=== PATIENT | male | born 1980 | race American Indian/Alaskan Native ===

== ENCOUNTER 2018-02-10 09:44 | Inpatient (IN) | payer SELFPAY ==
[2018-02-10] MEDS ORDERED: NACL 0.9% 500 ML 500 ML IV ONE (09:53)
[2018-02-10] MEDS ORDERED: CLEOCIN 600 MG/50 mL 600 MG/50 ML BAG IV ONE (10:05)
[2018-02-10] MEDS ORDERED: NACL 0.9% 250ML 250 ML IV ONE (10:05)
[2018-02-10] MEDS ORDERED: SUBLIMAZE IV ONE (10:05)
[2018-02-10] MEDS ORDERED: TYLENOL PO ONE (10:05)
[2018-02-10] MEDS ORDERED: NACL 0.9% 1000 ML 2,000 ML IV ONE (10:05)
[2018-02-10] MEDS ORDERED: NACL 0.9% 1000 ML 1,000 ML IV ONE ×2 (10:05→12:53)
--- NOTE | 2018-02-10 10:07 | Emergency Department Report ---
ED General Adult HPI - General Chief complaint: Fever Stated complaint: BUTTOCK ABSCESS Time Seen by Provider: 02/10/18 09:59 Source: patient, RN notes reviewed Mode of arrival: Ambulatory Limitations: No Limitations - History of Present Illness Initial comments: This is a 37-year-old gentleman who is not known to this provider previously. Patient reports that he does not have a local primary care doctor or chronic medical conditions. He presents to the ER with complaint of right gluteal pain and swelling, which is not traumatic, which is present for the past 4-5 days. Symptoms constant, did not radiate anywhere, worse with palpation and decreased with rest. Positive subjective fevers and chills, positive shortness of breath, no chest pain, no abdominal pain, no testicular pain. He reports she's had similar presentations in the past, reports she had gluteal swelling last year, approximately 12 months ago, although not as severe, and rep orts successful treatment with incision and drainage. -: Gradual, days(s) Location: right, lower extremity (gluteal cheek) Radiation: non-radiation Consistency: other Improves with: other Worsens with: other Associated Symptoms: fever/chills, loss of appetite, malaise, shortness of breath, weakness. denies: confusion, chest pain, cough, diaphoresis, headaches, nausea/vomiting, rash, seizure, syncope - Related Data Allergies Allergy/AdvReac Type Severity Reaction Status Date / Time No Known Allergies Allergy Unverified 02/10/18 09:51 ED Review of Systems ROS: Stated complaint: BUTTOCK ABSCESS Other details as noted in HPI Constitutional: fever, malaise, weakness Eyes: denies: vision change ENT: denies: epistaxis Respiratory: shortness of breath Cardiovascular: denies: chest pain Gastrointestinal: denies: abdominal pain Musculoskeletal: arthralgia, myalgia Skin: denies: lesions Neurological: weakness ED Past Medical Hx - Past Medical History Previous Medical History?: No - Surgical History Past Surgical History?: No - Social History Smoking Status: Current Every Day Smoker Substance Use Type: None ED Physical Exam - General Limitations: No Limitations General appearance: alert, in distress - Head Head exam: Present: atraumatic, normocephalic - Eye Eye exam: Present: normal appearance, EOMI. Absent: nystagmus - ENT ENT exam: Present: normal exam, normal orophraynx, mucous membranes moist, normal external ear exam - Neck Neck exam: Present: normal inspection, full ROM. Absent: tenderness, meningismus - Respiratory Respiratory exam: Present: normal lung sounds bilaterally. Absent: respiratory distress, wheezes, rales, rhonchi, stridor, chest wall tenderness, accessory muscle use, decreased breath sounds - Cardiovascular Cardiovascular Exam: Present: normal rhythm, tachycardia, normal heart sounds. Absent: systolic murmur, diastolic murmur, rubs, gallop - GI/Abdominal GI/Abdominal exam: Present: soft. Absent: distended, tenderness, guarding, r ebound, rigid, pulsatile mass - Rectal Rectal exam: Present: other (the right gluteal cheek is diffusely tender inferiorly, and somewhat tense. There is diffuse redness, there is no crepitus, there is no streaking. Chaperoned by nurse Caridad Mac). Absent: normal inspection - Extremities Exam Extremities exam: Present: normal inspection, full ROM, other (2+ pulses noted in the bilateral upper, lower extremities. Compartments soft. No long bony tenderness. The pelvis is stable.). Absent: pedal edema, joint swelling, calf tenderness - Back Exam Back exam: Present: normal inspection, full ROM. Absent: tenderness, CVA tenderness (R), paraspinal tenderness, vertebral tenderness - Neurological Exam Neurological exam: Present: alert, oriented X3, CN II-XII intact, other (Extraocular movements intact. Tongue midline. No facial droop. Facial sensation intact to light touch in the V1, V2, V3 distribution bilaterally. 5 and 5 strength in 4 extremities.. Sensation is intact to light touch in 4 extremities.). Absent: motor sensory deficit - Psychiatric Psychiatric exam: Present: anxious - Skin Skin exam: Present: warm, dry, intact, normal color. Absent: rash ED Course Vital Signs 02/10/18 02/10/18 02/10/18 09:51 10:30 10:45 Temperature 100.2 F H Pulse Rate 140 H 110 H 119 H Respiratory 18 16 16 Rate Blood Pressure 141/90 143/83 O2 Sat by Pulse 98 98 Oximetry 02/10/18 02/10/18 02/10/18 11:00 11:15 11:30 Temperature Pulse Rate 115 H 112 H 110 H Respiratory 21 15 15 Rate Blood Pressure 141/77 125/62 161/94 O2 Sat by Pulse 97 96 98 Oximetry 02/10/18 02/10/18 02/10/18 11:45 12:00 12:15 Temperature Pulse Rate 109 H 106 H 103 H Respiratory 13 19 24 Rate Blood Pressure 157/94 148/90 138/98 O2 Sat by Pulse 97 97 95 Oximetry - Reevaluation(s) Reevaluation #1: 02/10/18 11:15 Insulin ordered for hyperglycemia. Dr. Soto accepts Reevaluation #2: 02/10/18 11:35 Posterior scrotal exam did not demonstrate any significant abnormality, customer account representative ed by nurse Caridad Mac. CT scan of the pelvis shows cellulitis, reactive disease, phlegmon, no discrete abscess. General surgery solution design engineer paged to follow in consultation. Reevaluation #3: 02/10/18 12:55 Tachycardia improved. Let gas improved. Patient resting comfortably. Reports she feels improved. Has no additional complaints at this time. - Consultations Consultation #1: 02/10/18 11:36 Case presented to general surgeon, Dr. Pittman, who will follow in consultation, recommends heating pad. ED Medical Decision Making - Lab Data Result diagrams: 02/10/18 09:56 02/10/18 09:56 Vital Signs 02/10/18 09:51 Temperature 100.2 F H Pulse Rate 140 H Respiratory 18 Rate Blood Pressure 141/90 O2 Sat by Pulse 98 Oximetry Lab Results 02/10/18 02/10/18 02/10/18 Range/Units 09:56 09:56 09:56 WBC 42.6 H* (4.5-11.0) K/mm3 RBC 5.42 H (3.65-5.03) M/mm3 Hgb 14.7 (11.8-15.2) gm/dl Hct 44.6 (35.5-45.6) % MCV 82 L (84-94) fl MCH 27 L (28-32) pg MCHC 33 (32-34) % RDW 13.2 (13.2-15.2) % Plt Count 321 (140-440) K/mm3 PT 14.8 (12.2-14.9) Sec. INR 1.12 (0.87-1.13) VBG pH (7.320-7.420) Sodium 131 L (137-145) mmol/L Potassium 4.0 (3.6-5.0) mmol/L Chloride 89.4 L (98-107) mmol/L Carbon Dioxide 21 L (22-30) mmol/L Anion Gap 25 mmol/L BUN 15 (9-20) mg/dL Creatinine 0.9 (0.8-1.5) mg/dL Estimated GFR > 60 ml/min BUN/Creatinine Ratio 17 % Glucose 315 H (75-100) mg/dL Lactic Acid (0.7-2.0) mmol/L Calcium 9.4 (8.4-10.2) mg/dL Total Bilirubin 0.90 (0.1-1.2) mg/dL AST 16 (5-40) units/L ALT 27 (7-56) units/L Alkaline Phosphatase 124 (35-129) units/L Total Protein 7.9 (6.3-8.2) g/dL Albumin 3.3 L (3.9-5) g/dL Albumin/Globulin Ratio 0.7 % 02/10/18 02/10/18 Range/Units 09:56 09:56 WBC (4.5-11.0) K/mm3 RBC (3.65-5.03) M/mm3 Hgb (11.8-15.2) gm/dl Hct (35.5-45.6) % MCV (84-94) fl MCH (28-32) pg MCHC (32-34) % RDW (13.2-15.2) % Plt Count (140-440) K/mm3 PT (12.2-14.9) Sec. INR (0.87-1.13) VBG pH 7.415 (7.320-7.420) Sodium (137-145) mmol/L Potassium (3.6-5.0) mmol/L Chloride (98-107) mmol/L Carbon Dioxide (22-30) mmol/L Anion Gap mmol/L BUN (9-20) mg/dL Creatinine (0.8-1.5) mg/dL Estimated GFR ml/min BUN/Creatinine Ratio % Glucose (75-100) mg/dL Lactic Acid 3.40 H* (0.7-2.0) mmol/L Calcium (8.4-10.2) mg/dL Total Bilirubin (0.1-1.2) mg/dL AST (5-40) units/L ALT (7-56) units/L Alkaline Phosphatase (35-129) units/L Total Protein (6.3-8.2) g/dL Albumin (3.9-5) g/dL Albumin/Globulin Ratio % - EKG Data -: EKG Interpreted by Me EKG shows normal: sinus rhythm Rate: tachycardia - EKG Data When compared to previous EKG there are: previous EKG unavailable 02/10/18 11:07 Sinus tachycardia, 118 bpm, normal axis, normal QTC, motion artifact, not consistent with ST elevation myocardial infarction. - Radiology Data Radiology results: report reviewed, image reviewed interpreted by me: X-ray of the chest is negative for acute disease CT scan of the pelvis: - Medical Decision Making Differential diagnosis, including without limited to: Sepsis, cellulitis, abscess Assessment and plan: 37-year-old gentleman with clinical gluteal cellulitis, possible abscess, with evidence of sepsis manifested by tachycardia, leukocytosis, lactic acidosis. He is hemodynamically stable, does not appear to be in significant distress, and protecting his airway at this time. No focal pulmonary findings noted on examination, x-ray of the chest to my interpretation is unremarkable. Pelvic CT interpretation is pending, if discrete abscess demonstrated, we will consult general surgery. Patient be resuscitated according to the sepsis pathway; I have discussed admission to the hospital with this patient, who is amenable to hospitalization for IV fluids, IV antibiotics and supportive care. Critical care attestation.: If time is entered above; I have spent that time in minutes in the direct care of this critically ill patient, excluding procedure time. ED Disposition Clinical Impression: Sepsis syndrome Disposition: OP ADMIT IP TO THIS HOSP Is pt being admited?: Yes Condition: Good
[2018-02-10 10:23] LABS: Hematocrit 44.6 % (35.5-45.6); Hemoglobin 14.7 gm/dl (11.8-15.2); Mean Corpuscular HGB Conc 33 % (32-34); Mean Corpuscular Volume 82 fl (84-94); Platelet Count 321 K/mm3 (140-440); Red Blood Count 5.42 M/mm3 (3.65-5.03); Red Cell Distribution Width 13.2 % (13.2-15.2)
[2018-02-10 10:36] LABS: Alanine Aminotransferase 27 units/L (7-56); Albumin 3.3 g/dL (3.9-5); BUN/Creatinine Ratio 17; Blood Urea Nitrogen 15 mg/dL (9-20); Calcium 9.4 mg/dL (8.4-10.2); Hemolysis Index 10
[2018-02-10 10:44] LABS: INR 1.12 (0.87-1.13)
[2018-02-10] MEDS ORDERED: HumuLIN R IV ONE (11:04)
--- NOTE | 2018-02-10 11:32 | Cat Scan Report ---
FINAL REPORT EXAM: CT PELVIS W CON HISTORY: gluteal abscess, pain TECHNIQUE: CT of the pelvis with IV contrast. Coronal and sagittal reconstructed imaging provided. PRIORS: None currently available. FINDINGS: PELVIS: Left gluteal subcutaneous fat demonstrates stranding which extends into the posterior medial upper th igh. Trace fluid noted. No distinct fluid collection with rim enhancement identified. Mild skin thick ening noted. Subcutaneous stranding extends anteriorly at the region of the pelvis on series 2:28. There is thicke maria del carmen and stranding of the right gracilis muscle and there is mild thickening and stranding of the med ial obturator and pectineus muscles near the pubic symphysis. There may be a small fluid collection i n the medial subcutaneous thigh on series 2:33 measuring 2.2 cm without distinct rim enhancement. Flu id in the subcutaneous fat identified. Enlarged reactive lymph nodes in the right and left inguinal region noted. Right is more prominent co mpared to the left. No fluid collection or stranding noted within the intrapelvic regions. There is some stranding and swelling extending into the right scrotal sac. Limited CT images of the prostate are unremarkable. Bladder is unremarkable. There is no pelvic mass or adenopathy. Inguinal regions are unremarkable. Bones: No suspicious osseous lesions on this limited examination of the skeleton. Metastatic disease better evaluated with bone scan. IMPRESSION: Stranding and swelling in the right gluteal soft tissues extends into the posterior medial thigh and into the subcutaneous fat at the pelvic floor. Small fluid collection at the medial upper thigh/infer ior pelvis within the soft tissues does not demonstrate a distinct rim enhancement and may represent a phlegmon. Involvement of the adjacent musculature is described above. No intrapelvic extension. Mil d extension into the right scrotal sac identified. Reactive adenopathy within both inguinal regions. February 10, 2018 at 0827 PST: I discussed the findings over phone with Dr. Moralez.
--- NOTE | 2018-02-10 11:36 | XRay Report ---
FINAL REPORT EXAM: XR CHEST 1V AP HISTORY: possible Sepsis TECHNIQUE: Frontal chest x-ray. PRIORS: None currently available. FINDINGS: Cardiac silhouette is within normal limits. There is no effusion. There is no pneumothorax. There is no consolidation. Elevated right hemidiaphra gm. There are no suspicious osseous lesions. IMPRESSION: No acute cardiopulmonary findings.
[2018-02-10 12:02] LABS: Band Neutrophils # (Manual) 2.8 K/mm3; Basophils % (Manual) 0 % (0.0-1.8); Eosinophils % (Manual) 0 % (0.0-4.3); Monocytes % (Manual) 11.5 % (0.0-7.3); Total Cells Counted 200
[2018-02-10 12:03] LABS: Platelet Estimate Consistent w Auto
[2018-02-10 12:04] LABS: Toxic Vacuolation Few
[2018-02-10] MEDS ORDERED: VANCOMYCIN 2,000 MG in NACL 0.9% 500 ML 500 ML IV ONE (14:00)
[2018-02-10] MEDS ORDERED: TYLENOL PO PRN (16:15)
[2018-02-10 18:45] LABS: Bilirubin,Urine NEG (Negative); Blood,Urine NEG (Negative); Color,Urine Yellow (Yellow); Mucus,Urine FEW /HPF
[2018-02-10] MEDS: PERCOCET 5/325 PO PRN (21:39)
[2018-02-10] MEDS ORDERED: SODIUM CHLORIDE FLUSH SYRINGE 10 ML IV PRN (21:45)
[2018-02-10] MEDS ORDERED: ZOFRAN IV PRN (21:45)
--- NOTE | 2018-02-10 21:45 | History and Physical Report ---
History of Present Illness Date of examination: 02/10/18 Date of admission: 02/10/18 12:19 Medications and Allergies Allergies Allergy/AdvReac Type Severity Reaction Status Date / Time No Known Allergies Allergy Unverified 02/10/18 09:51 Active Meds: Active Medications Acetaminophen (Tylenol) 650 mg PO Q6H PRN PRN Reason: Pain Last Admin: 02/10/18 16:40 Dose: 650 mg Documented by: Oxycodone/Acetaminophen (Percocet 5/325) 1 tab PO Q4H PRN PRN Reason: Pain, Moderate (4-6) Last Admin: 02/10/18 21:39 Dose: 1 tab Documented by: Exam - Constitutional Vitals: Temp Pulse Resp BP Pulse Ox 102.7 F H 106 H 18 139/84 97 02/10/18 18:26 02/10/18 18:26 02/10/18 18:26 02/10/18 18:26 02/10/18 18:26 Results - Labs CBC & Chem 7: 02/10/18 09:56 02/10/18 09:56 Labs: Laboratory Last Values WBC 42.6 K/mm3 (4.5-11.0) H* 02/10/18 09:56 RBC 5.42 M/mm3 (3.65-5.03) H 02/10/18 09:56 Hgb 14.7 gm/dl (11.8-15.2) 02/10/18 09:56 Hct 44.6 % (35.5-45.6) 02/10/18 09:56 MCV 82 fl (84-94) L 02/10/18 09:56 MCH 27 pg (28-32) L 02/10/18 09:56 MCHC 33 % (32-34) 02/10/18 09:56 RDW 13.2 % (13.2-15.2) 02/10/18 09:56 Plt Count 321 K/mm3 (140-440) 02/10/18 09:56 Add Manual Diff Complete 02/10/18 09:56 Total Counted 200 02/10/18 09:56 Seg Neuts % (Manual) 74.5 % (40.0-70.0) H 02/10/18 09:56 Band Neutrophils % 6.5 % 02/10/18 09:56 Lymphocytes % (Manual) 6.5 % (13.4-35.0) L 02/10/18 09:56 Reactive Lymphs % (Man) 0 % 02/10/18 09:56 Monocytes % (Manual) 11.5 % (0.0-7.3) H 02/10/18 09:56 Eosinophils % (Manual) 0 % (0.0-4.3) 02/10/18 09:56 Basophils % (Manual) 0 % (0.0-1.8) 02/10/18 09:56 Metamyelocytes % 1.0 % 02/10/18 09:56 Myelocytes % 0 % 02/10/18 09:56 Promyelocytes % 0 % 02/10/18 09:56 Blast Cells % 0 % 02/10/18 09:56 Nucleated RBC % Not Reportable 02/10/18 09:56 Seg Neutrophils # Man 31.7 K/mm3 (1.8-7.7) H 02/10/18 09:56 Band Neutrophils # 2.8 K/mm3 02/10/18 09:56 Lymphocytes # (Manual) 2.8 K/mm3 (1.2-5.4) 02/10/18 09:56 Abs React Lymphs (Man) 0.0 K/mm3 02/10/18 09:56 Monocytes # (Manual) 4.9 K/mm3 (0.0-0.8) H 02/10/18 09:56 Eosinophils # (Manual) 0.0 K/mm3 (0.0-0.4) 02/10/18 09:56 Basophils # (Manual) 0.0 K/mm3 (0.0-0.1) 02/10/18 09:56 Metamyelocytes # 0.4 K/mm3 02/10/18 09:56 Myelocytes # 0.0 K/mm3 02/10/18 09:56 Promyelocytes # 0.0 K/mm3 02/10/18 09:56 Blast Cells # 0.0 K/mm3 02/10/18 09:56 WBC Morphology Not Reportable 02/10/18 09:56 Hypersegmented Neuts Not Reportable 02/10/18 09:56 Hyposegmented Neuts Not Reportable 02/10/18 09:56 Hypogranular Neuts Not Reportable 02/10/18 09:56 Smudge Cells Not Reportable 02/10/18 09:56 Toxic Granulation Not Reportable 02/10/18 09:56 Toxic Vacuolation Few 02/10/18 09:56 Dohle Bodies Not Reportable 02/10/18 09:56 Pelger-Huet Anomaly Not Reportable 02/10/18 09:56 Nivia Rods Not Reportable 02/10/18 09:56 Platelet Estimate Consistent w auto 02/10/18 09:56 Clumped Platelets Not Reportable 02/10/18 09:56 Plt Clumps, EDTA Not Reportable 02/10/18 09:56 Large Platelets Not Reportable 02/10/18 09:56 Giant Platelets Not Reportable 02/10/18 09:56 Platelet Satelliting Not Reportable 02/10/18 09:56 Plt Morphology Comment Not Reportable 02/10/18 09:56 RBC Morphology Not Reportable 02/10/18 09:56 Dimorphic RBCs Not Reportable 02/10/18 09:56 Polychromasia Not Reportable 02/10/18 09:56 Hypochromasia Not Reportable 02/10/18 09:56 Poikilocytosis Not Reportable 02/10/18 09:56 Anisocytosis Not Reportable 02/10/18 09:56 Microcytosis Not Reportable 02/10/18 09:56 Macrocytosis Not Reportable 02/10/18 09:56 Spherocytes Not Reportable 02/10/18 09:56 Pappenheimer Bodies Not Reportable 02/10/18 09:56 Sickle Cells Not Reportable 02/10/18 09:56 Target Cells Not Reportable 02/10/18 09:56 Tear Drop Cells Not Reportable 02/10/18 09:56 Ovalocytes Not Reportable 02/10/18 09:56 Helmet Cells Not Reportable 02/10/18 09:56 Kessler-Ehrenfeld Bodies Not Reportable 02/10/18 09:56 [place] Rings Not Reportable 02/10/18 09:56 Dell Cells Not Reportable 02/10/18 09:56 Bite Cells Not Reportable 02/10/18 09:56 Crenated Cell Not Reportable 02/10/18 09:56 Elliptocytes Not Reportable 02/10/18 09:56 Acanthocytes (Spur) Not Reportable 02/10/18 09:56 Rouleaux Not Reportable 02/10/18 09:56 Hemoglobin C Crystals Not Reportable 02/10/18 09:56 Schistocytes Not Reportable 02/10/18 09:56 Malaria parasites Not Reportable 02/10/18 09:56 Jurgen Bodies Not Reportable 02/10/18 09:56 Hem Pathologist Commnt Sent 02/10/18 09:56 PT 14.8 Sec. (12.2-14.9) 02/10/18 09:56 INR 1.12 (0.87-1.13) 02/10/18 09:56 VBG pH 7.415 (7.320-7.420) 02/10/18 09:56 Sodium 131 mmol/L (137-145) L 02/10/18 09:56 Potassium 4.0 mmol/L (3.6-5.0) 02/10/18 09:56 Chloride 89.4 mmol/L (98-107) L 02/10/18 09:56 Carbon Dioxide 21 mmol/L (22-30) L 02/10/18 09:56 Anion Gap 25 mmol/L 02/10/18 09:56 BUN 15 mg/dL (9-20) 02/10/18 09:56 Creatinine 0.9 mg/dL (0.8-1.5) 02/10/18 09:56 Estimated GFR > 60 ml/min 02/10/18 09:56 BUN/Creatinine Ratio 17 % 02/10/18 09:56 Glucose 315 mg/dL (75-100) H 02/10/18 09:56 Lactic Acid 1.80 mmol/L (0.7-2.0) 02/10/18 17:14 Calcium 9.4 mg/dL (8.4-10.2) 02/10/18 09:56 Total Bilirubin 0.90 mg/dL (0.1-1.2) 02/10/18 09:56 AST 16 units/L (5-40) 02/10/18 09:56 ALT 27 units/L (7-56) 02/10/18 09:56 Alkaline Phosphatase 124 units/L (35-129) 02/10/18 09:56 Total Creatine Kinase 151 units/L (55-170) 02/10/18 09:56 Total Protein 7.9 g/dL (6.3-8.2) 02/10/18 09:56 Albumin 3.3 g/dL (3.9-5) L 02/10/18 09:56 Albumin/Globulin Ratio 0.7 % 02/10/18 09:56 Urine Color Yellow (Yellow) 02/10/18 Unknown Urine Turbidity Clear (Clear) 02/10/18 Unknown Urine pH 6.0 (5.0-7.0) 02/10/18 Unknown Ur Specific [place] 1.038 (1.003-1.030) H 02/10/18 Unknown Urine Protein 100 mg/dl mg/dL (Negative) 02/10/18 Unknown Urine Glucose (UA) >=500 mg/dL (Negative) 02/10/18 Unknown Urine Ketones 80 mg/dL (Negative) 02/10/18 Unknown Urine Blood Neg (Negative) 02/10/18 Unknown Urine Nitrite Neg (Negative) 02/10/18 Unknown Urine Bilirubin Neg (Negative) 02/10/18 Unknown Urine Urobilinogen 4.0 mg/dL (<2.0) 02/10/18 Unknown Ur Leukocyte Esterase Neg (Negative) 02/10/18 Unknown Urine WBC (Auto) 1.0 /HPF (0.0-6.0) 02/10/18 Unknown Urine RBC (Auto) 1.0 /HPF (0.0-6.0) 02/10/18 Unknown Urine Mucus Few /HPF 02/10/18 Unknown
[2018-02-10] MEDS ORDERED: VANCOMYCIN PHARMACY TO DOSE IV SCH ×2 (22:00)
[2018-02-10] MEDS: PEPCID IV SCH (22:42)
[2018-02-10] MEDS: SODIUM CHLORIDE FLUSH SYRINGE 10 ML IV SCH (22:42)
[2018-02-11] MEDS: UNASYN/NS 3 GM/100 ML 3 GM/100 ML BAG IV SCH ×3 (00:03→12:00)
[2018-02-11] MEDS: PERCOCET 5/325 PO PRN (05:18)
[2018-02-11] MEDS: VANCOMYCIN 1,500 MG in NACL 0.9% 500 ML 500 ML IV SCH ×2 (06:05→20:09)
--- NOTE | 2018-02-11 06:44 | Event Note ---
Date: 02/10/18 See dictated H/p in reports
[2018-02-11] MEDS: HumaLOG SUB-Q SCH ×4 (07:30→22:27)
--- NOTE | 2018-02-11 08:26 | History and Physical Report ---
CHIEF COMPLAINT: Right hip pain. HISTORY OF PRESENT ILLNESS: A 37-year-old with no significant past medical history, comes in for right gluteal pain and swelling for 5 days. The pain is about 8 on a scale of 1-10. Low-grade fever present. No trauma. The patient had no abscesses in the past. PAST MEDICAL HISTORY: None. PAST SURGICAL HISTORY: None. SOCIAL HISTORY: Smokes about a half a pack a day. FAMILY HISTORY: Hypertension. REVIEW OF SYSTEMS: Significant for right gluteal pain and tenderness. Pain is about 8 on a scale of 1-10. Otherwise, review of systems negative. PHYSICAL EXAMINATION: VITAL SIGNS: Blood pressure is 139/84, temperature is 102.7, pulse is 106, respirations are 18, sats are 97%. HEENT: Unremarkable. Pupils equal and reactive. NECK: Supple. No lymphadenopathy, no thyromegaly. LUNGS: Clear to auscultation and percussion. Good air entry. CARDIOVASCULAR: S1, S2 heard. No gallop, no murmur, no rub. Apical impulse in left fifth intercostal space and midclavicular line. ABDOMEN: Soft and benign. No hepatosplenomegaly. No guarding, no rigidity. Hernial orifices are normal. EXTREMITIES: Severe swelling of the right gluteal region. Induration present. SKIN: Warm to touch. DIAGNOSTIC DATA: Pelvic CT shows stranding and swelling in the right gluteal soft tissue, extends into the posterior medial thigh and into the subcutaneous fat at the pelvic floor. Small fluid collections at the medial upper thigh by inferior pelvis with soft tissues does not demonstrate a distinct rim enhancement and may represent a phlegmon. Involvement of the adjacent musculature as described. No intrapelvic extension. Mild extension into the right scrotal sac identified. Reactive adenopathy within both inguinal regions. LABORATORY DATA: White count is 42,000. H and H are 14.7 and 44.6. Lactic acid is 2.3 and 2.1. Hemoglobin A1c is 14, glucose is 315. Urine specific gravity is 1.038. ASSESSMENT AND PLAN: 1. Sepsis. The patient to be treated for sepsis. The patient initiated on Unasyn and vancomycin. 2. New-onset diabetes. The patient initiated on high-dose insulin sliding scale coverage. 3. Right pelvic abscess. Surgery consulted. The patient on IV Unasyn and IV vancomycin. 4. Pain management, pain control with Dilaudid. 5. Malnutrition, mild to moderate. Albumin level 3.3. Dietitian consult requested. 6. Deep venous thrombosis prophylaxis, Lovenox 40 mg subcutaneous daily. JOB# [id number]
--- NOTE | 2018-02-11 08:57 | Progress Note ---
Assessment and Plan Assessment and plan: Sepsis. Cont iv Abx Consult ID Right gluteal abscess iv Abx Surg consulted For I and D today Marked leukocytosis, WBC 42.6 Due to sepsis Diabetes mellitus type 2, now diagnosed A1C 14 Hyponatremia due to hyperglycemia Full code status History Interval history: Pain swelling right buttocks area Hospitalist Physical - Physical exam Narrative exam: GEN: Not in acute distress, Obese HEENT: Normocephalic, atraumatic, Neck: supple, No JVD Lungs: Clear, no rhonchi, no wheeze Heart:S1 and S2 regular, no murmurs, rubs or gallop, Abd:soft, non tender, non distended, normal bowel sounds Ext: Right posterior thigh tender,fluctuant area, no cyanosis Neuro: AAO x 3, moves all extremities, no focal neurological signs Psych:Normal mood - Constitutional Vitals: Temp Pulse Resp BP Pulse Ox 101.9 F H 104 H 18 150/92 98 02/11/18 04:57 02/11/18 04:57 02/11/18 04:57 02/11/18 04:57 02/11/18 04:57 Results - Labs CBC & Chem 7: 02/11/18 09:13 02/11/18 09:13 Labs: Laboratory Last Values WBC 42.6 K/mm3 (4.5-11.0) H* 02/10/18 09:56 RBC 5.42 M/mm3 (3.65-5.03) H 02/10/18 09:56 Hgb 14.7 gm/dl (11.8-15.2) 02/10/18 09:56 Hct 44.6 % (35.5-45.6) 02/10/18 09:56 MCV 82 fl (84-94) L 02/10/18 09:56 MCH 27 pg (28-32) L 02/10/18 09:56 MCHC 33 % (32-34) 02/10/18 09:56 RDW 13.2 % (13.2-15.2) 02/10/18 09:56 Plt Count 321 K/mm3 (140-440) 02/10/18 09:56 Add Manual Diff Complete 02/10/18 09:56 Total Counted 200 02/10/18 09:56 Seg Neuts % (Manual) 74.5 % (40.0-70.0) H 02/10/18 09:56 Band Neutrophils % 6.5 % 02/10/18 09:56 Lymphocytes % (Manual) 6.5 % (13.4-35.0) L 02/10/18 09:56 Reactive Lymphs % (Man) 0 % 02/10/18 09:56 Monocytes % (Manual) 11.5 % (0.0-7.3) H 02/10/18 09:56 Eosinophils % (Manual) 0 % (0.0-4.3) 02/10/18 09:56 Basophils % (Manual) 0 % (0.0-1.8) 02/10/18 09:56 Metamyelocytes % 1.0 % 02/10/18 09:56 Myelocytes % 0 % 02/10/18 09:56 Promyelocytes % 0 % 02/10/18 09:56 Blast Cells % 0 % 02/10/18 09:56 Nucleated RBC % Not Reportable 02/10/18 09:56 Seg Neutrophils # Man 31.7 K/mm3 (1.8-7.7) H 02/10/18 09:56 Band Neutrophils # 2.8 K/mm3 02/10/18 09:56 Lymphocytes # (Manual) 2.8 K/mm3 (1.2-5.4) 02/10/18 09:56 Abs React Lymphs (Man) 0.0 K/mm3 02/10/18 09:56 Monocytes # (Manual) 4.9 K/mm3 (0.0-0.8) H 02/10/18 09:56 Eosinophils # (Manual) 0.0 K/mm3 (0.0-0.4) 02/10/18 09:56 Basophils # (Manual) 0.0 K/mm3 (0.0-0.1) 02/10/18 09:56 Metamyelocytes # 0.4 K/mm3 02/10/18 09:56 Myelocytes # 0.0 K/mm3 02/10/18 09:56 Promyelocytes # 0.0 K/mm3 02/10/18 09:56 Blast Cells # 0.0 K/mm3 02/10/18 09:56 WBC Morphology Not Reportable 02/10/18 09:56 Hypersegmented Neuts Not Reportable 02/10/18 09:56 Hyposegmented Neuts Not Reportable 02/10/18 09:56 Hypogranular Neuts Not Reportable 02/10/18 09:56 Smudge Cells Not Reportable 02/10/18 09:56 Toxic Granulation Not Reportable 02/10/18 09:56 Toxic Vacuolation Few 02/10/18 09:56 Dohle Bodies Not Reportable 02/10/18 09:56 Pelger-Huet Anomaly Not Reportable 02/10/18 09:56 Nivia Rods Not Reportable 02/10/18 09:56 Platelet Estimate Consistent w auto 02/10/18 09:56 Clumped Platelets Not Reportable 02/10/18 09:56 Plt Clumps, EDTA Not Reportable 02/10/18 09:56 Large Platelets Not Reportable 02/10/18 09:56 Giant Platelets Not Reportable 02/10/18 09:56 Platelet Satelliting Not Reportable 02/10/18 09:56 Plt Morphology Comment Not Reportable 02/10/18 09:56 RBC Morphology Not Reportable 02/10/18 09:56 Dimorphic RBCs Not Reportable 02/10/18 09:56 Polychromasia Not Reportable 02/10/18 09:56 Hypochromasia Not Reportable 02/10/18 09:56 Poikilocytosis Not Reportable 02/10/18 09:56 Anisocytosis Not Reportable 02/10/18 09:56 Microcytosis Not Reportable 02/10/18 09:56 Macrocytosis Not Reportable 02/10/18 09:56 Spherocytes Not Reportable 02/10/18 09:56 Pappenheimer Bodies Not Reportable 02/10/18 09:56 Sickle Cells Not Reportable 02/10/18 09:56 Target Cells Not Reportable 02/10/18 09:56 Tear Drop Cells Not Reportable 02/10/18 09:56 Ovalocytes Not Reportable 02/10/18 09:56 Helmet Cells Not Reportable 02/10/18 09:56 [place] Bodies Not Reportable 02/10/18 09:56 [place] Rings Not Reportable 02/10/18 09:56 [place] Cells Not Reportable 02/10/18 09:56 Bite Cells Not Reportable 02/10/18 09:56 Crenated Cell Not Reportable 02/10/18 09:56 Elliptocytes Not Reportable 02/10/18 09:56 Acanthocytes (Spur) Not Reportable 02/10/18 09:56 Rouleaux Not Reportable 02/10/18 09:56 Hemoglobin C Crystals Not Reportable 02/10/18 09:56 Schistocytes Not Reportable 02/10/18 09:56 Malaria parasites Not Reportable 02/10/18 09:56 [place] Bodies Not Reportable 02/10/18 09:56 Hem Pathologist Commnt Sent 02/10/18 09:56 PT 14.8 Sec. (12.2-14.9) 02/10/18 09:56 INR 1.12 (0.87-1.13) 02/10/18 09:56 VBG pH 7.415 (7.320-7.420) 02/10/18 09:56 Sodium 131 mmol/L (137-145) L 02/10/18 09:56 Potassium 4.0 mmol/L (3.6-5.0) 02/10/18 09:56 Chloride 89.4 mmol/L (98-107) L 02/10/18 09:56 Carbon Dioxide 21 mmol/L (22-30) L 02/10/18 09:56 Anion Gap 25 mmol/L 02/10/18 09:56 BUN 15 mg/dL (9-20) 02/10/18 09:56 Creatinine 0.9 mg/dL (0.8-1.5) 02/10/18 09:56 Estimated GFR > 60 ml/min 02/10/18 09:56 BUN/Creatinine Ratio 17 % 02/10/18 09:56 Glucose 315 mg/dL (75-100) H 02/10/18 09:56 Hemoglobin A1c 14.0 % (4-6) H 02/10/18 23:33 Lactic Acid 1.70 mmol/L (0.7-2.0) 02/10/18 23:33 Calcium 9.4 mg/dL (8.4-10.2) 02/10/18 09:56 Total Bilirubin 0.90 mg/dL (0.1-1.2) 02/10/18 09:56 AST 16 units/L (5-40) 02/10/18 09:56 ALT 27 units/L (7-56) 02/10/18 09:56 Alkaline Phosphatase 124 units/L (35-129) 02/10/18 09:56 Total Creatine Kinase 151 units/L (55-170) 02/10/18 09:56 Total Protein 7.9 g/dL (6.3-8.2) 02/10/18 09:56 Albumin 3.3 g/dL (3.9-5) L 02/10/18 09:56 Albumin/Globulin Ratio 0.7 % 02/10/18 09:56 Urine Color Yellow (Yellow) 02/10/18 Unknown Urine Turbidity Clear (Clear) 02/10/18 Unknown Urine pH 6.0 (5.0-7.0) 02/10/18 Unknown Ur Specific [place] 1.038 (1.003-1.030) H 02/10/18 Unknown Urine Protein 100 mg/dl mg/dL (Negative) 02/10/18 Unknown Urine Glucose (UA) >=500 mg/dL (Negative) 02/10/18 Unknown Urine Ketones 80 mg/dL (Negative) 02/10/18 Unknown Urine Blood Neg (Negative) 02/10/18 Unknown Urine Nitrite Neg (Negative) 02/10/18 Unknown Urine Bilirubin Neg (Negative) 02/10/18 Unknown Urine Urobilinogen 4.0 mg/dL (<2.0) 02/10/18 Unknown Ur Leukocyte Esterase Neg (Negative) 02/10/18 Unknown Urine WBC (Auto) 1.0 /HPF (0.0-6.0) 02/10/18 Unknown Urine RBC (Auto) 1.0 /HPF (0.0-6.0) 02/10/18 Unknown Urine Mucus Few /HPF 02/10/18 Unknown
[2018-02-11] MEDS: PEPCID IV SCH ×2 (09:18→22:28)
[2018-02-11 10:29] LABS: Hematocrit 39.6 % (35.5-45.6); Mean Corpuscular HGB Conc 33 % (32-34); Mean Corpuscular Volume 83 fl (84-94); Platelet Count 265 K/mm3 (140-440); Red Cell Distribution Width 13.4 % (13.2-15.2)
[2018-02-11 10:54] LABS: Alanine Aminotransferase 23 units/L (7-56); Albumin 2.8 g/dL (3.9-5); BUN/Creatinine Ratio 16; Blood Urea Nitrogen 14 mg/dL (9-20); Calcium 8.2 mg/dL (8.4-10.2); Hemolysis Index 5
--- NOTE | 2018-02-11 12:48 | Consultation ---
History of Present Illness - Reason for Consult Consult date: 02/11/18 Gluteal abscess Requesting physician: DANCIA FORMAN - History of Present Illness The patient is a 37-year-old male with no significant past medical history presented to the emergency room with complaints of right buttock pain. He states he was at his baseline state of health until last Sunday when he noticed some pain on his right buttock. This gradually progressed to severe pain on Sunday and hence he presented to the emergency room. He also started having fevers. Here, he was noted to have significant leukocytosis, fevers and sepsis. Patient underwent a CT pelvis with IV contrast which revealed a right gluteal phlegmon versus possible early abscess. Was started empirically on levofloxacin and infectious diseases was consulted. General surgery was also consulted and plans to take him to the OR. Fevers here have been as high as 102.7F. The patient admits to smoking, hasn't been smoking for the last 1 week. Denies any alcohol or recreational drug use. He denies any known prior history of MRSA infection. Review of Systems: General: + fevers, chills no rigors HEENT: no new visual disturbance Respiratory: No cough, sputum, hemoptysis or shortness of breath Cardiovascular: No chest pain, syncope Gastrointestinal: No nausea, vomiting or diarrhea Genitourinary: No dysuria or hematuria Musculoskeletal: No new or worsening neck pain or back pain. Right buttock pain + Neurologic: No headaches, seizures Hematologic: No easy bruising or bleeding Endocrine: No night sweats or acute weight loss Skin: negative for rash, jaundice Psychiatric: No suicidal or homicidal ideation Medications and Allergies Allergies Allergy/AdvReac Type Severity Reaction Status Date / Time No Known Allergies Allergy Unverified 02/10/18 09:51 Active Meds: Active Medications Acetaminophen (Tylenol) 650 mg PO Q4H PRN PRN Reason: Pain MILD(1-3)/Fever >100.5/HERNANDEZ Enoxaparin Sodium (Lovenox) 40 mg SUB-Q QDAY@2200 ERIC Famotidine (Pepcid) 20 mg IV BID [facility] Last Admin: 02/11/18 09:18 Dose: 20 mg Documented by: Hydromorphone HCl (Dilaudid) 1 mg IV Q3H PRN PRN Reason: Pain , Severe (7-10) Ampicillin Sodium/Sulbactam Sodium (Unasyn/Ns 3 Gm/100 Ml) 3 gm in 100 mls @ 100 mls/hr IV Q6HR [facility]; Protocol Last Admin: 02/11/18 06:05 Dose: 100 mls/hr Documented by: Vancomycin HCl 1,500 mg/ (Sodium Chloride) 530 mls @ 333.333 mls/hr IV Q12H [facility] Last Admin: 02/11/18 06:05 Dose: 333.333 mls/hr Documented by: Sodium Chloride (Nacl 0.9% 1000 Ml) 1,000 mls @ 100 mls/hr IV DIRECT ERIC Insulin Glargine (Lantus) 25 units SUB-Q QHS ERIC Insulin Human Lispro (Humalog) 0 unit SUB-Q ACHS [facility]; Protocol Last Admin: 02/11/18 07:30 Dose: Not Given Documented by: Ondansetron HCl (Zofran) 4 mg IV Q8H PRN PRN Reason: Nausea And Vomiting Oxycodone/Acetaminophen (Percocet 5/325) 1 tab PO Q4H PRN PRN Reason: Pain, Moderate (4-6) Last Admin: 02/11/18 05:18 Dose: 1 tab Documented by: Sodium Chloride (Sodium Chloride Flush Syringe 10 Ml) 10 ml IV PRN PRN PRN Reason: LINE FLUSH Sodium Chloride (Sodium Chloride Flush Syringe 10 Ml) 10 ml IV BID [facility] Last Admin: 02/10/18 22:42 Dose: 10 ml Documented by: Physical Examination - Physical Exam Narrative exam: Physical Exam: Constitutional: Alert, cooperative. No acute distress. Obese Head, Ears, Nose: Normocephalic, atraumatic. External ears, nose normal Eyes: Conjunctivae/corneas clear. No icterus. No ptosis. Neck: Supple, no meningeal signs Oral: no ulcers, no thrush Cardiovascular: S1, S2 normal. Respiratory: Good air entry, clear to auscultation bilaterally GI: Soft, non-tender; bowel sounds normal. No peritoneal signs Musculoskeletal: No pedal edema, no cyanosis. Right gluteal region with some drainage, severe induration and tenderness Skin: No rash or abscess Hem/Lymphatic: No palpable cervical or supraclavicular nodes. No lymphangitis Psych: Mood ok. Affect normal Neurological: Awake, alert, oriented. No gross abnormality - Constitutional Vitals: Vital Signs Temp Pulse Resp BP Pulse Ox 101.9 F H 104 H 18 150/92 98 02/11/18 04:57 02/11/18 04:57 02/11/18 04:57 02/11/18 04:57 02/11/18 04:57 Temperature -Last 24 Hours Temperature 101.9 F Temperature 100.2 F Temperature 100.2 F Temperature 102.7 F Results - Labs CBC & Chem 7: 02/11/18 09:13 02/11/18 09:13 Labs: Abnormal lab results 02/10/18 02/10/18 02/10/18 Range/Units 13:52 23:33 Unknown WBC (4.5-11.0) K/mm3 MCV (84-94) fl MCH (28-32) pg Sodium (137-145) mmol/L Chloride (98-107) mmol/L Glucose (75-100) mg/dL POC Glucose (70-105) Hemoglobin A1c 14.0 H (4-6) % Lactic Acid 2.10 H* (0.7-2.0) mmol/L Calcium (8.4-10.2) mg/dL Albumin (3.9-5) g/dL Ur Specific [place] 1.038 H (1.003-1.030) 02/11/18 02/11/18 02/11/18 Range/Units 09:13 09:13 09:20 WBC 38.2 H (4.5-11.0) K/mm3 MCV 83 L (84-94) fl MCH 27 L (28-32) pg Sodium 131 L (137-145) mmol/L Chloride 91.5 L (98-107) mmol/L Glucose 292 H (75-100) mg/dL POC Glucose 258 H (70-105) Hemoglobin A1c (4-6) % Lactic Acid (0.7-2.0) mmol/L Calcium 8.2 L (8.4-10.2) mg/dL Albumin 2.8 L (3.9-5) g/dL Ur Specific [place] (1.003-1.030) - Imaging and Cardiology Chest x-ray: report reviewed, image reviewed (no pneumonia) CT scan - pelvis: report reviewed, image reviewed (Stranding and swelling in the right gluteal soft tissues extends into the posterior medial thigh ) Assessment and Plan Cultures: 02/10/2018 blood culture: No growth A/P: 37/M with previous history of jaw abscess, no known MRSA history admitted with: 1) Right gluteal abscess causing sepsis and leukemoid reaction 2) Morbid obesity 3) Diabetes mellitus type 2, uncontrolled, newly diagnosed: HbA1c 14 here. Recs: Discontinued levofloxacin Started IV cefepime, Flagyl and vancomycin Discussed with Dr. Pittman, planned for OR debridement and cultures Follow up blood and OR cultures to help guide antibiotic therapy Recommend tight glycemic control Will follow. Please call with questions. MD [facility] C: [phone] O: [phone] F: [phone]
--- NOTE | 2018-02-11 13:29 | Progress Note ---
Assessment and Plan Full consult dictated 37y/o male c/o of fever and perirectal pain since sun. elevated wbc and T noted. CT no signs of fluid collection or necrotizing fasciitis noted but slight amount of drainage noted on exam. This is a 37-year-old gentleman who is not known to this provider previously. Patient reports that he does not have a local primary care doctor or chronic medical conditions. He presents to the ER with complaint of right gluteal pain and swelling, which is not traumatic, which is present for the past 4-5 days. Symptoms constant, did not radiate anywhere, worse with palpation and decreased with rest. Positive subjective fevers and chills, positive shortness of breath, no chest pain, no abdominal pain, no testicular pain. He reports she's had similar presentations in the past, reports she had gluteal swelling last year, approximately 12 months ago, although not as severe, and reports successful treatment with incision and drainage. -: Gradual, days(s) Location: right, lower extremity (gluteal cheek) Radiation: non-radiation Consistency: other Improves with: other Worsens with: other Associated Symptoms: fever/chills, loss of appetite, malaise, shortness of breath, weakness. denies: confusion, chest pain, cough, diaphoresis, headaches, nausea/vomiting, rash, seizure, syncope r/o perirectal abscess r/o deep infection, necrosis? will schedule for I&D KYLEE risks, indications and compl reviewed with pt and family consent signed. Selected Entries 02/10/18 02/11/18 18:26 04:57 Temperature 102.7 F H Pulse Rate 104 H Respiratory 18 Rate Blood Pressure 150/92 Laboratory Tests 02/10/18 02/10/18 02/10/18 09:56 09:56 23:33 WBC 42.6 H* Hgb Hct Sodium Potassium Chloride Carbon Dioxide BUN Creatinine Glucose 315 H Hemoglobin A1c 14.0 H Total Bilirubin AST ALT Alkaline Phosphatase 02/11/18 02/11/18 09:13 09:13 WBC 38.2 H Hgb 13.0 Hct 39.6 Sodium 131 L Potassium 4.2 Chloride 91.5 L Carbon Dioxide 23 BUN 14 Creatinine 0.9 Glucose 292 H Hemoglobin A1c Total Bilirubin 0.60 AST 18 ALT 23 Alkaline Phosphatase 118 Objective Vital Signs - 12hr 02/11/18 04:57 Temperature 101.9 F H Pulse Rate 104 H Respiratory 18 Rate Blood Pressure 150/92 O2 Sat by Pulse 98 Oximetry - Labs 02/11/18 09:13 02/11/18 09:13 Diabetes panel 02/10/18 02/11/18 Range/Units 23:33 09:13 Sodium 131 L (137-145) mmol/L Potassium 4.2 (3.6-5.0) mmol/L Chloride 91.5 L (98-107) mmol/L Carbon Dioxide 23 (22-30) mmol/L BUN 14 (9-20) mg/dL Creatinine 0.9 (0.8-1.5) mg/dL Glucose 292 H (75-100) mg/dL Hemoglobin A1c 14.0 H (4-6) % Calcium 8.2 L (8.4-10.2) mg/dL AST 18 (5-40) units/L ALT 23 (7-56) units/L Alkaline Phosphatase 118 (35-129) units/L Total Protein 7.1 (6.3-8.2) g/dL Albumin 2.8 L (3.9-5) g/dL Calcium panel 02/11/18 Range/Units 09:13 Calcium 8.2 L (8.4-10.2) mg/dL Albumin 2.8 L (3.9-5) g/dL Pituitary panel 02/11/18 Range/Units 09:13 Sodium 131 L (137-145) mmol/L Potassium 4.2 (3.6-5.0) mmol/L Chloride 91.5 L (98-107) mmol/L Carbon Dioxide 23 (22-30) mmol/L BUN 14 (9-20) mg/dL Creatinine 0.9 (0.8-1.5) mg/dL Glucose 292 H (75-100) mg/dL Calcium 8.2 L (8.4-10.2) mg/dL Adrenal panel 02/11/18 Range/Units 09:13 Sodium 131 L (137-145) mmol/L Potassium 4.2 (3.6-5.0) mmol/L Chloride 91.5 L (98-107) mmol/L Carbon Dioxide 23 (22-30) mmol/L BUN 14 (9-20) mg/dL Creatinine 0.9 (0.8-1.5) mg/dL Glucose 292 H (75-100) mg/dL Calcium 8.2 L (8.4-10.2) mg/dL Total Bilirubin 0.60 (0.1-1.2) mg/dL AST 18 (5-40) units/L ALT 23 (7-56) units/L Alkaline Phosphatase 118 (35-129) units/L Total Protein 7.1 (6.3-8.2) g/dL Albumin 2.8 L (3.9-5) g/dL
[2018-02-11] MEDS: TYLENOL PO PRN (13:31)
[2018-02-11] MEDS: FLAGYL 500 MG/100 ML 500 MG/100 ML BAG IV SCH ×2 (13:32→22:26)
[2018-02-11] MEDS: SODIUM CHLORIDE FLUSH SYRINGE 10 ML IV SCH ×2 (13:42→22:29)
--- NOTE | 2018-02-11 13:52 | Consultation ---
REASON FOR CONSULTATION: Rule out perirectal abscess. HISTORY OF PRESENT ILLNESS: The patient is a 37-year-old gentleman, who states he has no medical problems. We began complaining of perirectal pain on Sunday as well as fever. Apparently arrived late last night to the ER and was subsequently admitted. PAST MEDICAL HISTORY: Negative. PAST SURGICAL HISTORY: Negative. ALLERGIES: No known allergies. MEDICATIONS: Takes no medications. FAMILY HISTORY: Diabetes. SOCIAL HISTORY: Smokes cigars. Denies any ethanol intake. REVIEW OF SYSTEMS: Noncontributory. PHYSICAL EXAMINATION: GENERAL: At this time reveals the patient to be awake, alert, cooperative, in no discomfort or acute distress. VITAL SIGNS: Shown to be running a high temperature of 102.7. Currently, it is 101.9, blood pressure 150/92, pulse 104, respirations of 18. ABDOMEN: Examination of the perirectal area reveals slight drainage on deep palpation of the area in question. The area itself is surprisingly nontender. No real fluctuance is noted. LABORATORY DATA: Lab work at present includes a CBC, which shows a white count of 42,000 on admission, currently it is 38.2. H and H is 13 and 39. Electrolytes are essentially within normal limits. High glucose is noted of 315 on admission, currently 292. A1c is also high at 14. LFTs are normal. A CT scan of the abdomen has been performed, which I have reviewed with Dr. Joy. There is no apparent evidence of fluid collection or abscess formation. Also, no evidence of any subcutaneous emphysema that would be consistent with any necrotizing fasciitis. IMPRESSION AND PLAN: Despite no evidence of abscess formation, clinical picture is quite concerning and I was able to express a little bit of drainage on deep palpation of the area. Thus, I would recommend to proceed with I and D of this area as soon as possible. 1. Rule out perirectal abscess. 2. Rule out deep tissue infection/phlegmon. 3. Rule out necrotizing fasciitis, so no real crepitance is noted on clinical exam or on CT findings. 4. Risks, indications, and complications have been reviewed with the patient and family. The patient understands and has signed his consent. JOB# [id number] GOVIND/NTS
[2018-02-11] MEDS ORDERED: XYLOCAINE MPF 2% ONE (14:14)
[2018-02-11] MEDS ORDERED: DIPRIVAN 10 MG/ML IV ONE (14:14)
[2018-02-11] MEDS ORDERED: SUBLIMAZE ONE ×2 (14:14→15:06)
[2018-02-11] MEDS ORDERED: TYLENOL PO PRN (14:16)
[2018-02-11] MEDS ORDERED: SUBLIMAZE IV PRN (14:16)
[2018-02-11] MEDS ORDERED: MARCAINE-EPI 0.5%-1:200,000 INFILTRATI ONE ×2 (14:18→15:45)
[2018-02-11] MEDS ORDERED: HYDROGEN PEROXIDE ONE (14:18)
[2018-02-11] MEDS ORDERED: MARCAINE 0.5% INFILTRATI ONE (14:19)
--- NOTE | 2018-02-11 14:24 | Anesthesia Consultation ---
Anesthesia Consult and Med Hx Date of service: 02/11/18 - Airway Anesthetic Teeth Evaluation: Good ROM Head & Neck: Adequate Mental/Hyoid Distance: Adequate Mallampati Class: Class III Intubation Access Assessment: Probably Good - Pulmonary Exam CTA: Yes - Cardiac Exam Cardiac Exam: RRR - Pre-Operative Health Status ASA Pre-Surgery Classification: ASA2 Proposed Anesthetic Plan: General - Pulmonary Hx Smoking: Yes Hx Asthma: No Hx Respiratory Symptoms: No SOB: No - Cardiovascular System Hx Hypertension: No Hx Coronary Artery Disease: No Hx Heart Attack/AMI: No - Central Nervous System Hx Seizures: No - Gastrointestinal Hx Ulcer: No Hx Gastroesophageal Reflux Disease: No - Endocrine Hx Renal Disease: No Hx End Stage Renal Disease: No - Hematic Hx Anemia: No - Other Systems Hx Alcohol Use: No Hx Substance Use: No Hx Cancer: No - Additional Comments Anesthesia Medical History Comments: RSI because of 'strawberry crumbs' at 1100 hours
--- NOTE | 2018-02-11 14:24 | Anesthesia Day of Surgery ---
Anesthesia Day of Surgery - Day of Surgery Patient Examined: Yes Patient H&P Reviewed: Yes Patient is NPO: No
[2018-02-11] MEDS ORDERED: HumuLIN R ONE (14:27)
[2018-02-11] MEDS ORDERED: DILAUDID ONE (14:56)
[2018-02-11] MEDS ORDERED: LEVAQUIN 500MG/100ML 500 MG/100 ML BAG IV ONE (15:00)
[2018-02-11] MEDS ORDERED: VERSED IV NR (15:00)
[2018-02-11] MEDS ORDERED: HumuLIN R SUB-Q ONE (15:00)
[2018-02-11] MEDS ORDERED: PEPCID PO NR (15:00)
[2018-02-11] MEDS ORDERED: TYLENOL PO NR (15:00)
[2018-02-11] MEDS ORDERED: ZOFRAN ONE (15:07)
[2018-02-11] MEDS ORDERED: ZOFRAN IV PRN (15:39)
[2018-02-11] MEDS ORDERED: NACL 0.45% 1000 ML 1,000 ML IV SCH (16:00)
--- NOTE | 2018-02-11 16:59 | Operative Report ---
PROCEDURE: 1. Emergency I and D of perineal abscess, also tissue and muscle dissection secondary to necrosis. 2. Extensive muscle and tissue debridement secondary to necrotizing fasciitis and necrotic tissue. 3. I and D of right scrotal abscess. SURGEON: Kishore Pittman MD ANESTHESIA: General. ESTIMATED BLOOD LOSS: Minimal. DRAINS: None. COMPLICATIONS: None. SPECIMENS: Aerobic and anaerobic cultures were taken. Also, necrotic tissue was sent fresh for cultures. DESCRIPTION OF PROCEDURE: The patient was taken to the operating room and placed in lithotomy position. He was prepped and draped in usual sterile fashion. The draining area in question was noted in the upper medial thigh perineal area. A #11 blade was used to incise the skin and subcutaneous tissue. Some purulence and bloody drainage was noted. Aerobic and anaerobic cultures were taken. Hemostats were used to dissect the area as well as digital dissection. Hemostasis was obtained with electrocautery. Inspection of the area revealed some necrotic muscle. Incision was extended. Extensive debridement was done of all the necrotic subcutaneous as well as muscular tissue extending down to the fascia. All necrotic area was dissected free and removed. This necrotic tissue was sent fresh to pathology for cultures also. The area was then packed and waited a few minutes and unpacked. The area was then checked for hemostasis and noted to be dry. The entire abscess cavity was irrigated copiously with a 50% Betadine peroxide solution. A 0.5% Marcaine was infiltrated over the edges for postop pain relief. The abscess cavity was then packed with 2-inch iodoform gauze. This area required two jars of a 2-inch iodoform for packing. He was then isolated and the glove change. The right scrotum was noted to be quite swollen. A fresh 11 blade was then used to incise this area. Dissection was carried out with a hemostat. The area was irrigated and dried. Checked for hemostasis and noted to be dry. This cavity was packed with quarter-inch iodoform gauze. A pressure dressing and scrotal support applied. The patient tolerated the procedure well, but is in guarded condition. JOB# [id number] /NTS
[2018-02-11] MEDS: MAXIPIME/NS 2 GM/100 ML 2 GM/100 ML BAG IV SCH ×2 (18:19→22:26)
[2018-02-11] MEDS ORDERED: LANTUS SUB-Q SCH (22:00)
[2018-02-11] MEDS: LOVENOX SUB-Q SCH (22:27)
[2018-02-12] MEDS: FLAGYL 500 MG/100 ML 500 MG/100 ML BAG IV SCH ×3 (05:21→21:23)
[2018-02-12] MEDS: MAXIPIME/NS 2 GM/100 ML 2 GM/100 ML BAG IV SCH ×3 (05:22→21:21)
[2018-02-12] MEDS: VANCOMYCIN 1,500 MG in NACL 0.9% 500 ML 500 ML IV SCH ×2 (05:22→17:15)
[2018-02-12 05:34] LABS: Hematocrit 37.4 % (35.5-45.6); Hemoglobin 12.4 gm/dl (11.8-15.2); Mean Corpuscular HGB Conc 33 % (32-34); Mean Corpuscular Volume 81 fl (84-94); Platelet Count 240 K/mm3 (140-440); Red Blood Count 4.64 M/mm3 (3.65-5.03); Red Cell Distribution Width 13.4 % (13.2-15.2)
[2018-02-12 06:09] LABS: Alanine Aminotransferase 23 units/L (7-56); Albumin 2.5 g/dL (3.9-5); BUN/Creatinine Ratio 15; Blood Urea Nitrogen 12 mg/dL (9-20); Calcium 7.7 mg/dL (8.4-10.2); Hemolysis Index 4
[2018-02-12 06:19] LABS: Band Neutrophils # (Manual) 2.2 K/mm3; Basophils % (Manual) 0 % (0.0-1.8); Eosinophils % (Manual) 0 % (0.0-4.3); Monocytes % (Manual) 5.5 % (0.0-7.3); Myelocytes # (Manual) 0.2 K/mm3; Total Cells Counted 200
[2018-02-12 06:20] LABS: Platelet Estimate Consistent w Auto; Target Cells 1+
[2018-02-12] MEDS: HumaLOG SUB-Q SCH ×3 (07:30→16:30)
[2018-02-12] MEDS: PEPCID IV SCH ×2 (09:23→21:22)
--- NOTE | 2018-02-12 10:14 | Progress Note ---
Assessment and Plan POD # 1 Pt feeling "better" no compl op site dressing in place lowering wbc & fever curve noted awaiting eval begin solid DM diet begin local wd care in am intra-op cults pending antibiotics as per ID Selected Entries 02/11/18 23:36 Temperature 101.2 F H Pulse Rate 114 H Blood Pressure 139/83 Laboratory Tests 02/10/18 02/10/18 02/11/18 09:56 09:56 09:13 WBC 42.6 H* Glucose 315 H 292 H 02/11/18 02/12/18 02/12/18 09:13 05:22 05:22 WBC 38.2 H 31.2 H Glucose 225 H Objective Vital Signs - 12hr 02/11/18 23:36 Temperature 101.2 F H Pulse Rate 114 H Respiratory 18 Rate Blood Pressure 139/83 O2 Sat by Pulse 95 Oximetry - Labs 02/12/18 05:22 02/12/18 05:22 Diabetes panel 02/11/18 02/12/18 Range/Units 09:13 05:22 Sodium 131 L 132 L (137-145) mmol/L Potassium 4.2 3.8 (3.6-5.0) mmol/L Chloride 91.5 L 95.7 L (98-107) mmol/L Carbon Dioxide 23 24 (22-30) mmol/L BUN 14 12 (9-20) mg/dL Creatinine 0.9 0.8 (0.8-1.5) mg/dL Glucose 292 H 225 H (75-100) mg/dL Calcium 8.2 L 7.7 L (8.4-10.2) mg/dL AST 18 23 (5-40) units/L ALT 23 23 (7-56) units/L Alkaline Phosphatase 118 110 (35-129) units/L Total Protein 7.1 5.7 L (6.3-8.2) g/dL Albumin 2.8 L 2.5 L (3.9-5) g/dL Calcium panel 02/11/18 02/12/18 Range/Units 09:13 05:22 Calcium 8.2 L 7.7 L (8.4-10.2) mg/dL Albumin 2.8 L 2.5 L (3.9-5) g/dL Pituitary panel 02/11/18 02/12/18 Range/Units 09:13 05:22 Sodium 131 L 132 L (137-145) mmol/L Potassium 4.2 3.8 (3.6-5.0) mmol/L Chloride 91.5 L 95.7 L (98-107) mmol/L Carbon Dioxide 23 24 (22-30) mmol/L BUN 14 12 (9-20) mg/dL Creatinine 0.9 0.8 (0.8-1.5) mg/dL Glucose 292 H 225 H (75-100) mg/dL Calcium 8.2 L 7.7 L (8.4-10.2) mg/dL Adrenal panel 02/11/18 02/12/18 Range/Units 09:13 05:22 Sodium 131 L 132 L (137-145) mmol/L Potassium 4.2 3.8 (3.6-5.0) mmol/L Chloride 91.5 L 95.7 L (98-107) mmol/L Carbon Dioxide 23 24 (22-30) mmol/L BUN 14 12 (9-20) mg/dL Creatinine 0.9 0.8 (0.8-1.5) mg/dL Glucose 292 H 225 H (75-100) mg/dL Calcium 8.2 L 7.7 L (8.4-10.2) mg/dL Total Bilirubin 0.60 0.50 (0.1-1.2) mg/dL AST 18 23 (5-40) units/L ALT 23 23 (7-56) units/L Alkaline Phosphatase 118 110 (35-129) units/L Total Protein 7.1 5.7 L (6.3-8.2) g/dL Albumin 2.8 L 2.5 L (3.9-5) g/dL
--- NOTE | 2018-02-12 11:03 | Progress Note ---
Assessment and Plan Assessment and plan: Sepsis. Cont iv Abx ID Physician following Continue Cefepime, flagyl, vancomycin perineal abscess iv Abx Surg consulted s/p I and D and debridement 02/11 Right scrotal abscess s/p I and D Necrotizing fascitis On multiple abx Deiscussed with Surgery, ID Physician Marked leukocytosis, WBC 42.6 Due to sepsis Diabetes mellitus type 2, now diagnosed A1C 14 i discussed new diagnosis with him started novolin 70/30 bid Hyponatremia due to hyperglycemia Full code status History Interval history: Pain swelling right buttocks area s/p I and D , debridement yesterday 02/11 Hospitalist Physical - Physical exam Narrative exam: GEN: Not in acute distress, Obese HEENT: Normocephalic, atraumatic, Neck: supple, No JVD Lungs: Clear, no rhonchi, no wheeze Heart:S1 and S2 regular, no murmurs, rubs or gallop, Abd:soft, non tender, non distended, normal bowel sounds Ext: Dressing over perineum, scrotum, no cyanosis Neuro: AAO x 3, moves all extremities, no focal neurological signs Psych:Normal mood - Constitutional Vitals: Temp Pulse Resp BP Pulse Ox 101.2 F H 114 H 18 139/83 95 02/11/18 23:36 02/11/18 23:36 02/11/18 23:36 02/11/18 23:36 02/11/18 23:36 Results - Labs CBC & Chem 7: 02/12/18 05:22 02/12/18 05:22 Labs: Laboratory Last Values WBC 31.2 K/mm3 (4.5-11.0) H 02/12/18 05:22 RBC 4.64 M/mm3 (3.65-5.03) 02/12/18 05:22 Hgb 12.4 gm/dl (11.8-15.2) 02/12/18 05:22 Hct 37.4 % (35.5-45.6) 02/12/18 05:22 MCV 81 fl (84-94) L 02/12/18 05:22 MCH 27 pg (28-32) L 02/12/18 05:22 MCHC 33 % (32-34) 02/12/18 05:22 RDW 13.4 % (13.2-15.2) 02/12/18 05:22 Plt Count 240 K/mm3 (140-440) 02/12/18 05:22 Add Manual Diff Complete 02/12/18 05:22 Total Counted 200 02/12/18 05:22 Seg Neuts % (Manual) 84.5 % (40.0-70.0) H 02/12/18 05:22 Band Neutrophils % 7.0 % 02/12/18 05:22 Lymphocytes % (Manual) 2.0 % (13.4-35.0) L 02/12/18 05:22 Reactive Lymphs % (Man) 0.5 % 02/12/18 05:22 Monocytes % (Manual) 5.5 % (0.0-7.3) 02/12/18 05:22 Eosinophils % (Manual) 0 % (0.0-4.3) 02/12/18 05:22 Basophils % (Manual) 0 % (0.0-1.8) 02/12/18 05:22 Metamyelocytes % 0 % 02/12/18 05:22 Myelocytes % 0.5 % 02/12/18 05:22 Promyelocytes % 0 % 02/12/18 05:22 Blast Cells % 0 % 02/12/18 05:22 Nucleated RBC % Not Reportable 02/12/18 05:22 Seg Neutrophils # Man 26.4 K/mm3 (1.8-7.7) H 02/12/18 05:22 Band Neutrophils # 2.2 K/mm3 02/12/18 05:22 Lymphocytes # (Manual) 0.6 K/mm3 (1.2-5.4) L 02/12/18 05:22 Abs React Lymphs (Man) 0.2 K/mm3 02/12/18 05:22 Monocytes # (Manual) 1.7 K/mm3 (0.0-0.8) H 02/12/18 05:22 Eosinophils # (Manual) 0.0 K/mm3 (0.0-0.4) 02/12/18 05:22 Basophils # (Manual) 0.0 K/mm3 (0.0-0.1) 02/12/18 05:22 Metamyelocytes # 0.0 K/mm3 02/12/18 05:22 Myelocytes # 0.2 K/mm3 02/12/18 05:22 Promyelocytes # 0.0 K/mm3 02/12/18 05:22 Blast Cells # 0.0 K/mm3 02/12/18 05:22 WBC Morphology Not Reportable 02/12/18 05:22 Hypersegmented Neuts Not Reportable 02/12/18 05:22 Hyposegmented Neuts Not Reportable 02/12/18 05:22 Hypogranular Neuts Not Reportable 02/12/18 05:22 Smudge Cells Not Reportable 02/12/18 05:22 Toxic Granulation Not Reportable 02/12/18 05:22 Toxic Vacuolation Not Reportable 02/12/18 05:22 Dohle Bodies Not Reportable 02/12/18 05:22 Pelger-Huet Anomaly Not Reportable 02/12/18 05:22 Nivia Rods Not Reportable 02/12/18 05:22 Platelet Estimate Consistent w auto 02/12/18 05:22 Clumped Platelets Not Reportable 02/12/18 05:22 Plt Clumps, EDTA Not Reportable 02/12/18 05:22 Large Platelets Not Reportable 02/12/18 05:22 Giant Platelets Not Reportable 02/12/18 05:22 Platelet Satelliting Not Reportable 02/12/18 05:22 Plt Morphology Comment Not Reportable 02/12/18 05:22 RBC Morphology Not Reportable 02/12/18 05:22 Dimorphic RBCs Not Reportable 02/12/18 05:22 Polychromasia Not Reportable 02/12/18 05:22 Hypochromasia Not Reportable 02/12/18 05:22 Poikilocytosis Not Reportable 02/12/18 05:22 Anisocytosis Not Reportable 02/12/18 05:22 Microcytosis Not Reportable 02/12/18 05:22 Macrocytosis Not Reportable 02/12/18 05:22 Spherocytes Not Reportable 02/12/18 05:22 Pappenheimer Bodies Not Reportable 02/12/18 05:22 Sickle Cells Not Reportable 02/12/18 05:22 Target Cells 1+ 02/12/18 05:22 Tear Drop Cells Not Reportable 02/12/18 05:22 Ovalocytes Not Reportable 02/12/18 05:22 Helmet Cells Not Reportable 02/12/18 05:22 [place] Bodies Not Reportable 02/12/18 05:22 [place] Rings Not Reportable 02/12/18 05:22 [place] Cells Not Reportable 02/12/18 05:22 Bite Cells Not Reportable 02/12/18 05:22 Crenated Cell Not Reportable 02/12/18 05:22 Elliptocytes Not Reportable 02/12/18 05:22 Acanthocytes (Spur) Not Reportable 02/12/18 05:22 Rouleaux Not Reportable 02/12/18 05:22 Hemoglobin C Crystals Not Reportable 02/12/18 05:22 Schistocytes Not Reportable 02/12/18 05:22 Malaria parasites Not Reportable 02/12/18 05:22 [place] Bodies Not Reportable 02/12/18 05:22 Hem Pathologist Commnt No 02/12/18 05:22 PT 14.8 Sec. (12.2-14.9) 02/10/18 09:56 INR 1.12 (0.87-1.13) 02/10/18 09:56 VBG pH 7.415 (7.320-7.420) 02/10/18 09:56 Sodium 132 mmol/L (137-145) L 02/12/18 05:22 Potassium 3.8 mmol/L (3.6-5.0) 02/12/18 05:22 Chloride 95.7 mmol/L (98-107) L 02/12/18 05:22 Carbon Dioxide 24 mmol/L (22-30) 02/12/18 05:22 Anion Gap 16 mmol/L 02/12/18 05:22 BUN 12 mg/dL (9-20) 02/12/18 05:22 Creatinine 0.8 mg/dL (0.8-1.5) 02/12/18 05:22 Estimated GFR > 60 ml/min 02/12/18 05:22 BUN/Creatinine Ratio 15 % 02/12/18 05:22 Glucose 225 mg/dL (75-100) H 02/12/18 05:22 POC Glucose 284 (70-105) H 02/11/18 22:13 Hemoglobin A1c 14.0 % (4-6) H 02/10/18 23:33 Lactic Acid 1.70 mmol/L (0.7-2.0) 02/10/18 23:33 Calcium 7.7 mg/dL (8.4-10.2) L 02/12/18 05:22 Total Bilirubin 0.50 mg/dL (0.1-1.2) 02/12/18 05:22 AST 23 units/L (5-40) 02/12/18 05:22 ALT 23 units/L (7-56) 02/12/18 05:22 Alkaline Phosphatase 110 units/L (35-129) 02/12/18 05:22 Total Creatine Kinase 151 units/L (55-170) 02/10/18 09:56 Total Protein 5.7 g/dL (6.3-8.2) L 02/12/18 05:22 Albumin 2.5 g/dL (3.9-5) L 02/12/18 05:22 Albumin/Globulin Ratio 0.8 % 02/12/18 05:22 Urine Color Yellow (Yellow) 02/10/18 Unknown Urine Turbidity Clear (Clear) 02/10/18 Unknown Urine pH 6.0 (5.0-7.0) 02/10/18 Unknown Ur Specific [place] 1.038 (1.003-1.030) H 02/10/18 Unknown Urine Protein 100 mg/dl mg/dL (Negative) 02/10/18 Unknown Urine Glucose (UA) >=500 mg/dL (Negative) 02/10/18 Unknown Urine Ketones 80 mg/dL (Negative) 02/10/18 Unknown Urine Blood Neg (Negative) 02/10/18 Unknown Urine Nitrite Neg (Negative) 02/10/18 Unknown Urine Bilirubin Neg (Negative) 02/10/18 Unknown Urine Urobilinogen 4.0 mg/dL (<2.0) 02/10/18 Unknown Ur Leukocyte Esterase Neg (Negative) 02/10/18 Unknown Urine WBC (Auto) 1.0 /HPF (0.0-6.0) 02/10/18 Unknown Urine RBC (Auto) 1.0 /HPF (0.0-6.0) 02/10/18 Unknown Urine Mucus Few /HPF 02/10/18 Unknown Nutrition/Malnutrition Assess - Dietary Evaluation Nutrition/Malnutrition Findings: Nutrition Notes Start: 02/11/18 12:04 Freq: Status: Active Protocol: Document 02/11/18 12:04 OH (Rec: 02/11/18 12:25 OH [id number]) Nutrition Notes Need for Assessment generated from: [facility] Initial or Follow up Assessment Current Diagnoses Diabetes Sepsis Other Pertinent Diagnosis newly diagnosed DM; smoker; abscess R gluteal (thigh) Current Diet Consistent CHO Labs/Tests hgba1c 14 GLU 315 ALB 3.3 Medications Insulin Lovenox Height 6 ft 2 in Weight 108.5 kg [place] Body Weight (lbs) 190.0 BMI 30.7 Intake Prior to Admission Excellent WEIGHT STATUS OBESE Subjective/Other Information Consulted for malnutrition screen. Pt. diagnosed recently with diabetes. hgba1c noted to be 14. Pt. reports RN came in and spoke w/pt regarding his hgba1c level. Family member in the room w/pt. Pt. states he doesn't have PCP. Percent of energy/protein needs met: >75/75% GI SYMPTOMS None CURRENT %PO GOOD (75-100%) #3 Nutrition Diagnoses Increased nutrient needs ( specify in comment below) Comments: protein Etiology RMR greater than po intake due to wound As Evidenced by Signs and Symptoms abscess/wound Diagnosis Progress(for reassessment Continues documentation) #2 Nutrition Diagnoses Altered nutrition-related laboratory values Etiology uncontrolled DM As Evidenced by Signs and Symptoms HGBA1C of 14 Diagnosis Progress(for reassessment Continues documentation) #1 Nutrition Diagnoses Food and nutrition-related knowledge deficit Etiology no prior diabetes related education As Evidenced by Signs and Symptoms Questions raised regarding CHO sources/sugar content/dietary recommendations Diagnosis Progress(for reassessment Continues documentation) Is patient on ventilator? No Is Patient Ambulatory and/or Out of Bed Yes REE-([facility]-ambulatory/OOB) [ 2710.175 [id number]] Calculation Used for Recommendations [facility] Additional Notes FLUID: 1 mL/kcal PROTEIN: 1-1.4 G/KG/ADJ BW ( 97-136 G/DAY) ADJ BW 97.43 KGS Malnutrition Assessment Clinical Findings Show: Moderate Malnutrition Nutrition Intervention Change Diet Order: Consistent CHO Add Supplement/Snack (indicate name/kcal WADE BID /protein ) Provides kCal: 190 Provides Protein (gm) 5 Teaching Recipient Patient Family Learning Readiness Fair Teaching Methods Discussion Demonstration Handout Response to Teaching Return demonstration Verbalize understanding Reinforcement needed Education Handouts Provided ADA CHO handout [facility] phone number for DM education class Food label handout Discussed with patient the need to follow through w/ diabetes education classes. Enc pt to limit fast food/ processed foods. Provided [facility] number. Barriers to Learning Motivation Age related Cultural [employer] phone number provided Yes Patient aware of follow up options Yes Goal #1 po intake to be maintained >75 % nutritional needs Anticipated Discharge Needs: dm education Follow-Up By: 02/14/18 Additional Comments f/u: po intake; tolerance to WADE
[2018-02-12] MEDS: SODIUM CHLORIDE FLUSH SYRINGE 10 ML IV SCH ×2 (12:14→21:22)
--- NOTE | 2018-02-12 12:22 | Progress Note ---
Assessment and Plan consult dictatesd testes seen normal perineal pain get scrotal US Subjective Date of service: 02/12/18 Principal diagnosis: abcess Objective - Constitutional General appearance: Present: no acute distress - Neck Neck: supple - Respiratory Respiratory effort: normal Extremities: no ischemia - Gastrointestinal General gastrointestinal: Present: soft, non-tender - Genitourinary Male genitourinary: tender, scrotal edema - Labs CBC & Chem 7: 02/12/18 05:22 02/12/18 05:22 Labs: Abnormal lab results 02/11/18 02/11/18 02/11/18 Range/Units 12:50 14:22 16:11 WBC (4.5-11.0) K/mm3 MCV (84-94) fl MCH (28-32) pg Seg Neuts % (Manual) (40.0-70.0) % Lymphocytes % (Manual) (13.4-35.0) % Seg Neutrophils # Man (1.8-7.7) K/mm3 Lymphocytes # (Manual) (1.2-5.4) K/mm3 Monocytes # (Manual) (0.0-0.8) K/mm3 Sodium (137-145) mmol/L Chloride (98-107) mmol/L Glucose (75-100) mg/dL POC Glucose 258 H 289 H 274 H (70-105) Calcium (8.4-10.2) mg/dL Total Protein (6.3-8.2) g/dL Albumin (3.9-5) g/dL 02/11/18 02/11/18 02/12/18 Range/Units 18:13 22:13 05:22 WBC 31.2 H (4.5-11.0) K/mm3 MCV 81 L (84-94) fl MCH 27 L (28-32) pg Seg Neuts % (Manual) 84.5 H (40.0-70.0) % Lymphocytes % (Manual) 2.0 L (13.4-35.0) % Seg Neutrophils # Man 26.4 H (1.8-7.7) K/mm3 Lymphocytes # (Manual) 0.6 L (1.2-5.4) K/mm3 Monocytes # (Manual) 1.7 H (0.0-0.8) K/mm3 Sodium (137-145) mmol/L Chloride (98-107) mmol/L Glucose (75-100) mg/dL POC Glucose 262 H 284 H (70-105) Calcium (8.4-10.2) mg/dL Total Protein (6.3-8.2) g/dL Albumin (3.9-5) g/dL 02/12/18 02/12/18 Range/Units 05:22 11:40 WBC (4.5-11.0) K/mm3 MCV (84-94) fl MCH (28-32) pg Seg Neuts % (Manual) (40.0-70.0) % Lymphocytes % (Manual) (13.4-35.0) % Seg Neutrophils # Man (1.8-7.7) K/mm3 Lymphocytes # (Manual) (1.2-5.4) K/mm3 Monocytes # (Manual) (0.0-0.8) K/mm3 Sodium 132 L (137-145) mmol/L Chloride 95.7 L (98-107) mmol/L Glucose 225 H (75-100) mg/dL POC Glucose 165 H (70-105) Calcium 7.7 L (8.4-10.2) mg/dL Total Protein 5.7 L (6.3-8.2) g/dL Albumin 2.5 L (3.9-5) g/dL Medications & Allergies - Medications Allergies/Adverse Reactions: Allergies No Known Allergies Allergy (Unverified 02/10/18 09:51) Active Medications: Generic Name Dose Route Start Last Admin Trade Name Freq PRN Reason Stop Dose Admin Acetaminophen 650 mg 02/10/18 21:45 02/11/18 13:31 Tylenol PO 650 mg Q4H PRN Administration Pain MILD(1-3)/Fever >100.5/HERNANDEZ Acetaminophen/Hydrocodone Bitart 1 each 02/11/18 15:39 Rogers 5/325 PO Q4H PRN Pain, Moderate (4-6) Enoxaparin Sodium 40 mg 02/11/18 22:00 02/11/18 22:27 Lovenox SUB-Q 40 mg QDAY@2200 ERIC Administration Famotidine 20 mg 02/10/18 22:00 02/12/18 09:23 Pepcid IV 20 mg BID ERIC Administration Hydromorphone HCl 1 mg 02/10/18 21:45 Dilaudid IV Q3H PRN Pain , Severe (7-10) Vancomycin HCl 1,500 mg/ 530 mls @ 333.333 mls/hr 02/11/18 06:00 02/12/18 05:22 Sodium Chloride IV 333.333 mls/hr Q12H ERIC Administration Sodium Chloride 1,000 mls @ 100 mls/hr 02/11/18 12:00 Nacl 0.9% 1000 Ml IV DIRECT ERIC Cefepime HCl 2 gm in 100 mls @ 200 mls/hr 02/11/18 14:00 02/12/18 05:22 Maxipime/Ns 2 Gm/100 Ml IV 200 mls/hr Q8HR ERIC Administration Protocol Metronidazole 500 mg in 100 mls @ 100 mls/hr 02/11/18 14:00 02/12/18 05:21 Flagyl 500 Mg/100 Ml IV 100 mls/hr Q8HR ERIC Administration Protocol Sodium Chloride 1,000 mls @ 125 mls/hr 02/11/18 16:00 Nacl 0.45% 1000 Ml IV DIRECT ERIC Insulin Human Isoph/Insulin Regular 16 unit 02/12/18 09:00 02/12/18 09:22 Humulin 70/30 SUB-Q 16 unit BIDDIAB ERIC Administration Insulin Human Lispro 0 unit 02/11/18 07:30 02/12/18 12:15 Humalog SUB-Q 3 unit ACHS ERIC Administration Protocol Morphine Sulfate 4 mg 02/11/18 15:39 Morphine IV Q3H PRN Pain , Severe (7-10) Ondansetron HCl 4 mg 02/10/18 21:45 Zofran IV Q8H PRN Nausea And Vomiting Ondansetron HCl 4 mg 02/11/18 15:39 Zofran IV Q4H PRN N/V unrelieved by Reglan Oxycodone/Acetaminophen 1 tab 02/10/18 21:20 02/11/18 05:18 Percocet 5/325 PO 1 tab Q4H PRN Administration Pain, Moderate (4-6) Sodium Chloride 10 ml 02/10/18 21:45 02/11/18 22:28 Sodium Chloride Flush Syringe 10 Ml IV 10 ml PRN PRN Administration LINE FLUSH Sodium Chloride 10 ml 02/10/18 22:00 02/12/18 12:14 Sodium Chloride Flush Syringe 10 Ml IV 10 ml BID ERIC Administration
--- NOTE | 2018-02-12 12:37 | Progress Note ---
Assessment and Plan Cultures: 02/10/2018 blood culture: No growth 02/11/2018 OR culture: Gram stain mixed with GPC, GNRs A/P: 37/M with previous history of jaw abscess, no known MRSA history admitted with: 1) Right gluteal abscess/necrotizing infection causing sepsis and leukemoid reaction: s/p extensive I&D by Dr. Pittman. Urology consulted to eval for possible Tash's gangrene. Continue broad spectrum abx, Gram stain appears mixed, ?synergistic gangrene. 2) Morbid obesity 3) Diabetes mellitus type 2, uncontrolled, newly diagnosed: HbA1c 14 here. Recs: Continue IV cefepime, Flagyl and vancomycin Follow up blood and OR cultures to help guide antibiotic therapy Recommend tight glycemic control Will follow. Please call with questions. D/W Dr. Ann Sr MD [facility] C: [phone] O: [phone] F: [phone] Subjective Date of service: 02/12/18 Interval history: Patient reports pain at surgical site. No nausea, vomiting. Tolerating abx. Got I&D done yesterday. No rash. Objective - Exam Narrative Exam: Physical Exam: Constitutional: Alert, cooperative. No acute distress. Obese Head, Ears, Nose: Normocephalic, atraumatic. External ears, nose normal Eyes: Conjunctivae/corneas clear. No icterus. No ptosis. Neck: Supple, no meningeal signs Oral: no ulcers, no thrush Cardiovascular: S1, S2 normal. Respiratory: Good air entry, clear to auscultation bilaterally GI: Soft, non-tender; bowel sounds normal. No peritoneal signs Musculoskeletal: No pedal edema, no cyanosis. Right gluteal and perineal region with dressing + Skin: no rash. Hem/Lymphatic: No palpable cervical or supraclavicular nodes. No lymphangitis Psych: Mood ok. Affect normal Neurological: Awake, alert, oriented. No gross abnormality - Constitutional Vitals: Vital Signs Temp Pulse Resp BP Pulse Ox 101.2 F H 114 H 18 139/83 95 02/11/18 23:36 02/11/18 23:36 02/11/18 23:36 02/11/18 23:36 02/11/18 23:36 Temperature -Last 24 Hours Temperature 101.2 F Temperature 97.9 F Temperature 98.2 F Temperature 102.6 F Temperature 102.6 F - Labs CBC & Chem 7: 02/12/18 05:22 02/12/18 05:22 Labs: Abnormal lab results 02/11/18 02/11/18 02/11/18 Range/Units 12:50 14:22 16:11 WBC (4.5-11.0) K/mm3 MCV (84-94) fl MCH (28-32) pg Seg Neuts % (Manual) (40.0-70.0) % Lymphocytes % (Manual) (13.4-35.0) % Seg Neutrophils # Man (1.8-7.7) K/mm3 Lymphocytes # (Manual) (1.2-5.4) K/mm3 Monocytes # (Manual) (0.0-0.8) K/mm3 Sodium (137-145) mmol/L Chloride (98-107) mmol/L Glucose (75-100) mg/dL POC Glucose 258 H 289 H 274 H (70-105) Calcium (8.4-10.2) mg/dL Total Protein (6.3-8.2) g/dL Albumin (3.9-5) g/dL 02/11/18 02/11/18 02/12/18 Range/Units 18:13 22:13 05:22 WBC 31.2 H (4.5-11.0) K/mm3 MCV 81 L (84-94) fl MCH 27 L (28-32) pg Seg Neuts % (Manual) 84.5 H (40.0-70.0) % Lymphocytes % (Manual) 2.0 L (13.4-35.0) % Seg Neutrophils # Man 26.4 H (1.8-7.7) K/mm3 Lymphocytes # (Manual) 0.6 L (1.2-5.4) K/mm3 Monocytes # (Manual) 1.7 H (0.0-0.8) K/mm3 Sodium (137-145) mmol/L Chloride (98-107) mmol/L Glucose (75-100) mg/dL POC Glucose 262 H 284 H (70-105) Calcium (8.4-10.2) mg/dL Total Protein (6.3-8.2) g/dL Albumin (3.9-5) g/dL 02/12/18 02/12/18 Range/Units 05:22 11:40 WBC (4.5-11.0) K/mm3 MCV (84-94) fl MCH (28-32) pg Seg Neuts % (Manual) (40.0-70.0) % Lymphocytes % (Manual) (13.4-35.0) % Seg Neutrophils # Man (1.8-7.7) K/mm3 Lymphocytes # (Manual) (1.2-5.4) K/mm3 Monocytes # (Manual) (0.0-0.8) K/mm3 Sodium 132 L (137-145) mmol/L Chloride 95.7 L (98-107) mmol/L Glucose 225 H (75-100) mg/dL POC Glucose 165 H (70-105) Calcium 7.7 L (8.4-10.2) mg/dL Total Protein 5.7 L (6.3-8.2) g/dL Albumin 2.5 L (3.9-5) g/dL
--- NOTE | 2018-02-12 13:12 | Consultation ---
HISTORY OF PRESENT ILLNESS: The patient is a 37-year-old gentleman, who was admitted with about a 5-day history of swelling in the right gluteal and thigh area. He had severe leukocytosis and underwent surgery yesterday, I and D of perineal abscess with a white count of almost 40,000. He has a newly diagnosed diabetes and hyponatremia. He denies any history or any manipulation. He denies any difficulty voiding or sexual dysfunction. PAST MEDICAL HISTORY: As mentioned above. PAST SURGICAL HISTORY: No history known. ALLERGIES: Negative. MEDICATIONS: He is on vancomycin. He is on insulin. REVIEW OF SYSTEMS: Weight gain and pain, right buttock. PHYSICAL EXAMINATION: GENERAL: He is awake. He is in no distress. He is more comfortable than he was. ABDOMEN: Soft with small umbilical hernia. GENITALIA: He still has significant superficial skin edema, right perineal and scrotal area. No significant drainage at this time. Circumcised testis was seen smooth and symmetrical with right being a little larger than the left. He has had some discomfort. RECTAL: We could not do a rectal exam, he has no voiding issues. IMPRESSION: Recent perineal abscess. I doubt it is related and involved the intrascrotal contents. We will get a scrotal ultrasound and follow as needed. His sugar is better controlled today as well. JOB# [id number] KODY/JERALD
[2018-02-12] MEDS: NACL 0.9% 1000 ML 1,000 ML IV SCH (14:34)
[2018-02-12] MEDS: NORCO 5/325 PO PRN (14:53)
[2018-02-12] MEDS: TYLENOL PO PRN (16:15)
[2018-02-12] MEDS: DILAUDID IV PRN (20:06)
[2018-02-12] MEDS: LOVENOX SUB-Q SCH (21:21)
--- NOTE | 2018-02-12 21:32 | Ultrasound Report ---
FINAL REPORT EXAM: US SCROTUM HISTORY: edema TECHNIQUE: Ultrasound soft tissue limits PRIORS: None. FINDINGS: Ultrasound performed in area of concern posterior aspect of the scrotum. There is marked soft tissue irregularity with in homogeneous masslike appearance is well as small hyp erechoic foci with some shadowing. This measures approximately 5.8 x 3.0 x 2.6 centimeters. IMPRESSION: Findings are concerning for abscess in area concern posterior aspect of the scrotum
[2018-02-13] MEDS: HumaLOG SUB-Q SCH ×5 (00:40→22:00)
[2018-02-13] MEDS: VANCOMYCIN 1,500 MG in NACL 0.9% 500 ML 500 ML IV SCH ×3 (01:31→18:48)
[2018-02-13] MEDS: NORCO 5/325 PO PRN (02:47)
[2018-02-13] MEDS: FLAGYL 500 MG/100 ML 500 MG/100 ML BAG IV SCH ×3 (05:05→22:00)
[2018-02-13] MEDS: MAXIPIME/NS 2 GM/100 ML 2 GM/100 ML BAG IV SCH ×3 (05:05→22:00)
[2018-02-13] MEDS: NACL 0.9% 1000 ML 1,000 ML IV SCH (05:05)
--- NOTE | 2018-02-13 08:42 | Progress Note ---
Assessment and Plan Cultures: 02/10/2018 blood culture: No growth 02/11/2018 OR culture: Gram stain mixed with GPC, GNRs A/P: 37/M with previous history of jaw abscess, no known MRSA history admitted with: 1) Right gluteal abscess/necrotizing infection causing sepsis and leukemoid reaction: s/p extensive I&D by Dr. Pittman. Urology consulted to eval for possible Tash's gangrene. Continue broad spectrum abx, Gram stain appears mixed, ?synergistic gangrene. U/S of Scrotum, findings are concerning for abscess in posterior aspect of the scrotum - Surgery following 2) Morbid obesity 3) Diabetes mellitus type 2, uncontrolled, newly diagnosed: HbA1c 14 here. Recs: Continue IV cefepime, Flagyl and vancomycin Follow up blood and OR cultures to help guide antibiotic therapy Recommend tight glycemic control f/u on Surgical assessment of ultrasound findings regarding abscess [facility] M: [phone] O:[phone] Subjective Date of service: 02/13/18 Principal diagnosis: abcess Objective - Constitutional Vitals: Vital Signs Temp Pulse Resp BP Pulse Ox 97.7 F 95 H 20 159/95 96 02/13/18 05:58 02/13/18 05:58 02/13/18 05:58 02/13/18 05:58 02/13/18 05:58 Temperature -Last 24 Hours Temperature 97.7 F Temperature 98.5 F Temperature 100.0 F Temperature 101.2 F Temperature 100.1 F - Labs CBC & Chem 7: 02/12/18 05:22 02/12/18 05:22 Labs: Abnormal lab results 02/12/18 02/12/18 Range/Units 11:40 16:50 POC Glucose 165 H 120 H (70-105)
[2018-02-13] MEDS: DILAUDID IV PRN ×4 (08:58→22:36)
--- NOTE | 2018-02-13 09:02 | Progress Note ---
Assessment and Plan Assessment and plan: Sepsis. Cont iv Abx ID Physician following Continue Cefepime, flagyl, vancomycin perineal abscess iv Abx Surg consulted s/p I and D and debridement 02/11 Right scrotal abscess s/p I and D Dr. Loya consulted and he evaluated patient Necrotizing fascitis On multiple abx Discussed with Surgery, ID Physician Marked leukocytosis, WBC 42.6 Due to sepsis Diabetes mellitus type 2, now diagnosed A1C 14 I discussed new diagnosis with him started novolin 70/30 bid Hyponatremia due to hyperglycemia Full code status History Interval history: Pain swelling right buttocks area s/p I and D , debridement 02/11 Hospitalist Physical - Physical exam Narrative exam: GEN: Not in acute distress, Obese HEENT: Normocephalic, atraumatic, Neck: supple, No JVD Lungs: Clear, no rhonchi, no wheeze Heart:S1 and S2 regular, no murmurs, rubs or gallop, Abd:soft, non tender, non distended, normal bowel sounds Ext: Dressing over perineum, scrotum, no cyanosis Neuro: AAO x 3, moves all extremities, no focal neurological signs Psych:Normal mood - Constitutional Vitals: Temp Pulse Resp BP Pulse Ox 97.7 F 95 H 20 159/95 96 02/13/18 05:58 02/13/18 05:58 02/13/18 08:58 02/13/18 05:58 02/13/18 05:58 General appearance: Present: no acute distress Results - Labs CBC & Chem 7: 02/12/18 05:22 02/12/18 05:22 Labs: Laboratory Last Values WBC 31.2 K/mm3 (4.5-11.0) H 02/12/18 05:22 RBC 4.64 M/mm3 (3.65-5.03) 02/12/18 05:22 Hgb 12.4 gm/dl (11.8-15.2) 02/12/18 05:22 Hct 37.4 % (35.5-45.6) 02/12/18 05:22 MCV 81 fl (84-94) L 02/12/18 05:22 MCH 27 pg (28-32) L 02/12/18 05:22 MCHC 33 % (32-34) 02/12/18 05:22 RDW 13.4 % (13.2-15.2) 02/12/18 05:22 Plt Count 240 K/mm3 (140-440) 02/12/18 05:22 Add Manual Diff Complete 02/12/18 05:22 Total Counted 200 02/12/18 05:22 Seg Neuts % (Manual) 84.5 % (40.0-70.0) H 02/12/18 05:22 Band Neutrophils % 7.0 % 02/12/18 05:22 Lymphocytes % (Manual) 2.0 % (13.4-35.0) L 02/12/18 05:22 Reactive Lymphs % (Man) 0.5 % 02/12/18 05:22 Monocytes % (Manual) 5.5 % (0.0-7.3) 02/12/18 05:22 Eosinophils % (Manual) 0 % (0.0-4.3) 02/12/18 05:22 Basophils % (Manual) 0 % (0.0-1.8) 02/12/18 05:22 Metamyelocytes % 0 % 02/12/18 05:22 Myelocytes % 0.5 % 02/12/18 05:22 Promyelocytes % 0 % 02/12/18 05:22 Blast Cells % 0 % 02/12/18 05:22 Nucleated RBC % Not Reportable 02/12/18 05:22 Seg Neutrophils # Man 26.4 K/mm3 (1.8-7.7) H 02/12/18 05:22 Band Neutrophils # 2.2 K/mm3 02/12/18 05:22 Lymphocytes # (Manual) 0.6 K/mm3 (1.2-5.4) L 02/12/18 05:22 Abs React Lymphs (Man) 0.2 K/mm3 02/12/18 05:22 Monocytes # (Manual) 1.7 K/mm3 (0.0-0.8) H 02/12/18 05:22 Eosinophils # (Manual) 0.0 K/mm3 (0.0-0.4) 02/12/18 05:22 Basophils # (Manual) 0.0 K/mm3 (0.0-0.1) 02/12/18 05:22 Metamyelocytes # 0.0 K/mm3 02/12/18 05:22 Myelocytes # 0.2 K/mm3 02/12/18 05:22 Promyelocytes # 0.0 K/mm3 02/12/18 05:22 Blast Cells # 0.0 K/mm3 02/12/18 05:22 WBC Morphology Not Reportable 02/12/18 05:22 Hypersegmented Neuts Not Reportable 02/12/18 05:22 Hyposegmented Neuts Not Reportable 02/12/18 05:22 Hypogranular Neuts Not Reportable 02/12/18 05:22 Smudge Cells Not Reportable 02/12/18 05:22 Toxic Granulation Not Reportable 02/12/18 05:22 Toxic Vacuolation Not Reportable 02/12/18 05:22 Dohle Bodies Not Reportable 02/12/18 05:22 Pelger-Huet Anomaly Not Reportable 02/12/18 05:22 Nivia Rods Not Reportable 02/12/18 05:22 Platelet Estimate Consistent w auto 02/12/18 05:22 Clumped Platelets Not Reportable 02/12/18 05:22 Plt Clumps, EDTA Not Reportable 02/12/18 05:22 Large Platelets Not Reportable 02/12/18 05:22 Giant Platelets Not Reportable 02/12/18 05:22 Platelet Satelliting Not Reportable 02/12/18 05:22 Plt Morphology Comment Not Reportable 02/12/18 05:22 RBC Morphology Not Reportable 02/12/18 05:22 Dimorphic RBCs Not Reportable 02/12/18 05:22 Polychromasia Not Reportable 02/12/18 05:22 Hypochromasia Not Reportable 02/12/18 05:22 Poikilocytosis Not Reportable 02/12/18 05:22 Anisocytosis Not Reportable 02/12/18 05:22 Microcytosis Not Reportable 02/12/18 05:22 Macrocytosis Not Reportable 02/12/18 05:22 Spherocytes Not Reportable 02/12/18 05:22 Pappenheimer Bodies Not Reportable 02/12/18 05:22 Sickle Cells Not Reportable 02/12/18 05:22 Target Cells 1+ 02/12/18 05:22 Tear Drop Cells Not Reportable 02/12/18 05:22 Ovalocytes Not Reportable 02/12/18 05:22 Helmet Cells Not Reportable 02/12/18 05:22 [place] Bodies Not Reportable 02/12/18 05:22 [place] Rings Not Reportable 02/12/18 05:22 [place] Cells Not Reportable 02/12/18 05:22 Bite Cells Not Reportable 02/12/18 05:22 Crenated Cell Not Reportable 02/12/18 05:22 Elliptocytes Not Reportable 02/12/18 05:22 Acanthocytes (Spur) Not Reportable 02/12/18 05:22 Rouleaux Not Reportable 02/12/18 05:22 Hemoglobin C Crystals Not Reportable 02/12/18 05:22 Schistocytes Not Reportable 02/12/18 05:22 Malaria parasites Not Reportable 02/12/18 05:22 [place] Bodies Not Reportable 02/12/18 05:22 Hem Pathologist Commnt No 02/12/18 05:22 PT 14.8 Sec. (12.2-14.9) 02/10/18 09:56 INR 1.12 (0.87-1.13) 02/10/18 09:56 VBG pH 7.415 (7.320-7.420) 02/10/18 09:56 Sodium 132 mmol/L (137-145) L 02/12/18 05:22 Potassium 3.8 mmol/L (3.6-5.0) 02/12/18 05:22 Chloride 95.7 mmol/L (98-107) L 02/12/18 05:22 Carbon Dioxide 24 mmol/L (22-30) 02/12/18 05:22 Anion Gap 16 mmol/L 02/12/18 05:22 BUN 12 mg/dL (9-20) 02/12/18 05:22 Creatinine 0.8 mg/dL (0.8-1.5) 02/12/18 05:22 Estimated GFR > 60 ml/min 02/12/18 05:22 BUN/Creatinine Ratio 15 % 02/12/18 05:22 Glucose 225 mg/dL (75-100) H 02/12/18 05:22 POC Glucose 94 (70-105) 02/13/18 08:07 Hemoglobin A1c 14.0 % (4-6) H 02/10/18 23:33 Lactic Acid 1.70 mmol/L (0.7-2.0) 02/10/18 23:33 Calcium 7.7 mg/dL (8.4-10.2) L 02/12/18 05:22 Total Bilirubin 0.50 mg/dL (0.1-1.2) 02/12/18 05:22 AST 23 units/L (5-40) 02/12/18 05:22 ALT 23 units/L (7-56) 02/12/18 05:22 Alkaline Phosphatase 110 units/L (35-129) 02/12/18 05:22 Total Creatine Kinase 151 units/L (55-170) 02/10/18 09:56 Total Protein 5.7 g/dL (6.3-8.2) L 02/12/18 05:22 Albumin 2.5 g/dL (3.9-5) L 02/12/18 05:22 Albumin/Globulin Ratio 0.8 % 02/12/18 05:22 Urine Color Yellow (Yellow) 02/10/18 Unknown Urine Turbidity Clear (Clear) 02/10/18 Unknown Urine pH 6.0 (5.0-7.0) 02/10/18 Unknown Ur Specific [place] 1.038 (1.003-1.030) H 02/10/18 Unknown Urine Protein 100 mg/dl mg/dL (Negative) 02/10/18 Unknown Urine Glucose (UA) >=500 mg/dL (Negative) 02/10/18 Unknown Urine Ketones 80 mg/dL (Negative) 02/10/18 Unknown Urine Blood Neg (Negative) 02/10/18 Unknown Urine Nitrite Neg (Negative) 02/10/18 Unknown Urine Bilirubin Neg (Negative) 02/10/18 Unknown Urine Urobilinogen 4.0 mg/dL (<2.0) 02/10/18 Unknown Ur Leukocyte Esterase Neg (Negative) 02/10/18 Unknown Urine WBC (Auto) 1.0 /HPF (0.0-6.0) 02/10/18 Unknown Urine RBC (Auto) 1.0 /HPF (0.0-6.0) 02/10/18 Unknown Urine Mucus Few /HPF 02/10/18 Unknown Vancomycin Trough 7.2 ug/mL (5.0-20.0) 02/12/18 16:54 Nutrition/Malnutrition Assess - Dietary Evaluation Nutrition/Malnutrition Findings: Nutrition Notes Start: 02/11/18 12:04 Freq: Status: Active Protocol: Document 12/24/18 12:04 OH (Rec: 02/11/18 12:25 OH [id number]) Nutrition Notes Need for Assessment generated from: [facility] Initial or Follow up Assessment Current Diagnoses Diabetes Sepsis Other Pertinent Diagnosis newly diagnosed DM; smoker; abscess R gluteal (thigh) Current Diet Consistent CHO Labs/Tests hgba1c 14 GLU 315 ALB 3.3 Medications Insulin Lovenox Height 6 ft 2 in Weight 108.5 kg [place] Body Weight (lbs) 190.0 BMI 30.7 Intake Prior to Admission Excellent Weight Status Obese Subjective/Other Information Consulted for malnutrition screen. Pt. diagnosed recently with diabetes. hgba1c noted to be 14. Pt. reports RN came in and spoke w/pt regarding his hgba1c level. Family member in the room w/pt. Pt. states he doesn't have PCP. Percent of energy/protein needs met: >75/75% GI Symptoms None Current % PO GOOD (75-100%) #3 Nutrition Diagnoses Increased nutrient needs ( specify in comment below) Comments: protein Etiology RMR greater than po intake due to wound As Evidenced by Signs and Symptoms abscess/wound Diagnosis Progress(for reassessment Continues documentation) #2 Nutrition Diagnoses Altered nutrition-related laboratory values Etiology uncontrolled DM As Evidenced by Signs and Symptoms HGBA1C of 14 Diagnosis Progress(for reassessment Continues documentation) #1 Nutrition Diagnoses Food and nutrition-related knowledge deficit Etiology no prior diabetes related education As Evidenced by Signs and Symptoms Questions raised regarding CHO sources/sugar content/dietary recommendations Diagnosis Progress(for reassessment Continues documentation) Is patient on ventilator? No Is Patient Ambulatory and/or Out of Bed Yes REE-([facility]-ambulatory/OOB) [ [id number] [id number]] Calculation Used for Recommendations [facility] Additional Notes FLUID: 1 mL/kcal PROTEIN: 1-1.4 G/KG/ADJ BW ( 97-136 G/DAY) ADJ BW 97.43 KGS Malnutrition Assessment Clinical Findings Show: Moderate Malnutrition Nutrition Intervention Change Diet Order: Consistent CHO Add Supplement/Snack (indicate name/kcal WADE BID /protein ) Provides kCal: 190 Provides Protein (gm) 5 Teaching Recipient Patient Family Learning Readiness Fair Teaching Methods Discussion Demonstration Handout Response to Teaching Return demonstration Verbalize understanding Reinforcement needed Education Handouts Provided ADA CHO handout [facility] phone number for DM education class Food label handout Discussed with patient the need to follow through w/ diabetes education classes. Enc pt to limit fast food/ processed foods. Provided [facility] number. Barriers to Learning Motivation Age related Cultural [employer] [address] phone number provided Yes Patient aware of follow up options Yes Goal #1 po intake to be maintained >75 % nutritional needs Anticipated Discharge Needs: dm education Follow-Up By: 02/14/18 Additional Comments f/u: po intake; tolerance to WADE
[2018-02-13] MEDS: SODIUM CHLORIDE FLUSH SYRINGE 10 ML IV SCH ×2 (09:07→22:00)
[2018-02-13] MEDS: PEPCID IV SCH ×2 (10:00→22:42)
[2018-02-13] MEDS: TYLENOL PO PRN (12:17)
--- NOTE | 2018-02-13 13:57 | Progress Note ---
Assessment and Plan POD # 2 Pt feeling well. no compl wd changed today as per ET nurse surgically stable continue present care will also need f/u in the outpt wd clinic Objective Vital Signs - 12hr 02/13/18 02/13/18 02/13/18 05:58 08:58 10:00 Temperature 97.7 F Pulse Rate 95 H Pulse Rate [ 95 H Right Radial] Respiratory 20 20 20 Rate Blood Pressure 159/95 O2 Sat by Pulse 96 Oximetry 02/13/18 02/13/18 11:22 12:16 Temperature 101.3 F H Pulse Rate 90 Pulse Rate [ Right Radial] Respiratory 24 20 Rate Blood Pressure 151/86 O2 Sat by Pulse 98 Oximetry - Labs 02/12/18 05:22 02/12/18 05:22
--- NOTE | 2018-02-13 14:49 | Progress Note ---
Assessment and Plan US noted less swelling min draining \ f/u as out pt Subjective Date of service: 02/13/18 Principal diagnosis: abcess Objective - Constitutional Vitals: Vital Signs - 12hr 02/13/18 02/13/18 02/13/18 05:58 08:58 10:00 Temperature 97.7 F Pulse Rate 95 H Pulse Rate [ 95 H Right Radial] Respiratory 20 20 20 Rate Blood Pressure 159/95 O2 Sat by Pulse 96 Oximetry 02/13/18 02/13/18 11:22 12:16 Temperature 101.3 F H Pulse Rate 90 Pulse Rate [ Right Radial] Respiratory 24 20 Rate Blood Pressure 151/86 O2 Sat by Pulse 98 Oximetry General appearance: Present: no acute distress - Genitourinary Male genitourinary: scrotal edema - Labs CBC & Chem 7: 02/12/18 05:22 02/12/18 05:22 Labs: Abnormal lab results 02/12/18 02/13/18 Range/Units 16:50 11:23 POC Glucose 120 H 158 H (70-105) Medications & Allergies - Medications Allergies/Adverse Reactions: Allergies No Known Allergies Allergy (Unverified 02/10/18 09:51) Active Medications: Generic Name Dose Route Start Last Admin Trade Name Freq PRN Reason Stop Dose Admin Acetaminophen 650 mg 02/10/18 21:45 02/13/18 12:17 Tylenol PO 650 mg Q4H PRN Administration Pain MILD(1-3)/Fever >100.5/HERNANDEZ Acetaminophen/Hydrocodone Bitart 1 each 02/11/18 15:39 02/13/18 02:47 [place] 5/325 PO 1 each Q4H PRN Administration Pain, Moderate (4-6) Enoxaparin Sodium 40 mg 02/11/18 22:00 02/12/18 21:21 Lovenox SUB-Q 40 mg QDAY@2200 ERIC Administration Famotidine 20 mg 02/10/18 22:00 02/12/18 21:22 Pepcid IV 20 mg BID ERIC Administration Hydromorphone HCl 1 mg 02/10/18 21:45 02/13/18 12:16 Dilaudid IV 1 mg Q3H PRN Administration Pain , Severe (7-10) Sodium Chloride 1,000 mls @ 100 mls/hr 02/11/18 12:00 02/13/18 05:05 Nacl 0.9% 1000 Ml IV 100 mls/hr DIRECT ERIC Administration Cefepime HCl 2 gm in 100 mls @ 200 mls/hr 02/11/18 14:00 02/13/18 05:05 Maxipime/Ns 2 Gm/100 Ml IV 200 mls/hr Q8HR ERIC Administration Protocol Metronidazole 500 mg in 100 mls @ 100 mls/hr 02/11/18 14:00 02/13/18 05:05 Flagyl 500 Mg/100 Ml IV 100 mls/hr Q8HR ERIC Administration Protocol Vancomycin HCl 1,500 mg/ 530 mls @ 333.333 mls/hr 02/13/18 01:30 02/13/18 08:59 Sodium Chloride IV 333.333 mls/hr Q8H ERIC Administration Insulin Human Isoph/Insulin Regular 16 unit 02/12/18 09:00 02/13/18 08:06 Humulin 70/30 SUB-Q Not Given BIDDIAB ERIC Insulin Human Lispro 0 unit 02/11/18 07:30 02/13/18 12:29 Humalog SUB-Q Not Given ACHS ERIC Protocol Morphine Sulfate 4 mg 02/11/18 15:39 Morphine IV Q3H PRN Pain , Severe (7-10) Ondansetron HCl 4 mg 02/11/18 15:39 Zofran IV Q4H PRN N/V unrelieved by [place] Oxycodone/Acetaminophen 1 tab 02/10/18 21:20 02/11/18 05:18 Percocet 5/325 PO 1 tab Q4H PRN Administration Pain, Moderate (4-6) Sodium Chloride 10 ml 02/10/18 21:45 02/11/18 22:28 Sodium Chloride Flush Syringe 10 Ml IV 10 ml PRN PRN Administration LINE FLUSH Sodium Chloride 10 ml 02/10/18 22:00 02/13/18 09:07 Sodium Chloride Flush Syringe 10 Ml IV 10 ml BID ERIC Administration
[2018-02-13] MEDS: LOVENOX SUB-Q SCH (22:41)
[2018-02-14] MEDS: VANCOMYCIN 1,500 MG in NACL 0.9% 500 ML 500 ML IV SCH ×3 (01:30→17:41)
[2018-02-14] MEDS: FLAGYL 500 MG/100 ML 500 MG/100 ML BAG IV SCH ×3 (06:00→22:42)
[2018-02-14] MEDS: MAXIPIME/NS 2 GM/100 ML 2 GM/100 ML BAG IV SCH ×3 (06:00→21:49)
[2018-02-14 06:16] LABS: Hematocrit 36.7 % (35.5-45.6); Mean Corpuscular HGB Conc 33 % (32-34); Mean Corpuscular Volume 81 fl (84-94); Platelet Count 283 K/mm3 (140-440); Red Blood Count 4.54 M/mm3 (3.65-5.03); Red Cell Distribution Width 13.5 % (13.2-15.2)
[2018-02-14 06:33] LABS: Alanine Aminotransferase 30 units/L (7-56); Albumin 2.1 g/dL (3.9-5); BUN/Creatinine Ratio 12; Blood Urea Nitrogen 7 mg/dL (9-20); Calcium 7.7 mg/dL (8.4-10.2); Hemolysis Index 8
[2018-02-14 07:11] LABS: Anisocytosis Few; Band Neutrophils # (Manual) 6.5 K/mm3; Basophils % (Manual) 0 % (0.0-1.8); Eosinophils % (Manual) 0 % (0.0-4.3); Myelocytes # (Manual) 0.7 K/mm3; Total Cells Counted 100
[2018-02-14 07:12] LABS: Large Platelets Few; Platelet Estimate Consistent w Auto; Smudge Cells Few; Target Cells 1+
[2018-02-14] MEDS: HumaLOG SUB-Q SCH ×4 (08:45→22:50)
--- NOTE | 2018-02-14 09:52 | Progress Note ---
Assessment and Plan Assessment and plan: Patient is 37 yo with no previous medical history presented with pain swelling of right gluteal region. He was diagnosed with gluteal abscess admitted started on iv Abx. Labs show WBC 42, hyperglycemia, he is diagnosed with Sepsis due to gluteal abscess, diabetes , new onset,new diagnosis. He was evaluated by Surgeon, ID Physician. He had I and D, debridement on 02/[address] Pittman, found to have abscess, extensive necrotizing fascitis, scrotal abscess. He was also seen by Dr. Romero. Now feels better, WBC 34. Still having fevers. Not ready for dc. Sepsis. Now on Cefepime, Flagyl, Vanco ID Physician following Perineal abscess iv Abx Surg following s/p I and D and debridement 02/11 Right scrotal abscess s/p I and D Dr. Loya consulted and he evaluated patient Necrotizing fascitis On multiple abx Discussed with Surgery, ID Physician Marked leukocytosis, WBC 42.6 on admssion Due to sepsis Diabetes mellitus type 2, now diagnosed A1C 14 I discussed new diagnosis with him started novolin 70/30 bid Hyponatremia due to hyperglycemia Full code status History Interval history: Less pain gluteal.scrotal area s/p I and D , debridement 02/11 Hospitalist Physical - Physical exam Narrative exam: GEN: Not in acute distress, Obese HEENT: Normocephalic, atraumatic, Neck: supple, No JVD Lungs: Clear, no rhonchi, no wheeze Heart:S1 and S2 regular, no murmurs, rubs or gallop, Abd:soft, non tender, non distended, normal bowel sounds Ext: Dressing over perineum, scrotum, no cyanosis Neuro: AAO x 3, moves all extremities, no focal neurological signs Psych:Normal mood - Constitutional Vitals: Temp Pulse Resp BP Pulse Ox 99.2 F 86 20 147/86 94 02/14/18 04:53 02/14/18 04:53 02/14/18 04:53 02/14/18 04:53 02/14/18 04:53 General appearance: Present: no acute distress Results - Labs CBC & Chem 7: 02/14/18 04:26 02/14/18 04:26 Labs: Laboratory Last Values WBC 34.3 K/mm3 (4.5-11.0) H 02/14/18 04:26 RBC 4.54 M/mm3 (3.65-5.03) 02/14/18 04:26 Hgb 12.0 gm/dl (11.8-15.2) 02/14/18 04:26 Hct 36.7 % (35.5-45.6) 02/14/18 04:26 MCV 81 fl (84-94) L 02/14/18 04:26 MCH 27 pg (28-32) L 02/14/18 04:26 MCHC 33 % (32-34) 02/14/18 04:26 RDW 13.5 % (13.2-15.2) 02/14/18 04:26 Plt Count 283 K/mm3 (140-440) 02/14/18 04:26 Add Manual Diff Complete 02/14/18 04:26 Total Counted 100 02/14/18 04:26 Seg Neuts % (Manual) 61.0 % (40.0-70.0) 02/14/18 04:26 Band Neutrophils % 19.0 % 02/14/18 04:26 Lymphocytes % (Manual) 7.0 % (13.4-35.0) L 02/14/18 04:26 Reactive Lymphs % (Man) 0 % 02/14/18 04:26 Monocytes % (Manual) 11.0 % (0.0-7.3) H 02/14/18 04:26 Eosinophils % (Manual) 0 % (0.0-4.3) 02/14/18 04:26 Basophils % (Manual) 0 % (0.0-1.8) 02/14/18 04:26 Metamyelocytes % 0 % 02/14/18 04:26 Myelocytes % 2.0 % 02/14/18 04:26 Promyelocytes % 0 % 02/14/18 04:26 Blast Cells % 0 % 02/14/18 04:26 Nucleated RBC % Not Reportable 02/14/18 04:26 Seg Neutrophils # Man 20.9 K/mm3 (1.8-7.7) H 02/14/18 04:26 Band Neutrophils # 6.5 K/mm3 02/14/18 04:26 Lymphocytes # (Manual) 2.4 K/mm3 (1.2-5.4) 02/14/18 04:26 Abs React Lymphs (Man) 0.0 K/mm3 02/14/18 04:26 Monocytes # (Manual) 3.8 K/mm3 (0.0-0.8) H 02/14/18 04:26 Eosinophils # (Manual) 0.0 K/mm3 (0.0-0.4) 02/14/18 04:26 Basophils # (Manual) 0.0 K/mm3 (0.0-0.1) 02/14/18 04:26 Metamyelocytes # 0.0 K/mm3 02/14/18 04:26 Myelocytes # 0.7 K/mm3 02/14/18 04:26 Promyelocytes # 0.0 K/mm3 02/14/18 04:26 Blast Cells # 0.0 K/mm3 02/14/18 04:26 Pathologist Review 02/10/18 09:56 WBC Morphology Not Reportable 02/14/18 04:26 Hypersegmented Neuts Not Reportable 02/14/18 04:26 Hyposegmented Neuts Not Reportable 02/14/18 04:26 Hypogranular Neuts Not Reportable 02/14/18 04:26 Smudge Cells Few 02/14/18 04:26 Toxic Granulation Not Reportable 02/14/18 04:26 Toxic Vacuolation Not Reportable 02/14/18 04:26 Dohle Bodies Not Reportable 02/14/18 04:26 Pelger-Huet Anomaly Not Reportable 02/14/18 04:26 Nivia Rods Not Reportable 02/14/18 04:26 Platelet Estimate Consistent w auto 02/14/18 04:26 Clumped Platelets Not Reportable 02/14/18 04:26 Plt Clumps, EDTA Not Reportable 02/14/18 04:26 Large Platelets Few 02/14/18 04:26 Giant Platelets Not Reportable 02/14/18 04:26 Platelet Satelliting Not Reportable 02/14/18 04:26 Plt Morphology Comment Not Reportable 02/14/18 04:26 RBC Morphology Not Reportable 02/14/18 04:26 Dimorphic RBCs Not Reportable 02/14/18 04:26 Polychromasia Not Reportable 02/14/18 04:26 Hypochromasia Not Reportable 02/14/18 04:26 Poikilocytosis Not Reportable 02/14/18 04:26 Anisocytosis Few 02/14/18 04:26 Microcytosis Not Reportable 02/14/18 04:26 Macrocytosis Not Reportable 02/14/18 04:26 Spherocytes Not Reportable 02/14/18 04:26 Pappenheimer Bodies Not Reportable 02/14/18 04:26 Sickle Cells Not Reportable 02/14/18 04:26 Target Cells 1+ 02/14/18 04:26 Tear Drop Cells Not Reportable 02/14/18 04:26 Ovalocytes Not Reportable 02/14/18 04:26 Helmet Cells Not Reportable 02/14/18 04:26 [place] Bodies Not Reportable 02/14/18 04:26 [place] Rings Not Reportable 02/14/18 04:26 [place] Cells Not Reportable 02/14/18 04:26 Bite Cells Not Reportable 02/14/18 04:26 Crenated Cell Not Reportable 02/14/18 04:26 Elliptocytes Not Reportable 02/14/18 04:26 Acanthocytes (Spur) Not Reportable 02/14/18 04:26 Rouleaux Not Reportable 02/14/18 04:26 Hemoglobin C Crystals Not Reportable 02/14/18 04:26 Schistocytes Not Reportable 02/14/18 04:26 Malaria parasites Not Reportable 02/14/18 04:26 [place] Bodies Not Reportable 02/14/18 04:26 Hem Pathologist Commnt No 02/14/18 04:26 PT 14.8 Sec. (12.2-14.9) 02/10/18 09:56 INR 1.12 (0.87-1.13) 02/10/18 09:56 VBG pH 7.415 (7.320-7.420) 02/10/18 09:56 Sodium 131 mmol/L (137-145) L 02/14/18 04:26 Potassium 3.1 mmol/L (3.6-5.0) L 02/14/18 04:26 Chloride 92.1 mmol/L (98-107) L 02/14/18 04:26 Carbon Dioxide 24 mmol/L (22-30) 02/14/18 04:26 Anion Gap 18 mmol/L 02/14/18 04:26 BUN 7 mg/dL (9-20) L 02/14/18 04:26 Creatinine 0.6 mg/dL (0.8-1.5) L 02/14/18 04:26 Estimated GFR > 60 ml/min 02/14/18 04:26 BUN/Creatinine Ratio 12 % 02/14/18 04:26 Glucose 179 mg/dL (75-100) H 02/14/18 04:26 POC Glucose 160 (70-105) H 02/14/18 07:52 Hemoglobin A1c 14.0 % (4-6) H 02/10/18 23:33 Lactic Acid 1.70 mmol/L (0.7-2.0) 02/10/18 23:33 Calcium 7.7 mg/dL (8.4-10.2) L 02/14/18 04:26 Total Bilirubin 0.70 mg/dL (0.1-1.2) 02/14/18 04:26 AST 31 units/L (5-40) 02/14/18 04:26 ALT 30 units/L (7-56) 02/14/18 04:26 Alkaline Phosphatase 130 units/L (35-129) H 02/14/18 04:26 Total Creatine Kinase 151 units/L (55-170) 02/10/18 09:56 Total Protein 5.7 g/dL (6.3-8.2) L 02/14/18 04:26 Albumin 2.1 g/dL (3.9-5) L 02/14/18 04:26 Albumin/Globulin Ratio 0.6 % 02/14/18 04:26 Urine Color Yellow (Yellow) 02/10/18 Unknown Urine Turbidity Clear (Clear) 02/10/18 Unknown Urine pH 6.0 (5.0-7.0) 02/10/18 Unknown Ur Specific [place] 1.038 (1.003-1.030) H 02/10/18 Unknown Urine Protein 100 mg/dl mg/dL (Negative) 02/10/18 Unknown Urine Glucose (UA) >=500 mg/dL (Negative) 02/10/18 Unknown Urine Ketones 80 mg/dL (Negative) 02/10/18 Unknown Urine Blood Neg (Negative) 02/10/18 Unknown Urine Nitrite Neg (Negative) 02/10/18 Unknown Urine Bilirubin Neg (Negative) 02/10/18 Unknown Urine Urobilinogen 4.0 mg/dL (<2.0) 02/10/18 Unknown Ur Leukocyte Esterase Neg (Negative) 02/10/18 Unknown Urine WBC (Auto) 1.0 /HPF (0.0-6.0) 02/10/18 Unknown Urine RBC (Auto) 1.0 /HPF (0.0-6.0) 02/10/18 Unknown Urine Mucus Few /HPF 02/10/18 Unknown Vancomycin Trough 7.2 ug/mL (5.0-20.0) 02/12/18 16:54 Nutrition/Malnutrition Assess - Dietary Evaluation Nutrition/Malnutrition Findings: Nutrition Notes Start: 02/11/18 12:04 Freq: Status: Active Protocol: Document 02/13/18 14:57 RM (Rec: 02/13/18 14:58 RM [id number]) Nutrition Notes Initial or Follow up Brief Note Subjective/Other Information Consulted for poor oral intake . Pt already being followed. Nutrition Intervention Follow-Up By: 02/14/18 Additional Comments f/u: po intake; tolerance to WADE
[2018-02-14] MEDS: K-DUR PO SCH ×2 (10:38→15:26)
[2018-02-14] MEDS: PEPCID IV SCH ×2 (10:41→21:52)
[2018-02-14] MEDS: SODIUM CHLORIDE FLUSH SYRINGE 10 ML IV SCH ×2 (10:41→21:57)
--- NOTE | 2018-02-14 11:24 | Progress Note ---
Assessment and Plan Cultures: 02/10/2018 blood culture: No growth 02/11/2018 OR culture: Gram stain mixed with GPC, GNRs A/P: 37/M with previous history of jaw abscess, no known MRSA history admitted with: 1) Right gluteal abscess/necrotizing infection causing sepsis and leukemoid reaction: s/p extensive I&D by Dr. Pittman. Urology consulted to eval for possible Tash's gangrene. Continue broad spectrum abx, Gram stain appears mixed, ?synergistic gangrene. U/S of Scrotum, findings are concerning for abscess in posterior aspect of the scrotum - Surgery following 2) Morbid obesity 3) Diabetes mellitus type 2, uncontrolled, newly diagnosed: HbA1c 14 here. Recs: Continue IV cefepime, Flagyl and vancomycin Recommend tight glycemic control f/u on Surgical assessment of ultrasound findings regarding abscess [facility] M: [id number] O:[phone] Subjective Date of service: 02/14/18 Principal diagnosis: abcess Interval history: Patient seen and examined. Denied SOB, Nausea or vomiting. Nurses notes, labs and reports reviewed, discussed with patient. Objective - Exam Narrative Exam: Physical Exam: Constitutional: Alert, cooperative. No acute distress. Obese Head, Ears, Nose: Normocephalic, atraumatic. External ears, nose normal Eyes: Conjunctivae/corneas clear. No icterus. No ptosis. Neck: Supple, no meningeal signs Oral: no ulcers, no thrush Cardiovascular: S1, S2 normal. Respiratory: Good air entry, clear to auscultation bilaterally GI: Soft, non-tender; bowel sounds normal. No peritoneal signs Musculoskeletal: No pedal edema, no cyanosis. Right gluteal and perineal region with dressing + Skin: no rash. Hem/Lymphatic: No palpable cervical or supraclavicular nodes. No lymphangitis Psych: Mood ok. Affect normal Neurological: Awake, alert, oriented. No gross abnormality - Constitutional Vitals: Vital Signs Temp Pulse Resp BP Pulse Ox 99.2 F 86 20 147/86 94 02/14/18 04:53 02/14/18 04:53 02/14/18 04:53 02/14/18 04:53 02/14/18 04:53 Temperature -Last 24 Hours Temperature 99.2 F Temperature 100.5 F Temperature 100.9 F - Labs CBC & Chem 7: 02/14/18 04:26 02/14/18 04:26 Labs: Abnormal lab results 02/13/18 02/13/18 02/13/18 Range/Units 11:23 16:36 20:41 WBC (4.5-11.0) K/mm3 MCV (84-94) fl MCH (28-32) pg Lymphocytes % (Manual) (13.4-35.0) % Monocytes % (Manual) (0.0-7.3) % Seg Neutrophils # Man (1.8-7.7) K/mm3 Monocytes # (Manual) (0.0-0.8) K/mm3 Sodium (137-145) mmol/L Potassium (3.6-5.0) mmol/L Chloride (98-107) mmol/L BUN (9-20) mg/dL Creatinine (0.8-1.5) mg/dL Glucose (75-100) mg/dL POC Glucose 158 H 173 H 146 H (70-105) Calcium (8.4-10.2) mg/dL Alkaline Phosphatase (35-129) units/L Total Protein (6.3-8.2) g/dL Albumin (3.9-5) g/dL 02/14/18 02/14/18 02/14/18 Range/Units 04:26 04:26 07:52 WBC 34.3 H (4.5-11.0) K/mm3 MCV 81 L (84-94) fl MCH 27 L (28-32) pg Lymphocytes % (Manual) 7.0 L (13.4-35.0) % Monocytes % (Manual) 11.0 H (0.0-7.3) % Seg Neutrophils # Man 20.9 H (1.8-7.7) K/mm3 Monocytes # (Manual) 3.8 H (0.0-0.8) K/mm3 Sodium 131 L (137-145) mmol/L Potassium 3.1 L (3.6-5.0) mmol/L Chloride 92.1 L (98-107) mmol/L BUN 7 L (9-20) mg/dL Creatinine 0.6 L (0.8-1.5) mg/dL Glucose 179 H (75-100) mg/dL POC Glucose 160 H (70-105) Calcium 7.7 L (8.4-10.2) mg/dL Alkaline Phosphatase 130 H (35-129) units/L Total Protein 5.7 L (6.3-8.2) g/dL Albumin 2.1 L (3.9-5) g/dL
[2018-02-14] MEDS: DILAUDID IV PRN ×2 (13:24→20:04)
[2018-02-14] MEDS: NACL 0.9% 1000 ML 1,000 ML IV SCH (17:41)
[2018-02-14] MEDS: LOVENOX SUB-Q SCH (21:55)
[2018-02-15] MEDS: DILAUDID IV PRN ×5 (01:21→23:17)
[2018-02-15] MEDS: VANCOMYCIN 1,500 MG in NACL 0.9% 500 ML 500 ML IV SCH ×3 (01:24→18:30)
[2018-02-15 05:14] LABS: Hematocrit 36.6 % (35.5-45.6); Hemoglobin 12.2 gm/dl (11.8-15.2); Mean Corpuscular HGB Conc 34 % (32-34); Mean Corpuscular Volume 81 fl (84-94); Platelet Count 318 K/mm3 (140-440); Red Blood Count 4.51 M/mm3 (3.65-5.03); Red Cell Distribution Width 13.4 % (13.2-15.2)
[2018-02-15 05:34] LABS: BUN/Creatinine Ratio 10; Blood Urea Nitrogen 7 mg/dL (9-20); Calcium 7.8 mg/dL (8.4-10.2); Hemolysis Index 4
[2018-02-15] MEDS: MAXIPIME/NS 2 GM/100 ML 2 GM/100 ML BAG IV SCH ×3 (06:37→22:04)
[2018-02-15] MEDS: FLAGYL 500 MG/100 ML 500 MG/100 ML BAG IV SCH ×3 (07:10→23:05)
--- NOTE | 2018-02-15 08:46 | Progress Note ---
Assessment and Plan Cultures: 02/10/2018 blood culture: No growth 02/11/2018 OR culture: Gram stain mixed with GPC, GNRs A/P: 37/M with previous history of jaw abscess, no known MRSA history admitted with: 1) Right gluteal abscess/necrotizing infection causing sepsis and leukemoid reaction: Leukocytosis continuing, slow response to antibiotic therapy. s/p extensive I&D by Dr. Pittman. Urology consulted to eval for possible Tash's gangrene. Continue broad spectrum abx, Gram stain appears mixed, ?synergistic gangrene. U/S of Scrotum, findings are concerning for abscess in posterior aspect of the scrotum. May need additional debridement. Surgery following 2) Morbid obesity 3) Diabetes mellitus type 2, uncontrolled, newly diagnosed: HbA1c 14 here. Recs: Continue IV cefepime, Flagyl and vancomycin Recommend tight glycemic control Slow response to antibiotic therapy, Leukocytosis continuing, may need additional debridement- Surgery following Dr. Sr will be taking calls from home on Sunday, and rounding in the hospital on Sunday. Kate Antoine NP [facility] M: [phone] O:[phone] Subjective Date of service: 02/15/18 Principal diagnosis: abcess Interval history: Patient seen and examined. Denied SOB, Nausea or vomiting. Nurses notes, labs and reports reviewed, discussed with patient. Objective - Exam Narrative Exam: Physical Exam: Constitutional: Alert, cooperative. No acute distress. Obese Head, Ears, Nose: Normocephalic, atraumatic. External ears, nose normal Eyes: Conjunctivae/corneas clear. No icterus. No ptosis. Neck: Supple, no meningeal signs Oral: no ulcers, no thrush Cardiovascular: S1, S2 normal. Respiratory: Good air entry, clear to auscultation bilaterally GI: Soft, non-tender; bowel sounds normal. No peritoneal signs Musculoskeletal: No pedal edema, no cyanosis. Right gluteal and perineal region with dressing + Skin: no rash. Hem/Lymphatic: No palpable cervical or supraclavicular nodes. No lymphangitis Psych: Mood ok. Affect normal Neurological: Awake, alert, oriented. No gross abnormality - Constitutional Vitals: Vital Signs Temp Pulse Resp BP Pulse Ox 99.9 F H 70 20 150/79 98 12/28/18 06:01 02/15/18 06:01 02/15/18 06:01 02/15/18 06:01 02/15/18 06:01 Temperature -Last 24 Hours Temperature 99.9 F Temperature 99.8 F Temperature 98.7 F Temperature 99.4 F - Labs CBC & Chem 7: 02/15/18 04:29 02/15/18 04:29 Labs: Abnormal lab results 02/14/18 02/14/18 02/14/18 Range/Units 11:42 16:55 21:25 WBC (4.5-11.0) K/mm3 MCV (84-94) fl MCH (28-32) pg Potassium (3.6-5.0) mmol/L BUN (9-20) mg/dL Creatinine (0.8-1.5) mg/dL Glucose (75-100) mg/dL POC Glucose 168 H 107 H 174 H (70-105) Calcium (8.4-10.2) mg/dL 02/15/18 02/15/18 Range/Units 04:29 04:29 WBC 35.2 H (4.5-11.0) K/mm3 MCV 81 L (84-94) fl MCH 27 L (28-32) pg Potassium 3.5 L (3.6-5.0) mmol/L BUN 7 L (9-20) mg/dL Creatinine 0.7 L (0.8-1.5) mg/dL Glucose 127 H (75-100) mg/dL POC Glucose (70-105) Calcium 7.8 L (8.4-10.2) mg/dL
[2018-02-15] MEDS: HumaLOG SUB-Q SCH ×4 (08:48→23:13)
[2018-02-15] MEDS: PEPCID IV SCH ×2 (09:09→22:09)
[2018-02-15] MEDS: SODIUM CHLORIDE FLUSH SYRINGE 10 ML IV SCH ×2 (09:10→23:12)
--- NOTE | 2018-02-15 11:51 | Progress Note ---
Assessment and Plan POD # 4 Pt feeling well without compl Temp and BS down wbc 35.2 surgically stable will review with ET nurse for wd status f/u wbc in am Selected Entries 02/13/18 02/15/18 11:22 06:01 Temperature 101.3 F H 99.9 F H Pulse Rate 90 70 Respiratory 24 20 Rate Blood Pressure 151/86 150/79 Laboratory Tests 02/15/18 02/15/18 04:29 04:29 WBC 35.2 H Glucose 127 H Objective Vital Signs - 12hr 02/15/18 02/15/18 00:03 06:01 Temperature 99.8 F H 99.9 F H Pulse Rate 83 70 Respiratory 18 20 Rate Blood Pressure 125/94 150/79 O2 Sat by Pulse 96 98 Oximetry - Labs 02/15/18 04:29 02/15/18 04:29 Diabetes panel 02/15/18 Range/Units 04:29 Sodium 137 (137-145) mmol/L Potassium 3.5 L (3.6-5.0) mmol/L Chloride 98.6 (98-107) mmol/L Carbon Dioxide 28 (22-30) mmol/L BUN 7 L (9-20) mg/dL Creatinine 0.7 L (0.8-1.5) mg/dL Glucose 127 H (75-100) mg/dL Calcium 7.8 L (8.4-10.2) mg/dL Calcium panel 02/15/18 Range/Units 04:29 Calcium 7.8 L (8.4-10.2) mg/dL Pituitary panel 02/15/18 Range/Units 04:29 Sodium 137 (137-145) mmol/L Potassium 3.5 L (3.6-5.0) mmol/L Chloride 98.6 (98-107) mmol/L Carbon Dioxide 28 (22-30) mmol/L BUN 7 L (9-20) mg/dL Creatinine 0.7 L (0.8-1.5) mg/dL Glucose 127 H (75-100) mg/dL Calcium 7.8 L (8.4-10.2) mg/dL Adrenal panel 02/15/18 Range/Units 04:29 Sodium 137 (137-145) mmol/L Potassium 3.5 L (3.6-5.0) mmol/L Chloride 98.6 (98-107) mmol/L Carbon Dioxide 28 (22-30) mmol/L BUN 7 L (9-20) mg/dL Creatinine 0.7 L (0.8-1.5) mg/dL Glucose 127 H (75-100) mg/dL Calcium 7.8 L (8.4-10.2) mg/dL
--- NOTE | 2018-02-15 12:26 | Progress Note ---
Assessment and Plan Assessment and plan: Sepsis. Now on Cefepime, Flagyl, Vanco ID Physician following Perineal abscess iv Abx Surg following s/p I and D and debridement 02/11 Right scrotal abscess s/p I and D Dr. Loya consulted and he evaluated patient Necrotizing fascitis On multiple abx Discussed with Surgery, ID Physician Marked leukocytosis, WBC 42.6 on admssion Due to sepsis Diabetes mellitus type 2, now diagnosed A1C 14 I discussed new diagnosis with him started novolin 70/30 bid Hyponatremia due to hyperglycemia Full code status History Interval history: No new issues overnight Hospitalist Physical - Constitutional Vitals: Temp Pulse Resp BP Pulse Ox 99.9 F H 70 20 150/79 98 02/15/18 06:01 02/15/18 06:01 02/15/18 06:01 02/15/18 06:01 02/15/18 06:01 General appearance: Present: no acute distress - EENT Eyes: Present: PERRL, EOM intact ENT: hearing intact, clear oral mucosa, dentition normal - Neck Neck: Present: supple, normal ROM - Respiratory Respiratory effort: normal Respiratory: bilateral: CTA - Cardiovascular Rhythm: regular Heart Sounds: Present: S1 & S2. Absent: gallop, rub - Extremities Extremities: no ischemia, No edema, Full ROM - Abdominal General gastrointestinal: soft, non-tender, non-distended, normal bowel sounds - Integumentary Integumentary: Present: clear, warm, dry - Neurologic Neurologic: CNII-XII intact, moves all extremities Results - Labs CBC & Chem 7: 02/15/18 04:29 02/15/18 04:29 Labs: Laboratory Last Values WBC 35.2 K/mm3 (4.5-11.0) H 02/15/18 04:29 RBC 4.51 M/mm3 (3.65-5.03) 02/15/18 04:29 Hgb 12.2 gm/dl (11.8-15.2) 02/15/18 04:29 Hct 36.6 % (35.5-45.6) 02/15/18 04:29 MCV 81 fl (84-94) L 02/15/18 04:29 MCH 27 pg (28-32) L 02/15/18 04:29 MCHC 34 % (32-34) 02/15/18 04:29 RDW 13.4 % (13.2-15.2) 02/15/18 04:29 Plt Count 318 K/mm3 (140-440) 02/15/18 04:29 Add Manual Diff Complete 02/14/18 04:26 Total Counted 100 02/14/18 04:26 Seg Neuts % (Manual) 61.0 % (40.0-70.0) 02/14/18 04:26 Band Neutrophils % 19.0 % 02/14/18 04:26 Lymphocytes % (Manual) 7.0 % (13.4-35.0) L 02/14/18 04:26 Reactive Lymphs % (Man) 0 % 02/14/18 04:26 Monocytes % (Manual) 11.0 % (0.0-7.3) H 02/14/18 04:26 Eosinophils % (Manual) 0 % (0.0-4.3) 02/14/18 04:26 Basophils % (Manual) 0 % (0.0-1.8) 02/14/18 04:26 Metamyelocytes % 0 % 02/14/18 04:26 Myelocytes % 2.0 % 02/14/18 04:26 Promyelocytes % 0 % 02/14/18 04:26 Blast Cells % 0 % 02/14/18 04:26 Nucleated RBC % Not Reportable 02/14/18 04:26 Seg Neutrophils # Man 20.9 K/mm3 (1.8-7.7) H 02/14/18 04:26 Band Neutrophils # 6.5 K/mm3 02/14/18 04:26 Lymphocytes # (Manual) 2.4 K/mm3 (1.2-5.4) 02/14/18 04:26 Abs React Lymphs (Man) 0.0 K/mm3 02/14/18 04:26 Monocytes # (Manual) 3.8 K/mm3 (0.0-0.8) H 02/14/18 04:26 Eosinophils # (Manual) 0.0 K/mm3 (0.0-0.4) 02/14/18 04:26 Basophils # (Manual) 0.0 K/mm3 (0.0-0.1) 02/14/18 04:26 Metamyelocytes # 0.0 K/mm3 02/14/18 04:26 Myelocytes # 0.7 K/mm3 02/14/18 04:26 Promyelocytes # 0.0 K/mm3 02/14/18 04:26 Blast Cells # 0.0 K/mm3 02/14/18 04:26 Pathologist Review 02/10/18 09:56 WBC Morphology Not Reportable 02/14/18 04:26 Hypersegmented Neuts Not Reportable 02/14/18 04:26 Hyposegmented Neuts Not Reportable 02/14/18 04:26 Hypogranular Neuts Not Reportable 02/14/18 04:26 Smudge Cells Few 02/14/18 04:26 Toxic Granulation Not Reportable 02/14/18 04:26 Toxic Vacuolation Not Reportable 02/14/18 04:26 Dohle Bodies Not Reportable 02/14/18 04:26 Pelger-Huet Anomaly Not Reportable 02/14/18 04:26 Nivia Rods Not Reportable 02/14/18 04:26 Platelet Estimate Consistent w auto 02/14/18 04:26 Clumped Platelets Not Reportable 02/14/18 04:26 Plt Clumps, EDTA Not Reportable 02/14/18 04:26 Large Platelets Few 02/14/18 04:26 Giant Platelets Not Reportable 02/14/18 04:26 Platelet Satelliting Not Reportable 02/14/18 04:26 Plt Morphology Comment Not Reportable 02/14/18 04:26 RBC Morphology Not Reportable 02/14/18 04:26 Dimorphic RBCs Not Reportable 02/14/18 04:26 Polychromasia Not Reportable 02/14/18 04:26 Hypochromasia Not Reportable 02/14/18 04:26 Poikilocytosis Not Reportable 02/14/18 04:26 Anisocytosis Few 02/14/18 04:26 Microcytosis Not Reportable 02/14/18 04:26 Macrocytosis Not Reportable 02/14/18 04:26 Spherocytes Not Reportable 02/14/18 04:26 Pappenheimer Bodies Not Reportable 02/14/18 04:26 Sickle Cells Not Reportable 02/14/18 04:26 Target Cells 1+ 02/14/18 04:26 Tear Drop Cells Not Reportable 02/14/18 04:26 Ovalocytes Not Reportable 02/14/18 04:26 Helmet Cells Not Reportable 02/14/18 04:26 [place] Bodies Not Reportable 02/14/18 04:26 [place] Rings Not Reportable 02/14/18 04:26 Dell Cells Not Reportable 02/14/18 04:26 Bite Cells Not Reportable 02/14/18 04:26 Crenated Cell Not Reportable 02/14/18 04:26 Elliptocytes Not Reportable 02/14/18 04:26 Acanthocytes (Spur) Not Reportable 02/14/18 04:26 Rouleaux Not Reportable 02/14/18 04:26 Hemoglobin C Crystals Not Reportable 02/14/18 04:26 Schistocytes Not Reportable 02/14/18 04:26 Malaria parasites Not Reportable 02/14/18 04:26 [place] Bodies Not Reportable 02/14/18 04:26 Hem Pathologist Commnt No 02/14/18 04:26 PT 14.8 Sec. (12.2-14.9) 02/10/18 09:56 INR 1.12 (0.87-1.13) 02/10/18 09:56 VBG pH 7.415 (7.320-7.420) 02/10/18 09:56 Sodium 137 mmol/L (137-145) 02/15/18 04:29 Potassium 3.5 mmol/L (3.6-5.0) L 02/15/18 04:29 Chloride 98.6 mmol/L (98-107) 02/15/18 04:29 Carbon Dioxide 28 mmol/L (22-30) 02/15/18 04:29 Anion Gap 14 mmol/L 02/15/18 04:29 BUN 7 mg/dL (9-20) L 02/15/18 04:29 Creatinine 0.7 mg/dL (0.8-1.5) L 02/15/18 04:29 Estimated GFR > 60 ml/min 02/15/18 04:29 BUN/Creatinine Ratio 10 % 02/15/18 04:29 Glucose 127 mg/dL (75-100) H 02/15/18 04:29 POC Glucose 204 (70-105) H 02/15/18 11:00 Hemoglobin A1c 14.0 % (4-6) H 02/10/18 23:33 Lactic Acid 1.70 mmol/L (0.7-2.0) 02/10/18 23:33 Calcium 7.8 mg/dL (8.4-10.2) L 02/15/18 04:29 Total Bilirubin 0.70 mg/dL (0.1-1.2) 02/14/18 04:26 AST 31 units/L (5-40) 02/14/18 04:26 ALT 30 units/L (7-56) 02/14/18 04:26 Alkaline Phosphatase 130 units/L (35-129) H 02/14/18 04:26 Total Creatine Kinase 151 units/L (55-170) 02/10/18 09:56 Total Protein 5.7 g/dL (6.3-8.2) L 02/14/18 04:26 Albumin 2.1 g/dL (3.9-5) L 02/14/18 04:26 Albumin/Globulin Ratio 0.6 % 02/14/18 04:26 Urine Color Yellow (Yellow) 02/10/18 Unknown Urine Turbidity Clear (Clear) 02/10/18 Unknown Urine pH 6.0 (5.0-7.0) 02/10/18 Unknown Ur Specific [place] 1.038 (1.003-1.030) H 02/10/18 Unknown Urine Protein 100 mg/dl mg/dL (Negative) 02/10/18 Unknown Urine Glucose (UA) >=500 mg/dL (Negative) 02/10/18 Unknown Urine Ketones 80 mg/dL (Negative) 02/10/18 Unknown Urine Blood Neg (Negative) 02/10/18 Unknown Urine Nitrite Neg (Negative) 02/10/18 Unknown Urine Bilirubin Neg (Negative) 02/10/18 Unknown Urine Urobilinogen 4.0 mg/dL (<2.0) 02/10/18 Unknown Ur Leukocyte Esterase Neg (Negative) 02/10/18 Unknown Urine WBC (Auto) 1.0 /HPF (0.0-6.0) 02/10/18 Unknown Urine RBC (Auto) 1.0 /HPF (0.0-6.0) 02/10/18 Unknown Urine Mucus Few /HPF 02/10/18 Unknown Vancomycin Trough 7.2 ug/mL (5.0-20.0) 02/12/18 16:54 Nutrition/Malnutrition Assess - Dietary Evaluation Nutrition/Malnutrition Findings: Nutrition Notes Start: 02/11/18 12:04 Freq: Status: Active Protocol: Document 02/14/18 12:57 BLANCA (Rec: 02/14/18 13:04 BLANCA [email or web address] [email or web address]) Nutrition Notes Initial or Follow up Reassessment Current Diagnoses Diabetes Sepsis Other Pertinent Diagnosis Perineal/Scrotal abscess s/p I &D, necrotizing fasciitis Current Diet Cardiac/Consistent CHO Labs/Tests K 3.1 POC Glu range since last assessment: 94-173 Medications 40mEq KCl x 2 doses Height 6 ft 2 in Weight 107.7 kg [place] Body Weight (lbs) 190.0 BMI 30.4 Subjective/Other Information Pt reports improving appetite; consumed 100% of breakfast this am (36% average of meals overall). Has not received Wade yet (no order placed). Placed Wade instructional card tent on bedside table and explained contribution of Wade in the wound healing process. Percent of energy/protein needs met: 33% energy 25% pro #3 Nutrition Diagnoses Increased nutrient needs ( specify in comment below) Diagnosis Progress(for reassessment Continues documentation) #2 Nutrition Diagnoses Altered nutrition-related laboratory values Diagnosis Progress(for reassessment Continues documentation) #1 Nutrition Diagnoses Food and nutrition-related knowledge deficit As Evidenced by Signs and Symptoms pt received DM diet education Diagnosis Progress(for reassessment Resolved documentation) Is patient on ventilator? No Is Patient Ambulatory and/or Out of Bed Yes REE-([facility]-ambulatory/OOB) [ 2699.775 [id number]] Kcal/Kg value to use for calculation 20 Approximate Energy Requirements Using 2154 kcal/Kg Calculation Used for Recommendations Kcal/kg Additional Notes Pro needs 1.25-1.5g/kg adjBW: 121-146g/day Fluid needs 1ml/kcal Nutrition Intervention Change Diet Order: Continue current diet order Add Supplement/Snack (indicate name/kcal WADE BID /protein ) Provides kCal: 190 Provides Protein (gm) 5 Goal #1 PO intake of meals to meet at least 75% energy and pro needs Goal #2 Wound healing Goal #3 Improved BG control Anticipated Discharge Needs: CHO-controlled diet Follow-Up By: 02/20/18 Additional Comments F/U: intakes (meals/ONS), wt
--- NOTE | 2018-02-15 18:00 | Progress Note ---
Subjective Date of service: 02/15/18 Principal diagnosis: abcess Interval history: This is a 37 yr old male Patient reports that he does not have a local primary care doctor or chronic medical conditions. He presents to the ER with complaint of right gluteal pain and swelling, which is not traumatic, which is present for the past 4-5 days. Symptoms constant, did not radiate anywhere, worse with palpation and decreased with rest. Diabetes mellitus type 2, uncontrolled, newly diagnosed: HbA1c 14 here. pt states scrotal swelling better would clean - packing intact A/P local care Objective - Constitutional Vitals: Vital Signs - 12hr 02/15/18 06:01 Temperature 99.9 F H Pulse Rate 70 Respiratory 20 Rate Blood Pressure 150/79 O2 Sat by Pulse 98 Oximetry - Labs CBC & Chem 7: 02/15/18 04:29 02/15/18 04:29 Labs: Abnormal lab results 02/14/18 02/15/18 02/15/18 Range/Units 21:25 04:29 04:29 WBC 35.2 H (4.5-11.0) K/mm3 MCV 81 L (84-94) fl MCH 27 L (28-32) pg Potassium 3.5 L (3.6-5.0) mmol/L BUN 7 L (9-20) mg/dL Creatinine 0.7 L (0.8-1.5) mg/dL Glucose 127 H (75-100) mg/dL POC Glucose 174 H (70-105) Calcium 7.8 L (8.4-10.2) mg/dL 02/15/18 02/15/18 02/15/18 Range/Units 07:29 11:00 16:31 WBC (4.5-11.0) K/mm3 MCV (84-94) fl MCH (28-32) pg Potassium (3.6-5.0) mmol/L BUN (9-20) mg/dL Creatinine (0.8-1.5) mg/dL Glucose (75-100) mg/dL POC Glucose 132 H 204 H 140 H (70-105) Calcium (8.4-10.2) mg/dL Medications & Allergies - Medications Allergies/Adverse Reactions: Allergies No Known Allergies Allergy (Unverified 02/10/18 09:51) Home Medications: Home Medications Medication Instructions Recorded Confirmed Last Taken Type No Known Home Medications [No 02/14/18 02/14/18 Unknown History Reported Home Medications] Active Medications: Generic Name Dose Route Start Last Admin Trade Name Freq PRN Reason Stop Dose Admin Acetaminophen 650 mg 02/10/18 21:45 02/13/18 12:17 Tylenol PO 650 mg Q4H PRN Administration Pain MILD(1-3)/Fever >100.5/HERNANDEZ Acetaminophen/Hydrocodone Bitart 1 each 02/11/18 15:39 02/13/18 02:47 [place] 5/325 PO 1 each Q4H PRN Administration Pain, Moderate (4-6) Enoxaparin Sodium 40 mg 02/11/18 22:00 02/14/18 21:55 Lovenox SUB-Q 40 mg QDAY@2200 ERIC Administration Famotidine 20 mg 02/10/18 22:00 02/15/18 09:09 Pepcid IV 20 mg BID ERIC Administration Hydromorphone HCl 1 mg 02/10/18 21:45 02/15/18 15:00 Dilaudid IV 1 mg Q3H PRN Administration Pain , Severe (7-10) Sodium Chloride 1,000 mls @ 100 mls/hr 02/11/18 12:00 02/14/18 17:41 Nacl 0.9% 1000 Ml IV 100 mls/hr DIRECT ERIC Administration Cefepime HCl 2 gm in 100 mls @ 200 mls/hr 02/11/18 14:00 02/15/18 17:21 Maxipime/Ns 2 Gm/100 Ml IV 200 mls/hr Q8HR ERIC Administration Protocol Metronidazole 500 mg in 100 mls @ 100 mls/hr 02/11/18 14:00 02/15/18 16:16 Flagyl 500 Mg/100 Ml IV 100 mls/hr Q8HR ERIC Administration Protocol Vancomycin HCl 1,500 mg/ 530 mls @ 333.333 mls/hr 02/13/18 01:30 02/15/18 12:53 Sodium Chloride IV 333.333 mls/hr Q8H ERIC Administration Insulin Human Isoph/Insulin Regular 16 unit 02/12/18 09:00 02/15/18 17:31 Humulin 70/30 SUB-Q 16 unit BIDDIAB ERIC Administration Insulin Human Lispro 0 unit 02/11/18 07:30 12/28/18 17:29 Humalog SUB-Q Not Given ACHS [facility] Protocol Morphine Sulfate 4 mg 02/11/18 15:39 Morphine IV Q3H PRN Pain , Severe (7-10) Ondansetron HCl 4 mg 02/11/18 15:39 Zofran IV Q4H PRN N/V unrelieved by Reglan Oxycodone/Acetaminophen 1 tab 02/10/18 21:20 02/11/18 05:18 Percocet 5/325 PO 1 tab Q4H PRN Administration Pain, Moderate (4-6) Sodium Chloride 10 ml 02/10/18 21:45 02/11/18 22:28 Sodium Chloride Flush Syringe 10 Ml IV 10 ml PRN PRN Administration LINE FLUSH Sodium Chloride 10 ml 02/10/18 22:00 02/15/18 09:10 Sodium Chloride Flush Syringe 10 Ml IV 10 ml BID ERIC Administration
[2018-02-15] MEDS: PERCOCET 5/325 PO PRN (18:32)
[2018-02-15] MEDS: LOVENOX SUB-Q SCH (22:07)
[2018-02-16] MEDS: VANCOMYCIN 1,500 MG in NACL 0.9% 500 ML 500 ML IV SCH ×2 (01:45→11:00)
[2018-02-16] MEDS: DILAUDID IV PRN ×2 (04:36→14:14)
[2018-02-16 05:25] LABS: Hematocrit 36.9 % (35.5-45.6); Hemoglobin 12.4 gm/dl (11.8-15.2); Mean Corpuscular HGB Conc 34 % (32-34); Mean Corpuscular Volume 80 fl (84-94); Platelet Count 388 K/mm3 (140-440); Red Blood Count 4.59 M/mm3 (3.65-5.03); Red Cell Distribution Width 13.5 % (13.2-15.2)
[2018-02-16 05:40] LABS: BUN/Creatinine Ratio 11; Blood Urea Nitrogen 8 mg/dL (9-20); Calcium 7.9 mg/dL (8.4-10.2); Hemolysis Index 14
[2018-02-16] MEDS: NACL 0.9% 1000 ML 1,000 ML IV SCH ×2 (05:46→20:54)
[2018-02-16] MEDS: MAXIPIME/NS 2 GM/100 ML 2 GM/100 ML BAG IV SCH ×3 (05:52→23:09)
[2018-02-16] MEDS: FLAGYL 500 MG/100 ML 500 MG/100 ML BAG IV SCH ×3 (06:47→23:43)
[2018-02-16] MEDS: HumaLOG SUB-Q SCH ×4 (07:30→22:03)
[2018-02-16 07:49] LABS: Total Cells Counted 100
[2018-02-16 07:50] LABS: Anisocytosis 1+; Band Neutrophils # (Manual) 2.5 K/mm3; Basophils % (Manual) 0 % (0.0-1.8); Eosinophils % (Manual) 0 % (0.0-4.3); Giant Platelets Few
[2018-02-16 07:52] LABS: Platelet Estimate Consistent w Auto
[2018-02-16] MEDS: PEPCID IV SCH ×2 (10:03→21:37)
[2018-02-16] MEDS: MORPHINE IV PRN ×2 (10:14→20:54)
[2018-02-16] MEDS: SODIUM CHLORIDE FLUSH SYRINGE 10 ML IV SCH ×2 (10:14→21:37)
--- NOTE | 2018-02-16 12:17 | Progress Note ---
Assessment and Plan Assessment and plan: Sepsis. Now on Cefepime, Flagyl, Vanco ID Physician following Perineal abscess iv Abx Surg following s/p I and D and debridement 02/11 Right scrotal abscess s/p I and D Dr. Loya consulted and he evaluated patient Necrotizing fascitis On multiple abx Discussed with Surgery, ID Physician Marked leukocytosis, WBC 42.6 on admssion Due to sepsis Diabetes mellitus type 2, now diagnosed A1C 14 I discussed new diagnosis with him started novolin 70/30 bid Hyponatremia due to hyperglycemia Full code status History Interval history: No new issues overnight Hospitalist Physical - Constitutional Vitals: Temp Pulse Resp BP Pulse Ox 99.6 F 83 20 145/80 97 02/16/18 05:44 02/16/18 05:44 02/16/18 05:44 02/16/18 05:44 02/16/18 05:44 General appearance: Present: no acute distress - EENT Eyes: Present: PERRL, EOM intact ENT: hearing intact, clear oral mucosa, dentition normal - Neck Neck: Present: supple, normal ROM - Respiratory Respiratory effort: normal Respiratory: bilateral: CTA - Cardiovascular Rhythm: regular Heart Sounds: Present: S1 & S2. Absent: gallop, rub - Extremities Extremities: no ischemia, No edema, Full ROM - Abdominal General gastrointestinal: soft, non-tender, non-distended, normal bowel sounds - Integumentary Integumentary: Present: clear, warm, dry - Neurologic Neurologic: CNII-XII intact, moves all extremities Results - Labs CBC & Chem 7: 02/16/18 04:44 02/16/18 04:44 Labs: Laboratory Last Values WBC 27.8 K/mm3 (4.5-11.0) H 02/16/18 04:44 RBC 4.59 M/mm3 (3.65-5.03) 02/16/18 04:44 Hgb 12.4 gm/dl (11.8-15.2) 02/16/18 04:44 Hct 36.9 % (35.5-45.6) 02/16/18 04:44 MCV 80 fl (84-94) L 02/16/18 04:44 MCH 27 pg (28-32) L 02/16/18 04:44 MCHC 34 % (32-34) 02/16/18 04:44 RDW 13.5 % (13.2-15.2) 02/16/18 04:44 Plt Count 388 K/mm3 (140-440) 02/16/18 04:44 Add Manual Diff Complete 02/16/18 04:44 Total Counted 100 02/16/18 04:44 Seg Neuts % (Manual) 61.0 % (40.0-70.0) 02/16/18 04:44 Band Neutrophils % 9.0 % 02/16/18 04:44 Lymphocytes % (Manual) 9.0 % (13.4-35.0) L 02/16/18 04:44 Reactive Lymphs % (Man) 0 % 02/16/18 04:44 Monocytes % (Manual) 18.0 % (0.0-7.3) H 02/16/18 04:44 Eosinophils % (Manual) 0 % (0.0-4.3) 02/16/18 04:44 Basophils % (Manual) 0 % (0.0-1.8) 02/16/18 04:44 Metamyelocytes % 3.0 % 02/16/18 04:44 Myelocytes % 0 % 02/16/18 04:44 Promyelocytes % 0 % 02/16/18 04:44 Blast Cells % 0 % 02/16/18 04:44 Nucleated RBC % Not Reportable 02/16/18 04:44 Seg Neutrophils # Man 17.0 K/mm3 (1.8-7.7) H 02/16/18 04:44 Band Neutrophils # 2.5 K/mm3 02/16/18 04:44 Lymphocytes # (Manual) 2.5 K/mm3 (1.2-5.4) 02/16/18 04:44 Abs React Lymphs (Man) 0.0 K/mm3 02/16/18 04:44 Monocytes # (Manual) 5.0 K/mm3 (0.0-0.8) H 02/16/18 04:44 Eosinophils # (Manual) 0.0 K/mm3 (0.0-0.4) 02/16/18 04:44 Basophils # (Manual) 0.0 K/mm3 (0.0-0.1) 02/16/18 04:44 Metamyelocytes # 0.8 K/mm3 02/16/18 04:44 Myelocytes # 0.0 K/mm3 02/16/18 04:44 Promyelocytes # 0.0 K/mm3 02/16/18 04:44 Blast Cells # 0.0 K/mm3 02/16/18 04:44 Pathologist Review 02/10/18 09:56 WBC Morphology Not Reportable 02/16/18 04:44 Hypersegmented Neuts Not Reportable 02/16/18 04:44 Hyposegmented Neuts Not Reportable 02/16/18 04:44 Hypogranular Neuts Not Reportable 02/16/18 04:44 Smudge Cells Not Reportable 02/16/18 04:44 Toxic Granulation Not Reportable 02/16/18 04:44 Toxic Vacuolation Not Reportable 02/16/18 04:44 Dohle Bodies Not Reportable 02/16/18 04:44 Pelger-Huet Anomaly Not Reportable 02/16/18 04:44 Nivia Rods Not Reportable 02/16/18 04:44 Platelet Estimate Consistent w auto 02/16/18 04:44 Clumped Platelets Not Reportable 02/16/18 04:44 Plt Clumps, EDTA Not Reportable 02/16/18 04:44 Large Platelets Not Reportable 02/16/18 04:44 Giant Platelets Few 02/16/18 04:44 Platelet Satelliting Not Reportable 02/16/18 04:44 Plt Morphology Comment Not Reportable 02/16/18 04:44 RBC Morphology Not Reportable 02/16/18 04:44 Dimorphic RBCs Not Reportable 02/16/18 04:44 Polychromasia 1+ 02/16/18 04:44 Hypochromasia Not Reportable 02/16/18 04:44 Poikilocytosis Not Reportable 02/16/18 04:44 Anisocytosis 1+ 02/16/18 04:44 Microcytosis Not Reportable 02/16/18 04:44 Macrocytosis Not Reportable 02/16/18 04:44 Spherocytes Not Reportable 02/16/18 04:44 Pappenheimer Bodies Not Reportable 02/16/18 04:44 Sickle Cells Not Reportable 02/16/18 04:44 Target Cells Not Reportable 02/16/18 04:44 Tear Drop Cells Not Reportable 02/16/18 04:44 Ovalocytes Not Reportable 02/16/18 04:44 Helmet Cells Not Reportable 02/16/18 04:44 Kessler-Lengby Bodies Not Reportable 02/16/18 04:44 [place] Rings Not Reportable 02/16/18 04:44 [place] Cells Not Reportable 02/16/18 04:44 Bite Cells Not Reportable 02/16/18 04:44 Crenated Cell Not Reportable 02/16/18 04:44 Elliptocytes Not Reportable 02/16/18 04:44 Acanthocytes (Spur) Not Reportable 02/16/18 04:44 Rouleaux Not Reportable 02/16/18 04:44 Hemoglobin C Crystals Not Reportable 02/16/18 04:44 Schistocytes Not Reportable 02/16/18 04:44 Malaria parasites Not Reportable 02/16/18 04:44 Jurgen Bodies Not Reportable 02/16/18 04:44 Hem Pathologist Commnt No 02/16/18 04:44 PT 14.8 Sec. (12.2-14.9) 02/10/18 09:56 INR 1.12 (0.87-1.13) 02/10/18 09:56 VBG pH 7.415 (7.320-7.420) 02/10/18 09:56 Sodium 137 mmol/L (137-145) 02/16/18 04:44 Potassium 3.5 mmol/L (3.6-5.0) L 02/16/18 04:44 Chloride 97.3 mmol/L (98-107) L 02/16/18 04:44 Carbon Dioxide 26 mmol/L (22-30) 02/16/18 04:44 Anion Gap 17 mmol/L 02/16/18 04:44 BUN 8 mg/dL (9-20) L 02/16/18 04:44 Creatinine 0.7 mg/dL (0.8-1.5) L 02/16/18 04:44 Estimated GFR > 60 ml/min 02/16/18 04:44 BUN/Creatinine Ratio 11 % 02/16/18 04:44 Glucose 130 mg/dL (75-100) H 02/16/18 04:44 POC Glucose 160 (70-105) H 02/16/18 11:42 Hemoglobin A1c 14.0 % (4-6) H 02/10/18 23:33 Lactic Acid 1.70 mmol/L (0.7-2.0) 02/10/18 23:33 Calcium 7.9 mg/dL (8.4-10.2) L 02/16/18 04:44 Total Bilirubin 0.70 mg/dL (0.1-1.2) 02/14/18 04:26 AST 31 units/L (5-40) 02/14/18 04:26 ALT 30 units/L (7-56) 02/14/18 04:26 Alkaline Phosphatase 130 units/L (35-129) H 02/14/18 04:26 Total Creatine Kinase 151 units/L (55-170) 02/10/18 09:56 Total Protein 5.7 g/dL (6.3-8.2) L 02/14/18 04:26 Albumin 2.1 g/dL (3.9-5) L 02/14/18 04:26 Albumin/Globulin Ratio 0.6 % 02/14/18 04:26 Urine Color Yellow (Yellow) 02/10/18 Unknown Urine Turbidity Clear (Clear) 02/10/18 Unknown Urine pH 6.0 (5.0-7.0) 02/10/18 Unknown Ur Specific [place] 1.038 (1.003-1.030) H 02/10/18 Unknown Urine Protein 100 mg/dl mg/dL (Negative) 02/10/18 Unknown Urine Glucose (UA) >=500 mg/dL (Negative) 02/10/18 Unknown Urine Ketones 80 mg/dL (Negative) 02/10/18 Unknown Urine Blood Neg (Negative) 02/10/18 Unknown Urine Nitrite Neg (Negative) 02/10/18 Unknown Urine Bilirubin Neg (Negative) 02/10/18 Unknown Urine Urobilinogen 4.0 mg/dL (<2.0) 02/10/18 Unknown Ur Leukocyte Esterase Neg (Negative) 02/10/18 Unknown Urine WBC (Auto) 1.0 /HPF (0.0-6.0) 02/10/18 Unknown Urine RBC (Auto) 1.0 /HPF (0.0-6.0) 02/10/18 Unknown Urine Mucus Few /HPF 02/10/18 Unknown Vancomycin Trough 7.3 ug/mL (5.0-20.0) 02/16/18 10:03 Nutrition/Malnutrition Assess - Dietary Evaluation Nutrition/Malnutrition Findings: Nutrition Notes Start: 02/11/18 12:04 Freq: Status: Active Protocol: Document 02/14/18 12:57 BLANCA (Rec: 02/14/18 13:04 MICHELLECINTHIA SRW- [email or web address]) Nutrition Notes Initial or Follow up Reassessment Current Diagnoses Diabetes Sepsis Other Pertinent Diagnosis Perineal/Scrotal abscess s/p I &D, necrotizing fasciitis Current Diet Cardiac/Consistent CHO Labs/Tests K 3.1 POC Glu range since last assessment: 94-173 Medications 40mEq KCl x 2 doses Height 6 ft 2 in Weight 107.7 kg [place] Body Weight (lbs) 190.0 BMI 30.4 Subjective/Other Information Pt reports improving appetite; consumed 100% of breakfast this am (36% average of meals overall). Has not received Wade yet (no order placed). Placed Wade instructional card tent on bedside table and explained contribution of Wade in the wound healing process. Percent of energy/protein needs met: 33% energy 25% pro #3 Nutrition Diagnoses Increased nutrient needs ( specify in comment below) Diagnosis Progress(for reassessment Continues documentation) #2 Nutrition Diagnoses Altered nutrition-related laboratory values Diagnosis Progress(for reassessment Continues documentation) #1 Nutrition Diagnoses Food and nutrition-related knowledge deficit As Evidenced by Signs and Symptoms pt received DM diet education Diagnosis Progress(for reassessment Resolved documentation) Is patient on ventilator? No Is Patient Ambulatory and/or Out of Bed Yes REE-([facility]-ambulatory/OOB) [ 2699.775 NUTR.MSJOOB] Kcal/Kg value to use for calculation 20 Approximate Energy Requirements Using 2154 kcal/Kg Calculation Used for Recommendations Kcal/kg Additional Notes Pro needs 1.25-1.5g/kg adjBW: 121-146g/day Fluid needs 1ml/kcal Nutrition Intervention Change Diet Order: Continue current diet order Add Supplement/Snack (indicate name/kcal WADE BID /protein ) Provides kCal: 190 Provides Protein (gm) 5 Goal #1 PO intake of meals to meet at least 75% energy and pro needs Goal #2 Wound healing Goal #3 Improved BG control Anticipated Discharge Needs: CHO-controlled diet Follow-Up By: 02/20/18 Additional Comments F/U: intakes (meals/ONS), wt
[2018-02-16] MEDS: VANCOMYCIN 2,000 MG in NACL 0.9% 500 ML 500 ML IV SCH (20:49)
[2018-02-16] MEDS: LOVENOX SUB-Q SCH (21:37)
[2018-02-17] MEDS: MORPHINE IV PRN (01:24)
[2018-02-17] MEDS: VANCOMYCIN 2,000 MG in NACL 0.9% 500 ML 500 ML IV SCH ×2 (03:52→11:00)
[2018-02-17] MEDS: MAXIPIME/NS 2 GM/100 ML 2 GM/100 ML BAG IV SCH ×3 (05:49→21:31)
[2018-02-17] MEDS: FLAGYL 500 MG/100 ML 500 MG/100 ML BAG IV SCH ×3 (06:22→22:58)
[2018-02-17 06:23] LABS: Hematocrit 34.9 % (35.5-45.6); Hemoglobin 11.5 gm/dl (11.8-15.2); Mean Corpuscular HGB Conc 33 % (32-34); Mean Corpuscular Volume 81 fl (84-94); Platelet Count 396 K/mm3 (140-440); Red Cell Distribution Width 13.6 % (13.2-15.2)
[2018-02-17] MEDS: HumaLOG SUB-Q SCH ×4 (07:30→21:37)
[2018-02-17 08:05] LABS: BUN/Creatinine Ratio 9; Blood Urea Nitrogen 6 mg/dL (9-20); Calcium 7.9 mg/dL (8.4-10.2); Hemolysis Index 2
[2018-02-17] MEDS: PEPCID IV SCH ×2 (09:08→21:32)
[2018-02-17] MEDS: SODIUM CHLORIDE FLUSH SYRINGE 10 ML IV SCH ×2 (09:10→21:32)
[2018-02-17] MEDS: PERCOCET 5/325 PO PRN ×2 (09:39→17:21)
--- NOTE | 2018-02-17 11:07 | Progress Note ---
Assessment and Plan Assessment and plan: Sepsis. Continue antibiotics per ID Perineal abscess iv Abx Surg following s/p I and D and debridement 02/11 Right scrotal abscess s/p I and D Urology following Necrotizing fascitis On multiple abx Discussed with Surgery, ID Physician Marked leukocytosis, WBC 42.6 on admssion Due to sepsis. Improving. Diabetes mellitus type 2, newly diagnosed Cont. novolin 70/30 bid Hyponatremia due to hyperglycemia Full code status History Interval history: No new issues overnight Hospitalist Physical - Constitutional Vitals: Temp Pulse Resp BP Pulse Ox 98.8 F 80 20 155/86 98 02/17/18 05:53 02/17/18 05:53 02/17/18 05:53 02/17/18 05:53 02/17/18 05:53 General appearance: Present: no acute distress - EENT Eyes: Present: PERRL, EOM intact ENT: hearing intact, clear oral mucosa, dentition normal - Neck Neck: Present: supple, normal ROM - Respiratory Respiratory effort: normal Respiratory: bilateral: CTA - Cardiovascular Rhythm: regular Heart Sounds: Present: S1 & S2. Absent: gallop, rub - Extremities Extremities: no ischemia, No edema, Full ROM - Abdominal General gastrointestinal: soft, non-tender, non-distended, normal bowel sounds - Integumentary Integumentary: Present: clear, warm, dry - Neurologic Neurologic: CNII-XII intact, moves all extremities Results - Labs CBC & Chem 7: 02/17/18 04:40 02/17/18 04:40 Labs: Laboratory Last Values WBC 22.0 K/mm3 (4.5-11.0) H 02/17/18 04:40 RBC 4.30 M/mm3 (3.65-5.03) 02/17/18 04:40 Hgb 11.5 gm/dl (11.8-15.2) L 02/17/18 04:40 Hct 34.9 % (35.5-45.6) L 02/17/18 04:40 MCV 81 fl (84-94) L 02/17/18 04:40 MCH 27 pg (28-32) L 02/17/18 04:40 MCHC 33 % (32-34) 02/17/18 04:40 RDW 13.6 % (13.2-15.2) 02/17/18 04:40 Plt Count 396 K/mm3 (140-440) 02/17/18 04:40 Add Manual Diff Complete 02/16/18 04:44 Total Counted 100 02/16/18 04:44 Seg Neuts % (Manual) 61.0 % (40.0-70.0) 02/16/18 04:44 Band Neutrophils % 9.0 % 02/16/18 04:44 Lymphocytes % (Manual) 9.0 % (13.4-35.0) L 02/16/18 04:44 Reactive Lymphs % (Man) 0 % 02/16/18 04:44 Monocytes % (Manual) 18.0 % (0.0-7.3) H 02/16/18 04:44 Eosinophils % (Manual) 0 % (0.0-4.3) 02/16/18 04:44 Basophils % (Manual) 0 % (0.0-1.8) 02/16/18 04:44 Metamyelocytes % 3.0 % 02/16/18 04:44 Myelocytes % 0 % 02/16/18 04:44 Promyelocytes % 0 % 02/16/18 04:44 Blast Cells % 0 % 02/16/18 04:44 Nucleated RBC % Not Reportable 02/16/18 04:44 Seg Neutrophils # Man 17.0 K/mm3 (1.8-7.7) H 02/16/18 04:44 Band Neutrophils # 2.5 K/mm3 02/16/18 04:44 Lymphocytes # (Manual) 2.5 K/mm3 (1.2-5.4) 02/16/18 04:44 Abs React Lymphs (Man) 0.0 K/mm3 02/16/18 04:44 Monocytes # (Manual) 5.0 K/mm3 (0.0-0.8) H 02/16/18 04:44 Eosinophils # (Manual) 0.0 K/mm3 (0.0-0.4) 02/16/18 04:44 Basophils # (Manual) 0.0 K/mm3 (0.0-0.1) 02/16/18 04:44 Metamyelocytes # 0.8 K/mm3 02/16/18 04:44 Myelocytes # 0.0 K/mm3 02/16/18 04:44 Promyelocytes # 0.0 K/mm3 02/16/18 04:44 Blast Cells # 0.0 K/mm3 02/16/18 04:44 Pathologist Review 02/10/18 09:56 WBC Morphology Not Reportable 02/16/18 04:44 Hypersegmented Neuts Not Reportable 02/16/18 04:44 Hyposegmented Neuts Not Reportable 02/16/18 04:44 Hypogranular Neuts Not Reportable 02/16/18 04:44 Smudge Cells Not Reportable 02/16/18 04:44 Toxic Granulation Not Reportable 02/16/18 04:44 Toxic Vacuolation Not Reportable 02/16/18 04:44 Dohle Bodies Not Reportable 02/16/18 04:44 Pelger-Huet Anomaly Not Reportable 02/16/18 04:44 Nivia Rods Not Reportable 02/16/18 04:44 Platelet Estimate Consistent w auto 02/16/18 04:44 Clumped Platelets Not Reportable 02/16/18 04:44 Plt Clumps, EDTA Not Reportable 02/16/18 04:44 Large Platelets Not Reportable 02/16/18 04:44 Giant Platelets Few 02/16/18 04:44 Platelet Satelliting Not Reportable 02/16/18 04:44 Plt Morphology Comment Not Reportable 02/16/18 04:44 RBC Morphology Not Reportable 02/16/18 04:44 Dimorphic RBCs Not Reportable 02/16/18 04:44 Polychromasia 1+ 02/16/18 04:44 Hypochromasia Not Reportable 02/16/18 04:44 Poikilocytosis Not Reportable 02/16/18 04:44 Anisocytosis 1+ 02/16/18 04:44 Microcytosis Not Reportable 02/16/18 04:44 Macrocytosis Not Reportable 02/16/18 04:44 Spherocytes Not Reportable 02/16/18 04:44 Pappenheimer Bodies Not Reportable 02/16/18 04:44 Sickle Cells Not Reportable 02/16/18 04:44 Target Cells Not Reportable 02/16/18 04:44 Tear Drop Cells Not Reportable 02/16/18 04:44 Ovalocytes Not Reportable 02/16/18 04:44 Helmet Cells Not Reportable 02/16/18 04:44 Kessler-Mims Bodies Not Reportable 02/16/18 04:44 [place] Rings Not Reportable 02/16/18 04:44 [place] Cells Not Reportable 02/16/18 04:44 Bite Cells Not Reportable 02/16/18 04:44 Crenated Cell Not Reportable 02/16/18 04:44 Elliptocytes Not Reportable 02/16/18 04:44 Acanthocytes (Spur) Not Reportable 02/16/18 04:44 Rouleaux Not Reportable 02/16/18 04:44 Hemoglobin C Crystals Not Reportable 02/16/18 04:44 Schistocytes Not Reportable 02/16/18 04:44 Malaria parasites Not Reportable 02/16/18 04:44 Jurgen Bodies Not Reportable 02/16/18 04:44 Hem Pathologist Commnt No 02/16/18 04:44 PT 14.8 Sec. (12.2-14.9) 02/10/18 09:56 INR 1.12 (0.87-1.13) 02/10/18 09:56 VBG pH 7.415 (7.320-7.420) 02/10/18 09:56 Sodium 137 mmol/L (137-145) 02/17/18 04:40 Potassium 3.4 mmol/L (3.6-5.0) L 02/17/18 04:40 Chloride 99.6 mmol/L (98-107) 02/17/18 04:40 Carbon Dioxide 25 mmol/L (22-30) 02/17/18 04:40 Anion Gap 16 mmol/L 02/17/18 04:40 BUN 6 mg/dL (9-20) L 02/17/18 04:40 Creatinine 0.7 mg/dL (0.8-1.5) L 02/17/18 04:40 Estimated GFR > 60 ml/min 02/17/18 04:40 BUN/Creatinine Ratio 9 % 02/17/18 04:40 Glucose 91 mg/dL (75-100) 02/17/18 04:40 POC Glucose 114 (70-105) H 02/17/18 07:42 Hemoglobin A1c 14.0 % (4-6) H 02/10/18 23:33 Lactic Acid 1.70 mmol/L (0.7-2.0) 02/10/18 23:33 Calcium 7.9 mg/dL (8.4-10.2) L 02/17/18 04:40 Total Bilirubin 0.70 mg/dL (0.1-1.2) 02/14/18 04:26 AST 31 units/L (5-40) 02/14/18 04:26 ALT 30 units/L (7-56) 02/14/18 04:26 Alkaline Phosphatase 130 units/L (35-129) H 02/14/18 04:26 Total Creatine Kinase 151 units/L (55-170) 02/10/18 09:56 Total Protein 5.7 g/dL (6.3-8.2) L 02/14/18 04:26 Albumin 2.1 g/dL (3.9-5) L 02/14/18 04:26 Albumin/Globulin Ratio 0.6 % 02/14/18 04:26 Urine Color Yellow (Yellow) 02/10/18 Unknown Urine Turbidity Clear (Clear) 02/10/18 Unknown Urine pH 6.0 (5.0-7.0) 02/10/18 Unknown Ur Specific [place] 1.038 (1.003-1.030) H 02/10/18 Unknown Urine Protein 100 mg/dl mg/dL (Negative) 02/10/18 Unknown Urine Glucose (UA) >=500 mg/dL (Negative) 02/10/18 Unknown Urine Ketones 80 mg/dL (Negative) 02/10/18 Unknown Urine Blood Neg (Negative) 02/10/18 Unknown Urine Nitrite Neg (Negative) 02/10/18 Unknown Urine Bilirubin Neg (Negative) 02/10/18 Unknown Urine Urobilinogen 4.0 mg/dL (<2.0) 02/10/18 Unknown Ur Leukocyte Esterase Neg (Negative) 02/10/18 Unknown Urine WBC (Auto) 1.0 /HPF (0.0-6.0) 02/10/18 Unknown Urine RBC (Auto) 1.0 /HPF (0.0-6.0) 02/10/18 Unknown Urine Mucus Few /HPF 02/10/18 Unknown Vancomycin Trough 7.3 ug/mL (5.0-20.0) 02/16/18 10:03 Nutrition/Malnutrition Assess - Dietary Evaluation Nutrition/Malnutrition Findings: Nutrition Notes Start: 02/11/18 12:04 Freq: Status: Active Protocol: Document 02/14/18 12:57 NHALL (Rec: 02/14/18 13:04 [facility] SRW- [email or web address]) Nutrition Notes Initial or Follow up Reassessment Current Diagnoses Diabetes Sepsis Other Pertinent Diagnosis Perineal/Scrotal abscess s/p I &D, necrotizing fasciitis Current Diet Cardiac/Consistent CHO Labs/Tests K 3.1 POC Glu range since last assessment: 94-173 Medications 40mEq KCl x 2 doses Height 6 ft 2 in Weight 107.7 kg [place] Body Weight (lbs) 190.0 BMI 30.4 Subjective/Other Information Pt reports improving appetite; consumed 100% of breakfast this am (36% average of meals overall). Has not received Raphael yet (no order placed). Placed Raphael instructional card tent on bedside table and explained contribution of Raphael in the wound healing process. Percent of energy/protein needs met: 33% energy 25% pro #3 Nutrition Diagnoses Increased nutrient needs ( specify in comment below) Diagnosis Progress(for reassessment Continues documentation) #2 Nutrition Diagnoses Altered nutrition-related laboratory values Diagnosis Progress(for reassessment Continues documentation) #1 Nutrition Diagnoses Food and nutrition-related knowledge deficit As Evidenced by Signs and Symptoms pt received DM diet education Diagnosis Progress(for reassessment Resolved documentation) Is patient on ventilator? No Is Patient Ambulatory and/or Out of Bed Yes REE-([facility]-ambulatory/OOB) [ 2699.775 NUTR.MSJOOB] Kcal/Kg value to use for calculation 20 Approximate Energy Requirements Using 2154 kcal/Kg Calculation Used for Recommendations Kcal/kg Additional Notes Pro needs 1.25-1.5g/kg adjBW: 121-146g/day Fluid needs 1ml/kcal Nutrition Intervention Change Diet Order: Continue current diet order Add Supplement/Snack (indicate name/kcal RAPHAEL BID /protein ) Provides kCal: 190 Provides Protein (gm) 5 Goal #1 PO intake of meals to meet at least 75% energy and pro needs Goal #2 Wound healing Goal #3 Improved BG control Anticipated Discharge Needs: CHO-controlled diet Follow-Up By: 02/20/18 Additional Comments F/U: intakes (meals/ONS), wt
[2018-02-17 11:33] LABS: Anisocytosis 1+; Basophils % (Manual) 0 % (0.0-1.8); Eosinophils % (Manual) 0 % (0.0-4.3); Total Cells Counted 100
[2018-02-17] MEDS: NACL 0.9% 1000 ML 1,000 ML IV SCH (13:25)
[2018-02-17] MEDS: LOVENOX SUB-Q SCH (21:31)
[2018-02-18] MEDS: PERCOCET 5/325 PO PRN ×2 (01:18→17:43)
[2018-02-18] MEDS: NACL 0.9% 1000 ML 1,000 ML IV SCH ×2 (03:20→17:38)
[2018-02-18 04:39] LABS: Hematocrit 34.5 % (35.5-45.6); Hemoglobin 11.3 gm/dl (11.8-15.2); Mean Corpuscular HGB Conc 33 % (32-34); Mean Corpuscular Volume 80 fl (84-94); Platelet Count 475 K/mm3 (140-440); Red Blood Count 4.31 M/mm3 (3.65-5.03); Red Cell Distribution Width 13.5 % (13.2-15.2)
[2018-02-18 04:50] LABS: BUN/Creatinine Ratio 7; Blood Urea Nitrogen 5 mg/dL (9-20); Calcium 7.8 mg/dL (8.4-10.2); Hemolysis Index 3
[2018-02-18] MEDS: MAXIPIME/NS 2 GM/100 ML 2 GM/100 ML BAG IV SCH ×2 (05:34→17:34)
[2018-02-18] MEDS: FLAGYL 500 MG/100 ML 500 MG/100 ML BAG IV SCH ×3 (06:11→22:39)
[2018-02-18 06:26] LABS: Band Neutrophils # (Manual) 1.5 K/mm3; Basophils % (Manual) 0 % (0.0-1.8); Total Cells Counted 100
[2018-02-18 06:27] LABS: Anisocytosis 1+
--- NOTE | 2018-02-18 08:44 | Progress Note ---
Assessment and Plan Cultures: 02/10/2018 blood culture: No growth 02/11/2018 OR culture: Gram stain mixed with Diptheroids and Staph [place]ensis A/P: 37/M with previous history of jaw abscess, no known MRSA history admitted with: 1) Right gluteal abscess/necrotizing infection causing sepsis and leukemoid reaction: Leukocytosis Improving, slow response to antibiotic therapy. s/p extensive I&D by Dr. Pittman. Urology consulted to eval for possible Tash's gangrene. Continue broad spectrum abx, Gram stain appears mixed, ?synergistic gangrene. U/S of Scrotum, findings are concerning for abscess in posterior aspect of the scrotum. May need additional debridement. Surgery following 2) Morbid obesity 3) Diabetes mellitus type 2, uncontrolled, newly diagnosed: HbA1c 14 here. Recs: Discontinue Cefepime Recommend tight glycemic control Start IV Ancef 2 gms q 6, continue flagyl upon discharge will switch to PO Dr. 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 Denied SOB, Nausea or vomiting. Nurses notes, labs and reports reviewed, discussed with patient. Objective - Exam Narrative Exam: Physical Exam: Constitutional: Alert, cooperative. No acute distress. Obese Head, Ears, Nose: Normocephalic, atraumatic. External ears, nose normal Eyes: Conjunctivae/corneas clear. No icterus. No ptosis. Neck: Supple, no meningeal signs Oral: no ulcers, no thrush Cardiovascular: S1, S2 normal. Respiratory: Good air entry, clear to auscultation bilaterally GI: Soft, non-tender; bowel sounds normal. No peritoneal signs Musculoskeletal: No pedal edema, no cyanosis. Right gluteal and perineal region with dressing + Skin: no rash. Hem/Lymphatic: No palpable cervical or supraclavicular nodes. No lymphangitis Psych: Mood ok. Affect normal Neurological: Awake, alert, oriented. No gross abnormality - Constitutional Vitals: Vital Signs Temp Pulse Resp BP Pulse Ox 98.0 F 64 18 145/83 99 02/18/18 05:36 02/18/18 05:36 02/18/18 05:36 02/18/18 05:36 02/18/18 05:36 Temperature -Last 24 Hours Temperature 98.0 F Temperature 99.6 F Temperature 98.4 F Temperature 99.6 F - Labs CBC & Chem 7: 02/18/18 03:52 02/18/18 03:52 Labs: Abnormal lab results 02/17/18 02/17/18 02/17/18 Range/Units 04:40 11:43 15:59 WBC (4.5-11.0) K/mm3 Hgb (11.8-15.2) gm/dl Hct (35.5-45.6) % MCV (84-94) fl MCH (28-32) pg Plt Count (140-440) K/mm3 Seg Neuts % (Manual) 79.0 H (40.0-70.0) % Lymphocytes % (Manual) 7.0 L (13.4-35.0) % Monocytes % (Manual) (0.0-7.3) % Eosinophils % (Manual) (0.0-4.3) % Seg Neutrophils # Man 17.4 H (1.8-7.7) K/mm3 Monocytes # (Manual) 1.1 H (0.0-0.8) K/mm3 Eosinophils # (Manual) (0.0-0.4) K/mm3 Sodium (137-145) mmol/L Potassium (3.6-5.0) mmol/L BUN (9-20) mg/dL Creatinine (0.8-1.5) mg/dL Glucose (75-100) mg/dL POC Glucose 121 H 151 H (70-105) Calcium (8.4-10.2) mg/dL 02/17/18 02/18/18 02/18/18 Range/Units 21:40 03:52 03:52 WBC 19.0 H (4.5-11.0) K/mm3 Hgb 11.3 L (11.8-15.2) gm/dl Hct 34.5 L (35.5-45.6) % MCV 80 L (84-94) fl MCH 26 L (28-32) pg Plt Count 475 H (140-440) K/mm3 Seg Neuts % (Manual) (40.0-70.0) % Lymphocytes % (Manual) (13.4-35.0) % Monocytes % (Manual) 18.0 H (0.0-7.3) % Eosinophils % (Manual) 6.0 H (0.0-4.3) % Seg Neutrophils # Man 10.3 H (1.8-7.7) K/mm3 Monocytes # (Manual) 3.4 H (0.0-0.8) K/mm3 Eosinophils # (Manual) 1.1 H (0.0-0.4) K/mm3 Sodium 134 L (137-145) mmol/L Potassium 3.5 L (3.6-5.0) mmol/L BUN 5 L (9-20) mg/dL Creatinine 0.7 L (0.8-1.5) mg/dL Glucose 109 H (75-100) mg/dL POC Glucose 123 H (70-105) Calcium 7.8 L (8.4-10.2) mg/dL
[2018-02-18] MEDS: VANCOMYCIN 2,000 MG in NACL 0.9% 500 ML 500 ML IV SCH (09:53)
[2018-02-18] MEDS: HumaLOG SUB-Q SCH ×3 (09:55→17:41)
[2018-02-18] MEDS: PEPCID IV SCH ×2 (09:55→22:44)
[2018-02-18] MEDS: SODIUM CHLORIDE FLUSH SYRINGE 10 ML IV SCH ×2 (09:55→22:45)
--- NOTE | 2018-02-18 10:56 | Progress Note ---
Assessment and Plan Assessment and plan: Sepsis. 02/10/2018 blood culture: No growth 02/11/2018 OR culture: Gram stain mixed with GPC, GNRs Continue antibiotics per ID. Perineal/Right gluteal abscess/necrotizing infection iv Abx s/p extensive I&D by Dr. Pittman. 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 Right scrotal abscess s/p I and D Urology following U/S of Scrotum, findings are concerning for abscess in posterior aspect of the scrotum. Marked leukocytosis, WBC 42.6 on admssion Due to sepsis. Improving. Diabetes mellitus type 2, newly diagnosed Cont. novolin 70/30 bid Hyponatremia due to hyperglycemia Full code status History Interval history: No new issues overnight Hospitalist Physical - Constitutional Vitals: Temp Pulse Resp BP Pulse Ox 98.0 F 64 18 145/83 99 02/18/18 05:36 02/18/18 05:36 02/18/18 05:36 02/18/18 05:36 02/18/18 05:36 General appearance: Present: no acute distress - EENT Eyes: Present: PERRL, EOM intact ENT: hearing intact, clear oral mucosa, dentition normal - Neck Neck: Present: supple, normal ROM - Respiratory Respiratory effort: normal Respiratory: bilateral: CTA - Cardiovascular Rhythm: regular Heart Sounds: Present: S1 & S2. Absent: gallop, rub - Extremities Extremities: no ischemia, No edema, Full ROM - Abdominal General gastrointestinal: soft, non-tender, non-distended, normal bowel sounds - Integumentary Integumentary: Present: clear, warm, dry - Neurologic Neurologic: CNII-XII intact, moves all extremities Results - Labs CBC & Chem 7: 02/18/18 03:52 02/18/18 03:52 Labs: Laboratory Last Values WBC 19.0 K/mm3 (4.5-11.0) H 02/18/18 03:52 RBC 4.31 M/mm3 (3.65-5.03) 02/18/18 03:52 Hgb 11.3 gm/dl (11.8-15.2) L 02/18/18 03:52 Hct 34.5 % (35.5-45.6) L 02/18/18 03:52 MCV 80 fl (84-94) L 02/18/18 03:52 MCH 26 pg (28-32) L 02/18/18 03:52 MCHC 33 % (32-34) 02/18/18 03:52 RDW 13.5 % (13.2-15.2) 02/18/18 03:52 Plt Count 475 K/mm3 (140-440) H 02/18/18 03:52 Add Manual Diff Complete 02/18/18 03:52 Total Counted 100 02/18/18 03:52 Seg Neuts % (Manual) 54.0 % (40.0-70.0) 02/18/18 03:52 Band Neutrophils % 8.0 % 02/18/18 03:52 Lymphocytes % (Manual) 14.0 % (13.4-35.0) 02/18/18 03:52 Reactive Lymphs % (Man) 0 % 02/18/18 03:52 Monocytes % (Manual) 18.0 % (0.0-7.3) H 02/18/18 03:52 Eosinophils % (Manual) 6.0 % (0.0-4.3) H 02/18/18 03:52 Basophils % (Manual) 0 % (0.0-1.8) 02/18/18 03:52 Metamyelocytes % 0 % 02/18/18 03:52 Myelocytes % 0 % 02/18/18 03:52 Promyelocytes % 0 % 02/18/18 03:52 Blast Cells % 0 % 02/18/18 03:52 Nucleated RBC % Not Reportable 02/18/18 03:52 Seg Neutrophils # Man 10.3 K/mm3 (1.8-7.7) H 02/18/18 03:52 Band Neutrophils # 1.5 K/mm3 02/18/18 03:52 Lymphocytes # (Manual) 2.7 K/mm3 (1.2-5.4) 02/18/18 03:52 Abs React Lymphs (Man) 0.0 K/mm3 02/18/18 03:52 Monocytes # (Manual) 3.4 K/mm3 (0.0-0.8) H 02/18/18 03:52 Eosinophils # (Manual) 1.1 K/mm3 (0.0-0.4) H 02/18/18 03:52 Basophils # (Manual) 0.0 K/mm3 (0.0-0.1) 02/18/18 03:52 Metamyelocytes # 0.0 K/mm3 02/18/18 03:52 Myelocytes # 0.0 K/mm3 02/18/18 03:52 Promyelocytes # 0.0 K/mm3 02/18/18 03:52 Blast Cells # 0.0 K/mm3 02/18/18 03:52 Pathologist Review 02/10/18 09:56 WBC Morphology Not Reportable 02/18/18 03:52 Hypersegmented Neuts Not Reportable 02/18/18 03:52 Hyposegmented Neuts Not Reportable 02/18/18 03:52 Hypogranular Neuts Not Reportable 02/18/18 03:52 Smudge Cells Not Reportable 02/18/18 03:52 Toxic Granulation Not Reportable 02/18/18 03:52 Toxic Vacuolation Not Reportable 02/18/18 03:52 Dohle Bodies Not Reportable 02/18/18 03:52 Pelger-Huet Anomaly Not Reportable 02/18/18 03:52 Nivia Rods Not Reportable 02/18/18 03:52 Platelet Estimate Appears normal 02/18/18 03:52 Clumped Platelets Not Reportable 02/18/18 03:52 Plt Clumps, EDTA Not Reportable 02/18/18 03:52 Large Platelets Not Reportable 02/18/18 03:52 Giant Platelets Not Reportable 02/18/18 03:52 Platelet Satelliting Not Reportable 02/18/18 03:52 Plt Morphology Comment Not Reportable 02/18/18 03:52 RBC Morphology Not Reportable 02/18/18 03:52 Dimorphic RBCs Not Reportable 02/18/18 03:52 Polychromasia Not Reportable 02/18/18 03:52 Hypochromasia Not Reportable 02/18/18 03:52 Poikilocytosis Not Reportable 02/18/18 03:52 Anisocytosis 1+ 02/18/18 03:52 Microcytosis Not Reportable 02/18/18 03:52 Macrocytosis Not Reportable 02/18/18 03:52 Spherocytes Not Reportable 02/18/18 03:52 Pappenheimer Bodies Not Reportable 02/18/18 03:52 Sickle Cells Not Reportable 02/18/18 03:52 Target Cells Not Reportable 02/18/18 03:52 Tear Drop Cells Not Reportable 02/18/18 03:52 Ovalocytes Not Reportable 02/18/18 03:52 Helmet Cells Not Reportable 02/18/18 03:52 [place] Bodies Not Reportable 02/18/18 03:52 [place] Rings Not Reportable 02/18/18 03:52 Dell Cells Not Reportable 02/18/18 03:52 Bite Cells Not Reportable 02/18/18 03:52 Crenated Cell Not Reportable 02/18/18 03:52 Elliptocytes Not Reportable 02/18/18 03:52 Acanthocytes (Spur) Not Reportable 02/18/18 03:52 Rouleaux Not Reportable 02/18/18 03:52 Hemoglobin C Crystals Not Reportable 02/18/18 03:52 Schistocytes Not Reportable 02/18/18 03:52 Malaria parasites Not Reportable 02/18/18 03:52 [place] Bodies Not Reportable 02/18/18 03:52 Hem Pathologist Commnt No 02/18/18 03:52 PT 14.8 Sec. (12.2-14.9) 02/10/18 09:56 INR 1.12 (0.87-1.13) 02/10/18 09:56 VBG pH 7.415 (7.320-7.420) 02/10/18 09:56 Sodium 134 mmol/L (137-145) L 02/18/18 03:52 Potassium 3.5 mmol/L (3.6-5.0) L 02/18/18 03:52 Chloride 99.0 mmol/L (98-107) 02/18/18 03:52 Carbon Dioxide 26 mmol/L (22-30) 02/18/18 03:52 Anion Gap 13 mmol/L 02/18/18 03:52 BUN 5 mg/dL (9-20) L 02/18/18 03:52 Creatinine 0.7 mg/dL (0.8-1.5) L 02/18/18 03:52 Estimated GFR > 60 ml/min 02/18/18 03:52 BUN/Creatinine Ratio 7 % 02/18/18 03:52 Glucose 109 mg/dL (75-100) H 02/18/18 03:52 POC Glucose 105 (70-105) 02/18/18 07:36 Hemoglobin A1c 14.0 % (4-6) H 02/10/18 23:33 Lactic Acid 1.70 mmol/L (0.7-2.0) 02/10/18 23:33 Calcium 7.8 mg/dL (8.4-10.2) L 02/18/18 03:52 Total Bilirubin 0.70 mg/dL (0.1-1.2) 02/14/18 04:26 AST 31 units/L (5-40) 02/14/18 04:26 ALT 30 units/L (7-56) 02/14/18 04:26 Alkaline Phosphatase 130 units/L (35-129) H 02/14/18 04:26 Total Creatine Kinase 151 units/L (55-170) 02/10/18 09:56 Total Protein 5.7 g/dL (6.3-8.2) L 02/14/18 04:26 Albumin 2.1 g/dL (3.9-5) L 02/14/18 04:26 Albumin/Globulin Ratio 0.6 % 02/14/18 04:26 Urine Color Yellow (Yellow) 02/10/18 Unknown Urine Turbidity Clear (Clear) 02/10/18 Unknown Urine pH 6.0 (5.0-7.0) 02/10/18 Unknown Ur Specific [place] 1.038 (1.003-1.030) H 02/10/18 Unknown Urine Protein 100 mg/dl mg/dL (Negative) 02/10/18 Unknown Urine Glucose (UA) >=500 mg/dL (Negative) 02/10/18 Unknown Urine Ketones 80 mg/dL (Negative) 02/10/18 Unknown Urine Blood Neg (Negative) 02/10/18 Unknown Urine Nitrite Neg (Negative) 02/10/18 Unknown Urine Bilirubin Neg (Negative) 02/10/18 Unknown Urine Urobilinogen 4.0 mg/dL (<2.0) 02/10/18 Unknown Ur Leukocyte Esterase Neg (Negative) 02/10/18 Unknown Urine WBC (Auto) 1.0 /HPF (0.0-6.0) 02/10/18 Unknown Urine RBC (Auto) 1.0 /HPF (0.0-6.0) 02/10/18 Unknown Urine Mucus Few /HPF 02/10/18 Unknown Vancomycin Trough 7.3 ug/mL (5.0-20.0) 02/16/18 10:03 Nutrition/Malnutrition Assess - Dietary Evaluation Nutrition/Malnutrition Findings: Nutrition Notes Start: 02/11/18 12:04 Freq: Status: Active Protocol: Document 02/14/18 12:57 BLANCA (Rec: 02/14/18 13:04 BLANCA [email or web address]) Nutrition Notes Initial or Follow up Reassessment Current Diagnoses Diabetes Sepsis Other Pertinent Diagnosis Perineal/Scrotal abscess s/p I &D, necrotizing fasciitis Current Diet Cardiac/Consistent CHO Labs/Tests K 3.1 POC Glu range since last assessment: 94-173 Medications 40mEq KCl x 2 doses Height 6 ft 2 in Weight 107.7 kg [place] Body Weight (lbs) 190.0 BMI 30.4 Subjective/Other Information Pt reports improving appetite; consumed 100% of breakfast this am (36% average of meals overall). Has not received Wade yet (no order placed). Placed Wade instructional card tent on bedside table and explained contribution of Wade in the wound healing process. Percent of energy/protein needs met: 33% energy 25% pro #3 Nutrition Diagnoses Increased nutrient needs ( specify in comment below) Diagnosis Progress(for reassessment Continues documentation) #2 Nutrition Diagnoses Altered nutrition-related laboratory values Diagnosis Progress(for reassessment Continues documentation) #1 Nutrition Diagnoses Food and nutrition-related knowledge deficit As Evidenced by Signs and Symptoms pt received DM diet education Diagnosis Progress(for reassessment Resolved documentation) Is patient on ventilator? No Is Patient Ambulatory and/or Out of Bed Yes REE-([facility]-ambulatory/OOB) [ 2699.775 NUTR.MSJOOB] Kcal/Kg value to use for calculation 20 Approximate Energy Requirements Using 2154 kcal/Kg Calculation Used for Recommendations Kcal/kg Additional Notes Pro needs 1.25-1.5g/kg adjBW: 121-146g/day Fluid needs 1ml/kcal Nutrition Intervention Change Diet Order: Continue current diet order Add Supplement/Snack (indicate name/kcal WADE BID /protein ) Provides kCal: 190 Provides Protein (gm) 5 Goal #1 PO intake of meals to meet at least 75% energy and pro needs Goal #2 Wound healing Goal #3 Improved BG control Anticipated Discharge Needs: CHO-controlled diet Follow-Up By: 02/20/18 Additional Comments F/U: intakes (meals/ONS), wt
[2018-02-18] MEDS: ceFAZolin 2 GM in NACL 0.9% 100 ML IV SCH (18:00)
[2018-02-18] MEDS: LOVENOX SUB-Q SCH (22:45)
[2018-02-19] MEDS: ceFAZolin 2 GM in NACL 0.9% 100 ML IV SCH ×4 (01:27→18:39)
[2018-02-19] MEDS: HumaLOG SUB-Q SCH ×4 (01:32→17:19)
[2018-02-19 05:36] LABS: Hematocrit 36.4 % (35.5-45.6); Hemoglobin 12.1 gm/dl (11.8-15.2); Mean Corpuscular HGB Conc 33 % (32-34); Mean Corpuscular Volume 81 fl (84-94); Platelet Count 526 K/mm3 (140-440); Red Blood Count 4.49 M/mm3 (3.65-5.03); Red Cell Distribution Width 13.5 % (13.2-15.2)
[2018-02-19 05:50] LABS: BUN/Creatinine Ratio 8; Blood Urea Nitrogen 5 mg/dL (9-20); Calcium 8.1 mg/dL (8.4-10.2); Hemolysis Index 5
[2018-02-19 06:34] LABS: Anisocytosis 1+; Band Neutrophils # (Manual) 0.4 K/mm3; Eosinophils % (Manual) 0 % (0.0-4.3); Poikilocytosis Few; Total Cells Counted 100
[2018-02-19 06:35] LABS: Platelet Estimate Cons; Target Cells Few
[2018-02-19] MEDS: FLAGYL 500 MG/100 ML 500 MG/100 ML BAG IV SCH ×3 (07:04→22:50)
[2018-02-19] MEDS: PERCOCET 5/325 PO PRN (08:30)
[2018-02-19] MEDS: PEPCID IV SCH ×2 (10:32→22:56)
[2018-02-19] MEDS: NACL 0.9% 1000 ML 1,000 ML IV SCH ×2 (10:32→22:59)
[2018-02-19] MEDS: SODIUM CHLORIDE FLUSH SYRINGE 10 ML IV SCH (10:33)
--- NOTE | 2018-02-19 11:03 | Progress Note ---
Assessment and Plan Pt continues to feel better. perineal wd clean. inspected with flashlight. no necrotic tissue seen. however purulent drainage noted from scrotum clinically continues improving. need to contact to inform them of scrotal purulent drainage continue local wd care to perineal wd Selected Entries 02/18/18 02/19/18 16:59 05:12 Temperature 100.0 F H Pulse Rate 86 Respiratory 20 Rate Blood Pressure 126/74 Laboratory Tests 02/18/18 02/19/18 02/19/18 03:52 04:53 04:53 WBC 19.0 H 14.0 H Glucose 96 Objective Vital Signs - 12hr 02/18/18 02/19/18 23:09 05:12 Temperature 98.3 F 99.8 F H Pulse Rate 74 86 Respiratory 20 20 Rate Blood Pressure 130/67 126/74 O2 Sat by Pulse 98 98 Oximetry - Labs 02/19/18 04:53 02/19/18 04:53 Diabetes panel 02/19/18 Range/Units 04:53 Sodium 136 L (137-145) mmol/L Potassium 4.0 (3.6-5.0) mmol/L Chloride 100.8 (98-107) mmol/L Carbon Dioxide 25 (22-30) mmol/L BUN 5 L (9-20) mg/dL Creatinine 0.6 L (0.8-1.5) mg/dL Glucose 96 (75-100) mg/dL Calcium 8.1 L (8.4-10.2) mg/dL Calcium panel 02/19/18 Range/Units 04:53 Calcium 8.1 L (8.4-10.2) mg/dL Pituitary panel 02/19/18 Range/Units 04:53 Sodium 136 L (137-145) mmol/L Potassium 4.0 (3.6-5.0) mmol/L Chloride 100.8 (98-107) mmol/L Carbon Dioxide 25 (22-30) mmol/L BUN 5 L (9-20) mg/dL Creatinine 0.6 L (0.8-1.5) mg/dL Glucose 96 (75-100) mg/dL Calcium 8.1 L (8.4-10.2) mg/dL Adrenal panel 02/19/18 Range/Units 04:53 Sodium 136 L (137-145) mmol/L Potassium 4.0 (3.6-5.0) mmol/L Chloride 100.8 (98-107) mmol/L Carbon Dioxide 25 (22-30) mmol/L BUN 5 L (9-20) mg/dL Creatinine 0.6 L (0.8-1.5) mg/dL Glucose 96 (75-100) mg/dL Calcium 8.1 L (8.4-10.2) mg/dL
--- NOTE | 2018-02-19 11:25 | Progress Note ---
Assessment and Plan Assessment and plan: Sepsis. 02/10/2018 blood culture: No growth 02/11/2018 OR culture: Gram stain mixed with GPC, GNRs Continue antibiotics per ID. Perineal/Right gluteal abscess/necrotizing infection iv Abx s/p extensive I&D by Dr. Pittman. 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 Right scrotal abscess s/p I and D U/S of Scrotum, findings are concerning for abscess in posterior aspect of the scrotum. Cont. to have scrotal purulent drainage. I have re-contacted Urology, pt last seen by them on 02/15 Marked leukocytosis, WBC 42.6 on admssion Due to sepsis. Improving. Diabetes mellitus type 2, newly diagnosed Cont. novolin 70/30 bid Hyponatremia due to hyperglycemia Full code status History Interval history: No new issues overnight Hospitalist Physical - Constitutional Vitals: Temp Pulse Resp BP Pulse Ox 99.8 F H 86 20 126/74 98 02/19/18 05:12 02/19/18 05:12 02/19/18 05:12 02/19/18 05:12 02/19/18 05:12 General appearance: Present: no acute distress - EENT Eyes: Present: PERRL, EOM intact ENT: hearing intact, clear oral mucosa, dentition normal - Neck Neck: Present: supple, normal ROM - Respiratory Respiratory effort: normal Respiratory: bilateral: CTA - Cardiovascular Rhythm: regular Heart Sounds: Present: S1 & S2. Absent: gallop, rub - Extremities Extremities: no ischemia, No edema, Full ROM - Abdominal General gastrointestinal: soft, non-tender, non-distended, normal bowel sounds - Integumentary Integumentary: Present: clear, warm, dry - Neurologic Neurologic: CNII-XII intact, moves all extremities Results - Labs CBC & Chem 7: 02/19/18 04:53 02/19/18 04:53 Labs: Laboratory Last Values WBC 14.0 K/mm3 (4.5-11.0) H 02/19/18 04:53 RBC 4.49 M/mm3 (3.65-5.03) 02/19/18 04:53 Hgb 12.1 gm/dl (11.8-15.2) 02/19/18 04:53 Hct 36.4 % (35.5-45.6) 02/19/18 04:53 MCV 81 fl (84-94) L 02/19/18 04:53 MCH 27 pg (28-32) L 02/19/18 04:53 MCHC 33 % (32-34) 02/19/18 04:53 RDW 13.5 % (13.2-15.2) 02/19/18 04:53 Plt Count 526 K/mm3 (140-440) H 02/19/18 04:53 Add Manual Diff Complete 02/19/18 04:53 Total Counted 100 02/19/18 04:53 Seg Neuts % (Manual) 80.0 % (40.0-70.0) H 02/19/18 04:53 Band Neutrophils % 3.0 % 02/19/18 04:53 Lymphocytes % (Manual) 9.0 % (13.4-35.0) L 02/19/18 04:53 Reactive Lymphs % (Man) 0 % 02/19/18 04:53 Monocytes % (Manual) 5.0 % (0.0-7.3) 02/19/18 04:53 Eosinophils % (Manual) 0 % (0.0-4.3) 02/19/18 04:53 Basophils % (Manual) 2.0 % (0.0-1.8) H 02/19/18 04:53 Metamyelocytes % 1.0 % 02/19/18 04:53 Myelocytes % 0 % 02/19/18 04:53 Promyelocytes % 0 % 02/19/18 04:53 Blast Cells % 0 % 02/19/18 04:53 Nucleated RBC % Not Reportable 02/19/18 04:53 Seg Neutrophils # Man 11.2 K/mm3 (1.8-7.7) H 02/19/18 04:53 Band Neutrophils # 0.4 K/mm3 02/19/18 04:53 Lymphocytes # (Manual) 1.3 K/mm3 (1.2-5.4) 02/19/18 04:53 Abs React Lymphs (Man) 0.0 K/mm3 02/19/18 04:53 Monocytes # (Manual) 0.7 K/mm3 (0.0-0.8) 02/19/18 04:53 Eosinophils # (Manual) 0.0 K/mm3 (0.0-0.4) 02/19/18 04:53 Basophils # (Manual) 0.3 K/mm3 (0.0-0.1) H 02/19/18 04:53 Metamyelocytes # 0.1 K/mm3 02/19/18 04:53 Myelocytes # 0.0 K/mm3 02/19/18 04:53 Promyelocytes # 0.0 K/mm3 02/19/18 04:53 Blast Cells # 0.0 K/mm3 02/19/18 04:53 Pathologist Review 02/10/18 09:56 WBC Morphology Not Reportable 02/19/18 04:53 Hypersegmented Neuts Not Reportable 02/19/18 04:53 Hyposegmented Neuts Not Reportable 02/19/18 04:53 Hypogranular Neuts Not Reportable 02/19/18 04:53 Smudge Cells Not Reportable 02/19/18 04:53 Toxic Granulation Not Reportable 02/19/18 04:53 Toxic Vacuolation Not Reportable 02/19/18 04:53 Dohle Bodies Not Reportable 02/19/18 04:53 Pelger-Huet Anomaly Not Reportable 02/19/18 04:53 Nivia Rods Not Reportable 02/19/18 04:53 Platelet Estimate Cons 02/19/18 04:53 Clumped Platelets Not Reportable 02/19/18 04:53 Plt Clumps, EDTA Not Reportable 02/19/18 04:53 Large Platelets Not Reportable 02/19/18 04:53 Giant Platelets Not Reportable 02/19/18 04:53 Platelet Satelliting Not Reportable 02/19/18 04:53 Plt Morphology Comment Not Reportable 02/19/18 04:53 RBC Morphology Not Reportable 02/19/18 04:53 Dimorphic RBCs Not Reportable 02/19/18 04:53 Polychromasia Not Reportable 02/19/18 04:53 Hypochromasia Not Reportable 02/19/18 04:53 Poikilocytosis Few 02/19/18 04:53 Anisocytosis 1+ 02/19/18 04:53 Microcytosis Not Reportable 02/19/18 04:53 Macrocytosis Not Reportable 02/19/18 04:53 Spherocytes Not Reportable 02/19/18 04:53 Pappenheimer Bodies Not Reportable 02/19/18 04:53 Sickle Cells Not Reportable 02/19/18 04:53 Target Cells Few 02/19/18 04:53 Tear Drop Cells Not Reportable 02/19/18 04:53 Ovalocytes Not Reportable 02/19/18 04:53 Helmet Cells Not Reportable 02/19/18 04:53 [place] Bodies Not Reportable 02/19/18 04:53 [place] Rings Not Reportable 02/19/18 04:53 Dell Cells Not Reportable 02/19/18 04:53 Bite Cells Not Reportable 02/19/18 04:53 Crenated Cell Not Reportable 02/19/18 04:53 Elliptocytes Not Reportable 02/19/18 04:53 Acanthocytes (Spur) Not Reportable 02/19/18 04:53 Rouleaux Not Reportable 02/19/18 04:53 Hemoglobin C Crystals Not Reportable 02/19/18 04:53 Schistocytes Not Reportable 02/19/18 04:53 Malaria parasites Not Reportable 02/19/18 04:53 [place] Bodies Not Reportable 02/19/18 04:53 Hem Pathologist Commnt No 02/19/18 04:53 PT 14.8 Sec. (12.2-14.9) 02/10/18 09:56 INR 1.12 (0.87-1.13) 02/10/18 09:56 VBG pH 7.415 (7.320-7.420) 02/10/18 09:56 Sodium 136 mmol/L (137-145) L 02/19/18 04:53 Potassium 4.0 mmol/L (3.6-5.0) 02/19/18 04:53 Chloride 100.8 mmol/L (98-107) 02/19/18 04:53 Carbon Dioxide 25 mmol/L (22-30) 02/19/18 04:53 Anion Gap 14 mmol/L 02/19/18 04:53 BUN 5 mg/dL (9-20) L 02/19/18 04:53 Creatinine 0.6 mg/dL (0.8-1.5) L 02/19/18 04:53 Estimated GFR > 60 ml/min 02/19/18 04:53 BUN/Creatinine Ratio 8 % 02/19/18 04:53 Glucose 96 mg/dL (75-100) 02/19/18 04:53 POC Glucose 87 (70-105) 02/19/18 07:38 Hemoglobin A1c 14.0 % (4-6) H 02/10/18 23:33 Lactic Acid 1.70 mmol/L (0.7-2.0) 02/10/18 23:33 Calcium 8.1 mg/dL (8.4-10.2) L 02/19/18 04:53 Total Bilirubin 0.70 mg/dL (0.1-1.2) 02/14/18 04:26 AST 31 units/L (5-40) 02/14/18 04:26 ALT 30 units/L (7-56) 02/14/18 04:26 Alkaline Phosphatase 130 units/L (35-129) H 02/14/18 04:26 Total Creatine Kinase 151 units/L (55-170) 02/10/18 09:56 Total Protein 5.7 g/dL (6.3-8.2) L 02/14/18 04:26 Albumin 2.1 g/dL (3.9-5) L 02/14/18 04:26 Albumin/Globulin Ratio 0.6 % 02/14/18 04:26 Urine Color Yellow (Yellow) 02/10/18 Unknown Urine Turbidity Clear (Clear) 02/10/18 Unknown Urine pH 6.0 (5.0-7.0) 02/10/18 Unknown Ur Specific [place] 1.038 (1.003-1.030) H 02/10/18 Unknown Urine Protein 100 mg/dl mg/dL (Negative) 02/10/18 Unknown Urine Glucose (UA) >=500 mg/dL (Negative) 02/10/18 Unknown Urine Ketones 80 mg/dL (Negative) 02/10/18 Unknown Urine Blood Neg (Negative) 02/10/18 Unknown Urine Nitrite Neg (Negative) 02/10/18 Unknown Urine Bilirubin Neg (Negative) 02/10/18 Unknown Urine Urobilinogen 4.0 mg/dL (<2.0) 02/10/18 Unknown Ur Leukocyte Esterase Neg (Negative) 02/10/18 Unknown Urine WBC (Auto) 1.0 /HPF (0.0-6.0) 02/10/18 Unknown Urine RBC (Auto) 1.0 /HPF (0.0-6.0) 02/10/18 Unknown Urine Mucus Few /HPF 02/10/18 Unknown Vancomycin Trough 7.3 ug/mL (5.0-20.0) 02/16/18 10:03 Nutrition/Malnutrition Assess - Dietary Evaluation Nutrition/Malnutrition Findings: Nutrition Notes Start: 02/11/18 12:04 Freq: Status: Active Protocol: Document 02/14/18 12:57 BLANCA (Rec: 02/14/18 13:04 BLANCA [email or web address] [email or web address]) Nutrition Notes Initial or Follow up Reassessment Current Diagnoses Diabetes Sepsis Other Pertinent Diagnosis Perineal/Scrotal abscess s/p I &D, necrotizing fasciitis Current Diet Cardiac/Consistent CHO Labs/Tests K 3.1 POC Glu range since last assessment: 94-173 Medications 40mEq KCl x 2 doses Height 6 ft 2 in Weight 107.7 kg [place] Body Weight (lbs) 190.0 BMI 30.4 Subjective/Other Information Pt reports improving appetite; consumed 100% of breakfast this am (36% average of meals overall). Has not received Wade yet (no order placed). Placed Wade instructional card tent on bedside table and explained contribution of Wade in the wound healing process. Percent of energy/protein needs met: 33% energy 25% pro #3 Nutrition Diagnoses Increased nutrient needs ( specify in comment below) Diagnosis Progress(for reassessment Continues documentation) #2 Nutrition Diagnoses Altered nutrition-related laboratory values Diagnosis Progress(for reassessment Continues documentation) #1 Nutrition Diagnoses Food and nutrition-related knowledge deficit As Evidenced by Signs and Symptoms pt received DM diet education Diagnosis Progress(for reassessment Resolved documentation) Is patient on ventilator? No Is Patient Ambulatory and/or Out of Bed Yes REE-([place]-ambulatory/OOB) [ 2699.775 NUTR.MSJOOB] Kcal/Kg value to use for calculation 20 Approximate Energy Requirements Using 2154 kcal/Kg Calculation Used for Recommendations Kcal/kg Additional Notes Pro needs 1.25-1.5g/kg adjBW: 121-146g/day Fluid needs 1ml/kcal Nutrition Intervention Change Diet Order: Continue current diet order Add Supplement/Snack (indicate name/kcal WADE BID /protein ) Provides kCal: 190 Provides Protein (gm) 5 Goal #1 PO intake of meals to meet at least 75% energy and pro needs Goal #2 Wound healing Goal #3 Improved BG control Anticipated Discharge Needs: CHO-controlled diet Follow-Up By: 02/20/18 Additional Comments F/U: intakes (meals/ONS), wt
[2018-02-19] MEDS: NORCO 5/325 PO PRN (21:09)
[2018-02-19] MEDS: LOVENOX SUB-Q SCH (22:56)
[2018-02-20] MEDS: HumaLOG SUB-Q SCH ×5 (00:14→22:31)
[2018-02-20] MEDS: ceFAZolin 2 GM in NACL 0.9% 100 ML IV SCH ×3 (00:14→12:31)
[2018-02-20] MEDS: SODIUM CHLORIDE FLUSH SYRINGE 10 ML IV SCH ×2 (00:15→22:29)
--- NOTE | 2018-02-20 00:16 | Ultrasound Report ---
FINAL REPORT EXAM: US SCROTUM HISTORY: Scrotal Abscess TECHNIQUE: Targeted imaging was obtained of the scrotum. Comparison is made to the study of 02/13/20. FINDINGS: There is a complex inflamed masslike structure with heterogeneous echotexture and increased vasculari ty along the inferior aspect of the scrotum right of midline. It measures 5.5 cm x 2.5 cm x 6 cm. It appears slightly larger than the previous study. The testicles and epididymi were not imaged. IMPRESSION: Complex scrotal abscess along the inferior aspect of the scrotum right of midline measuring 5.5 cm x 2.5 cm x 6 cm. This appears slightly larger than the previous study.
[2018-02-20 06:04] LABS: Hematocrit 34.4 % (35.5-45.6); Hemoglobin 11.4 gm/dl (11.8-15.2); Mean Corpuscular HGB Conc 33 % (32-34); Mean Corpuscular Volume 81 fl (84-94); Platelet Count 595 K/mm3 (140-440); Red Blood Count 4.25 M/mm3 (3.65-5.03); Red Cell Distribution Width 13.6 % (13.2-15.2)
[2018-02-20] MEDS: NORCO 5/325 PO PRN ×2 (06:17→10:31)
[2018-02-20 06:29] LABS: BUN/Creatinine Ratio 7; Blood Urea Nitrogen 5 mg/dL (9-20); Calcium 8.1 mg/dL (8.4-10.2); Hemolysis Index 12
[2018-02-20 06:53] LABS: Anisocytosis 1+; Band Neutrophils # (Manual) 0.3 K/mm3; Total Cells Counted 100
[2018-02-20] MEDS: FLAGYL 500 MG/100 ML 500 MG/100 ML BAG IV SCH ×3 (06:53→22:25)
[2018-02-20 06:54] LABS: Platelet Estimate Consistent w Auto; Target Cells Few
--- NOTE | 2018-02-20 07:31 | Progress Note ---
Assessment and Plan PRE - DRAFT NOTE ONLY RIGHT GLUTIAL/PERINEAL ABSCESS RIGHT SCROTAL ABSCESS - S/P 02/11 GS I&D - Tm 102 -> 99.9 - 01/16 WBC 35k -> 12k - 01/13 SCUS -> 01/20 SCUS ?abscess increased size - will review w/ pt may need I&D POSSIBLE ORCHIECTOMY - NPO Subjective Principal diagnosis: abcess Objective - Constitutional Vitals: Vital Signs - 12hr 02/20/18 05:20 Temperature 98.7 F Pulse Rate 88 Respiratory 16 Rate Blood Pressure 148/88 O2 Sat by Pulse 100 Oximetry - Labs CBC & Chem 7: 02/20/18 05:51 02/20/18 05:51 Labs: Abnormal lab results 02/19/18 02/19/18 02/20/18 Range/Units 11:29 21:26 05:51 WBC 12.6 H (4.5-11.0) K/mm3 Hgb 11.4 L (11.8-15.2) gm/dl Hct 34.4 L (35.5-45.6) % MCV 81 L (84-94) fl MCH 27 L (28-32) pg Plt Count 595 H (140-440) K/mm3 Seg Neutrophils # Man 7.8 H (1.8-7.7) K/mm3 Sodium (137-145) mmol/L BUN (9-20) mg/dL Creatinine (0.8-1.5) mg/dL Glucose (75-100) mg/dL POC Glucose 137 H 113 H (70-105) Calcium (8.4-10.2) mg/dL 02/20/18 Range/Units 05:51 WBC (4.5-11.0) K/mm3 Hgb (11.8-15.2) gm/dl Hct (35.5-45.6) % MCV (84-94) fl MCH (28-32) pg Plt Count (140-440) K/mm3 Seg Neutrophils # Man (1.8-7.7) K/mm3 Sodium 136 L (137-145) mmol/L BUN 5 L (9-20) mg/dL Creatinine 0.7 L (0.8-1.5) mg/dL Glucose 119 H (75-100) mg/dL POC Glucose (70-105) Calcium 8.1 L (8.4-10.2) mg/dL Medications & Allergies - Medications Allergies/Adverse Reactions: Allergies No Known Allergies Allergy (Unverified 02/10/18 09:51) Home Medications: Home Medications Medication Instructions Recorded Confirmed Last Taken Type No Known Home Medications [No 02/14/18 02/14/18 Unknown History Reported Home Medications] Active Medications: Generic Name Dose Route Start Last Admin Trade Name Freq PRN Reason Stop Dose Admin Acetaminophen 650 mg 02/10/18 21:45 02/13/18 12:17 Tylenol PO 650 mg Q4H PRN Administration Pain MILD(1-3)/Fever >100.5/HERNANDEZ Acetaminophen/Hydrocodone Bitart 1 each 02/11/18 15:39 02/20/18 06:17 [place] 5/325 PO 1 each Q4H PRN Administration Pain, Moderate (4-6) Enoxaparin Sodium 40 mg 02/11/18 22:00 02/19/18 22:56 Lovenox SUB-Q 40 mg QDAY@2200 ERIC Administration Famotidine 20 mg 02/10/18 22:00 02/19/18 22:56 Pepcid IV 20 mg BID ERIC Administration Sodium Chloride 1,000 mls @ 100 mls/hr 02/11/18 12:00 02/19/18 22:59 Nacl 0.9% 1000 Ml IV 100 mls/hr DIRECT ERIC Administration Metronidazole 500 mg in 100 mls @ 100 mls/hr 02/11/18 14:00 02/20/18 06:53 Flagyl 500 Mg/100 Ml IV 100 mls/hr Q8HR ERIC Administration Protocol Cefazolin Sodium 2 gm/ Sodium 100 mls @ 200 mls/hr 02/18/18 18:00 02/20/18 06:09 Chloride IV 200 mls/hr Q6HR ERIC Administration Insulin Human Isoph/Insulin Regular 16 unit 02/12/18 09:00 02/19/18 17:42 Humulin 70/30 SUB-Q 16 unit BIDDIAB ERIC Administration Insulin Human Lispro 0 unit 02/11/18 07:30 02/20/18 00:14 Humalog SUB-Q Not Given ACHS ERIC Protocol Morphine Sulfate 4 mg 02/11/18 15:39 02/17/18 01:24 Morphine IV 4 mg Q3H PRN Administration Pain , Severe (7-10) Ondansetron HCl 4 mg 02/11/18 15:39 Zofran IV Q4H PRN N/V unrelieved by Chata Sodium Chloride 10 ml 02/10/18 21:45 02/11/18 22:28 Sodium Chloride Flush Syringe 10 Ml IV 10 ml PRN PRN Administration LINE FLUSH Sodium Chloride 10 ml 02/10/18 22:00 02/20/18 00:15 Sodium Chloride Flush Syringe 10 Ml IV 10 ml BID ERIC Administration
[2018-02-20] MEDS: PEPCID IV SCH ×2 (10:32→22:25)
--- NOTE | 2018-02-20 12:24 | Progress Note ---
Assessment and Plan Pt feeling "welll" note noted for scrotal exploration today Selected Entries 02/20/18 11:24 Temperature 98.6 F Pulse Rate 87 Respiratory 20 Rate Blood Pressure 146/97 Laboratory Tests 02/19/18 02/20/18 04:53 05:51 WBC 14.0 H 12.6 H Objective Vital Signs - 12hr 02/20/18 02/20/18 02/20/18 05:20 10:00 10:31 Temperature 98.7 F Pulse Rate 88 Respiratory 16 20 20 Rate Blood Pressure 148/88 O2 Sat by Pulse 100 Oximetry 02/20/18 11:24 Temperature 98.6 F Pulse Rate 87 Respiratory 20 Rate Blood Pressure 146/97 O2 Sat by Pulse 100 Oximetry - Labs 02/20/18 05:51 02/20/18 05:51 Diabetes panel 02/20/18 Range/Units 05:51 Sodium 136 L (137-145) mmol/L Potassium 4.5 (3.6-5.0) mmol/L Chloride 101.6 (98-107) mmol/L Carbon Dioxide 23 (22-30) mmol/L BUN 5 L (9-20) mg/dL Creatinine 0.7 L (0.8-1.5) mg/dL Glucose 119 H (75-100) mg/dL Calcium 8.1 L (8.4-10.2) mg/dL Calcium panel 02/20/18 Range/Units 05:51 Calcium 8.1 L (8.4-10.2) mg/dL Pituitary panel 02/20/18 Range/Units 05:51 Sodium 136 L (137-145) mmol/L Potassium 4.5 (3.6-5.0) mmol/L Chloride 101.6 (98-107) mmol/L Carbon Dioxide 23 (22-30) mmol/L BUN 5 L (9-20) mg/dL Creatinine 0.7 L (0.8-1.5) mg/dL Glucose 119 H (75-100) mg/dL Calcium 8.1 L (8.4-10.2) mg/dL Adrenal panel 02/20/18 Range/Units 05:51 Sodium 136 L (137-145) mmol/L Potassium 4.5 (3.6-5.0) mmol/L Chloride 101.6 (98-107) mmol/L Carbon Dioxide 23 (22-30) mmol/L BUN 5 L (9-20) mg/dL Creatinine 0.7 L (0.8-1.5) mg/dL Glucose 119 H (75-100) mg/dL Calcium 8.1 L (8.4-10.2) mg/dL
[2018-02-20] MEDS: NACL 0.9% 1000 ML 1,000 ML IV SCH ×2 (12:42→14:15)
--- NOTE | 2018-02-20 14:05 | Progress Note ---
Assessment and Plan Cultures: 02/10/2018 blood culture: No growth 02/11/2018 OR culture: Gram stain mixed with Diptheroids and Staph Lugd[place]ensis A/P: 37/M with previous history of jaw abscess, no known MRSA history admitted with: 1) Right gluteal abscess/necrotizing infection causing sepsis and leukemoid reaction: Leukocytosis Improving, slow response to antibiotic therapy. s/p extensive I&D by Dr. Pittman. Urology consulted to eval for possible Tash's gangrene. Continue broad spectrum abx, Gram stain appears mixed, ?synergistic gangrene. U/S of Scrotum, findings are concerning for abscess in posterior aspect of the scrotum. Scrotal exploration today. 2) Morbid obesity 3) Diabetes mellitus type 2, uncontrolled, newly diagnosed: HbA1c 14 here. Recs: Recommend tight glycemic control Continue IV Ancef 2 gms q 6, continue flagyl upon discharge will switch to PO [facility] M: [phone] O:[phone] Subjective Date of service: 02/20/18 Principal diagnosis: abcess Interval history: Patient seen and examined. Denied SOB, Nausea or vomiting. Nurses notes, labs and reports reviewed, discussed with patient. Objective - Exam Narrative Exam: Physical Exam: Constitutional: Alert, cooperative. No acute distress. Obese Head, Ears, Nose: Normocephalic, atraumatic. External ears, nose normal Eyes: Conjunctivae/corneas clear. No icterus. No ptosis. Neck: Supple, no meningeal signs Oral: no ulcers, no thrush Cardiovascular: S1, S2 normal. Respiratory: Good air entry, clear to auscultation bilaterally GI: Soft, non-tender; bowel sounds normal. No peritoneal signs Musculoskeletal: No pedal edema, no cyanosis. Right gluteal and perineal region with dressing + Skin: no rash. Hem/Lymphatic: No palpable cervical or supraclavicular nodes. No lymphangitis Psych: Mood ok. Affect normal Neurological: Awake, alert, oriented. No gross abnormality - Constitutional Vitals: Vital Signs Temp Pulse Resp BP Pulse Ox 98.6 F 87 20 146/97 100 02/20/18 11:24 02/20/18 11:24 02/20/18 11:24 02/20/18 11:24 02/20/18 11:24 Temperature -Last 24 Hours Temperature 98.6 F Temperature 98.7 F Temperature 99.9 F - Labs CBC & Chem 7: 02/20/18 05:51 02/20/18 05:51 Labs: Abnormal lab results 02/19/18 02/20/18 02/20/18 Range/Units 21:26 05:51 05:51 WBC 12.6 H (4.5-11.0) K/mm3 Hgb 11.4 L (11.8-15.2) gm/dl Hct 34.4 L (35.5-45.6) % MCV 81 L (84-94) fl MCH 27 L (28-32) pg Plt Count 595 H (140-440) K/mm3 Seg Neutrophils # Man 7.8 H (1.8-7.7) K/mm3 Sodium 136 L (137-145) mmol/L BUN 5 L (9-20) mg/dL Creatinine 0.7 L (0.8-1.5) mg/dL Glucose 119 H (75-100) mg/dL POC Glucose 113 H (70-105) Calcium 8.1 L (8.4-10.2) mg/dL 02/20/18 Range/Units 11:28 WBC (4.5-11.0) K/mm3 Hgb (11.8-15.2) gm/dl Hct (35.5-45.6) % MCV (84-94) fl MCH (28-32) pg Plt Count (140-440) K/mm3 Seg Neutrophils # Man (1.8-7.7) K/mm3 Sodium (137-145) mmol/L BUN (9-20) mg/dL Creatinine (0.8-1.5) mg/dL Glucose (75-100) mg/dL POC Glucose 113 H (70-105) Calcium (8.4-10.2) mg/dL
[2018-02-20] MEDS ORDERED: VERSED ONE (14:13)
--- NOTE | 2018-02-20 14:18 | Anesthesia Day of Surgery ---
Anesthesia Day of Surgery - Day of Surgery Patient Examined: Yes Patient H&P Reviewed: Yes Patient is NPO: Yes
--- NOTE | 2018-02-20 14:18 | Anesthesia Consultation ---
Anesthesia Consult and Med Hx Date of service: 02/20/18 - Airway Anesthetic Teeth Evaluation: Good ROM Head & Neck: Adequate Mental/Hyoid Distance: Adequate Mallampati Class: Class II Intubation Access Assessment: Probably Good - Pulmonary Exam CTA: Yes - Cardiac Exam Cardiac Exam: RRR - Pre-Operative Health Status ASA Pre-Surgery Classification: ASA3 Proposed Anesthetic Plan: General - Pulmonary Hx Smoking: Yes Hx Asthma: No Hx Respiratory Symptoms: No - Cardiovascular System Hx Hypertension: No Hx Heart Attack/AMI: No - Central Nervous System Hx Seizures: No CVA: No - Gastrointestinal Hx Gastroesophageal Reflux Disease: No - Endocrine Hx Renal Disease: No Hx Liver Disease: No Hx Insulin Dependent Diabetes: Yes (new diagnosis this admission) Hx Thyroid Disease: No - Hematic Hx Anemia: Yes - Additional Comments Anesthesia Medical History Comments: No hx anesthetic complications.
--- NOTE | 2018-02-20 14:20 | Progress Note ---
Assessment and Plan Assessment and plan: Sepsis. 02/10/2018 blood culture: No growth 02/11/2018 OR culture: Gram stain mixed with GPC, GNRs Continue antibiotics per ID. Perineal/Right gluteal abscess/necrotizing infection iv Abx s/p extensive I&D by Dr. Pittman. 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 Right scrotal abscess s/p I and D U/S of Scrotum, findings are concerning for abscess in posterior aspect of the scrotum. Cont. to have scrotal purulent drainage. urology to do surgery today Marked leukocytosis, WBC 42.6 on admssion Due to sepsis. Improving. Diabetes mellitus type 2, newly diagnosed Cont. novolin 70/30 bid Hyponatremia due to hyperglycemia Full code status History Interval history: Feels better Drainage from scrotal area Hospitalist Physical - Physical exam Narrative exam: GEN: Not in acute distress, Obese HEENT: Normocephalic, atraumatic, Neck: supple, No JVD Lungs: Clear, no rhonchi, no wheeze Heart:S1 and S2 regular, no murmurs, rubs or gallop, Abd:soft, non tender, non distended, normal bowel sounds Ext: Dressing over perineum, scrotum, no cyanosis Neuro: AAO x 3, moves all extremities, no focal neurological signs Psych:Normal mood - Constitutional Vitals: Temp Pulse Resp BP Pulse Ox 98.6 F 87 20 146/97 100 02/20/18 11:24 02/20/18 11:24 02/20/18 11:24 02/20/18 11:24 02/20/18 11:24 General appearance: Present: no acute distress Results - Labs CBC & Chem 7: 02/20/18 05:51 02/20/18 05:51 Labs: Laboratory Last Values WBC 12.6 K/mm3 (4.5-11.0) H 02/20/18 05:51 RBC 4.25 M/mm3 (3.65-5.03) 02/20/18 05:51 Hgb 11.4 gm/dl (11.8-15.2) L 02/20/18 05:51 Hct 34.4 % (35.5-45.6) L 02/20/18 05:51 MCV 81 fl (84-94) L 02/20/18 05:51 MCH 27 pg (28-32) L 02/20/18 05:51 MCHC 33 % (32-34) 02/20/18 05:51 RDW 13.6 % (13.2-15.2) 02/20/18 05:51 Plt Count 595 K/mm3 (140-440) H 02/20/18 05:51 Add Manual Diff Complete 02/20/18 05:51 Total Counted 100 02/20/18 05:51 Seg Neuts % (Manual) 62.0 % (40.0-70.0) 02/20/18 05:51 Band Neutrophils % 2.0 % 02/20/18 05:51 Lymphocytes % (Manual) 27.0 % (13.4-35.0) 02/20/18 05:51 Reactive Lymphs % (Man) 0 % 02/20/18 05:51 Monocytes % (Manual) 6.0 % (0.0-7.3) 02/20/18 05:51 Eosinophils % (Manual) 1.0 % (0.0-4.3) 02/20/18 05:51 Basophils % (Manual) 1.0 % (0.0-1.8) 02/20/18 05:51 Metamyelocytes % 1.0 % 02/20/18 05:51 Myelocytes % 0 % 02/20/18 05:51 Promyelocytes % 0 % 02/20/18 05:51 Blast Cells % 0 % 02/20/18 05:51 Nucleated RBC % Not Reportable 02/20/18 05:51 Seg Neutrophils # Man 7.8 K/mm3 (1.8-7.7) H 02/20/18 05:51 Band Neutrophils # 0.3 K/mm3 02/20/18 05:51 Lymphocytes # (Manual) 3.4 K/mm3 (1.2-5.4) 02/20/18 05:51 Abs React Lymphs (Man) 0.0 K/mm3 02/20/18 05:51 Monocytes # (Manual) 0.8 K/mm3 (0.0-0.8) 02/20/18 05:51 Eosinophils # (Manual) 0.1 K/mm3 (0.0-0.4) 02/20/18 05:51 Basophils # (Manual) 0.1 K/mm3 (0.0-0.1) 02/20/18 05:51 Metamyelocytes # 0.1 K/mm3 02/20/18 05:51 Myelocytes # 0.0 K/mm3 02/20/18 05:51 Promyelocytes # 0.0 K/mm3 02/20/18 05:51 Blast Cells # 0.0 K/mm3 02/20/18 05:51 Pathologist Review 02/10/18 09:56 WBC Morphology Not Reportable 02/20/18 05:51 Hypersegmented Neuts Not Reportable 02/20/18 05:51 Hyposegmented Neuts Not Reportable 02/20/18 05:51 Hypogranular Neuts Not Reportable 02/20/18 05:51 Smudge Cells Not Reportable 02/20/18 05:51 Toxic Granulation Not Reportable 02/20/18 05:51 Toxic Vacuolation Not Reportable 02/20/18 05:51 Dohle Bodies Not Reportable 02/20/18 05:51 Pelger-Huet Anomaly Not Reportable 02/20/18 05:51 Nivia Rods Not Reportable 02/20/18 05:51 Platelet Estimate Consistent w auto 02/20/18 05:51 Clumped Platelets Not Reportable 02/20/18 05:51 Plt Clumps, EDTA Not Reportable 02/20/18 05:51 Large Platelets Not Reportable 02/20/18 05:51 Giant Platelets Not Reportable 02/20/18 05:51 Platelet Satelliting Not Reportable 02/20/18 05:51 Plt Morphology Comment Not Reportable 02/20/18 05:51 RBC Morphology Not Reportable 02/20/18 05:51 Dimorphic RBCs Not Reportable 02/20/18 05:51 Polychromasia Not Reportable 02/20/18 05:51 Hypochromasia Not Reportable 02/20/18 05:51 Poikilocytosis Not Reportable 02/20/18 05:51 Anisocytosis 1+ 02/20/18 05:51 Microcytosis Not Reportable 02/20/18 05:51 Macrocytosis Not Reportable 02/20/18 05:51 Spherocytes Not Reportable 02/20/18 05:51 Pappenheimer Bodies Not Reportable 02/20/18 05:51 Sickle Cells Not Reportable 02/20/18 05:51 Target Cells Few 02/20/18 05:51 Tear Drop Cells Not Reportable 02/20/18 05:51 Ovalocytes Not Reportable 02/20/18 05:51 Helmet Cells Not Reportable 02/20/18 05:51 [place] Bodies Not Reportable 02/20/18 05:51 [place] Rings Not Reportable 02/20/18 05:51 [place] Cells Not Reportable 02/20/18 05:51 Bite Cells Not Reportable 02/20/18 05:51 Crenated Cell Not Reportable 02/20/18 05:51 Elliptocytes Not Reportable 02/20/18 05:51 Acanthocytes (Spur) Not Reportable 02/20/18 05:51 Rouleaux Not Reportable 02/20/18 05:51 Hemoglobin C Crystals Not Reportable 02/20/18 05:51 Schistocytes Not Reportable 02/20/18 05:51 Malaria parasites Not Reportable 02/20/18 05:51 [place] Bodies Not Reportable 02/20/18 05:51 Hem Pathologist Commnt No 02/20/18 05:51 PT 14.8 Sec. (12.2-14.9) 02/10/18 09:56 INR 1.12 (0.87-1.13) 02/10/18 09:56 VBG pH 7.415 (7.320-7.420) 02/10/18 09:56 Sodium 136 mmol/L (137-145) L 02/20/18 05:51 Potassium 4.5 mmol/L (3.6-5.0) 02/20/18 05:51 Chloride 101.6 mmol/L (98-107) 02/20/18 05:51 Carbon Dioxide 23 mmol/L (22-30) 02/20/18 05:51 Anion Gap 16 mmol/L 02/20/18 05:51 BUN 5 mg/dL (9-20) L 02/20/18 05:51 Creatinine 0.7 mg/dL (0.8-1.5) L 02/20/18 05:51 Estimated GFR > 60 ml/min 02/20/18 05:51 BUN/Creatinine Ratio 7 % 02/20/18 05:51 Glucose 119 mg/dL (75-100) H 02/20/18 05:51 POC Glucose 113 (70-105) H 02/20/18 11:28 Hemoglobin A1c 14.0 % (4-6) H 02/10/18 23:33 Lactic Acid 1.70 mmol/L (0.7-2.0) 02/10/18 23:33 Calcium 8.1 mg/dL (8.4-10.2) L 02/20/18 05:51 Total Bilirubin 0.70 mg/dL (0.1-1.2) 02/14/18 04:26 AST 31 units/L (5-40) 02/14/18 04:26 ALT 30 units/L (7-56) 02/14/18 04:26 Alkaline Phosphatase 130 units/L (35-129) H 02/14/18 04:26 Total Creatine Kinase 151 units/L (55-170) 02/10/18 09:56 Total Protein 5.7 g/dL (6.3-8.2) L 02/14/18 04:26 Albumin 2.1 g/dL (3.9-5) L 02/14/18 04:26 Albumin/Globulin Ratio 0.6 % 02/14/18 04:26 Urine Color Yellow (Yellow) 02/10/18 Unknown Urine Turbidity Clear (Clear) 02/10/18 Unknown Urine pH 6.0 (5.0-7.0) 02/10/18 Unknown Ur Specific [place] 1.038 (1.003-1.030) H 02/10/18 Unknown Urine Protein 100 mg/dl mg/dL (Negative) 02/10/18 Unknown Urine Glucose (UA) >=500 mg/dL (Negative) 02/10/18 Unknown Urine Ketones 80 mg/dL (Negative) 02/10/18 Unknown Urine Blood Neg (Negative) 02/10/18 Unknown Urine Nitrite Neg (Negative) 02/10/18 Unknown Urine Bilirubin Neg (Negative) 02/10/18 Unknown Urine Urobilinogen 4.0 mg/dL (<2.0) 02/10/18 Unknown Ur Leukocyte Esterase Neg (Negative) 02/10/18 Unknown Urine WBC (Auto) 1.0 /HPF (0.0-6.0) 02/10/18 Unknown Urine RBC (Auto) 1.0 /HPF (0.0-6.0) 02/10/18 Unknown Urine Mucus Few /HPF 02/10/18 Unknown Vancomycin Trough 7.3 ug/mL (5.0-20.0) 02/16/18 10:03 Nutrition/Malnutrition Assess - Dietary Evaluation Nutrition/Malnutrition Findings: Nutrition Notes Start: 02/11/18 12:04 Freq: Status: Active Protocol: Document 02/14/18 12:57 BLANCA (Rec: 02/14/18 13:04 BLANCA [email or web address]) Nutrition Notes Initial or Follow up Reassessment Current Diagnoses Diabetes Sepsis Other Pertinent Diagnosis Perineal/Scrotal abscess s/p I &D, necrotizing fasciitis Current Diet Cardiac/Consistent CHO Labs/Tests K 3.1 POC Glu range since last assessment: 94-173 Medications 40mEq KCl x 2 doses Height 6 ft 2 in Weight [address] Body Weight (lbs) 190.0 BMI 30.4 Subjective/Other Information Pt reports improving appetite; consumed 100% of breakfast this am (36% average of meals overall). Has not received Wade yet (no order placed). Placed Wade instructional card tent on bedside table and explained contribution of Wade in the wound healing process. Percent of energy/protein needs met: 33% energy 25% pro #3 Nutrition Diagnoses Increased nutrient needs ( specify in comment below) Diagnosis Progress(for reassessment Continues documentation) #2 Nutrition Diagnoses Altered nutrition-related laboratory values Diagnosis Progress(for reassessment Continues documentation) #1 Nutrition Diagnoses Food and nutrition-related knowledge deficit As Evidenced by Signs and Symptoms pt received DM diet education Diagnosis Progress(for reassessment Resolved documentation) Is patient on ventilator? No Is Patient Ambulatory and/or Out of Bed Yes REE-([facility]-ambulatory/OOB) [ 2699.775 [id number]] Kcal/Kg value to use for calculation 20 Approximate Energy Requirements Using 2154 kcal/Kg Calculation Used for Recommendations Kcal/kg Additional Notes Pro needs 1.25-1.5g/kg adjBW: 121-146g/day Fluid needs 1ml/kcal Nutrition Intervention Change Diet Order: Continue current diet order Add Supplement/Snack (indicate name/kcal WADE BID /protein ) Provides kCal: 190 Provides Protein (gm) 5 Goal #1 PO intake of meals to meet at least 75% energy and pro needs Goal #2 Wound healing Goal #3 Improved BG control Anticipated Discharge Needs: CHO-controlled diet Follow-Up By: 02/20/18 Additional Comments F/U: intakes (meals/ONS), wt
--- NOTE | 2018-02-20 14:27 | Progress Note ---
Assessment and Plan informed consent still with fluid larger [id number] g scrotal exp poss orch pt and family fully aware Subjective Date of service: 02/20/18 Principal diagnosis: abcess Objective - Constitutional Vitals: Vital Signs - 12hr 02/20/18 02/20/18 02/20/18 05:20 10:00 10:31 Temperature 98.7 F Pulse Rate 88 Respiratory 16 20 20 Rate Blood Pressure 148/88 O2 Sat by Pulse 100 Oximetry 02/20/18 02/20/18 11:24 13:40 Temperature 98.6 F 98.5 F Pulse Rate 87 84 Respiratory 20 20 Rate Blood Pressure 146/97 145/73 O2 Sat by Pulse 100 100 Oximetry General appearance: Present: no acute distress - Respiratory Respiratory effort: normal - Genitourinary Male genitourinary: penile edema, scrotal edema - Labs CBC & Chem 7: 02/20/18 05:51 02/20/18 05:51 Labs: Abnormal lab results 02/19/18 02/20/18 02/20/18 Range/Units 21:26 05:51 05:51 WBC 12.6 H (4.5-11.0) K/mm3 Hgb 11.4 L (11.8-15.2) gm/dl Hct 34.4 L (35.5-45.6) % MCV 81 L (84-94) fl MCH 27 L (28-32) pg Plt Count 595 H (140-440) K/mm3 Seg Neutrophils # Man 7.8 H (1.8-7.7) K/mm3 Sodium 136 L (137-145) mmol/L BUN 5 L (9-20) mg/dL Creatinine 0.7 L (0.8-1.5) mg/dL Glucose 119 H (75-100) mg/dL POC Glucose 113 H (70-105) Calcium 8.1 L (8.4-10.2) mg/dL 02/20/18 Range/Units 11:28 WBC (4.5-11.0) K/mm3 Hgb (11.8-15.2) gm/dl Hct (35.5-45.6) % MCV (84-94) fl MCH (28-32) pg Plt Count (140-440) K/mm3 Seg Neutrophils # Man (1.8-7.7) K/mm3 Sodium (137-145) mmol/L BUN (9-20) mg/dL Creatinine (0.8-1.5) mg/dL Glucose (75-100) mg/dL POC Glucose 113 H (70-105) Calcium (8.4-10.2) mg/dL Medications & Allergies - Medications Allergies/Adverse Reactions: Allergies No Known Allergies Allergy (Unverified 02/10/18 09:51) Home Medications: Home Medications Medication Instructions Recorded Confirmed Last Taken Type No Known Home Medications [No 02/14/18 02/14/18 Unknown History Reported Home Medications] Active Medications: Generic Name Dose Route Start Last Admin Trade Name Freq PRN Reason Stop Dose Admin Acetaminophen 650 mg 02/10/18 21:45 02/13/18 12:17 Tylenol PO 650 mg Q4H PRN Administration Pain MILD(1-3)/Fever >100.5/HERNANDEZ Acetaminophen/Hydrocodone Bitart 1 each 02/11/18 15:39 02/20/18 10:31 [place] 5/325 PO 1 each Q4H PRN Administration Pain, Moderate (4-6) Enoxaparin Sodium 40 mg 02/11/18 22:00 02/19/18 22:56 Lovenox SUB-Q 40 mg QDAY@2200 ERIC Administration Famotidine 20 mg 02/10/18 22:00 02/20/18 10:32 Pepcid IV 20 mg BID ERIC Administration Hydromorphone HCl 0.5 mg 02/20/18 14:18 Dilaudid IV Q10MIN PRN Pain , Severe (7-10) Sodium Chloride 1,000 mls @ 100 mls/hr 02/11/18 12:00 02/20/18 12:42 Nacl 0.9% 1000 Ml IV 100 mls/hr DIRECT ERIC Administration Metronidazole 500 mg in 100 mls @ 100 mls/hr 02/11/18 14:00 02/20/18 06:53 Flagyl 500 Mg/100 Ml IV 100 mls/hr Q8HR ERIC Administration Protocol Cefazolin Sodium 2 gm/ Sodium 100 mls @ 200 mls/hr 02/18/18 18:00 02/20/18 12:31 Chloride IV 200 mls/hr Q6HR ERIC Administration Sodium Chloride 1,000 mls @ 75 mls/hr 02/20/18 15:00 02/20/18 14:15 Nacl 0.9% 1000 Ml IV 75 mls/hr DIRECT ERIC Administration Insulin Human Isoph/Insulin Regular 16 unit 02/12/18 09:00 02/20/18 10:32 Humulin 70/30 SUB-Q Not Given BIDDIAB ERIC Insulin Human Lispro 0 unit 02/11/18 07:30 02/20/18 10:32 Humalog SUB-Q Not Given ACHS [facility] Protocol Morphine Sulfate 4 mg 02/11/18 15:39 02/17/18 01:24 Morphine IV 4 mg Q3H PRN Administration Pain , Severe (7-10) Ondansetron HCl 4 mg 02/11/18 15:39 Zofran IV Q4H PRN N/V unrelieved by Chata Sodium Chloride 10 ml 02/10/18 21:45 02/11/18 22:28 Sodium Chloride Flush Syringe 10 Ml IV 10 ml PRN PRN Administration LINE FLUSH Sodium Chloride 10 ml 02/10/18 22:00 02/20/18 00:15 Sodium Chloride Flush Syringe 10 Ml IV 10 ml BID ERIC Administration
[2018-02-20] MEDS ORDERED: ZOFRAN ONE (14:35)
[2018-02-20] MEDS ORDERED: TORADOL ONE (14:35)
[2018-02-20] MEDS ORDERED: DIPRIVAN 10 MG/ML IV ONE ×2 (14:35→15:44)
[2018-02-20] MEDS ORDERED: SUBLIMAZE ONE ×2 (14:35→15:41)
[2018-02-20] MEDS ORDERED: DECADRON ONE (14:35)
[2018-02-20] MEDS ORDERED: DILAUDID IV PRN (15:00)
--- NOTE | 2018-02-20 15:30 | Post Operative Note ---
Date of procedure: 02/20/18 Pre-op diagnosis: perineal scrotal abcess Post-op diagnosis: same Findings: groin abcess srotal contents uninvolved Procedure: scrotal exploration i and d abcess Anesthesia: GETA Surgeon: WOOD WATERS Estimated blood loss: minimal Pathology: list (necroic tissue) Specimen disposition: to lab Condition: stable Disposition: PACU
[2018-02-20] MEDS ORDERED: XYLOCAINE CARDIAC IV ONE (16:01)
--- NOTE | 2018-02-20 16:18 | Operative Report ---
PREOPERATIVE DIAGNOSIS: Perineal abscess, rule out scrotal abscess. POSTOPERATIVE DIAGNOSES: No evidence of intrascrotal abscess. There is a large abscess cavity right gluteal and perineal area extending to the right groin. PROCEDURE: Incision and drainage of groin abscess, scrotal exploration. SURGEON: Johnathan Loya MD ANESTHESIA: General. FINDINGS: This is a gentleman, who continues to drain fluid from the recent I and D a week ago. He has improved dramatically, but he still has significant drainage. He understood that we were going to do this exploration, possible orchiectomy. DESCRIPTION OF PROCEDURE: The patient brought to the operating room and placed on the operating table. Following induction of anesthesia, placed in the supine position, prepped and draped in usual sterile fashion. There was a second area that was draining more superior to the perineal opening. These areas were connected. Large amount of fluid extended to the right groin along the inguinal tract. The testis was well palpable. Once all this fluid was cultured and drained this was irrigated freely. A small incision was made over the right testicle through the scrotal fascia to the tunica vaginalis. A less than 1 cm incision made in the vaginalis. The testis was white and viable with no abscess. This was then closed with 3-0 chromic. The patient tolerated the procedure well. Packing was left. This is likely a groin in perirectal or gluteal abscess. Scrotal contents were uninvolved. JOB# [id number] KODY/JERALD
--- NOTE | 2018-02-20 16:25 | Post Anesthesia Evaluation ---
- Post Anesthesia Evaluation Patient Participated: Yes Airway Patent: Yes Stable Respiratory Function: Yes Nausea/Vomiting: No Temp > 96.8F: Yes Pain Manageable: Yes Adequeate Hydration: Yes Anesthesia Complications: No
[2018-02-20] MEDS: LOVENOX SUB-Q SCH (22:31)
[2018-02-21] MEDS: ceFAZolin 2 GM in NACL 0.9% 100 ML IV SCH ×5 (01:35→18:36)
--- NOTE | 2018-02-21 09:05 | Progress Note ---
Assessment and Plan Cultures: 02/10/2018 blood culture: No growth 02/11/2018 OR culture: Gram stain mixed with Diptheroids and Staph Lugdunensis 02/21/2018 Scrotum culture: no growth thus far A/P: 37/M with previous history of jaw abscess, no known MRSA history admitted with: 1) Right gluteal abscess/necrotizing infection causing sepsis and leukemoid reaction: Leukocytosis Improving, slow response to antibiotic therapy. s/p extensive I&D by Dr. Pittman. 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 Continue broad spectrum abx, Gram stain appears mixed, ?synergistic gangrene. U/S of Scrotum, findings are concerning for abscess in posterior aspect of the scrotum. S/p scrotal exploration, I &D. OR culture show no growth thus far. 2) Morbid obesity 3) Diabetes mellitus type 2, uncontrolled, newly diagnosed: HbA1c 14 here. Recs: Recommend tight glycemic control Continue IV Ancef 2 gms q 6, continue flagyl upon discharge will switch to PO [facility] M: [phone] O:[phone] Subjective Date of service: 02/21/18 Principal diagnosis: abscess Interval history: Patient seen and examined. Denied SOB, Nausea or vomiting. Sitting up in bed, stated that he was feeling much better today, s/p I & D. Discharge plans discussed, verbalized understanding. Objective - Exam Narrative Exam: Physical Exam: Constitutional: Alert, cooperative. No acute distress. Obese Head, Ears, Nose: Normocephalic, atraumatic. External ears, nose normal Eyes: Conjunctivae/corneas clear. No icterus. No ptosis. Neck: Supple, no meningeal signs Oral: no ulcers, no thrush Cardiovascular: S1, S2 normal. Respiratory: Good air entry, clear to auscultation bilaterally GI: Soft, non-tender; bowel sounds normal. No peritoneal signs Musculoskeletal: No pedal edema, no cyanosis. Right gluteal and perineal region with dressing + Skin: no rash. Hem/Lymphatic: No palpable cervical or supraclavicular nodes. No lymphangitis Psych: Mood ok. Affect normal Neurological: Awake, alert, oriented. No gross abnormality - Constitutional Vitals: Vital Signs Temp Pulse Resp BP Pulse Ox 98.2 F 78 18 123/73 98 02/21/18 04:37 02/21/18 04:37 02/21/18 04:37 02/21/18 04:37 02/21/18 04:37 Temperature -Last 24 Hours Temperature 98.2 F Temperature 99.0 F Temperature 98.6 F Temperature 98.6 F Temperature 98.7 F Temperature 98.1 F Temperature 98.5 F Temperature 98.5 F Temperature 98.6 F - Labs CBC & Chem 7: 02/20/18 05:51 02/20/18 05:51 Labs: Abnormal lab results 02/20/18 02/20/18 02/20/18 Range/Units 11:28 17:47 21:23 POC Glucose 113 H 136 H 294 H (70-105) 02/21/18 Range/Units 07:22 POC Glucose 197 H (70-105)
[2018-02-21] MEDS: NORCO 5/325 PO PRN (09:15)
[2018-02-21] MEDS: PEPCID IV SCH ×2 (09:16→21:51)
[2018-02-21] MEDS: NACL 0.9% 1000 ML 1,000 ML IV SCH ×2 (09:16→12:55)
[2018-02-21] MEDS: FLAGYL 500 MG/100 ML 500 MG/100 ML BAG IV SCH ×3 (09:17→21:51)
[2018-02-21] MEDS: HumaLOG SUB-Q SCH ×4 (09:18→17:51)
--- NOTE | 2018-02-21 10:41 | Progress Note ---
Assessment and Plan Pt feeling well. sitting up in bed with laptop. no compl s/p I&D scrotal abscess yesterday. surgically stable reviewed local care Rx plan with ET nurse continue present care Selected Entries 02/21/18 04:37 Temperature 98.2 F Pulse Rate 78 Respiratory 18 Rate Blood Pressure 123/73 Objective Vital Signs - 12hr 02/20/18 02/21/18 23:01 04:37 Temperature 99.0 F 98.2 F Pulse Rate 75 78 Respiratory 18 18 Rate Blood Pressure 128/63 123/73 O2 Sat by Pulse 96 98 Oximetry - Labs 02/20/18 05:51 02/20/18 05:51
--- NOTE | 2018-02-21 11:15 | Progress Note ---
Assessment and Plan feels much better testes fine local wound care ok to dischare when cleared by surg and med home care needed Subjective Date of service: 02/21/18 Principal diagnosis: abscess Objective - Constitutional Vitals: Vital Signs - 12hr 02/21/18 04:37 Temperature 98.2 F Pulse Rate 78 Respiratory 18 Rate Blood Pressure 123/73 O2 Sat by Pulse 98 Oximetry General appearance: Present: no acute distress - Neck Neck: supple - Respiratory Respiratory effort: normal - Gastrointestinal General gastrointestinal: Present: non-tender - Genitourinary Male genitourinary: scrotal edema - Labs CBC & Chem 7: 02/20/18 05:51 02/20/18 05:51 Labs: Abnormal lab results 02/20/18 02/20/18 02/20/18 Range/Units 11:28 17:47 21:23 POC Glucose 113 H 136 H 294 H (70-105) 02/21/18 Range/Units 07:22 POC Glucose 197 H (70-105) Medications & Allergies - Medications Allergies/Adverse Reactions: Allergies No Known Allergies Allergy (Unverified 02/10/18 09:51) Home Medications: Home Medications Medication Instructions Recorded Confirmed Last Taken Type No Known Home Medications [No 02/14/18 02/14/18 Unknown History Reported Home Medications] Active Medications: Generic Name Dose Route Start Last Admin Trade Name Nicholasq PRN Reason Stop Dose Admin Acetaminophen 650 mg 02/10/18 21:45 02/13/18 12:17 Tylenol PO 650 mg Q4H PRN Administration Pain MILD(1-3)/Fever >100.5/HERNANDEZ Acetaminophen/Hydrocodone Bitart 1 each 02/11/18 15:39 02/21/18 09:15 [place] 5/325 PO 1 each Q4H PRN Administration Pain, Moderate (4-6) Enoxaparin Sodium 40 mg 02/11/18 22:00 02/20/18 22:31 Lovenox SUB-Q 40 mg QDAY@2200 ERIC Administration Famotidine 20 mg 02/10/18 22:00 02/21/18 09:16 Pepcid IV 20 mg BID ERIC Administration Sodium Chloride 1,000 mls @ 100 mls/hr 02/11/18 12:00 02/21/18 09:16 Nacl 0.9% 1000 Ml IV 100 mls/hr DIRECT ERIC Administration Metronidazole 500 mg in 100 mls @ 100 mls/hr 02/11/18 14:00 02/21/18 09:17 Flagyl 500 Mg/100 Ml IV 100 mls/hr Q8HR ERIC Administration Protocol Cefazolin Sodium 2 gm/ Sodium 100 mls @ 200 mls/hr 02/18/18 18:00 02/21/18 01:38 Chloride IV 200 mls/hr Q6HR ERIC Administration Sodium Chloride 1,000 mls @ 75 mls/hr 02/20/18 15:00 02/20/18 14:15 Nacl 0.9% 1000 Ml IV 75 mls/hr DIRECT ERIC Administration Insulin Human Isoph/Insulin Regular 16 unit 02/12/18 09:00 02/21/18 09:17 Humulin 70/30 SUB-Q 16 unit BIDDIAB ERIC Administration Insulin Human Lispro 0 unit 02/11/18 07:30 02/21/18 09:18 Humalog SUB-Q 3 unit ACHS ERIC Administration Protocol Morphine Sulfate 4 mg 02/11/18 15:39 02/17/18 01:24 Morphine IV 4 mg Q3H PRN Administration Pain , Severe (7-10) Ondansetron HCl 4 mg 02/11/18 15:39 Zofran IV Q4H PRN N/V unrelieved by Reglan Sodium Chloride 10 ml 02/10/18 21:45 02/11/18 22:28 Sodium Chloride Flush Syringe 10 Ml IV 10 ml PRN PRN Administration LINE FLUSH Sodium Chloride 10 ml 02/10/18 22:00 02/20/18 22:29 Sodium Chloride Flush Syringe 10 Ml IV 10 ml BID ERIC Administration
[2018-02-21] MEDS: SODIUM CHLORIDE FLUSH SYRINGE 10 ML IV SCH ×2 (12:57→21:52)
--- NOTE | 2018-02-21 16:32 | Progress Note ---
Assessment and Plan Assessment and plan: Sepsis. 02/10/2018 blood culture: No growth 02/11/2018 OR culture: Gram stain mixed with GPC, GNRs Continue antibiotics per ID. Perineal/Right gluteal abscess/necrotizing infection iv Abx s/p extensive I&D by Dr. Pittman. 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 Right scrotal abscess s/p I and D U/S of Scrotum, findings are concerning for abscess in posterior aspect of the scrotum. Cont. to have scrotal purulent drainage. urology did scrotal exploration, I and D groin abscess yesterday Marked leukocytosis, WBC 42.6 on admssion Due to sepsis. Improving. Diabetes mellitus type 2, newly diagnosed Cont. novolin 70/30 bid Hyponatremia due to hyperglycemia Full code status poss dc home in 1-2 days History Interval history: Feels better had I and D groin/scrotum yesterday Hospitalist Physical - Physical exam Narrative exam: GEN: Not in acute distress, Obese HEENT: Normocephalic, atraumatic, Neck: supple, No JVD Lungs: Clear, no rhonchi, no wheeze Heart:S1 and S2 regular, no murmurs, rubs or gallop, Abd:soft, non tender, non distended, normal bowel sounds Ext: Dressing over perineum, scrotum, no cyanosis Neuro: AAO x 3, moves all extremities, no focal neurological signs Psych:Normal mood - Constitutional Vitals: Temp Pulse Resp BP Pulse Ox 98.9 F 96 H 16 130/85 98 02/21/18 11:40 02/21/18 11:40 02/21/18 11:40 02/21/18 11:40 02/21/18 11:40 General appearance: Present: no acute distress Results - Labs CBC & Chem 7: 02/20/18 05:51 02/20/18 05:51 Labs: Laboratory Last Values WBC 12.6 K/mm3 (4.5-11.0) H 02/20/18 05:51 RBC 4.25 M/mm3 (3.65-5.03) 02/20/18 05:51 Hgb 11.4 gm/dl (11.8-15.2) L 02/20/18 05:51 Hct 34.4 % (35.5-45.6) L 02/20/18 05:51 MCV 81 fl (84-94) L 02/20/18 05:51 MCH 27 pg (28-32) L 02/20/18 05:51 MCHC 33 % (32-34) 02/20/18 05:51 RDW 13.6 % (13.2-15.2) 02/20/18 05:51 Plt Count 595 K/mm3 (140-440) H 02/20/18 05:51 Add Manual Diff Complete 02/20/18 05:51 Total Counted 100 02/20/18 05:51 Seg Neuts % (Manual) 62.0 % (40.0-70.0) 02/20/18 05:51 Band Neutrophils % 2.0 % 02/20/18 05:51 Lymphocytes % (Manual) 27.0 % (13.4-35.0) 02/20/18 05:51 Reactive Lymphs % (Man) 0 % 02/20/18 05:51 Monocytes % (Manual) 6.0 % (0.0-7.3) 02/20/18 05:51 Eosinophils % (Manual) 1.0 % (0.0-4.3) 02/20/18 05:51 Basophils % (Manual) 1.0 % (0.0-1.8) 02/20/18 05:51 Metamyelocytes % 1.0 % 02/20/18 05:51 Myelocytes % 0 % 02/20/18 05:51 Promyelocytes % 0 % 02/20/18 05:51 Blast Cells % 0 % 02/20/18 05:51 Nucleated RBC % Not Reportable 02/20/18 05:51 Seg Neutrophils # Man 7.8 K/mm3 (1.8-7.7) H 02/20/18 05:51 Band Neutrophils # 0.3 K/mm3 02/20/18 05:51 Lymphocytes # (Manual) 3.4 K/mm3 (1.2-5.4) 02/20/18 05:51 Abs React Lymphs (Man) 0.0 K/mm3 02/20/18 05:51 Monocytes # (Manual) 0.8 K/mm3 (0.0-0.8) 02/20/18 05:51 Eosinophils # (Manual) 0.1 K/mm3 (0.0-0.4) 02/20/18 05:51 Basophils # (Manual) 0.1 K/mm3 (0.0-0.1) 02/20/18 05:51 Metamyelocytes # 0.1 K/mm3 02/20/18 05:51 Myelocytes # 0.0 K/mm3 02/20/18 05:51 Promyelocytes # 0.0 K/mm3 02/20/18 05:51 Blast Cells # 0.0 K/mm3 02/20/18 05:51 Pathologist Review 02/10/18 09:56 WBC Morphology Not Reportable 02/20/18 05:51 Hypersegmented Neuts Not Reportable 02/20/18 05:51 Hyposegmented Neuts Not Reportable 02/20/18 05:51 Hypogranular Neuts Not Reportable 02/20/18 05:51 Smudge Cells Not Reportable 02/20/18 05:51 Toxic Granulation Not Reportable 02/20/18 05:51 Toxic Vacuolation Not Reportable 02/20/18 05:51 Dohle Bodies Not Reportable 02/20/18 05:51 Pelger-Huet Anomaly Not Reportable 02/20/18 05:51 Nivia Rods Not Reportable 02/20/18 05:51 Platelet Estimate Consistent w auto 02/20/18 05:51 Clumped Platelets Not Reportable 02/20/18 05:51 Plt Clumps, EDTA Not Reportable 02/20/18 05:51 Large Platelets Not Reportable 02/20/18 05:51 Giant Platelets Not Reportable 02/20/18 05:51 Platelet Satelliting Not Reportable 02/20/18 05:51 Plt Morphology Comment Not Reportable 02/20/18 05:51 RBC Morphology Not Reportable 02/20/18 05:51 Dimorphic RBCs Not Reportable 02/20/18 05:51 Polychromasia Not Reportable 02/20/18 05:51 Hypochromasia Not Reportable 02/20/18 05:51 Poikilocytosis Not Reportable 02/20/18 05:51 Anisocytosis 1+ 02/20/18 05:51 Microcytosis Not Reportable 02/20/18 05:51 Macrocytosis Not Reportable 02/20/18 05:51 Spherocytes Not Reportable 02/20/18 05:51 Pappenheimer Bodies Not Reportable 02/20/18 05:51 Sickle Cells Not Reportable 02/20/18 05:51 Target Cells Few 02/20/18 05:51 Tear Drop Cells Not Reportable 02/20/18 05:51 Ovalocytes Not Reportable 02/20/18 05:51 Helmet Cells Not Reportable 02/20/18 05:51 [place] Bodies Not Reportable 02/20/18 05:51 [place] Rings Not Reportable 02/20/18 05:51 [place] Cells Not Reportable 02/20/18 05:51 Bite Cells Not Reportable 02/20/18 05:51 Crenated Cell Not Reportable 02/20/18 05:51 Elliptocytes Not Reportable 02/20/18 05:51 Acanthocytes (Spur) Not Reportable 02/20/18 05:51 Rouleaux Not Reportable 02/20/18 05:51 Hemoglobin C Crystals Not Reportable 02/20/18 05:51 Schistocytes Not Reportable 02/20/18 05:51 Malaria parasites Not Reportable 02/20/18 05:51 [place] Bodies Not Reportable 02/20/18 05:51 Hem Pathologist Commnt No 02/20/18 05:51 PT 14.8 Sec. (12.2-14.9) 02/10/18 09:56 INR 1.12 (0.87-1.13) 02/10/18 09:56 VBG pH 7.415 (7.320-7.420) 02/10/18 09:56 Sodium 136 mmol/L (137-145) L 02/20/18 05:51 Potassium 4.5 mmol/L (3.6-5.0) 02/20/18 05:51 Chloride 101.6 mmol/L (98-107) 02/20/18 05:51 Carbon Dioxide 23 mmol/L (22-30) 02/20/18 05:51 Anion Gap 16 mmol/L 02/20/18 05:51 BUN 5 mg/dL (9-20) L 02/20/18 05:51 Creatinine 0.7 mg/dL (0.8-1.5) L 02/20/18 05:51 Estimated GFR > 60 ml/min 02/20/18 05:51 BUN/Creatinine Ratio 7 % 02/20/18 05:51 Glucose 119 mg/dL (75-100) H 02/20/18 05:51 POC Glucose 186 (70-105) H 02/21/18 11:14 Hemoglobin A1c 14.0 % (4-6) H 02/10/18 23:33 Lactic Acid 1.70 mmol/L (0.7-2.0) 02/10/18 23:33 Calcium 8.1 mg/dL (8.4-10.2) L 02/20/18 05:51 Total Bilirubin 0.70 mg/dL (0.1-1.2) 02/14/18 04:26 AST 31 units/L (5-40) 02/14/18 04:26 ALT 30 units/L (7-56) 02/14/18 04:26 Alkaline Phosphatase 130 units/L (35-129) H 02/14/18 04:26 Total Creatine Kinase 151 units/L (55-170) 02/10/18 09:56 Total Protein 5.7 g/dL (6.3-8.2) L 02/14/18 04:26 Albumin 2.1 g/dL (3.9-5) L 02/14/18 04:26 Albumin/Globulin Ratio 0.6 % 02/14/18 04:26 Urine Color Yellow (Yellow) 02/10/18 Unknown Urine Turbidity Clear (Clear) 02/10/18 Unknown Urine pH 6.0 (5.0-7.0) 02/10/18 Unknown Ur Specific [place] 1.038 (1.003-1.030) H 02/10/18 Unknown Urine Protein 100 mg/dl mg/dL (Negative) 02/10/18 Unknown Urine Glucose (UA) >=500 mg/dL (Negative) 02/10/18 Unknown Urine Ketones 80 mg/dL (Negative) 02/10/18 Unknown Urine Blood Neg (Negative) 02/10/18 Unknown Urine Nitrite Neg (Negative) 02/10/18 Unknown Urine Bilirubin Neg (Negative) 02/10/18 Unknown Urine Urobilinogen 4.0 mg/dL (<2.0) 02/10/18 Unknown Ur Leukocyte Esterase Neg (Negative) 02/10/18 Unknown Urine WBC (Auto) 1.0 /HPF (0.0-6.0) 02/10/18 Unknown Urine RBC (Auto) 1.0 /HPF (0.0-6.0) 02/10/18 Unknown Urine Mucus Few /HPF 02/10/18 Unknown Vancomycin Trough 7.3 ug/mL (5.0-20.0) 02/16/18 10:03 Nutrition/Malnutrition Assess - Dietary Evaluation Nutrition/Malnutrition Findings: Nutrition Notes Start: 02/11/18 12:04 Freq: Status: Active Protocol: Document 02/20/18 14:18 RM (Rec: 02/20/18 14:30 RM [email or web address]) Nutrition Notes Initial or Follow up Reassessment Current Diagnoses Diabetes Sepsis Other Pertinent Diagnosis Perineal/Scrotal abscess s/p I &D, necrotizing fasciitis Current Diet NPO Labs/Tests Reviewed Medications Reviewed Height 6 ft 2 in Weight 103.6 kg [place] Body Weight (lbs) 190.0 BMI 29.3 Subjective/Other Information Pt NPO for I&D. Pt stated that he only ate the salad or fruit cup from his meals before NPO status. Stated he also drank the Wade. Burn Absent Trauma Absent #3 Nutrition Diagnoses Increased nutrient needs ( specify in comment below) Diagnosis Progress(for reassessment Continues documentation) #2 Nutrition Diagnoses Altered nutrition-related laboratory values Diagnosis Progress(for reassessment Continues documentation) Is patient on ventilator? No Is Patient Ambulatory and/or Out of Bed Yes REE-([facility]-ambulatory/OOB) [ 2646.475 [id number]] Kcal/Kg value to use for calculation 20 Approximate Energy Requirements Using 2 kcal/Kg Calculation Used for Recommendations Kcal/kg Additional Notes Pro needs 1.25-1.5g/kg adjBW: 121-146g/day Fluid needs 1ml/kcal Nutrition Intervention Change Diet Order: Advance diet when medically able Add Supplement/Snack (indicate name/kcal Glucerna Vanilla 1 daily + /protein ) WADE BID once diet advanced Provides kCal: 410 Provides Protein (gm) 15 Goal #1 PO intake of meals to meet at least 75% energy and pro needs Goal #2 Wound healing Anticipated Discharge Needs: CHO-controlled diet Follow-Up By: 02/22/18 Additional Comments Follow for PO intakes, ONS intakes
[2018-02-21] MEDS: LOVENOX SUB-Q SCH (21:51)
[2018-02-22] MEDS: ceFAZolin 2 GM in NACL 0.9% 100 ML IV SCH ×7 (01:00→05:53)
[2018-02-22] MEDS: NACL 0.9% 1000 ML 1,000 ML IV SCH (04:49)
[2018-02-22 05:38] LABS: Hematocrit 33.2 % (35.5-45.6); Mean Corpuscular HGB Conc 33 % (32-34); Mean Corpuscular Volume 81 fl (84-94); Platelet Count 653 K/mm3 (140-440); Red Blood Count 4.09 M/mm3 (3.65-5.03); Red Cell Distribution Width 13.7 % (13.2-15.2)
[2018-02-22] MEDS: FLAGYL 500 MG/100 ML 500 MG/100 ML BAG IV SCH ×2 (06:26→13:44)
[2018-02-22 06:54] LABS: Anisocytosis 1+; Band Neutrophils # (Manual) 0.2 K/mm3; Basophils % (Manual) 0 % (0.0-1.8); Eosinophils % (Manual) 0 % (0.0-4.3); Poikilocytosis 1+; Target Cells 1+; Total Cells Counted 100
[2018-02-22 06:55] LABS: Platelet Estimate Cons
--- NOTE | 2018-02-22 09:04 | Progress Note ---
Assessment and Plan Cultures: 02/10/2018 blood culture: No growth 02/11/2018 OR culture: Gram stain mixed with Diptheroids and Staph Lugdunensis 02/21/2018 Scrotum culture: no growth thus far A/P: 37/M with previous history of jaw abscess, no known MRSA history admitted with: 1) Right gluteal abscess/necrotizing infection causing sepsis and leukemoid reaction: Leukocytosis Improving, slow response to antibiotic therapy. s/p extensive I&D by Dr. Pittman. 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 Continue broad spectrum abx, Gram stain appears mixed, ?synergistic gangrene. U/S of Scrotum, findings are concerning for abscess in posterior aspect of the scrotum. S/p scrotal exploration, I &D. OR culture show no growth thus far. 2) Morbid obesity 3) Diabetes mellitus type 2, uncontrolled, newly diagnosed: HbA1c 14 here. Recs: Recommend tight glycemic control Continue IV Ancef 2 gms q 6, continue flagyl Can be discharged on Keflex 750mg PO, QID for 14 days F/u with ID Clinic on 03/05/18 [facility] M: [phone] O:[phone] Subjective Date of service: 02/22/18 Principal diagnosis: abscess Interval history: Patient seen and examined. Denied SOB, Nausea or vomiting. Discharge plans discussed. Gave him appointment card to f/u in clinic in 2 week, verbalized understanding. Objective - Exam Narrative Exam: Physical Exam: Constitutional: Alert, cooperative. No acute distress. Obese Head, Ears, Nose: Normocephalic, atraumatic. External ears, nose normal Eyes: Conjunctivae/corneas clear. No icterus. No ptosis. Neck: Supple, no meningeal signs Oral: no ulcers, no thrush Cardiovascular: S1, S2 normal. Respiratory: Good air entry, clear to auscultation bilaterally GI: Soft, non-tender; bowel sounds normal. No peritoneal signs Musculoskeletal: No pedal edema, no cyanosis. Right gluteal and perineal region with dressing + Skin: no rash. Hem/Lymphatic: No palpable cervical or supraclavicular nodes. No lymphangitis Psych: Mood ok. Affect normal Neurological: Awake, alert, oriented. No gross abnormality - Constitutional Vitals: Vital Signs Temp Pulse Resp BP Pulse Ox 98.3 F 73 20 129/71 99 02/22/18 06:56 02/22/18 06:56 02/22/18 06:56 02/22/18 06:56 02/22/18 06:56 Temperature -Last 24 Hours Temperature 98.3 F Temperature 99.0 F Temperature 99.6 F Temperature 98.9 F - Labs CBC & Chem 7: 02/22/18 Unknown 02/20/18 05:51 Labs: Abnormal lab results 02/21/18 02/21/18 02/21/18 Range/Units 11:14 16:31 22:11 Hgb (11.8-15.2) gm/dl Hct (35.5-45.6) % MCV (84-94) fl MCH (28-32) pg Plt Count (140-440) K/mm3 Monocytes % (Manual) (0.0-7.3) % Monocytes # (Manual) (0.0-0.8) K/mm3 POC Glucose 186 H 139 H 130 H (70-105) 02/22/18 02/22/18 Range/Units 07:25 Unknown Hgb 11.0 L (11.8-15.2) gm/dl Hct 33.2 L (35.5-45.6) % MCV 81 L (84-94) fl MCH 27 L (28-32) pg Plt Count 653 H (140-440) K/mm3 Monocytes % (Manual) 10.0 H (0.0-7.3) % Monocytes # (Manual) 1.0 H (0.0-0.8) K/mm3 POC Glucose 188 H (70-105)
[2018-02-22] MEDS: HumaLOG SUB-Q SCH ×3 (09:15→18:41)
[2018-02-22] MEDS: PEPCID IV SCH (09:19)
[2018-02-22] MEDS: NORCO 5/325 PO PRN (09:55)
--- NOTE | 2018-02-22 12:12 | Progress Note ---
Assessment and Plan Pt feeling well without compl stable from gen surg perspective continue antibiotics and local wd care will need to set up out pt f/u in wd clinic rto next wk (pt to call for appt) Selected Entries 02/22/18 11:01 Temperature 98.1 F Pulse Rate 72 Respiratory 20 Rate Blood Pressure 122/66 Laboratory Tests 02/20/18 02/22/18 05:51 Unknown WBC 12.6 H 9.9 Objective Vital Signs - 12hr 02/22/18 02/22/18 06:56 11:01 Temperature 98.3 F 98.1 F Pulse Rate 73 72 Respiratory 20 20 Rate Blood Pressure 129/71 122/66 O2 Sat by Pulse 99 99 Oximetry - Labs 02/22/18 Unknown 02/20/18 05:51
[2018-02-22] MEDS: SODIUM CHLORIDE FLUSH SYRINGE 10 ML IV SCH (13:48)
--- NOTE | 2018-02-22 14:03 | Discharge Summary ---
Providers - Providers Date of Admission: 02/10/18 12:19 Date of discharge: 02/22/18 Attending physician: DANICA FORMAN 02/20/18 15:31 Consult to Wound/ET Nurse [CONS] Urgent Reason For Exam: wound eval whirlpool treatments 02/10/18 10:06 Consult to Physician [CONS] Urgent Comment: Consulting Provider: JERICHO PITTMAN Physician Instructions: Reason For Exam: gluteal abcess 02/11/18 07:25 Consult to Physician [CONS] Routine Comment: Consulting Provider: IKE JEFFERSON Physician Instructions: Reason For Exam: Sepsis,leukocytosis,gluteal abscess 02/11/18 15:39 Consult to Physician [CONS] Urgent Comment: Consulting Provider: NAJMA MCKEON Physician Instructions: Reason For Exam: r/o fornier's gangrene. scrotal abscess Consult to Wound/ET Nurse [CONS] Routine Reason For Exam: d/c packing in 48 hrs. begin local care at [facility] 02/12/18 14:49 Consult to Dietitian/Nutrition [CONS] Routine Physician Instructions: Reason For Exam: poor intake Reason for Consult: Poor oral intake Primary care physician: [employer]ST[employer]ER Hospitalization Condition: Good Hospital course: Patient is 37 year-old presented with right gluteal pain and swelling for few days. He was evaluated in Emergency Department diagnosed with Sepsis secondary to gluteal abscess. His blood glucose was also elevated, he was diagnosed with new onset diabetes mellitus type 2 with hyperglycemia and was started on Insulin. Patient was started on IV antibiotics and admitted. ID physician and Surgeon were consulted and he was evaluated. He was on Cefepime, Vancomycin, Flagyl. Surgeon did incision and drainage and debridement. Was also found to have necrotizing fasciitis on the scrotal abscess for which urology was consu lted. With medications and surgical intervention on patient improved and was subsequently discharged home on 02/22/2018 on Keflex, Insulin to follow as an outpatient. Total time spent on discharge, 32 mins Disposition: [id number] HOME UNDER HOME HLTH - Discharge Diagnoses (1) Sepsis Status: Acute (2) Necrotizing fasciitis of pelvic region and thigh Status: Acute (3) Scrotal abscess Status: Acute (4) Diabetes mellitus type 2 in nonobese Status: Acute Core Measure Documentation - Palliative Care Palliative Care/ Comfort Measures: Not Applicable - Core Measures Any of the following diagnoses?: none Exam - Physical Exam Narrative exam: GEN: Not in acute distress, Obese HEENT: Normocephalic, atraumatic, Neck: supple, No JVD Lungs: Clear, no rhonchi, no wheeze Heart:S1 and S2 regular, no murmurs, rubs or gallop, Abd:soft, non tender, non distended, normal bowel sounds Ext: Dressing over perineum, scrotum, no cyanosis Neuro: AAO x 3, moves all extremities, no focal neurological signs Psych:Normal mood - Constitutional Vitals: Temp Pulse Resp BP Pulse Ox 98.1 F 72 20 122/66 99 02/22/18 11:01 02/22/18 11:01 02/22/18 11:02/22/18 11:02/22/18 11:01 Plan Activity: advance as tolerated Diet: low fat, low cholesterol, low salt, diabetic Additional Instructions: 1.Follow up with PCP or [facility] in 1 week. 2.Follow up with Dr. Pittman, Surgeon in 1 week. 3.Wound care at wound Clinic. 4.Home health wound care until wound clinic arrangements finalized. 5.Follow up with Dr. Loya, Urology in 1 week Follow up with: PRIMARY CARE, [Primary Care Provider] - 3-5 Days Prescriptions: cephALEXin [Keflex] 500 mg PO Q6HR 14 Days capsule Insulin NPH/Regular [NovoLIN 70/30] 16 unit SUB-Q BIDDIAB #1 vial Tramadol HCl [Ultram] 50 mg PO Q6H #20 tablet
[2018-02-22 18:06] VITALS: BP 140/81
== END 2018-02-22 22:56 | disposition home health service (06) | DRG 853 ==
LOC: ED 09:44 → 3A 12:19
PROVIDERS: ADMIT Internal Medicine; ATTEND Internal Medicine
PROC: 0KBM0ZZ Excision of Perineum Muscle, Open Approach (ICD-10-PCS; principal; 2018-02-11)
PROC: 0WJR0ZZ Inspection of Genitourinary Tract, Open Approach (ICD-10-PCS; 2018-02-11)
PROC: 0Y950ZZ Drainage of Right Inguinal Region, Open Approach (ICD-10-PCS; 2018-02-20)
PROC: 0VJD0ZZ Inspection of Testis, Open Approach (ICD-10-PCS; 2018-02-20)
DX: A41.9 Sepsis, unspecified organism (principal); M72.6 Necrotizing fasciitis; E44.0 Moderate protein-calorie malnutrition; L02.31 Cutaneous abscess of buttock; E87.1 Hypo-osmolality and hyponatremia; L02.215 Cutaneous abscess of perineum; E11.52 Type 2 diabetes mellitus with diabetic peripheral angiopathy with gangrene; I96 Gangrene, not elsewhere classified; D72.823 Leukemoid reaction; E66.01 Morbid (severe) obesity due to excess calories; E11.65 Type 2 diabetes mellitus with hyperglycemia; F17.210 Nicotine dependence, cigarettes, uncomplicated; Z82.49 Family history of ischemic heart disease and other diseases of the circulatory system; Z68.29 Body mass index [BMI] 29.0-29.9, adult
CPT/HCPCS: 36415; 71045; 72193; 76870; 80048; 80053; 80202; 81001; 82140; 82550; 82805; 82962; 83036; 85007; 85025; 85027; 85610; 87040; 87075; 87076; 87086; 87116; 87186; 93005; 93010; 96365; 96375; 99406; G0378; J0295; J0690; J0692; J1100; J1170; J1650; J1815; J1885; J1956; J2001; J2250; J2270; J2405; J2704; J3010; J3370; J7030; J7040; J7050; Q9967

== ENCOUNTER 2020-06-25 15:13 | Inpatient (IN) | payer OTHER ==
[2020-06-25] MEDS ORDERED: SODIUM CHLORIDE 0.9% 500 ML 500 ML IV ONE (15:27)
[2020-06-25 15:41] LABS: Hematocrit 42.6 % (35.5-45.6); Hemoglobin 14.3 gm/dl (11.8-15.2); Mean Corpuscular HGB Conc 34 % (32-34); Mean Corpuscular Volume 82 fl (84-94); Platelet Count 306 K/mm3 (140-440); Red Blood Count 5.18 M/mm3 (3.65-5.03); Red Cell Distribution Width 13.7 % (13.2-15.2)
[2020-06-25 15:51] LABS: INR 1.16 (0.87-1.13)
--- NOTE | 2020-06-25 15:55 | XRay Report ---
CHEST 1 VIEW INDICATION: possible Sepsis. COMPARISON: 02/10/2018 FINDINGS: Support devices: None. Heart: Within normal limits. Lungs/Pleura: No acute air space or interstitial disease. Additional findings: None. IMPRESSION: No acute findings. Signer Name: Jose Rosales Jr, MD Signed: 06/25/2020 3:51 PM Workstation Name: [id number]
[2020-06-25 15:58] LABS: Alanine Aminotransferase 40 units/L (7-56); Albumin 3.3 g/dL (3.9-5); BUN/Creatinine Ratio 10; Blood Urea Nitrogen 11 mg/dL (9-20); Calcium 8.6 mg/dL (8.4-10.2); Hemolysis Index 1
--- NOTE | 2020-06-25 16:05 | Emergency Department Report ---
HPI - General Chief Complaint: Wound/Laceration Time Seen by Provider: 06/25/20 15:33 - HPI HPI: This is a 39-year-old -[place] male presents to the emergency department with a complaint of a wound and infection to the right foot. Patient has had a wound to the bottom lateral portion of his right foot for the past few weeks. However, a few days ago the area "got deeper" in which it appears that he had some type of blister or abscess that opened up, and drained. Over the past few days the patient has developed swelling to his right foot and redness to the top of the right foot. Patient has a past medical history of insulin-dependent elen betes and also has a history of previous necrotizing fasciitis of his right leg. The patient presents with a low-grade fever and a fast heart rate and a code sepsis has been initiated. He does not have a primary care physician or child guidance counselor. He has not taken anything for symptoms prior to presentation today. ED Past Medical Hx - Past Medical History Hx Hypertension: No Hx Heart Attack/AMI: No Hx Diabetes: Yes Hx Liver Disease: No Hx Renal Disease: No Hx Seizures: No Hx Asthma: No - Surgical History Past Surgical History?: No - Social History Smoking Status: Current Every Day Smoker - Medications Home Medications: Home Medications Medication Instructions Recorded Confirmed Last Taken Type Insulin NPH/Regular [NovoLIN 70/30] 16 unit SUB-Q BIDDIAB #1 vial 02/22/18 Unknown Rx Tramadol HCl [Ultram] 50 mg PO Q6H #20 tablet 02/22/18 Unknown Rx cephALEXin [Keflex] 500 mg PO Q6HR 14 Days capsule 02/22/18 Unknown Rx ED Review of Systems ROS: Stated complaint: RT FOOT PAIN Other details as noted in HPI Comment: All other systems reviewed and negative Constitutional: fever. denies: chills Eyes: denies: eye pain, vision change ENT: denies: ear pain, throat pain Respiratory: denies: cough, shortness of breath Cardiovascular: edema (right foot). denies: chest pain, palpitations Gastrointestinal: denies: abdominal pain, vomiting Genitourinary: denies: dysuria, discharge Musculoskeletal: joint swelling (right foot). denies: back pain Skin: lesions (ulcerating wound to bottom of right foot), change in color (redness to right foot) Neurological: denies: headache, numbness, paresthesias Physical Exam - Physical Exam Vital Signs: Vital Signs 06/25/20 15:16 Temperature 100.3 F H Pulse Rate 132 H Respiratory 20 Rate Blood Pressure 155/82 [Right] O2 Sat by Pulse 98 Oximetry Physical Exam: GENERAL: The patient is well-developed well-nourished. HENT: Normocephalic. Atraumatic. Patient has moist mucous membranes. EYES: Extraocular motions are intact. NECK: Supple. Trachea is midline. CHEST/LUNGS: Clear to auscultation. There is no respiratory distress noted. HEART/CARDIOVASCULAR: Regular. There is moderate tachycardia. There is no murmur. ABDOMEN: Abdomen is soft, nontender. Patient has normal bowel sounds. SKIN: Skin is warm and dry. There is nonpitting swelling of the right foot. There is erythema and warmth to the dorsal right foot but no fluctuance. There is an ulcerating circular wound to the plantar lateral distal right foot. No bleeding or purulent discharge seen. NEURO: The patient is awake, alert, and oriented. The patient is cooperative. The patient has no focal neurologic deficits. Normal speech. MUSCULOSKELETAL: There is no tenderness or deformity. There is no limitation range of motion. Capillary refill less than 2 seconds to the affected right foot. ED Course Vital Signs 06/25/20 15:16 Temperature 100.3 F H Pulse Rate 132 H Respiratory 20 Rate Blood Pressure 155/82 [Right] O2 Sat by Pulse 98 Oximetry ED Medical Decision Making - Lab Data Result diagrams: 06/25/20 15:28 06/25/20 15:28 Lab Results 06/25/20 06/25/20 06/25/20 Range/Units 15:28 15:28 15:28 WBC 29.5 H (4.5-11.0) K/mm3 RBC 5.18 H (3.65-5.03) M/mm3 Hgb 14.3 (11.8-15.2) gm/dl Hct 42.6 (35.5-45.6) % MCV 82 L (84-94) fl MCH 28 (28-32) pg MCHC 34 (32-34) % RDW 13.7 (13.2-15.2) % Plt Count 306 (140-440) K/mm3 Add Manual Diff Complete Total Counted 100 Seg Neuts % (Manual) 81.0 H (40.0-70.0) % Lymphocytes % (Manual) 6.0 L (13.4-35.0) % Monocytes % (Manual) 13.0 H (0.0-7.3) % Nucleated RBC % Not Reportable Seg Neutrophils # Man 23.9 H (1.8-7.7) K/mm3 Band Neutrophils # 0.0 K/mm3 Lymphocytes # (Manual) 1.8 (1.2-5.4) K/mm3 Abs React Lymphs (Man) 0.0 K/mm3 Monocytes # (Manual) 3.8 H (0.0-0.8) K/mm3 Eosinophils # (Manual) 0.0 (0.0-0.4) K/mm3 Basophils # (Manual) 0.0 (0.0-0.1) K/mm3 Metamyelocytes # 0.0 K/mm3 Myelocytes # 0.0 K/mm3 Promyelocytes # 0.0 K/mm3 Blast Cells # 0.0 K/mm3 WBC Morphology Not Reportable Hypersegmented Neuts Not Reportable Hyposegmented Neuts Not Reportable Hypogranular Neuts Not Reportable Smudge Cells Not Reportable Toxic Granulation Not Reportable Toxic Vacuolation Not Reportable Dohle Bodies Not Reportable Pelger-Huet Anomaly Not Reportable Nivia Rods Not Reportable Platelet Estimate Not Reportable Clumped Platelets Not Reportable Plt Clumps, EDTA Not Reportable Large Platelets Not Reportable Giant Platelets Not Reportable Platelet Satelliting Not Reportable Plt Morphology Comment Not Reportable RBC Morphology Not Reportable Dimorphic RBCs Not Reportable Polychromasia Not Reportable Hypochromasia Not Reportable Poikilocytosis 1+ Anisocytosis 1+ Microcytosis Rare Macrocytosis Not Reportable Spherocytes Not Reportable Pappenheimer Bodies Not Reportable Sickle Cells Not Reportable Target Cells 1+ Tear Drop Cells Not Reportable Ovalocytes Not Reportable Helmet Cells Not Reportable [place] Bodies Not Reportable [place] Rings Not Reportable Ute Cells Not Reportable Bite Cells Not Reportable Crenated Cell Not Reportable Elliptocytes Not Reportable Acanthocytes (Spur) Not Reportable Rouleaux Not Reportable Hemoglobin C Crystals Not Reportable Schistocytes Not Reportable Malaria parasites Not Reportable [place] Bodies Not Reportable Hem Pathologist Commnt No PT 14.6 (12.2-14.9) Sec. INR 1.16 H (0.87-1.13) VBG pH (7.320-7.420) Sodium 132 L (137-145) mmol/L Potassium 3.6 (3.6-5.0) mmol/L Chloride 96.8 L (98-107) mmol/L Carbon Dioxide 22 (22-30) mmol/L Anion Gap 17 mmol/L BUN 11 (9-20) mg/dL Creatinine 1.1 (0.8-1.3) mg/dL Estimated GFR > 60 ml/min BUN/Creatinine Ratio 10 % Glucose 124 H (75-100) mg/dL Lactic Acid (0.7-2.0) mmol/L Calcium 8.6 (8.4-10.2) mg/dL Total Bilirubin 0.90 (0.1-1.2) mg/dL AST 34 (5-40) units/L ALT 40 (7-56) units/L Alkaline Phosphatase 107 (35-129) units/L Total Protein 8.6 H (6.3-8.2) g/dL Albumin 3.3 L (3.9-5) g/dL Albumin/Globulin Ratio 0.6 % 06/25/20 06/25/20 Range/Units 15:28 15:28 WBC (4.5-11.0) K/mm3 RBC (3.65-5.03) M/mm3 Hgb (11.8-15.2) gm/dl Hct (35.5-45.6) % MCV (84-94) fl MCH (28-32) pg MCHC (32-34) % RDW (13.2-15.2) % Plt Count (140-440) K/mm3 Add Manual Diff Total Counted Seg Neuts % (Manual) (40.0-70.0) % Lymphocytes % (Manual) (13.4-35.0) % Monocytes % (Manual) (0.0-7.3) % Nucleated RBC % Seg Neutrophils # Man (1.8-7.7) K/mm3 Band Neutrophils # K/mm3 Lymphocytes # (Manual) (1.2-5.4) K/mm3 Abs React Lymphs (Man) K/mm3 Monocytes # (Manual) (0.0-0.8) K/mm3 Eosinophils # (Manual) (0.0-0.4) K/mm3 Basophils # (Manual) (0.0-0.1) K/mm3 Metamyelocytes # K/mm3 Myelocytes # K/mm3 Promyelocytes # K/mm3 Blast Cells # K/mm3 WBC Morphology Hypersegmented Neuts Hyposegmented Neuts Hypogranular Neuts Smudge Cells Toxic Granulation Toxic Vacuolation Dohle Bodies Pelger-Huet Anomaly Nivia Rods Platelet Estimate Clumped Platelets Plt Clumps, EDTA Large Platelets Giant Platelets Platelet Satelliting Plt Morphology Comment RBC Morphology Dimorphic RBCs Polychromasia Hypochromasia Poikilocytosis Anisocytosis Microcytosis Macrocytosis Spherocytes Pappenheimer Bodies Sickle Cells Target Cells Tear Drop Cells Ovalocytes Helmet Cells [place] Bodies [place] Rings Dell Cells Bite Cells Crenated Cell Elliptocytes Acanthocytes (Spur) Rouleaux Hemoglobin C Crystals Schistocytes Malaria parasites Jurgen Bodies Hem Pathologist Commnt PT (12.2-14.9) Sec. INR (0.87-1.13) VBG pH 7.403 (7.320-7.420) Sodium (137-145) mmol/L Potassium (3.6-5.0) mmol/L Chloride (98-107) mmol/L Carbon Dioxide (22-30) mmol/L Anion Gap mmol/L BUN (9-20) mg/dL Creatinine (0.8-1.3) mg/dL Estimated GFR ml/min BUN/Creatinine Ratio % Glucose (75-100) mg/dL Lactic Acid 1.20 (0.7-2.0) mmol/L Calcium (8.4-10.2) mg/dL Total Bilirubin (0.1-1.2) mg/dL AST (5-40) units/L ALT (7-56) units/L Alkaline Phosphatase (35-129) units/L Total Protein (6.3-8.2) g/dL Albumin (3.9-5) g/dL Albumin/Globulin Ratio % - Radiology Data Radiology results: report reviewed, image reviewed interpreted by me: Chest x-ray does not show any acute process. There are no pleural effusions, obvious pneumonia and there is no pneumothorax. No significant cardiomegaly. RIGHT FOOT 3 VIEW(S) INDICATION / CLINICAL INFORMATION: right ft pain, ulcerating wound, cellulitis, osteo COMPARISON: None available. FINDINGS: BONES / JOINT(S): No acute fracture or subluxation. No significant arthritis. Suspected OCD lesion at the talar dome best seen on oblique images. Mild lucency noted at the lateral head of the fifth MTP concerning for early osteomyelitis. MRI may be helpful for further catheterization. SOFT TISSUES: Enthesopathy noted at the Achilles tendon insertion. Soft tissue swelling and ulceration along the plantar lateral aspect of the fifth digit MTP joint. ADDITIONAL FINDINGS: None. - Medical Decision Making This patient presents to the emergency department with complaint of redness and swelling to the right foot, as well as an ulcerating lesion to the plantar portion of the right foot. He presents to the emergency department with a low- grade fever and tachycardia and a code sepsis was initiated. The patient does appear to have nonpitting swelling of the right foot with a dorsal cellulitis. There is a small circular ulcerating lesion to the plantar lateral distal right foot. An x-ray was done that shows concern for early osteomyelitis. Chest x-ray does not show any pneumonia, pleural effusions, or any other acute process. Patient's labs show a leukocytosis of about 30,000. He has been given IV fluid resuscitation and empiric IV antibiotics. The patient will be admitted for further evaluation and treatment was accepted for admission by the hospitalist, Dr. Soto. Critical Care Time: Yes Critical care time in (mins) excluding proc time.: 35 Critical care attestation.: If time is entered above; I have spent that time in minutes in the direct care of this critically ill patient, excluding procedure time. Critical care time has been spent on this patient in doing his initial evaluation, multiple reevaluations, ordering and interpretation of labs and imaging, IV fluid resuscitation, IV antibiotics for the osteomyelitis and cellulitis, and multiple discussions with the patient. Critical Care Time: 35 minutes ED Disposition Clinical Impression: Cellulitis of foot, Acute osteomyelitis of metatarsal bone of right foot Sepsis Qualifiers: Sepsis type: sepsis due to unspecified organism Sepsis acute organ dysfunction status: unspecified Qualified Code(s): A41.9 - Sepsis, unspecified organism Disposition: OP ADMIT IP TO THIS HOSP Is pt being admited?: Yes Condition: Serious Time of Disposition: 17:03
--- NOTE | 2020-06-25 16:20 | XRay Report ---
RIGHT FOOT 3 VIEW(S) INDICATION / CLINICAL INFORMATION: right ft pain, ulcerating wound, cellulitis, osteo COMPARISON: None available. FINDINGS: BONES / JOINT(S): No acute fracture or subluxation. No significant arthritis. Suspected OCD lesion at the talar dome best seen on oblique images. Mild lucency noted at the lateral head of the fifth MTP concerning for early osteomyelitis. MRI may be helpful for further catheterization. SOFT TISSUES: Enthesopathy noted at the Achilles tendon insertion. Soft tissue swelling and ulceratio n along the plantar lateral aspect of the fifth digit MTP joint. ADDITIONAL FINDINGS: None. Signer Name: Atul Weir MD Signed: 06/25/2020 4:15 PM Workstation Name: [id number]
[2020-06-25] MEDS ORDERED: cefTRIAXone/NS 2 GM/100 ML 2 GM/100 ML BAG IV ONE ×2 (16:34→22:40)
[2020-06-25 16:37] LABS: Anisocytosis 1+; Total Cells Counted 100
[2020-06-25 16:38] LABS: Poikilocytosis 1+; Target Cells 1+
[2020-06-25] MEDS ORDERED: SODIUM CHLORIDE 0.9% 1000 ML 1,000 ML IV ONE ×2 (17:04)
[2020-06-25] MEDS ORDERED: ONDANSETRON 4 MG/2 ML INJ IV PRN (22:56)
[2020-06-25] MEDS ORDERED: METOCLOPRAMIDE 10 MG/2 ML INJ IV PRN (22:57)
[2020-06-25] MEDS ORDERED: traMADol 50 MG TAB PO PRN (23:00)
[2020-06-25] MEDS ORDERED: SODIUM CHLORIDE 0.9% 1000 ML 1,000 ML IV SCH (23:00)
--- NOTE | 2020-06-25 23:14 | History and Physical Report ---
History of Present Illness Date of examination: 06/25/20 Date of admission: 06/25/20 17:03 Chief complaint: Right foot infection History of present illness: 39-year-old male with history of insulin-dependent diabetes comes in for wound on the right foot. Patient had the wound at the bottom of the lateral portion of the right foot for the past 4 to 6 weeks. Patient states that the wound got deeper a few days ago and some drainage was noted. No fever or chills. Patient also developed swelling of the right foot and redness on the top of the right foot. Patient also history of necrotizing fasciitis of his right leg in the past. Patient has a low-grade fever and tachycardia while in the emergency room. Patient does not have a primary care physician. Patient is noncompliant with his medications. - Past Medical History --Diabetes: Yes - Surgical History --No - Social History Smoking Status: Current Every Day Smoker - Medications Home Medications: Home Medications Medication Instructions Recorded Confirmed Last Taken Type Insulin NPH/Regular [NovoLIN 70/30] 16 unit SUB-Q BIDDIAB #1 vial 02/22/18 Unknown Rx Tramadol HCl [Ultram] 50 mg PO Q6H #20 tablet 02/22/18 Unknown Rx cephALEXin [Keflex] 500 mg PO Q6HR 14 Days capsule 02/22/18 Unknown Rx --Review of Systems ROS: Stated complaint: RT FOOT PAIN Other details as noted in HPI Comment: All other systems reviewed and negative Constitutional: fever. denies: chills Eyes: denies: eye pain, vision change ENT: denies: ear pain, throat pain Respiratory: denies: cough, shortness of breath Cardiovascular: edema (right foot). denies: chest pain, palpitations Gastrointestinal: denies: abdominal pain, vomiting Genitourinary: denies: dysuria, discharge Musculoskeletal: joint swelling (right foot). denies: back pain Skin: lesions (ulcerating wound to bottom of right foot), change in color (redness to right foot) Neurological: denies: headache, numbness, paresthesias Medications and Allergies Allergies Allergy/AdvReac Type Severity Reaction Status Date / Time No Known Allergies Allergy Unverified 02/10/18 09:51 Home Medications Medication Instructions Recorded Confirmed Last Taken Type Insulin NPH/Regular [NovoLIN 70/30] 16 unit SUB-Q BIDDIAB #1 vial 02/22/18 Unknown Rx Tramadol HCl [Ultram] 50 mg PO Q6H #20 tablet 02/22/18 Unknown Rx cephALEXin [Keflex] 500 mg PO Q6HR 14 Days capsule 02/22/18 Unknown Rx Active Meds: Active Medications Ceftriaxone Sodium (Rocephin/Ns 2 Gm/100 Ml) 2 gm in 100 mls @ 200 mls/hr IV ONCE ONE; Protocol Stop: 06/25/20 23:09 Exam - Constitutional Vitals: Temp Pulse Resp BP Pulse Ox 100.3 F H 118 H 22 160/81 96 06/25/20 15:16 06/25/20 22:40 06/25/20 22:40 06/25/20 22:40 06/25/20 22:40 General appearance: Present: no acute distress, well-nourished - EENT Eyes: Present: PERRL ENT: hearing intact, clear oral mucosa - Neck Neck: Present: supple, normal ROM - Respiratory Respiratory effort: normal Respiratory: bilateral: CTA - Cardiovascular Heart rate: 78 Rhythm: regular Heart Sounds: Present: S1 & S2. Absent: rub, click - Extremities Extremities: no ischemia, pulses symmetrical, No edema, abnormal (2 different u lcers present on the right foot. 1 on the right great toe 1 cm x 1 cm perforating ulcer. Second on the lateral aspect of the right foot near the distal fifth metatarsophalangeal joint 2 cm x 1 cm with appearance of a perforating ulcer and some drainage.) Peripheral Pulses: within normal limits - Abdominal General gastrointestinal: Present: soft, non-tender, non-distended, normal bowel sounds Male genitourinary: Present: normal - Integumentary Integumentary: Present: clear, warm, dry - Musculoskeletal Musculoskeletal: gait normal, strength equal bilaterally - Psychiatric Psychiatric: appropriate mood/affect, intact judgment & insight - Neurologic Neurologic: CNII-XII intact, moves all extremities Results - Labs CBC & Chem 7: 06/25/20 15:28 06/25/20 15:28 Labs: Laboratory Last Values WBC 29.5 K/mm3 (4.5-11.0) H 06/25/20 15:28 RBC 5.18 M/mm3 (3.65-5.03) H 06/25/20 15:28 Hgb 14.3 gm/dl (11.8-15.2) 06/25/20 15: Hct 42.6 % (35.5-45.6) 06/25/20 15: MCV 82 fl (84-94) L 06/25/20 15: MCH 28 pg (28-32) 06/25/20 15: MCHC 34 % (32-34) 06/25/20 15: RDW 13.7 % (13.2-15.2) 06/25/20 15: Plt Count 306 K/mm3 (140-440) 06/25/20 15: Add Manual Diff Complete 06/25/20 15: Total Counted 100 06/25/20: Seg Neuts % (Manual) 81.0 % (40.0-70.0) H 06/25/20 15: Lymphocytes % (Manual) 6.0 % (13.4-35.0) L 06/25/20 15: Monocytes % (Manual) 13.0 % (0.0-7.3) H 06/25/20 15: Nucleated RBC % Not Reportable 06/25/20 15: Seg Neutrophils # Man 23.9 K/mm3 (1.8-7.7) H 06/25/20 15: Band Neutrophils # 0.0 K/mm3 06/25/20 15: Lymphocytes # (Manual) 1.8 K/mm3 (1.2-5.4) 06/25/20 15:28 Abs React Lymphs (Man) 0.0 K/mm3 06/25/20 15: Monocytes # (Manual) 3.8 K/mm3 (0.0-0.8) H 06/25/20 15:28 Eosinophils # (Manual) 0.0 K/mm3 (0.0-0.4) 06/25/20 15:28 Basophils # (Manual) 0.0 K/mm3 (0.0-0.1) 06/25/20 15: Metamyelocytes # 0.0 K/mm3 06/25/20 15:28 Myelocytes # 0.0 K/mm3 06/25/20 15:28 Promyelocytes # 0.0 K/mm3 06/25/20 15:28 Blast Cells # 0.0 K/mm3 06/25/20 15:28 WBC Morphology Not Reportable 06/25/20 15:28 Hypersegmented Neuts Not Reportable 06/25/20 15:28 Hyposegmented Neuts Not Reportable 06/25/20 15:28 Hypogranular Neuts Not Reportable 06/25/20 15:28 Smudge Cells Not Reportable 06/25/20 15:28 Toxic Granulation Not Reportable 06/25/20 15:28 Toxic Vacuolation Not Reportable 06/25/20 15:28 Dohle Bodies Not Reportable 06/25/20 15:28 Pelger-Huet Anomaly Not Reportable 06/25/20 15:28 Nivia Rods Not Reportable 06/25/20 15:28 Platelet Estimate Not Reportable 06/25/20 15:28 Clumped Platelets Not Reportable 06/25/20 15:28 Plt Clumps, EDTA Not Reportable 06/25/20 15:28 Large Platelets Not Reportable 06/25/20 15:28 Giant Platelets Not Reportable 06/25/20 15:28 Platelet Satelliting Not Reportable 06/25/20 15:28 Plt Morphology Comment Not Reportable 06/25/20 15:28 RBC Morphology Not Reportable 06/25/20 15:28 Dimorphic RBCs Not Reportable 06/25/20 15:28 Polychromasia Not Reportable 06/25/20 15:28 Hypochromasia Not Reportable 06/25/20 15:28 Poikilocytosis 1+ 06/25/20 15:28 Anisocytosis 1+ 06/25/20 15:28 Microcytosis Rare 06/25/20 15:28 Macrocytosis Not Reportable 06/25/20 15:28 Spherocytes Not Reportable 06/25/20 15:28 Pappenheimer Bodies Not Reportable 06/25/20 15:28 Sickle Cells Not Reportable 06/25/20 15:28 Target Cells 1+ 06/25/20 15:28 Tear Drop Cells Not Reportable 06/25/20 15:28 Ovalocytes Not Reportable 06/25/20 15:28 Helmet Cells Not Reportable 06/25/20 15:28 [place] Bodies Not Reportable 06/25/20 15:28 [place] Rings Not Reportable 06/25/20 15:28 Dell Cells Not Reportable 06/25/20 15:28 Bite Cells Not Reportable 06/25/20 15:28 Crenated Cell Not Reportable 06/25/20 15:28 Elliptocytes Not Reportable 06/25/20 15:28 Acanthocytes (Spur) Not Reportable 06/25/20 15:28 Rouleaux Not Reportable 06/25/20 15:28 Hemoglobin C Crystals Not Reportable 06/25/20 15:28 Schistocytes Not Reportable 06/25/20 15:28 Malaria parasites Not Reportable 06/25/20 15:28 Jurgen Bodies Not Reportable 06/25/20 15:28 Hem Pathologist Commnt No 06/25/20 15:28 PT 14.6 Sec. (12.2-14.9) 06/25/20 15:28 INR 1.16 (0.87-1.13) H 06/25/20 15:28 VBG pH 7.403 (7.320-7.420) 06/25/20 15:28 Sodium 132 mmol/L (137-145) L 06/25/20 15:28 Potassium 3.6 mmol/L (3.6-5.0) 06/25/20 15:28 Chloride 96.8 mmol/L (98-107) L 06/25/20 15:28 Carbon Dioxide 22 mmol/L (22-30) 06/25/20 15:28 Anion Gap 17 mmol/L 06/25/20 15:28 BUN 11 mg/dL (9-20) 06/25/20 15:28 Creatinine 1.1 mg/dL (0.8-1.3) 06/25/20 15:28 Estimated GFR > 60 ml/min 06/25/20 15:28 BUN/Creatinine Ratio 10 % 06/25/20 15:28 Glucose 124 mg/dL (75-100) H 06/25/20 15:28 Lactic Acid 1.20 mmol/L (0.7-2.0) 06/25/20 15:28 Calcium 8.6 mg/dL (8.4-10.2) 06/25/20 15:28 Total Bilirubin 0.90 mg/dL (0.1-1.2) 06/25/20 15:28 AST 34 units/L (5-40) 06/25/20 15:28 ALT 40 units/L (7-56) 06/25/20 15:28 Alkaline Phosphatase 107 units/L (35-129) 06/25/20 15:28 Total Protein 8.6 g/dL (6.3-8.2) H 06/25/20 15:28 Albumin 3.3 g/dL (3.9-5) L 06/25/20 15:28 Albumin/Globulin Ratio 0.6 % 06/25/20 15:28 Short CBC 06/25/20 Range/Units 15:28 WBC 29.5 H (4.5-11.0) K/mm3 Hgb 14.3 (11.8-15.2) gm/dl Hct 42.6 (35.5-45.6) % Plt Count 306 (140-440) K/mm3 BMP 06/25/20 15:28 Sodium 132 L Potassium 3.6 Chloride 96.8 L Carbon Dioxide 22 BUN 11 Creatinine 1.1 Glucose 124 H Calcium 8.6 Liver Function 06/25/20 Range/Units 15:28 Total Bilirubin 0.90 (0.1-1.2) mg/dL AST 34 (5-40) units/L ALT 40 (7-56) units/L Alkaline Phosphatase 107 (35-129) units/L Albumin 3.3 L (3.9-5) g/dL Microbiology: Microbiology 06/25/20 15:34 Peripheral/Venous Blood Culture - Preliminary Culture in Progress 06/25/20 15:28 Peripheral/Venous Blood Culture - Preliminary Culture in Progress - Imaging and Cardiology Chest x-ray: report reviewed Imaging and Cardiology: Foot x-ray Mild lucency noted at the lateral head of the fifth metatarsal phalangeal joint concerning for early osteomyelitis. MRI may be helpful for further delineation. Chest x-ray No acute findings Assessment and Plan Advance Directives: Yes (Full code) VTE prophylaxis?: Chemical Plan of care discussed with patient/family: Yes - Patient Problems (1) Sepsis Current Visit: Yes Status: Acute Plan to address problem: Secondary to the right foot ulcers x2 IV clindamycin initiated Antibiotic recommendations per ID No hypotension Leukocytosis present (2) Acute osteomyelitis of metatarsal bone of right foot Current Visit: Yes Status: Acute Plan to address problem: Patient initiated on clindamycin IV. ID consult requested for antibiotic coverage. MRI of the foot requested Wound care consult requested next surgical consult requested Patient has early osteomyelitis of the fifth metatarsal on the distal end near the MTP joint (3) IDDM (insulin dependent diabetes mellitus) Current Visit: Yes Status: Chronic Plan to address problem: Continue home insulin and coverage Accu-Cheks AC at bedtime High-dose sliding scale coverage Check hemoglobin A1c (4) Perforating ulcer of right foot Current Visit: Yes Status: Chronic Qualifiers: Non-pressure ulcer stage: with fat layer exposed Qualified Code(s): L97.512 - Non-pressure chronic ulcer of other part of right foot with fat layer exposed Plan to address problem: On the right great toe Wound care IV antibiotics Second ulcer on the right foot on the lateral aspect-distal end of the metatarsal phalangeal MRI of the right foot requested joint (5) Hyponatremia Current Visit: Yes Status: Acute Plan to address problem: Mild IV normal saline for now (6) Malnutrition Current Visit: Yes Status: Chronic Qualifiers: Protein-calorie malnutrition severity: mild Plan to address problem: Dietary supplements for now (7) DVT prophylaxis Current Visit: Yes Status: Acute Plan to address problem: On heparin GI prophylaxis
[2020-06-26] MEDS: ACETAMINOPHEN 325 MG TAB PO PRN ×4 (00:20→20:13)
[2020-06-26] MEDS: CLINDAMYCIN 600 MG/50 mL 600 MG/50 ML BAG IV SCH ×2 (01:46→08:25)
[2020-06-26] MEDS ORDERED: hydrALAZINE 20 MG/1 ML INJ IV ONE (06:22)
[2020-06-26] MEDS: INSULIN NPH/REGULAR 70/30 INJ SUB-Q SCH ×2 (08:00→17:00)
[2020-06-26] MEDS: INSULIN LISPRO 100 UNIT/ML SUB-Q SCH ×4 (08:01→22:01)
[2020-06-26] MEDS: FAMOTIDINE 20 MG TAB PO SCH ×2 (10:36→22:03)
[2020-06-26 12:20] LABS: Bilirubin,Urine NEG (Negative); Blood,Urine NEG (Negative); Color,Urine Amber (Yellow); Mucus,Urine FEW /HPF
[2020-06-26] MEDS ORDERED: VANCOMYCIN 2,000 MG in SODIUM CHLORIDE 0.9% 500 ML 500 ML IV ONE (12:53)
--- NOTE | 2020-06-26 12:56 | Consultation ---
History of Present Illness - Reason for Consult Consult date: 06/26/20 R foot osteomyelitis Requesting physician: BUD WILSON - History of Present Illness The patient is a 39-year-old male with insulin-dependent diabetes, ongoing tobacco abuse, history of right gluteal abscess and necrotizing infection in 2018 was admitted to the hospital with worsening right foot infection that has been going on for the last 1-1/2-month. Upon evaluation, noted to be septic, WBC was 29.5. Found to have two wounds on his right foot plantar surface, around the fifth metatarsal region and great toe. Review of Systems: per HPI. Medications and Allergies Allergies Allergy/AdvReac Type Severity Reaction Status Date / Time No Known Allergies Allergy Unverified 02/10/18 09:51 Home Medications Medication Instructions Recorded Confirmed Last Taken Type Insulin NPH/Regular [NovoLIN 70/30] 16 unit SUB-Q BIDDIAB #1 vial 02/22/18 Unknown Rx Tramadol HCl [Ultram] 50 mg PO Q6H #20 tablet 02/22/18 Unknown Rx cephALEXin [Keflex] 500 mg PO Q6HR 14 Days capsule 02/22/18 Unknown Rx Active Meds: Active Medications Acetaminophen (Acetaminophen 325 Mg Tab) 650 mg PO Q4H PRN PRN Reason: Pain MILD(1-3)/Fever >100.5/HERNANDEZ Last Admin: 06/26/20 06:13 Dose: 650 mg Documented by: Famotidine (Famotidine 20 Mg Tab) 20 mg PO BID ERIC Last Admin: 06/26/20 10:36 Dose: 20 mg Documented by: Cefepime HCl (Cefepime/Ns 2 Gm/100 Ml) 2 gm in 100 mls @ 200 mls/hr IV Q12HR ERIC; Protocol Metronidazole (Flagyl 500 Mg/100 Ml) 500 mg in 100 mls @ 100 mls/hr IV Q8H ERIC; Protocol Vancomycin HCl 1,500 mg/ (Sodium Chloride) 530 mls @ 333 mls/hr IV ONCE ONE; Protocol Stop: 06/26/20 14:23 Insulin Human Isoph/Insulin Regular (Insulin Nph/Regular 70/30 Inj) 16 unit SUB-Q BIDDIAB ERIC Insulin Human Lispro (Insulin Lispro 100 Unit/Ml) 0 unit SUB-Q ACHS ERIC; Protocol Last Admin: 06/26/20 08:01 Dose: 3 unit Documented by: Metoclopramide HCl (Metoclopramide 10 Mg/2 Ml Inj) 10 mg IV Q6H PRN PRN Reason: Nausea And Vomiting Morphine Sulfate (Morphine 2 Mg/1 Ml Inj) 2 mg IV Q4H PRN PRN Reason: Pain, Moderate (4-6) Ondansetron HCl (Ondansetron 4 Mg/2 Ml Inj) 4 mg IV Q3H PRN PRN Reason: Nausea And Vomiting Oxycodone/Acetaminophen (Oxycodone /Acetaminophen 5-325mg Tab) 1 tab PO Q6H PRN PRN Reason: Pain, Moderate (4-6) Sodium Chloride (Sodium Chloride 0.9% 10 Ml Flush Syringe) 10 ml IV BID ERIC Last Admin: 06/26/20 10:37 Dose: 10 ml Documented by: Sodium Chloride (Sodium Chloride 0.9% 10 Ml Flush Syringe) 10 ml IV PRN PRN PRN Reason: LINE FLUSH Tramadol HCl (Tramadol 50 Mg Tab) 50 mg PO Q6H PRN PRN Reason: Pain, Moderate (4-6) Physical Examination - Physical Exam Narrative exam: Physical Exam: Constitutional: Alert, cooperative. No acute distress Head, Ears, Nose: Normocephalic, atraumatic. External ears, nose normal Eyes: Conjunctivae/corneas clear. No icterus. No ptosis. Neck: Supple, no meningeal signs Cardiovascular: S1, S2 normal. Respiratory: Good air entry, clear to auscultation bilaterally GI: Soft, non-tender; bowel sounds normal. No peritoneal signs Musculoskeletal: Wounds on right foot plantar surface, below great toe and around fifth metatarsal region. Skin: No rash or abscess Hem/Lymphatic: No palpable cervical or supraclavicular nodes. No lymphangitis Psych: Mood ok. Affect normal Neurological: Awake, alert, oriented. No gross abnormality - Constitutional Vitals: Vital Signs Temp Pulse Resp BP Pulse Ox 98.9 F 111 H 22 167/93 99 06/26/20 11:43 06/26/20 11:43 06/26/20 11:43 06/26/20 11:43 06/26/20 11:43 Temperature -Last 24 Hours Temperature 98.9 F Temperature 98.5 F Temperature 101.9 F Temperature 101 F Temperature 100.5 F Temperature 100.9 F Temperature 100.3 F Results - Labs CBC & Chem 7: 06/25/20 15:28 06/25/20 15:28 Labs: Abnormal lab results 06/25/20 06/25/20 06/25/20 Range/Units 15:28 15:28 15:28 WBC 29.5 H (4.5-11.0) K/mm3 RBC 5.18 H (3.65-5.03) M/mm3 MCV 82 L (84-94) fl Seg Neuts % (Manual) 81.0 H (40.0-70.0) % Lymphocytes % (Manual) 6.0 L (13.4-35.0) % Monocytes % (Manual) 13.0 H (0.0-7.3) % Seg Neutrophils # Man 23.9 H (1.8-7.7) K/mm3 Monocytes # (Manual) 3.8 H (0.0-0.8) K/mm3 INR 1.16 H (0.87-1.13) Sodium 132 L (137-145) mmol/L Chloride 96.8 L (98-107) mmol/L Glucose 124 H (75-100) mg/dL POC Glucose (70-105) mg/dL Total Protein 8.6 H (6.3-8.2) g/dL Albumin 3.3 L (3.9-5) g/dL 06/25/20 06/26/20 Range/Units 22:31 07:11 WBC (4.5-11.0) K/mm3 RBC (3.65-5.03) M/mm3 MCV (84-94) fl Seg Neuts % (Manual) (40.0-70.0) % Lymphocytes % (Manual) (13.4-35.0) % Monocytes % (Manual) (0.0-7.3) % Seg Neutrophils # Man (1.8-7.7) K/mm3 Monocytes # (Manual) (0.0-0.8) K/mm3 INR (0.87-1.13) Sodium (137-145) mmol/L Chloride (98-107) mmol/L Glucose (75-100) mg/dL POC Glucose 115 H 171 H (70-105) mg/dL Total Protein (6.3-8.2) g/dL Albumin (3.9-5) g/dL - Imaging and Cardiology Chest x-ray: report reviewed, image reviewed (no pneumonia) Assessment and Plan Cultures: 06/25/2020 blood culture: In process A/P: 39-year-old male with insulin-dependent diabetes, ongoing tobacco abuse, history of right gluteal abscess and necrotizing infection in 2018 , now with: #Sepsis secondary to right foot diabetic infection, likely underlying osteomyelitis: X-ray showed mild lucency at the fifth MTP region. WBC 29.5 #Insulin-dependent diabetes mellitus: Maintain glycemic control #Ongoing tobacco abuse: Smoking cessation advised Recs: -Empiric cefepime, Flagyl and vancomycin -Follow-up cultures -Follow-up vascular studies -MRI ordered Amber Sr MD, FACP [facility] ([facility] O: [phone] F: [phone]
[2020-06-26] MEDS ORDERED: VANCOMYCIN PHARMACY TO DOSE IV SCH (13:00)
[2020-06-26] MEDS: CEFEPIME/NS 2 GM/100 ML 2 GM/100 ML BAG IV SCH ×2 (13:51→22:04)
[2020-06-26] MEDS: metroNIDAZOLE/NS 500 MG/100 ML 500 MG/100 ML BAG IV SCH ×2 (14:25→21:05)
[2020-06-26] MEDS: oxyCODONE /ACETAMINOPHEN 5-325MG TAB PO PRN (22:09)
--- NOTE | 2020-06-26 22:37 | Progress Note ---
Assessment and Plan - Patient Problems (1) Sepsis Current Visit: Yes Status: Acute Plan to address problem: Secondary to the right foot ulcers x2 IV clindamycin initiated Antibiotic recommendations per ID No hypotension Leukocytosis present (2) Acute osteomyelitis of metatarsal bone of right foot Current Visit: Yes Status: Acute Plan to address problem: Patient initiated on clindamycin IV. ID consult requested for antibiotic coverage. MRI of the foot requested Wound care consult requested next surgical consult requested Patient has early osteomyelitis of the fifth metatarsal on the distal end near the MTP joint (3) IDDM (insulin dependent diabetes mellitus) Current Visit: Yes Status: Chronic Plan to address problem: Continue home insulin and coverage Accu-Cheks AC at bedtime High-dose sliding scale coverage Check hemoglobin A1c (4) Perforating ulcer of right foot Current Visit: Yes Status: Chronic Qualifiers: Non-pressure ulcer stage: with fat layer exposed Qualified Code(s): L97.512 - Non-pressure chronic ulcer of other part of right foot with fat layer exposed Plan to address problem: On the right great toe Wound care IV antibiotics Second ulcer on the right foot on the lateral aspect-distal end of the metatarsal phalangeal MRI of the right foot requested joint (5) Hyponatremia Current Visit: Yes Status: Acute Plan to address problem: Mild IV normal saline for now (6) Malnutrition Current Visit: Yes Status: Chronic Qualifiers: Protein-calorie malnutrition severity: mild Plan to address problem: Dietary supplements for now (7) DVT prophylaxis Current Visit: Yes Status: Acute Plan to address problem: On heparin GI prophylaxis Subjective Date of service: 06/26/20 Principal diagnosis: Right foot osteomyelitis Interval history: The patient is a 39-year-old male with a history of diabetes who states he had a callus on his right foot for approximately 2 to 3 weeks. He states that approximately 1 week ago he developed an abscess deep to the callus that caused him to become sick and prompted him to present to the hospital. Prior to that the patient denies having any history of neuropathy in his foot. He denies any history of claudication and states that he recently decided to take his health more seriously and began walking 2 to 3 miles daily. 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 06/26/2020 Infectious disease consult appreciated Continue IV antibiotics Surgery consult requested Objective - Constitutional Vitals: Vital Signs - 12hr 06/26/20 06/26/20 06/26/20 11:43 16:01 18:37 Temperature 98.9 F 102.6 F H 101.1 F H Pulse Rate 111 H 120 H Respiratory 22 20 Rate Respiratory Rate [ Generalized] Blood Pressure 167/93 164/83 O2 Sat by Pulse 99 95 Oximetry 06/26/20 06/26/20 19:41 22:00 Temperature 100.2 F H Pulse Rate 111 H Respiratory Rate Respiratory 17 Rate [ Generalized] Blood Pressure 148/81 O2 Sat by Pulse 98 Oximetry General appearance: Present: no acute distress, well-nourished - EENT Eyes: PERRL, EOM intact ENT: hearing intact, clear oral mucosa Ears: bilateral: normal - Neck Neck: supple, normal ROM - Respiratory Respiratory effort: normal Respiratory: bilateral: CTA - Breasts Breasts: normal - Cardiovascular Rhythm: regular Heart Sounds: Present: S1 & S2. Absent: gallop, rub Extremities: pulses intact, No edema, normal color, Full ROM Extremity abnormal: other (Right foot ulcer on the fifth metatarsal and ulcer on the right great toe) - Gastrointestinal General gastrointestinal: Present: soft, non-tender, non-distended, normal bowel sounds - Genitourinary Male genitourinary: normal - Integumentary Integumentary: clear, warm, dry - Musculoskeletal Musculoskeletal: 1, strength equal bilaterally - Neurologic Neurologic: moves all extremities - Psychiatric Psychiatric: memory intact, appropriate mood/affect, intact judgment & insight - Labs CBC & Chem 7: 06/30/20 06:15 06/30/20 06:15 Labs: Abnormal lab results 06/25/20 06/26/20 06/26/20 Range/Units 22:31 07:11 11:43 POC Glucose 115 H 171 H 222 H (70-105) mg/dL 06/26/20 Range/Units 16:02 POC Glucose 186 H (70-105) mg/dL
[2020-06-27] MEDS: ACETAMINOPHEN 325 MG TAB PO PRN ×4 (01:09→18:28)
[2020-06-27] MEDS: VANCOMYCIN 1,500 MG in SODIUM CHLORIDE 0.9% 500 ML 500 ML IV SCH ×4 (03:00→15:04)
[2020-06-27] MEDS: metroNIDAZOLE/NS 500 MG/100 ML 500 MG/100 ML BAG IV SCH ×3 (04:38→20:19)
[2020-06-27] MEDS: CEFEPIME/NS 2 GM/100 ML 2 GM/100 ML BAG IV SCH ×3 (07:52→21:34)
[2020-06-27] MEDS: FAMOTIDINE 20 MG TAB PO SCH ×3 (07:53→21:34)
[2020-06-27] MEDS: INSULIN LISPRO 100 UNIT/ML SUB-Q SCH ×3 (07:54→21:27)
[2020-06-27] MEDS: INSULIN NPH/REGULAR 70/30 INJ SUB-Q SCH ×3 (07:55→18:35)
--- NOTE | 2020-06-27 09:48 | Progress Note ---
Assessment and Plan Cultures: 06/25/2020 blood culture: In process A/P: 39-year-old male with insulin-dependent diabetes, ongoing tobacco abuse, history of right gluteal abscess and necrotizing infection in 2018 , now with: #Sepsis secondary to right foot diabetic infection, likely underlying osteomyelitis: X-ray showed mild lucency at the fifth MTP region. WBC 29.5 #Insulin-dependent diabetes mellitus: Maintain glycemic control #Ongoing tobacco abuse: Smoking cessation advised Recs: -continue Empiric cefepime, Flagyl and vancomycin -Follow-up cultures -Follow-up vascular studies -f/u MRI ordered Amber Sr MD, FACP [facility] ([facility] O: [phone] F: [phone] Subjective Date of service: 06/27/20 Interval history: Persistently febrile, no other complaints. Tolerating abx. No nausea, vomiting or diarrhea. MRI still pending. Objective - Exam Narrative Exam: Physical Exam: Constitutional: Alert, cooperative. No acute distress Head, Ears, Nose: Normocephalic, atraumatic. External ears, nose normal Eyes: Conjunctivae/corneas clear. No icterus. No ptosis. Neck: Supple, no meningeal signs Cardiovascular: S1, S2 normal. Respiratory: Good air entry, clear to auscultation bilaterally GI: Soft, non-tender; bowel sounds normal. No peritoneal signs Musculoskeletal: Wounds on right foot plantar surface, below great toe and around fifth metatarsal region. Skin: No rash or abscess Hem/Lymphatic: No palpable cervical or supraclavicular nodes. No lymphangitis Psych: Mood ok. Affect normal Neurological: Awake, alert, oriented. No gross abnormality - Constitutional Vitals: Vital Signs Temp Pulse Resp BP Pulse Ox 101.3 F H 114 H 18 144/67 97 06/27/20 08:30 06/27/20 07:13 06/27/20 07:13 06/27/20 07:13 06/27/20 07:13 Temperature -Last 24 Hours Temperature 101.3 F Temperature 101.3 F Temperature 100.3 F Temperature 102.6 F Temperature 100.2 F Temperature 101.1 F Temperature 102.6 F Temperature 98.9 F - Labs CBC & Chem 7: 06/25/20 15:28 06/25/20 15:28 Labs: Abnormal lab results 06/26/20 06/26/20 06/26/20 Range/Units 11:43 16:02 20:35 POC Glucose 222 H 186 H 150 H (70-105) mg/dL
[2020-06-27] MEDS: ZOLPIDEM 5 MG TAB PO PRN (21:34)
--- NOTE | 2020-06-27 21:44 | Progress Note ---
Assessment and Plan - Patient Problems (1) Sepsis Current Visit: Yes Status: Acute Plan to address problem: Secondary to the right foot ulcers x2 Patient on IV cefepime and vancomycin (2) Acute osteomyelitis of metatarsal bone of right foot Current Visit: Yes Status: Acute Plan to address problem: Patient initiated on clindamycin IV. ID consult requested for antibiotic coverage. MRI of the foot requested Wound care consult requested next surgical consult requested Patient has early osteomyelitis of the fifth metatarsal on the distal end near the MTP joint (3) IDDM (insulin dependent diabetes mellitus) Current Visit: Yes Status: Chronic Plan to address problem: Continue home insulin and coverage Accu-Cheks AC at bedtime High-dose sliding scale coverage Check hemoglobin A1c (4) Perforating ulcer of right foot Current Visit: Yes Status: Chronic Qualifiers: Non-pressure ulcer stage: with fat layer exposed Qualified Code(s): L97.512 - Non-pressure chronic ulcer of other part of right foot with fat layer exposed Plan to address problem: On the right great toe Wound care IV antibiotics Second ulcer on the right foot on the lateral aspect-distal end of the metatarsal phalangeal MRI of the right foot requested joint (5) Hyponatremia Current Visit: Yes Status: Acute Plan to address problem: Mild IV normal saline for now (6) Malnutrition Current Visit: Yes Status: Chronic Qualifiers: Protein-calorie malnutrition severity: mild Plan to address problem: Dietary supplements for now (7) DVT prophylaxis Current Visit: Yes Status: Acute Plan to address problem: On heparin GI prophylaxis Subjective Date of service: 06/27/20 Principal diagnosis: Right foot osteomyelitis Interval history: The patient is a 39-year-old male with a history of diabetes who states he had a callus on his right foot for approximately 2 to 3 weeks. He states that approximately 1 week ago he developed an abscess deep to the callus that caused him to become sick and prompted him to present to the hospital. Prior to that the patient denies having any history of neuropathy in his foot. He denies any history of claudication and states that he recently decided to take his health more seriously and began walking 2 to 3 miles daily. 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 06/26/2020 Infectious disease consult appreciated Continue IV antibiotics Surgery consult requested 06/27/2020 IV antibiotics for now ID consult appreciated Objective - Constitutional Vitals: Vital Signs - 12hr 06/27/20 06/27/20 06/27/20 11:05 15:32 19:41 Temperature 101.0 F H 100.9 F H 101.8 F H Pulse Rate 109 H 109 H 105 H Respiratory 18 18 20 Rate Blood Pressure 153/94 154/77 143/82 O2 Sat by Pulse 94 96 95 Oximetry General appearance: Present: no acute distress, well-nourished - EENT Eyes: PERRL, EOM intact ENT: hearing intact, clear oral mucosa Ears: bilateral: normal - Neck Neck: supple, normal ROM - Respiratory Respiratory effort: normal Respiratory: bilateral: CTA - Breasts Breasts: normal - Cardiovascular Rhythm: regular Heart Sounds: Present: S1 & S2. Absent: gallop, rub Extremities: pulses intact, No edema, normal color, Full ROM, abnormal (Right foot ulcer on the lateral aspect of the right foot and the right great toe ulcer ) - Gastrointestinal General gastrointestinal: Present: soft, non-tender, non-distended, normal bowel sounds - Genitourinary Male genitourinary: normal - Integumentary Integumentary: clear, warm, dry - Musculoskeletal Musculoskeletal: 1, strength equal bilaterally - Neurologic Neurologic: moves all extremities - Psychiatric Psychiatric: memory intact, appropriate mood/affect, intact judgment & insight - Labs CBC & Chem 7: 06/30/20 06:15 06/30/20 06:15 Labs: Abnormal lab results 06/26/20 06/27/20 06/27/20 Range/Units 20:35 11:05 16:05 POC Glucose 150 H 137 H 129 H (70-105) mg/dL 06/27/20 Range/Units 20:48 POC Glucose 113 H (70-105) mg/dL
[2020-06-28] MEDS: ACETAMINOPHEN 325 MG TAB PO PRN ×3 (00:04→18:57)
[2020-06-28] MEDS: VANCOMYCIN 1,500 MG in SODIUM CHLORIDE 0.9% 500 ML 500 ML IV SCH ×2 (02:54→16:45)
[2020-06-28] MEDS: metroNIDAZOLE/NS 500 MG/100 ML 500 MG/100 ML BAG IV SCH ×3 (04:33→21:29)
[2020-06-28] MEDS: INSULIN NPH/REGULAR 70/30 INJ SUB-Q SCH ×2 (08:06→16:59)
[2020-06-28] MEDS: INSULIN LISPRO 100 UNIT/ML SUB-Q SCH ×5 (08:06→22:25)
[2020-06-28] MEDS: FAMOTIDINE 20 MG TAB PO SCH ×2 (10:05→21:29)
[2020-06-28] MEDS: CEFEPIME/NS 2 GM/100 ML 2 GM/100 ML BAG IV SCH ×2 (10:05→22:32)
--- NOTE | 2020-06-28 10:08 | Magnetic Resonance Report ---
MR LOWER EXTREMITY JOINT RIGHT WITH WITHOUT CONTRAST HISTORY: Right foot/fifth digit pain and swelling. Osteomyelitis. TECHNIQUE: Multisequence, multiplanar MRI was performed in the distal right foot before and after 18 cc of Clariscam intravenously. COMPARISON: Right foot films dated 06/25/2020. FINDINGS: There is mild bone marrow edema, decreased T1 signal and mild enhancement of the distal fifth metatar edwin and base of the fifth toe consistent with osteomyelitis. The remaining visualized osseous structu res in the distal right foot are within normal limits. There is severe diffuse soft tissue swelling particularly on the dorsum of the foot. There appears to be a developing fluid collection on the dorsum of the foot overlying the metatarsals 2-5 measuring u p to 6 x 2 x 9 cm which appears to represent a developing abscess. Please correlate with the patient. There is moderate diffuse edema and enhancement throughout the intrinsic muscles of the foot consiste nt with myositis. No intramuscular abscess is appreciated. The visualized musculotendinous structures of the distal foot are intact and unremarkable. IMPRESSION: Osteomyelitis of the distal fifth metatarsal and base of the fifth toe. Severe diffuse subcutaneous edema. There also appears to be a developing abscess on the dorsum of the foot as outlined above. Signer Name: Jose Rosales Jr, MD Signed: 06/28/2020 10:03 AM Workstation Name: [id number]
--- NOTE | 2020-06-28 11:10 | Electrocardiograph Report ---
[facility] Test Date: 2020-06-25 Test Time: 22:49:33 Pat Name: ALEC LITTLE Department: Room: B318 1 Gender: M [employer] Supervisor: BERTHA : 1980 Requested By: HERRERA ANDREWS Order Number: [id number] Reading MD: Art Tamayo Measurements Intervals [place] Rate: 118 P: 54 AL: 145 QRS: 78 QRSD: 88 T: 60 QT: 307 QTc: 429 Interpretive Statements Sinus tachycardia No previous ECG available for comparison Electronically Signed On 06-28-2020 11:10:12 EDT by Art Tamayo
--- NOTE | 2020-06-28 11:28 | Consultation ---
History of Present Illness Consult date: 06/28/20 Chief complaint: Diabetic right foot infection - History of present illness History of present illness: 39 yo diabetic male smoker with right foot infection. Past History Past Medical History: diabetes Social history: smoking (1 ppd) Medications and Allergies Allergies Allergy/AdvReac Type Severity Reaction Status Date / Time No Known Allergies Allergy Unverified 02/10/18 09:51 Home Medications Medication Instructions Recorded Confirmed Last Taken Type Insulin NPH/Regular [NovoLIN 70/30] 16 unit SUB-Q BIDDIAB #1 vial 02/22/18 06/27/20 06/24/20 Rx 16 Tramadol HCl [Ultram] 50 mg PO Q6H #20 tablet 02/22/18 06/27/20 02/28/18 Rx 50 mg cephALEXin [Keflex] 500 mg PO Q6HR 14 Days capsule 02/22/18 06/27/20 03/04/18 Rx 500 Active Meds: Active Medications Acetaminophen (Acetaminophen 325 Mg Tab) 650 mg PO Q4H PRN PRN Reason: Pain MILD(1-3)/Fever >100.5/HERNANDEZ Last Admin: 06/28/20 00:04 Dose: 650 mg Documented by: Famotidine (Famotidine 20 Mg Tab) 20 mg PO BID ERIC Last Admin: 06/28/20 10:05 Dose: 20 mg Documented by: Cefepime HCl (Cefepime/Ns 2 Gm/100 Ml) 2 gm in 100 mls @ 200 mls/hr IV Q12HR ERIC; Protocol Last Admin: 06/28/20 10:05 Dose: 200 mls/hr Documented by: Metronidazole (Flagyl 500 Mg/100 Ml) 500 mg in 100 mls @ 100 mls/hr IV Q8H ERIC; Protocol Last Admin: 06/28/20 04:33 Dose: 100 mls/hr Documented by: Vancomycin HCl 1,500 mg/ (Sodium Chloride) 530 mls @ 333.333 mls/hr IV Q12H ERIC Last Admin: 06/28/20 02:54 Dose: 333.333 mls/hr Documented by: Insulin Human Isoph/Insulin Regular (Insulin Nph/Regular 70/30 Inj) 16 unit SUB-Q BIDDIAB ERIC Last Admin: 06/28/20 08:06 Dose: Not Given Documented by: Insulin Human Lispro (Insulin Lispro 100 Unit/Ml) 0 unit SUB-Q ACHS ERIC; Protocol Last Admin: 06/28/20 10:06 Dose: Not Given Documented by: Metoclopramide HCl (Metoclopramide 10 Mg/2 Ml Inj) 10 mg IV Q6H PRN PRN Reason: Nausea And Vomiting Morphine Sulfate (Morphine 2 Mg/1 Ml Inj) 2 mg IV Q4H PRN PRN Reason: Pain, Moderate (4-6) Ondansetron HCl (Ondansetron 4 Mg/2 Ml Inj) 4 mg IV Q3H PRN PRN Reason: Nausea And Vomiting Oxycodone/Acetaminophen (Oxycodone /Acetaminophen 5-325mg Tab) 1 tab PO Q6H PRN PRN Reason: Pain, Moderate (4-6) Last Admin: 06/26/20 22:09 Dose: 1 tab Documented by: Sodium Chloride (Sodium Chloride 0.9% 10 Ml Flush Syringe) 10 ml IV BID [facility] Last Admin: 06/28/20 10:05 Dose: 10 ml Documented by: Sodium Chloride (Sodium Chloride 0.9% 10 Ml Flush Syringe) 10 ml IV PRN PRN PRN Reason: LINE FLUSH Tramadol HCl (Tramadol 50 Mg Tab) 50 mg PO Q6H PRN PRN Reason: Pain, Moderate (4-6) Zolpidem Tartrate (Zolpidem 5 Mg Tab) 5 mg PO QHS PRN PRN Reason: Sleep Last Admin: 06/27/20 21:34 Dose: 5 mg Documented by: Review of Systems All systems: negative (none) Exam Vital Signs Temp Pulse Resp BP Pulse Ox 100.3 F H 132 H 20 155/82 98 06/25/20 15:16 06/25/20 15:16 06/25/20 15:16 06/25/20 15:16 06/25/20 15:16 - General physical appearance Positive: well developed, well nourished, no distress - Eyes Positive: PERRL, normal occular movement - ENT Positive: normal pinna, normal nares, normal mucosa, no hearing loss, no congestion - Neck Positive: no masses, no bruits, trachea midline, no venous distension - Respiratory Positive: normal expansion, normal respiratory effort, clear to auscultation - Cardiovascular Rhythm: regular Heart Sounds: Present: S1 & S2. Absent: rub, click - Extremities Extremities: no ischemia, pulses symmetrical, No edema - Breasts Breasts: normal, no mass, no skin changes - Abdomen Abdomen: Present: soft, bowel sounds normal. Absent: tender, distended Hernia: none - Genitourinary Male Genitourinary: normal Female Genitourinary: normal - Integumentary no rash, no growths, no abnormal pigmentation, other (There is a 1.5 cm ulcer over the plantar aspect of the right 5th metatarsal head. There is a 2 cm dry, black eschar over the medial aspect of the right great toe. Right DP pulse is 2+. There is questionable fluctuance over the dorsal right 4th and 5th metata rsal heads.) - Neurologic Neurologic: alert and oriented to time, place and person, motor strength and sensation are grossly intact - Musculoskeletal normal gait, normal posture - Psychiatric Psychiatric: appropriate mood/affect, intact judgment & insight Results - Labs 06/25/20 15:28 06/25/20 15:28 Abnormal lab results 06/27/20 06/27/20 06/27/20 Range/Units 11:05 16:05 20:48 POC Glucose 137 H 129 H 113 H (70-105) mg/dL - Imaging Additional studies: 1) Right foot MRI reviewed. Assessment and Plan - Patient Problems (1) Abscess of right foot Current Visit: Yes Status: Acute Plan to address problem: 1) Agree with broad spectrum IV antibiotics. 2) Regarding right 5th metatarsal head and toe osteomyelitis, pt refuses consideration of amputation at this point. He does consent to I&D of any abscess however. 3) I ordered a f/u CBC & BMP. 4) Pt is NPO after MN for I&D of right foot abscess tomorrow.
--- NOTE | 2020-06-28 13:57 | Vascular Lab Report ---
DUPLEX ARTERIAL DOPPLER EXAMINATION OF THE BILATERAL LOWER EXTREMITIES WITH SPECTRAL ANALYSIS INDICATION: CAD, diabetes, smoker, right foot osteomyelitis, right foot ulcer COMPARISON: None FINDINGS: Good flow is noted bilaterally to the dorsalis pedis arteries. Mild sclerotic changes are s een without obvious significant focal lesion. Good waveforms are noted. Velocity evaluations show in the right superficial femoral artery a change from proximal peak systolic velocity of 171 cm/s 2 mid artery peak systolic velocity of 306 cm/s then distal peak systolic velocity of 189 cm/s. This change is not diagnostic for hemodynamically significant segmental stenosis but certainly is of concern in this area. No other significant segmental velocity changes are seen. IMPRESSION: Findings of concern in the upper to mid right superficial femoral artery but good flow is seen bilaterally to the feet. CTA or MRA may be useful. Signer Name: Teddy Poole MD Signed: 06/28/2020 1:53 PM Workstation Name: [id number]
[2020-06-28 15:19] LABS: Hematocrit 35.4 % (35.5-45.6); Hemoglobin 11.4 gm/dl (11.8-15.2); Mean Corpuscular HGB Conc 32 % (32-34); Mean Corpuscular Volume 82 fl (84-94); Platelet Count 293 K/mm3 (140-440); Red Blood Count 4.31 M/mm3 (3.65-5.03); Red Cell Distribution Width 13.9 % (13.2-15.2)
[2020-06-28 15:33] LABS: BUN/Creatinine Ratio 14; Blood Urea Nitrogen 14 mg/dL (9-20); Calcium 8.1 mg/dL (8.4-10.2); Hemolysis Index 14
--- NOTE | 2020-06-28 17:45 | Progress Note ---
Assessment and Plan Cultures: 06/25/2020 blood culture: In process A/P: 39-year-old male with insulin-dependent diabetes, ongoing tobacco abuse, history of right gluteal abscess and necrotizing infection in 2018 , now with: #Sepsis: Not better, remains with high fever and leukocytosis of 30,000, secondary to right foot diabetic infection WBC 29.5 #Right diabetic foot infection with large abscess and osteomyelitis: MRI shows osteomyelitis in the distal fifth metatarsal and base fifth toe, large abscess 6 x 2 x 9 cm. #Insulin-dependent diabetes mellitus: Maintain glycemic control #Ongoing tobacco abuse: Smoking cessation advised #Peripheral vascular disease: Arterial Dopplers abnormal. Recs: -Agree with the OR for I&D -continue Empiric cefepime, Flagyl and vancomycin -Follow-up cultures -Follow-up vascular studies -CRP -Vascular surgery consult, abnormal arterial Dopplers MD [facility] ([facility]) Office [phone] Subjective Date of service: 06/28/20 Principal diagnosis: Right foot osteomyelitis Interval history: Remains with fever, right foot pain. Objective - Exam Narrative Exam: General appearance: Alert in NAD pleasant Eyes: anicteric sclerae, moist conjunctivae; no lid-lag; PERRLA HENT: Normocephalic, Atraumatic; normal external ears, nares open, oropharynx clear Neck: supple, tracheal midline, no JVD Lungs: CTA, with normal respiratory effort and no intercostal retractions CV: RRR no murmur Abdomen: Soft, non-tender; no masses or hepatosplenomegaly Extremities:+ Right foot, with dressings Skin: No rash. Psych: no agitated Neuro: alert and oriented x 3. Moving all extermities - Constitutional Vitals: Vital Signs Temp Pulse Resp BP Pulse Ox 100.1 F H 114 H 18 154/82 96 06/28/20 13:20 06/28/20 13:20 06/28/20 13:20 06/28/20 13:20 06/28/20 13:20 Temperature -Last 24 Hours Temperature 100.1 F Temperature 99.3 F Temperature 99.9 F Temperature 101.1 F Temperature 101.8 F - Labs CBC & Chem 7: 06/28/20 15:01 06/28/20 15:01 Labs: Abnormal lab results 06/27/20 06/27/20 06/28/20 Range/Units 16:05 20:48 11:41 WBC (4.5-11.0) K/mm3 Hgb (11.8-15.2) gm/dl Hct (35.5-45.6) % MCV (84-94) fl MCH (28-32) pg Sodium (137-145) mmol/L Potassium (3.6-5.0) mmol/L Glucose (75-100) mg/dL POC Glucose 129 H 113 H 116 H (70-105) mg/dL Calcium (8.4-10.2) mg/dL 06/28/20 06/28/20 06/28/20 Range/Units 15:01 15:01 16:53 WBC 30.4 H (4.5-11.0) K/mm3 Hgb 11.4 L (11.8-15.2) gm/dl Hct 35.4 L D (35.5-45.6) % MCV 82 L (84-94) fl MCH 26 L (28-32) pg Sodium 132 L (137-145) mmol/L Potassium 3.5 L (3.6-5.0) mmol/L Glucose 133 H (75-100) mg/dL POC Glucose 127 H (70-105) mg/dL Calcium 8.1 L (8.4-10.2) mg/dL
[2020-06-28 18:46] LABS: Total Cells Counted 100
[2020-06-28 18:47] LABS: Anisocytosis 1+; Poikilocytosis 1+; Target Cells 1+
--- NOTE | 2020-06-28 19:33 | Progress Note ---
Assessment and Plan - Patient Problems (1) Sepsis Current Visit: Yes Status: Acute Plan to address problem: On cefepime and vancomycin For incision and drainage tomorrow (2) Acute osteomyelitis of metatarsal bone of right foot Current Visit: Yes Status: Acute Plan to address problem: Patient initiated on clindamycin IV. ID consult requested for antibiotic coverage. MRI of the foot requested Wound care consult requested next surgical consult requested Patient has early osteomyelitis of the fifth metatarsal on the distal end near the MTP joint (3) IDDM (insulin dependent diabetes mellitus) Current Visit: Yes Status: Chronic Plan to address problem: Continue home insulin and coverage Accu-Cheks AC at bedtime High-dose sliding scale coverage Check hemoglobin A1c (4) Perforating ulcer of right foot Current Visit: Yes Status: Chronic Qualifiers: Non-pressure ulcer stage: with fat layer exposed Qualified Code(s): L97.512 - Non-pressure chronic ulcer of other part of right foot with fat layer exposed Plan to address problem: On the right great toe Wound care IV antibiotics Second ulcer on the right foot on the lateral aspect-distal end of the metatarsal phalangeal MRI of the right foot requested joint (5) Hyponatremia Current Visit: Yes Status: Acute Plan to address problem: Mild IV normal saline for now (6) Malnutrition Current Visit: Yes Status: Chronic Qualifiers: Protein-calorie malnutrition severity: mild Plan to address problem: Dietary supplements for now (7) DVT prophylaxis Current Visit: Yes Status: Acute Plan to address problem: On heparin GI prophylaxis Subjective Date of service: 06/28/20 Principal diagnosis: Right foot osteomyelitis Interval history: The patient is a 39-year-old male with a history of diabetes who states he had a callus on his right foot for approximately 2 to 3 weeks. He states that approximately 1 week ago he developed an abscess deep to the callus that caused him to become sick and prompted him to present to the hospital. Prior to that the patient denies having any history of neuropathy in his foot. He denies any history of claudication and states that he recently decided to take his health more seriously and began walking 2 to 3 miles daily. 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 06/26/2020 Infectious disease consult appreciated Continue IV antibiotics Surgery consult requested 06/27/2020 IV antibiotics for now ID consult appreciated 06/28/2020 For incision and drainage tomorrow by Dr. Torrez Continue IV antibiotics Objective - Constitutional Vitals: Vital Signs - 12hr 06/28/20 06/28/20 06/28/20 07:57 13:20 18:09 Temperature 99.3 F 100.1 F H 101.0 F H Pulse Rate 104 H 114 H 103 H Respiratory 20 18 20 Rate Blood Pressure 136/84 154/82 160/81 O2 Sat by Pulse 96 96 96 Oximetry General appearance: Present: no acute distress, well-nourished - EENT Eyes: PERRL, EOM intact ENT: hearing intact, clear oral mucosa Ears: bilateral: normal - Neck Neck: supple, normal ROM - Respiratory Respiratory effort: normal Respiratory: bilateral: CTA - Breasts Breasts: normal - Cardiovascular Rhythm: regular Heart Sounds: Present: S1 & S2. Absent: gallop, rub Extremities: pulses intact, No edema, normal color, Full ROM, abnormal (Right foot ulcer on the lateral aspect of first toe and the right great toe ulcer) Extremity abnormal: other (Right foot ulcer x2) - Gastrointestinal General gastrointestinal: Present: soft, non-tender, non-distended, normal bowel sounds - Genitourinary Male genitourinary: normal - Integumentary Integumentary: clear, warm, dry - Musculoskeletal Musculoskeletal: 1, strength equal bilaterally - Neurologic Neurologic: moves all extremities - Psychiatric Psychiatric: memory intact, appropriate mood/affect, intact judgment & insight - Labs CBC & Chem 7: 06/30/20 06:15 06/30/20 06:15 Labs: Abnormal lab results 06/27/20 06/27/20 06/28/20 Range/Units 16:05 20:48 11:41 WBC (4.5-11.0) K/mm3 Hgb (11.8-15.2) gm/dl Hct (35.5-45.6) % MCV (84-94) fl MCH (28-32) pg Seg Neuts % (Manual) (40.0-70.0) % Lymphocytes % (Manual) (13.4-35.0) % Seg Neutrophils # Man (1.8-7.7) K/mm3 Monocytes # (Manual) (0.0-0.8) K/mm3 Sodium (137-145) mmol/L Potassium (3.6-5.0) mmol/L Glucose (75-100) mg/dL POC Glucose 129 H 113 H 116 H (70-105) mg/dL Calcium (8.4-10.2) mg/dL 06/28/20 06/28/20 06/28/20 Range/Units 15:01 15:01 16:53 WBC 30.4 H (4.5-11.0) K/mm3 Hgb 11.4 L (11.8-15.2) gm/dl Hct 35.4 L D (35.5-45.6) % MCV 82 L (84-94) fl MCH 26 L (28-32) pg Seg Neuts % (Manual) 89.0 H (40.0-70.0) % Lymphocytes % (Manual) 4.0 L (13.4-35.0) % Seg Neutrophils # Man 27.1 H (1.8-7.7) K/mm3 Monocytes # (Manual) 2.1 H (0.0-0.8) K/mm3 Sodium 132 L (137-145) mmol/L Potassium 3.5 L (3.6-5.0) mmol/L Glucose 133 H (75-100) mg/dL POC Glucose 127 H (70-105) mg/dL Calcium 8.1 L (8.4-10.2) mg/dL
[2020-06-28] MEDS: ZOLPIDEM 5 MG TAB PO PRN (21:29)
[2020-06-28] MEDS: oxyCODONE /ACETAMINOPHEN 5-325MG TAB PO PRN (22:25)
[2020-06-29] MEDS: VANCOMYCIN 1,500 MG in SODIUM CHLORIDE 0.9% 500 ML 500 ML IV SCH (02:30)
[2020-06-29] MEDS: metroNIDAZOLE/NS 500 MG/100 ML 500 MG/100 ML BAG IV SCH ×3 (05:10→21:18)
[2020-06-29] MEDS: INSULIN LISPRO 100 UNIT/ML SUB-Q SCH ×4 (08:45→21:29)
[2020-06-29] MEDS: INSULIN NPH/REGULAR 70/30 INJ SUB-Q SCH ×2 (08:45→16:29)
[2020-06-29] MEDS: CEFEPIME/NS 2 GM/100 ML 2 GM/100 ML BAG IV SCH ×2 (09:30→21:18)
[2020-06-29] MEDS: FAMOTIDINE 20 MG TAB PO SCH ×2 (10:10→21:19)
[2020-06-29] MEDS ORDERED: LIDOCAINE (1%) 10 MG/1 ML VIAL 20 ML MDV ONE (10:29)
[2020-06-29] MEDS ORDERED: BUPIVACAINE/PF (0.25%) 2.5 MG/ML 30 ML VIAL INFILTRATI ONE (10:30)
[2020-06-29] MEDS ORDERED: LIDOCAINE MPF (2%) 20 MG/1 ML VIAL 5 ML ONE (10:49)
[2020-06-29] MEDS ORDERED: propofoL 200 MG/20 ML VIAL IV ONE ×2 (10:50→11:35)
[2020-06-29] MEDS ORDERED: fentaNYL 100 MCG/2 ML INJ ONE (10:50)
[2020-06-29] MEDS: LACTATED RINGERS 1,000 ML IV SCH (10:50)
[2020-06-29] MEDS ORDERED: ONDANSETRON 4 MG/2 ML INJ IV PRN (11:00)
[2020-06-29] MEDS ORDERED: MIDAZOLAM 2 MG/2 ML INJ IV NR (11:00)
--- NOTE | 2020-06-29 11:01 | Anesthesia Consultation ---
Anesthesia Consult and Med Hx Date of service: 06/29/20 - Airway Anesthetic Teeth Evaluation: Poor ROM Head & Neck: Adequate Mental/Hyoid Distance: Adequate Mallampati Class: Class III Intubation Access Assessment: Possibly Difficult - Pulmonary Exam CTA: Yes - Cardiac Exam Cardiac Exam: RRR - Pre-Operative Health Status ASA Pre-Surgery Classification: ASA3 Proposed Anesthetic Plan: MAC - Pulmonary Hx Smoking: Yes (1PPD) Hx Respiratory Symptoms: No - Cardiovascular System Hx Hypertension: No (BP elevated this admission) Hx Heart Attack/AMI: No - Central Nervous System CVA: No - Endocrine Hx Renal Disease: No Hx Liver Disease: No Hx Insulin Dependent Diabetes: Yes (poorly controlled) Hx Thyroid Disease: No - Other Systems Hx Obesity: Yes
--- NOTE | 2020-06-29 11:02 | Anesthesia Day of Surgery ---
Anesthesia Day of Surgery - Day of Surgery Patient Examined: Yes Patient H&P Reviewed: Yes Patient is NPO: Yes
[2020-06-29] MEDS ORDERED: HYDROmorphone 1 MG/1 ML INJ IV PRN (11:30)
--- NOTE | 2020-06-29 12:05 | Procedure Note ---
Date of procedure: 06/29/20 Pre-op diagnosis: 1) Right foot abscess 2) Right great toe ulcer Post-op diagnosis: same Procedure: 1) FNA of right foot abscess 2) I&D of deep right foot abscess 3) Debridement of right great toe ulcer Description of procedure: Pt was placed supine on the OR table. MAC anesthesia was administered. Right foot was prepped and draped. FNA of the dorsal lateral right foot was performed with an 18 gauge needle with 1 ml of cloudy brown fluid aspirated. An I&D was then performed over the most fluctuant area over the dorsal lateral foot. This was performed with the Bovie. The incision was extended proximally towards the ankle and distally to between the 4th and 5th toes. A doppler probe was used to make sure the DP artery was not injured. Necrotic skin, SQ tissue and fascia was debrided with scissors, Bovie and a curette. Wound was irrigated with warm saline. Hemostasis was obtained with the Bovie. Wound was packed open with a dilute Betadine moistened Kerlix roll. The black eschar on the right great toe was then addressed. The eschar was surgically, excisionally excised down to SQ tissue with a scalpel. No obvious underlying infection was noted. No significant bleeding was noted. The size of the residual wound was 1 X 1 X 0.4 cm. A band-aid was applied to the right great toe. The right foot wound was dressed with dry 4 X 4's, Kerlix wrap and Coban wrap. Pt tolerated the procedure well. Pt was taken to PACU in stable condition. Anesthesia: MAC Surgeon: EDU ARTEAGA Estimated blood loss: minimal Pathology: list (C&S of right foot abscess) Specimen disposition: to lab Condition: stable Disposition: PACU
[2020-06-29] MEDS: VANCOMYCIN 2,000 MG in SODIUM CHLORIDE 0.9% 500 ML 500 ML IV SCH (16:29)
[2020-06-29] MEDS: MORPHINE 2 MG/1 ML INJ IV PRN (16:29)
[2020-06-29] MEDS: ZOLPIDEM 5 MG TAB PO PRN (21:18)
[2020-06-29] MEDS: ACETAMINOPHEN 325 MG TAB PO PRN (23:50)
--- NOTE | 2020-06-30 01:08 | Progress Note ---
Assessment and Plan - Patient Problems (1) Sepsis Current Visit: Yes Status: Acute Plan to address problem: On IV cefepime and IV vancomycin For incision and drainage today (2) Acute osteomyelitis of metatarsal bone of right foot Current Visit: Yes Status: Acute Plan to address problem: Patient initiated on clindamycin IV. ID consult requested for antibiotic coverage. MRI of the foot requested Wound care consult requested next surgical consult requested Patient has early osteomyelitis of the fifth metatarsal on the distal end near the MTP joint (3) IDDM (insulin dependent diabetes mellitus) Current Visit: Yes Status: Chronic Plan to address problem: Continue home insulin and coverage Accu-Cheks AC at bedtime High-dose sliding scale coverage Check hemoglobin A1c (4) Perforating ulcer of right foot Current Visit: Yes Status: Chronic Qualifiers: Non-pressure ulcer stage: with fat layer exposed Qualified Code(s): L97.512 - Non-pressure chronic ulcer of other part of right foot with fat layer exposed Plan to address problem: On the right great toe Wound care IV antibiotics Second ulcer on the right foot on the lateral aspect-distal end of the metatarsal phalangeal MRI of the right foot requested joint (5) Hyponatremia Current Visit: Yes Status: Acute Plan to address problem: Mild IV normal saline for now (6) Malnutrition Current Visit: Yes Status: Chronic Qualifiers: Protein-calorie malnutrition severity: mild Plan to address problem: Dietary supplements for now (7) DVT prophylaxis Current Visit: Yes Status: Acute Plan to address problem: On heparin GI prophylaxis Subjective Date of service: 06/29/20 Principal diagnosis: Right foot osteomyelitis Interval history: The patient is a 39-year-old male with a history of diabetes who states he had a callus on his right foot for approximately 2 to 3 weeks. He states that approximately 1 week ago he developed an abscess deep to the callus that caused him to become sick and prompted him to present to the hospital. Prior to that the patient denies having any history of neuropathy in his foot. He denies any history of claudication and states that he recently decided to take his health more seriously and began walking 2 to 3 miles daily. 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 06/26/2020 Infectious disease consult appreciated Continue IV antibiotics Surgery consult requested 06/27/2020 IV antibiotics for now ID consult appreciated 06/28/2020 For incision and drainage tomorrow by Dr. Torrez Continue IV antibiotics 06/29/2020 For incision and drainage today Objective - Constitutional Vitals: Vital Signs - 12hr 06/29/20 06/29/20 06/29/20 16:43 16:59 19:33 Temperature 99.4 F 100.7 F H Pulse Rate 96 H 93 H Respiratory 16 16 18 Rate Blood Pressure 161/93 161/92 [Right] O2 Sat by Pulse 99 96 Oximetry 06/29/20 06/29/20 23:30 23:50 Temperature 100 F H Pulse Rate 91 H Respiratory 18 17 Rate Blood Pressure 141/73 [Right] O2 Sat by Pulse 96 Oximetry General appearance: Present: no acute distress, well-nourished - EENT Eyes: PERRL, EOM intact ENT: hearing intact, clear oral mucosa Ears: bilateral: normal - Neck Neck: supple, normal ROM - Respiratory Respiratory effort: normal Respiratory: bilateral: CTA - Breasts Breasts: normal - Cardiovascular Heart rate: 78 Rhythm: regular Heart Sounds: Present: S1 & S2. Absent: gallop, rub Extremities: pulses intact, No edema, normal color, Full ROM, abnormal Extremity abnormal: other (Right foot ulcer on the lateral aspect of the right foot and right great toe ulcer) - Gastrointestinal General gastrointestinal: Present: soft, non-tender, non-distended, normal bowel sounds - Genitourinary Male genitourinary: normal - Integumentary Integumentary: clear, warm, dry - Musculoskeletal Musculoskeletal: 1, strength equal bilaterally - Neurologic Neurologic: moves all extremities - Psychiatric Psychiatric: memory intact, appropriate mood/affect, intact judgment & insight - Labs CBC & Chem 7: 06/30/20 06:15 06/30/20 06:15 Labs: Abnormal lab results 06/28/20 06/29/20 06/29/20 Range/Units 22:13 07:25 10:51 POC Glucose 139 H 117 H 114 H (70-105) mg/dL 06/29/20 06/29/20 Range/Units 12:09 16:16 POC Glucose 115 H 169 H (70-105) mg/dL
[2020-06-30] MEDS: VANCOMYCIN 2,000 MG in SODIUM CHLORIDE 0.9% 500 ML 500 ML IV SCH ×2 (03:04→15:51)
[2020-06-30 06:26] LABS: Hematocrit 32.8 % (35.5-45.6); Hemoglobin 11.2 gm/dl (11.8-15.2); Mean Corpuscular HGB Conc 34 % (32-34); Mean Corpuscular Volume 81 fl (84-94); Platelet Count 289 K/mm3 (140-440); Red Blood Count 4.08 M/mm3 (3.65-5.03); Red Cell Distribution Width 13.7 % (13.2-15.2)
[2020-06-30] MEDS: metroNIDAZOLE/NS 500 MG/100 ML 500 MG/100 ML BAG IV SCH ×3 (06:38→22:08)
[2020-06-30 06:45] LABS: BUN/Creatinine Ratio 11; Blood Urea Nitrogen 9 mg/dL (9-20); Calcium 7.9 mg/dL (8.4-10.2); Hemolysis Index 2
[2020-06-30 07:18] LABS: Anisocytosis 1+; Band Neutrophils # (Manual) 0.2 K/mm3; Large Platelets Few; Platelet Estimate Consistent w Auto; Target Cells 1+; Total Cells Counted 100
[2020-06-30] MEDS: INSULIN LISPRO 100 UNIT/ML SUB-Q SCH ×4 (08:10→22:15)
[2020-06-30] MEDS: FAMOTIDINE 20 MG TAB PO SCH ×3 (08:12→22:13)
[2020-06-30] MEDS: INSULIN NPH/REGULAR 70/30 INJ SUB-Q SCH ×2 (08:15→17:00)
[2020-06-30] MEDS: CEFEPIME/NS 2 GM/100 ML 2 GM/100 ML BAG IV SCH ×2 (10:07→22:08)
--- NOTE | 2020-06-30 14:16 | Post Anesthesia Evaluation ---
- Post Anesthesia Evaluation Patient Participated: Yes Airway Patent: Yes Stable Respiratory Function: Yes Nausea/Vomiting: No Temp > 96.8F: Yes Pain Manageable: Yes (with PO Tylenol) Adequeate Hydration: Yes Anesthesia Complications: No Block Receding Appropriately: Not Applicable Patient on Ventilator: No Other Comments: No issues nor concerns voiced by pt regarding anesthesia care.
--- NOTE | 2020-06-30 15:13 | Progress Note ---
Assessment and Plan Cultures: 06/25/2020 blood culture: No growth today 06/26/2020 urine culture no growth 06/29/2020 OR Cultures pending A/P: 39-year-old male with insulin-dependent diabetes, ongoing tobacco abuse, history of right gluteal abscess and necrotizing infection in 2018 , now with: #Sepsis: improving, secondary to right foot diabetic infection WBC 29.5-->21 #Right diabetic foot infection with large abscess and osteomyelitis: MRI shows osteomyelitis in the distal fifth metatarsal and base fifth toe, large abscess 6 x 2 x 9 cm. Status post incision and drainage, debridement of right great toe ulcer on 06/29/2020. #Insulin-dependent diabetes mellitus: Maintain glycemic control #Ongoing tobacco abuse: Smoking cessation advised #Peripheral vascular disease: Arterial Dopplers abnormal. Recs: -Monitor leukocytosis -Follow-up operating room cultures -continue Empiric cefepime, flagyl and vancomycin -Vascular surgery consult, abnormal arterial Dopplers -Anticipate to discharge on IV abx for 6 weeks due to osteomyelitis MD [facility] ([facility]) Office [phone] Subjective Date of service: 06/30/20 Principal diagnosis: Right foot osteomyelitis Interval history: Feels better. Went to the operating room yesterday. Fever trending down. Objective - Exam Narrative Exam: General appearance: Alert in NAD pleasant Eyes: anicteric sclerae, moist conjunctivae; no lid-lag; PERRLA HENT: Normocephalic, Atraumatic; normal external ears, nares open, oropharynx clear Neck: supple, tracheal midline, no JVD Lungs: CTA, with normal respiratory effort and no intercostal retractions CV: RRR no murmur Abdomen: Soft, non-tender; no masses or hepatosplenomegaly Extremities:+ Right foot, with dressings Skin: No rash. Psych: no agitated Neuro: alert and oriented x 3. Moving all extermities - Constitutional Vitals: Vital Signs Temp Pulse Resp BP Pulse Ox 99.2 F 83 18 169/92 97 06/30/20 11:22 06/30/20 11:22 06/30/20 11:22 06/30/20 11:22 06/30/20 11:22 Temperature -Last 24 Hours Temperature 99.2 F Temperature 98.8 F Temperature 98.2 F Temperature 100 F Temperature 100.7 F Temperature 99.4 F - Labs CBC & Chem 7: 06/30/20 06:15 06/30/20 06:15 Labs: Abnormal lab results 06/29/20 06/30/20 06/30/20 Range/Units 16:16 06:15 06:15 WBC 21.9 H (4.5-11.0) K/mm3 Hgb 11.2 L (11.8-15.2) gm/dl Hct 32.8 L (35.5-45.6) % MCV 81 L (84-94) fl MCH 27 L (28-32) pg Seg Neuts % (Manual) 79.0 H (40.0-70.0) % Seg Neutrophils # Man 17.3 H (1.8-7.7) K/mm3 Monocytes # (Manual) 1.3 H (0.0-0.8) K/mm3 Sodium 136 L (137-145) mmol/L Potassium 3.4 L (3.6-5.0) mmol/L POC Glucose 169 H (70-105) mg/dL Calcium 7.9 L (8.4-10.2) mg/dL
[2020-06-30] MEDS: ACETAMINOPHEN 325 MG TAB PO PRN (16:46)
--- NOTE | 2020-06-30 20:03 | Consultation ---
History of Present Illness - Reason for Consult Consult date: 06/30/20 Diabetic Right Foot Ulcer with Possible Peripheral Vascular Disease Requesting physician: EDU ARTEAGA - History of Present Illness The patient is a 39-year-old male with a history of diabetes who states he had a callus on his right foot for approximately 2 to 3 weeks. He states that approximately 1 week ago he developed an abscess deep to the callus that caused him to become sick and prompted him to present to the hospital. Prior to that the patient denies having any history of neuropathy in his foot. He denies any history of claudication and states that he recently decided to take his health more seriously and began walking 2 to 3 miles daily. 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 Past History Past Medical History: diabetes Past Surgical History: Other (Incision and drainage of right foot abscess) Social history: smoking (1 ppd) Medications and Allergies Allergies Allergy/AdvReac Type Severity Reaction Status Date / Time No Known Allergies Allergy Unverified 02/10/18 09:51 Home Medications Medication Instructions Recorded Confirmed Last Taken Type Insulin NPH/Regular [NovoLIN 70/30] 16 unit SUB-Q BIDDIAB #1 vial 02/22/18 06/27/20 06/24/20 Rx 16 Tramadol HCl [Ultram] 50 mg PO Q6H #20 tablet 02/22/18 06/27/20 02/28/18 Rx 50 mg cephALEXin [Keflex] 500 mg PO Q6HR 14 Days capsule 02/22/18 06/27/20 03/04/18 Rx 500 Active Meds: Active Medications Acetaminophen (Acetaminophen 325 Mg Tab) 650 mg PO Q4H PRN PRN Reason: Pain MILD(1-3)/Fever >100.5/HERNANDEZ Last Admin: 06/30/20 16:46 Dose: 650 mg Documented by: Famotidine (Famotidine 20 Mg Tab) 20 mg PO BID ERIC Last Admin: 06/30/20 10:00 Dose: Not Given Documented by: Cefepime HCl (Cefepime/Ns 2 Gm/100 Ml) 2 gm in 100 mls @ 200 mls/hr IV Q12HR [facility]; Protocol Last Admin: 06/30/20 10:07 Dose: 200 mls/hr Documented by: Metronidazole (Flagyl 500 Mg/100 Ml) 500 mg in 100 mls @ 100 mls/hr IV Q8H [facility]; Protocol Last Admin: 06/30/20 13:02 Dose: 100 mls/hr Documented by: Vancomycin HCl 2,000 mg/ (Sodium Chloride) 540 mls @ 250 mls/hr IV Q12H ERIC Last Admin: 06/30/20 15:51 Dose: 250 mls/hr Documented by: Lactated Ringer's (Lactated Ringers) 1,000 mls @ 100 mls/hr IV DIRECT [facility] Last Admin: 06/29/20 10:50 Dose: 100 mls/hr Documented by: Insulin Human Isoph/Insulin Regular (Insulin Nph/Regular 70/30 Inj) 16 unit SUB-Q BIDDIAB [facility] Last Admin: 06/30/20 17:00 Dose: 16 unit Documented by: Insulin Human Lispro (Insulin Lispro 100 Unit/Ml) 0 unit SUB-Q ACHS [facility]; Protocol Last Admin: 06/30/20 16:30 Dose: Not Given Documented by: Metoclopramide HCl (Metoclopramide 10 Mg/2 Ml Inj) 10 mg IV Q6H PRN PRN Reason: Nausea And Vomiting Morphine Sulfate (Morphine 2 Mg/1 Ml Inj) 2 mg IV Q4H PRN PRN Reason: Pain, Moderate (4-6) Last Admin: 06/29/20 16:29 Dose: 2 mg Documented by: Ondansetron HCl (Ondansetron 4 Mg/2 Ml Inj) 4 mg IV Q3H PRN PRN Reason: Nausea And Vomiting Oxycodone/Acetaminophen (Oxycodone /Acetaminophen 5-325mg Tab) 1 tab PO Q6H PRN PRN Reason: Pain, Moderate (4-6) Last Admin: 06/28/20 22:25 Dose: 1 tab Documented by: Sodium Chloride (Sodium Chloride 0.9% 10 Ml Flush Syringe) 10 ml IV BID [facility] Last Admin: 06/30/20 10:00 Dose: Not Given Documented by: Sodium Chloride (Sodium Chloride 0.9% 10 Ml Flush Syringe) 10 ml IV PRN PRN PRN Reason: LINE FLUSH Tramadol HCl (Tramadol 50 Mg Tab) 50 mg PO Q6H PRN PRN Reason: Pain, Moderate (4-6) Zolpidem Tartrate (Zolpidem 5 Mg Tab) 5 mg PO QHS PRN PRN Reason: Sleep Last Admin: 06/29/20 21:18 Dose: 5 mg Documented by: Review of Systems All systems: negative Exam - Constitutional Vitals: Temp Pulse Resp BP Pulse Ox 98.5 F 75 18 151/88 100 06/30/20 19:39 06/30/20 19:39 06/30/20 19:39 06/30/20 19:39 06/30/20 19:39 General appearance: Present: no acute distress - Neck Neck: Present: supple - Respiratory Respiratory effort: normal - Cardiovascular Rhythm: regular - Extremities Extremities: pulses intact (Palpable DP and PT pulses bilaterally) Extremity abnormal: edema (Mild edema and right lower extremity) - Abdominal General gastrointestinal: Present: soft Male genitourinary: Present: deferred - Rectal Rectal Exam: deferred - Psychiatric Psychiatric: appropriate mood/affect Results - Labs CBC & Chem 7: 06/30/20 06:15 06/30/20 06:15 Labs: Abnormal lab results 06/30/20 06/30/20 06/30/20 Range/Units 06:15 06:15 11:21 WBC 21.9 H (4.5-11.0) K/mm3 Hgb 11.2 L (11.8-15.2) gm/dl Hct 32.8 L (35.5-45.6) % MCV 81 L (84-94) fl MCH 27 L (28-32) pg Seg Neuts % (Manual) 79.0 H (40.0-70.0) % Seg Neutrophils # Man 17.3 H (1.8-7.7) K/mm3 Monocytes # (Manual) 1.3 H (0.0-0.8) K/mm3 Sodium 136 L (137-145) mmol/L Potassium 3.4 L (3.6-5.0) mmol/L POC Glucose 112 H (70-105) mg/dL Calcium 7.9 L (8.4-10.2) mg/dL 06/30/20 Range/Units 16:00 WBC (4.5-11.0) K/mm3 Hgb (11.8-15.2) gm/dl Hct (35.5-45.6) % MCV (84-94) fl MCH (28-32) pg Seg Neuts % (Manual) (40.0-70.0) % Seg Neutrophils # Man (1.8-7.7) K/mm3 Monocytes # (Manual) (0.0-0.8) K/mm3 Sodium (137-145) mmol/L Potassium (3.6-5.0) mmol/L POC Glucose 114 H (70-105) mg/dL Calcium (8.4-10.2) mg/dL - Imaging and Cardiology Venous US: other (Arterial duplex was reviewed) Assessment and Plan The patient is a 39-year-old male with a history of diabetes and a diabetic foot ulcer. The patient had an arterial duplex that demonstrated an increased velocity in his right SFA however all velocities were triphasic. The patient has no history of claudication and states he walks 2 to 3 miles per day additionally the patient has easily palpable pulses despite having an elevated velocity on the arterial duplex. I suspect this does not represent a true stenosis however if there is concern that the wound is healing poorly a CTA with runoff will be the next appropriate study. I discussed this with the patient who expressed understanding. I would not recommend ordering this at this time as I believe he has adequate blood flow for healing.
[2020-06-30] MEDS: LACTATED RINGERS 1,000 ML IV SCH (22:01)
[2020-06-30] MEDS: oxyCODONE /ACETAMINOPHEN 5-325MG TAB PO PRN (22:14)
--- NOTE | 2020-07-01 01:01 | Progress Note ---
Assessment and Plan - Patient Problems (1) Sepsis Current Visit: Yes Status: Acute Plan to address problem: Patient on IV cefepime and IV vancomycin May need 6 weeks of-IV antibiotics (2) Acute osteomyelitis of metatarsal bone of right foot Current Visit: Yes Status: Acute Plan to address problem: Patient initiated on clindamycin IV. ID consult requested for antibiotic coverage. MRI of the foot requested Wound care consult requested next surgical consult requested Patient has early osteomyelitis of the fifth metatarsal on the distal end near the MTP joint (3) IDDM (insulin dependent diabetes mellitus) Current Visit: Yes Status: Chronic Plan to address problem: Continue home insulin and coverage Accu-Cheks AC at bedtime High-dose sliding scale coverage Check hemoglobin A1c (4) Perforating ulcer of right foot Current Visit: Yes Status: Chronic Qualifiers: Non-pressure ulcer stage: with fat layer exposed Qualified Code(s): L97.512 - Non-pressure chronic ulcer of other part of right foot with fat layer exposed Plan to address problem: On the right great toe Wound care IV antibiotics Second ulcer on the right foot on the lateral aspect-distal end of the metatarsal phalangeal MRI of the right foot requested joint (5) Hyponatremia Current Visit: Yes Status: Acute Plan to address problem: Mild IV normal saline for now (6) Malnutrition Current Visit: Yes Status: Chronic Qualifiers: Protein-calorie malnutrition severity: mild Plan to address problem: Dietary supplements for now (7) DVT prophylaxis Current Visit: Yes Status: Acute Plan to address problem: On heparin GI prophylaxis Subjective Date of service: 06/30/20 Principal diagnosis: Right foot osteomyelitis Interval history: The patient is a 39-year-old male with a history of diabetes who states he had a callus on his right foot for approximately 2 to 3 weeks. He states that approximately 1 week ago he developed an abscess deep to the callus that caused him to become sick and prompted him to present to the hospital. Prior to that the patient denies having any history of neuropathy in his foot. He denies any history of claudication and states that he recently decided to take his health more seriously and began walking 2 to 3 miles daily. 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 06/26/2020 Infectious disease consult appreciated Continue IV antibiotics Surgery consult requested 06/27/2020 IV antibiotics for now ID consult appreciated 06/28/2020 For incision and drainage tomorrow by Dr. Torrez Continue IV antibiotics 06/29/2020 For incision and drainage today 06/30/2020 Patient had extensive incision and drainage of the abscess yesterday on the right foot on the lateral aspect of the foot near the fifth metatarsal Objective - Constitutional Vitals: Vital Signs - 12hr 06/30/20 06/30/20 06/30/20 16:01 19:39 23:52 Temperature 98.9 F 98.5 F 99 F Pulse Rate 75 75 73 Respiratory 18 18 18 Rate Blood Pressure 136/75 Blood Pressure 151/88 155/80 [Right] O2 Sat by Pulse 98 100 96 Oximetry General appearance: Present: no acute distress, well-nourished - EENT Eyes: PERRL, EOM intact ENT: hearing intact, clear oral mucosa Ears: bilateral: normal - Neck Neck: supple, normal ROM - Respiratory Respiratory effort: normal Respiratory: bilateral: CTA - Breasts Breasts: normal - Cardiovascular Rhythm: regular Heart Sounds: Present: S1 & S2. Absent: gallop, rub Extremities: pulses intact, No edema, normal color, Full ROM Extremity abnormal: other (Right foot ulcer status post incision and drainage and dressing now) - Gastrointestinal General gastrointestinal: Present: soft, non-tender, non-distended, normal bowel sounds - Genitourinary Male genitourinary: normal - Integumentary Integumentary: clear, warm, dry - Musculoskeletal Musculoskeletal: 1, strength equal bilaterally - Neurologic Neurologic: moves all extremities - Psychiatric Psychiatric: memory intact, appropriate mood/affect, intact judgment & insight - Labs CBC & Chem 7: 06/30/20 06:15 06/30/20 06:15 Labs: Abnormal lab results 06/30/20 06/30/20 06/30/20 Range/Units 06:15 06:15 11:21 WBC 21.9 H (4.5-11.0) K/mm3 Hgb 11.2 L (11.8-15.2) gm/dl Hct 32.8 L (35.5-45.6) % MCV 81 L (84-94) fl MCH 27 L (28-32) pg Seg Neuts % (Manual) 79.0 H (40.0-70.0) % Seg Neutrophils # Man 17.3 H (1.8-7.7) K/mm3 Monocytes # (Manual) 1.3 H (0.0-0.8) K/mm3 Sodium 136 L (137-145) mmol/L Potassium 3.4 L (3.6-5.0) mmol/L POC Glucose 112 H (70-105) mg/dL Calcium 7.9 L (8.4-10.2) mg/dL 06/30/20 Range/Units 16:00 WBC (4.5-11.0) K/mm3 Hgb (11.8-15.2) gm/dl Hct (35.5-45.6) % MCV (84-94) fl MCH (28-32) pg Seg Neuts % (Manual) (40.0-70.0) % Seg Neutrophils # Man (1.8-7.7) K/mm3 Monocytes # (Manual) (0.0-0.8) K/mm3 Sodium (137-145) mmol/L Potassium (3.6-5.0) mmol/L POC Glucose 114 H (70-105) mg/dL Calcium (8.4-10.2) mg/dL
[2020-07-01] MEDS: metroNIDAZOLE/NS 500 MG/100 ML 500 MG/100 ML BAG IV SCH ×3 (08:00→23:10)
[2020-07-01] MEDS: INSULIN LISPRO 100 UNIT/ML SUB-Q SCH ×4 (08:28→22:17)
[2020-07-01] MEDS: INSULIN NPH/REGULAR 70/30 INJ SUB-Q SCH ×2 (09:29→18:41)
[2020-07-01] MEDS: CEFEPIME/NS 2 GM/100 ML 2 GM/100 ML BAG IV SCH ×2 (11:30→22:17)
[2020-07-01] MEDS: FAMOTIDINE 20 MG TAB PO SCH ×2 (11:30→22:17)
[2020-07-01] MEDS: ACETAMINOPHEN 325 MG TAB PO PRN (13:57)
[2020-07-01] MEDS: VANCOMYCIN 2,000 MG in SODIUM CHLORIDE 0.9% 500 ML 500 ML IV SCH (16:39)
[2020-07-01] MEDS: MORPHINE 2 MG/1 ML INJ IV PRN (22:18)
[2020-07-02] MEDS: VANCOMYCIN 2,000 MG in SODIUM CHLORIDE 0.9% 500 ML 500 ML IV SCH ×2 (02:39→04:59)
[2020-07-02] MEDS: metroNIDAZOLE/NS 500 MG/100 ML 500 MG/100 ML BAG IV SCH (05:10)
--- NOTE | 2020-07-02 07:16 | Progress Note ---
Assessment and Plan - Patient Problems (1) Sepsis Current Visit: Yes Status: Acute Plan to address problem: Secondary to the right foot ulcers x2 Sepsis: improving, secondary to right foot diabetic infection WBC 29.5-->21 Right diabetic foot infection with large abscess and osteomyelitis: MRI shows osteomyelitis in the distal fifth metatarsal and base fifth toe, large abscess 6 x 2 x 9 cm. Status post incision and drainage, debridement of right great toe ulcer on 06/29/2020. -Monitor leukocytosis -Follow-up operating room cultures -continue Empiric cefepime, flagyl and vancomycin -Vascular surgery consult, abnormal arterial Dopplers -Anticipate to discharge on IV abx for 6 weeks due to osteomyelitis (2) Acute osteomyelitis of metatarsal bone of right foot Current Visit: Yes Status: Acute Plan to address problem: Severe osteomyelitis requiring 6 weeks of IV antibiotics (3) IDDM (insulin dependent diabetes mellitus) Current Visit: Yes Status: Chronic Plan to address problem: Continue home insulin and coverage Accu-Cheks AC at bedtime High-dose sliding scale coverage Check hemoglobin A1c (4) Perforating ulcer of right foot Current Visit: Yes Status: Chronic Qualifiers: Non-pressure ulcer stage: with fat layer exposed Qualified Code(s): L97.512 - Non-pressure chronic ulcer of other part of right foot with fat layer exposed Plan to address problem: On the right great toe Wound care IV antibiotics Second ulcer on the right foot on the lateral aspect-distal end of the metatarsal phalangeal MRI of the right foot requested joint (5) Hyponatremia Current Visit: Yes Status: Acute Plan to address problem: Mild IV normal saline for now (6) Malnutrition Current Visit: Yes Status: Chronic Qualifiers: Protein-calorie malnutrition severity: mild Plan to address problem: Dietary supplements for now (7) PAD (peripheral artery disease) Current Visit: Yes Status: Acute Plan to address problem: The patient had an arterial duplex that demonstrated an increased velocity in his right SFA however all velocities were triphasic. The patient has no history of claudication and states he walks 2 to 3 miles per day additionally the patient has easily palpable pulses despite having an elevated velocity on the arterial duplex. CTA for runoff to the wound is not healing properly No CTA at this time (8) DVT prophylaxis Current Visit: Yes Status: Acute Plan to address problem: On heparin GI prophylaxis Subjective Date of service: 07/01/20 Principal diagnosis: Right foot osteomyelitis Interval history: The patient is a 39-year-old male with a history of diabetes who states he had a callus on his right foot for approximately 2 to 3 weeks. He states that approximately 1 week ago he developed an abscess deep to the callus that caused him to become sick and prompted him to present to the hospital. Prior to that the patient denies having any history of neuropathy in his foot. He denies any history of claudication and states that he recently decided to take his health more seriously and began walking 2 to 3 miles daily. 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 06/26/2020 Infectious disease consult appreciated Continue IV antibiotics Surgery consult requested 06/27/2020 Patient on IV antibiotics 06/28/2020 Patient on IV antibiotics For incision and drainage tomorrow by Dr. Torrez 06/29/2020 Patient had incision and drainage of the right foot abscess which was extensive Surgery done by Dr. Torrez 06/30/2020 Patient had I&D done by Dr. Torrez Postop patient doing well 07/01/2020 Waiting for wound cultures and antibiotic sensitivity Objective - Constitutional Vitals: Vital Signs - 12hr 07/01/20 07/01/20 07/02/20 19:32 23:29 05:18 Temperature 99.0 F 98.7 F 98.8 F Pulse Rate 72 83 87 Respiratory 19 20 18 Rate Blood Pressure 157/79 169/90 159/91 O2 Sat by Pulse 95 95 98 Oximetry - Labs CBC & Chem 7: 06/30/20 06:15 06/30/20 06:15 Labs: Abnormal lab results 07/01/20 07/01/20 07/01/20 Range/Units 11:17 16:20 22:06 POC Glucose 121 H 113 H 140 H (70-105) mg/dL
[2020-07-02] MEDS: FAMOTIDINE 20 MG TAB PO SCH ×2 (09:32→21:56)
[2020-07-02] MEDS: CEFEPIME/NS 2 GM/100 ML 2 GM/100 ML BAG IV SCH ×2 (09:32→21:56)
[2020-07-02] MEDS: INSULIN NPH/REGULAR 70/30 INJ SUB-Q SCH ×2 (09:32→16:58)
[2020-07-02] MEDS: INSULIN LISPRO 100 UNIT/ML SUB-Q SCH ×4 (09:33→22:00)
--- NOTE | 2020-07-02 10:23 | Progress Note ---
Assessment and Plan Assessment and plan: #Sepsis Secondary to right foot osteomyelitis Continue cefepime, Flagyl and vancomycin Follow-up operating room cultures Vascular studies -abnormal Dopplers. Vascular surgeon recommendations appreciated. No indication for CT at this time Patient is to follow-up with vascular surgery in the office Needs IV antibiotics for 6-weeks due to osteomyelitis when stable for discharge #Diabetes mellitus Continue blood glucose monitoring Lantus and lispro #Peripheral artery disease Has abnormal Doppler lower extremities CTA runoff no recommended at this time per vascular surgery Needs a follow-up with vascular surgeon at the office if wound not healing appropriately #Obesity Diet and exercise advised #DVT prophylaxis-Heparin History Interval history: The patient is a 39-year-old male with a history of diabetes who states he had a callus on his right foot for approximately 2 to 3 weeks. He states that approximately 1 week ago he developed an abscess deep to the callus that caused him to become sick and prompted him to present to the hospital. Prior to that the patient denies having any history of neuropathy in his foot. He denies any history of claudication and states that he recently decided to take his health more seriously and began walking 2 to 3 miles daily. 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 06/26/2020 Infectious disease consult appreciated Continue IV antibiotics Surgery consult requested 06/27/2020 Patient on IV antibiotics 06/28/2020 Patient on IV antibiotics For incision and drainage tomorrow by Dr. Torrez 06/29/2020 Patient had incision and drainage of the right foot abscess which was extensive Surgery done by Dr. Torrez 06/30/2020 Patient had I&D done by Dr. Torrez Postop patient doing well 07/01/2020 Waiting for wound cultures and antibiotic sensitivity 07/02. Patient is status post I&D on 06/29. Patient remains on IV cefepime , Flagyl and vancomycin. ID is following. Operative cultures pending. Patient had abnormal Doppler of the lower extremities so vascular surgery was consulted. No acute indication for CTA runoff at this time per vascular surgery. Recommend study if wound not healing appropriately. Continue 70/30 insulin. Blood glucose stable at this time. He needs 6 weeks IV antibiotic therapy. Needs a PICC line Hospitalist Physical - Physical exam Narrative exam: VITAL SIGNS: Reviewed. GENERAL: Awake HEAD: No signs of head trauma. EYES: Pupils are equal. Extraocular motions intact. MOUTH: Oropharynx is normal. NECK: No adenopathy, no JVD. CHEST: Chest with diminished breath sounds bilaterally. No wheezes, rales, or rhonchi. CARDIAC: normal S1 and S2, without murmurs, gallops, or rubs. ABDOMEN: Soft, non tender and non distended. No rebound or guarding, and no masses palpated. Bowel Sounds normal. MUSCULOSKELETAL: Right lower extremity: Right foot dressing intact and clean NEUROLOGIC EXAM: Alert and oriented x3. No focal neurologic deficits SKIN: No obvious lesions - Constitutional Vitals: Temp Pulse Resp BP Pulse Ox 99.1 F 81 18 151/88 98 07/02/20 07:32 07/02/20 07:32 07/02/20 07:32 07/02/20 07:32 07/02/20 07:32 Results - Labs CBC & Chem 7: 06/30/20 06:15 06/30/20 06:15 Labs: Laboratory Last Values WBC 21.9 K/mm3 (4.5-11.0) H 06/30/20 06:15 RBC 4.08 M/mm3 (3.65-5.03) 06/30/20 06:15 Hgb 11.2 gm/dl (11.8-15.2) L 06/30/20 06:15 Hct 32.8 % (35.5-45.6) L 06/30/20 06:15 MCV 81 fl (84-94) L 06/30/20 06:15 MCH 27 pg (28-32) L 06/30/20 06:15 MCHC 34 % (32-34) 06/30/20 06:15 RDW 13.7 % (13.2-15.2) 06/30/20 06:15 Plt Count 289 K/mm3 (140-440) 06/30/20 06:15 Add Manual Diff Complete 06/30/20 06:15 Total Counted 100 06/30/20 06:15 Seg Neuts % (Manual) 79.0 % (40.0-70.0) H 06/30/20 06:15 Band Neutrophils % 1.0 % 06/30/20 06:15 Lymphocytes % (Manual) 14.0 % (13.4-35.0) 06/30/20 06:15 Monocytes % (Manual) 6.0 % (0.0-7.3) 06/30/20 06:15 Nucleated RBC % Not Reportable 06/30/20 06:15 Seg Neutrophils # Man 17.3 K/mm3 (1.8-7.7) H 06/30/20 06:15 Band Neutrophils # 0.2 K/mm3 06/30/20 06:15 Lymphocytes # (Manual) 3.1 K/mm3 (1.2-5.4) 06/30/20 06:15 Abs React Lymphs (Man) 0.0 K/mm3 06/30/20 06:15 Monocytes # (Manual) 1.3 K/mm3 (0.0-0.8) H 06/30/20 06:15 Eosinophils # (Manual) 0.0 K/mm3 (0.0-0.4) 06/30/20 06:15 Basophils # (Manual) 0.0 K/mm3 (0.0-0.1) 06/30/20 06:15 Metamyelocytes # 0.0 K/mm3 06/30/20 06:15 Myelocytes # 0.0 K/mm3 06/30/20 06:15 Promyelocytes # 0.0 K/mm3 06/30/20 06:15 Blast Cells # 0.0 K/mm3 06/30/20 06:15 WBC Morphology Not Reportable 06/30/20 06:15 Hypersegmented Neuts Not Reportable 06/30/20 06:15 Hyposegmented Neuts Not Reportable 06/30/20 06:15 Hypogranular Neuts Not Reportable 06/30/20 06:15 Smudge Cells Not Reportable 06/30/20 06:15 Toxic Granulation Not Reportable 06/30/20 06:15 Toxic Vacuolation Not Reportable 06/30/20 06:15 Dohle Bodies Not Reportable 06/30/20 06:15 Pelger-Huet Anomaly Not Reportable 06/30/20 06:15 Nivia Rods Not Reportable 06/30/20 06:15 Platelet Estimate Consistent w auto 06/30/20 06:15 Clumped Platelets Not Reportable 06/30/20 06:15 Plt Clumps, EDTA Not Reportable 06/30/20 06:15 Large Platelets Few 06/30/20 06:15 Giant Platelets Not Reportable 06/30/20 06:15 Platelet Satelliting Not Reportable 06/30/20 06:15 Plt Morphology Comment Not Reportable 06/30/20 06:15 RBC Morphology Not Reportable 06/30/20 06:15 Dimorphic RBCs Not Reportable 06/30/20 06:15 Polychromasia Not Reportable 06/30/20 06:15 Hypochromasia Not Reportable 06/30/20 06:15 Poikilocytosis Not Reportable 06/30/20 06:15 Anisocytosis 1+ 06/30/20 06:15 Microcytosis Not Reportable 06/30/20 06:15 Macrocytosis Not Reportable 06/30/20 06:15 Spherocytes Not Reportable 06/30/20 06:15 Pappenheimer Bodies Not Reportable 06/30/20 06:15 Sickle Cells Not Reportable 06/30/20 06:15 Target Cells 1+ 06/30/20 06:15 Tear Drop Cells Not Reportable 06/30/20 06:15 Ovalocytes Not Reportable 06/30/20 06:15 Helmet Cells Not Reportable 06/30/20 06:15 Kessler-Alabaster Bodies Not Reportable 06/30/20 06:15 [place] Rings Not Reportable 06/30/20 06:15 Dell Cells Not Reportable 06/30/20 06:15 Bite Cells Not Reportable 06/30/20 06:15 Crenated Cell Not Reportable 06/30/20 06:15 Elliptocytes Not Reportable 06/30/20 06:15 Acanthocytes (Spur) Not Reportable 06/30/20 06:15 Rouleaux Not Reportable 06/30/20 06:15 Hemoglobin C Crystals Not Reportable 06/30/20 06:15 Schistocytes Not Reportable 06/30/20 06:15 Malaria parasites Not Reportable 06/30/20 06:15 Jurgen Bodies Not Reportable 06/30/20 06:15 Hem Pathologist Commnt No 06/30/20 06:15 PT 14.6 Sec. (12.2-14.9) 06/25/20 15:28 INR 1.16 (0.87-1.13) H 06/25/20 15:28 VBG pH 7.403 (7.320-7.420) 06/25/20 15:28 Sodium 136 mmol/L (137-145) L 06/30/20 06:15 Potassium 3.4 mmol/L (3.6-5.0) L 06/30/20 06:15 Chloride 102.5 mmol/L (98-107) 06/30/20 06:15 Carbon Dioxide 26 mmol/L (22-30) 06/30/20 06:15 Anion Gap 11 mmol/L 06/30/20 06:15 BUN 9 mg/dL (9-20) 06/30/20 06:15 Creatinine 0.8 mg/dL (0.8-1.3) 06/30/20 06:15 Estimated GFR > 60 ml/min 06/30/20 06:15 BUN/Creatinine Ratio 11 % 06/30/20 06:15 Glucose 81 mg/dL (75-100) 06/30/20 06:15 POC Glucose 118 mg/dL (70-105) H 07/02/20 07:31 Lactic Acid 1.20 mmol/L (0.7-2.0) 06/25/20 15:28 Calcium 7.9 mg/dL (8.4-10.2) L 06/30/20 06:15 Total Bilirubin 0.90 mg/dL (0.1-1.2) 06/25/20 15:28 AST 34 units/L (5-40) 06/25/20 15:28 ALT 40 units/L (7-56) 06/25/20 15:28 Alkaline Phosphatase 107 units/L (35-129) 06/25/20 15:28 Total Protein 8.6 g/dL (6.3-8.2) H 06/25/20 15:28 Albumin 3.3 g/dL (3.9-5) L 06/25/20 15:28 Albumin/Globulin Ratio 0.6 % 06/25/20 15:28 Urine Color Rosalia (Yellow) 06/26/20 11:50 Urine Turbidity Clear (Clear) 06/26/20 11:50 Urine pH 6.0 (5.0-7.0) 06/26/20 11:50 Ur Specific [place] 1.023 (1.003-1.030) 06/26/20 11:50 Urine Protein 100 mg/dl mg/dL (Negative) 06/26/20 11:50 Urine Glucose (UA) 150 mg/dL (Negative) 06/26/20 11:50 Urine Ketones 20 mg/dL (Negative) 06/26/20 11:50 Urine Blood Neg (Negative) 06/26/20 11:50 Urine Nitrite Neg (Negative) 06/26/20 11:50 Urine Bilirubin Neg (Negative) 06/26/20 11:50 Urine Urobilinogen 4.0 mg/dL (<2.0) 06/26/20 11:50 Ur Leukocyte Esterase Neg (Negative) 06/26/20 11:50 Urine WBC (Auto) 2.0 /HPF (0.0-6.0) 06/26/20 11:50 Urine RBC (Auto) 3.0 /HPF (0.0-6.0) 06/26/20 11:50 U Epithel Cells (Auto) 1.0 /HPF (0-13.0) 06/26/20 11:50 Urine Mucus Few /HPF 06/26/20 11:50 Vancomycin Trough 7.2 ug/mL (5.0-20.0) 06/28/20 15:01 Microbiology: Microbiology 06/29/20 Unknown Foot - Right Surgical Culture - Preliminary 06/29/20 Unknown Foot - Right Anaerobic Culture - Preliminary Ramirez/IV: Voiding Method Toilet Active Medications - Current Medications Current Medications: Generic Name Dose Route Start Last Admin Trade Name Freq PRN Reason Stop Dose Admin Acetaminophen 650 mg 06/25/20 22:56 07/01/20 13:57 Acetaminophen 325 Mg Tab PO 650 mg Q4H PRN Administration Pain MILD(1-3)/Fever >100.5/HERNANDEZ Famotidine 20 mg 06/26/20 10:00 07/02/20 09:32 Famotidine 20 Mg Tab PO 20 mg BID ERIC Administration Cefepime HCl 2 gm in 100 mls @ 200 mls/hr 06/26/20 13:00 07/02/20 09:32 Cefepime/Ns 2 Gm/100 Ml IV 200 mls/hr Q12HR ERIC Administration Protocol Metronidazole 500 mg in 100 mls @ 100 mls/hr 06/26/20 13:00 07/02/20 05:10 Flagyl 500 Mg/100 Ml IV 100 mls/hr Q8H ERIC Administration Protocol Lactated Ringer's 1,000 mls @ 100 mls/hr 06/29/20 11:30 06/30/20 22:01 Lactated Ringers IV 100 mls/hr DIRECT ERIC Administration Vancomycin HCl 2,000 mg/ 540 mls @ 250 mls/hr 07/02/20 18:00 Sodium Chloride IV Q12H [facility] Insulin Human Isoph/Insulin Regular 16 unit 06/26/20 08:00 07/02/20 09:32 Insulin Nph/Regular 70/30 Inj SUB-Q Not Given BIDDIAB [facility] Insulin Human Lispro 0 unit 06/26/20 07:30 07/02/20 09:33 Insulin Lispro 100 Unit/Ml SUB-Q Not Given ACHS [facility] Protocol Metoclopramide HCl 10 mg 06/25/20 22:57 Metoclopramide 10 Mg/2 Ml Inj IV Q6H PRN Nausea And Vomiting Morphine Sulfate 2 mg 06/25/20 22:57 07/01/20 22:18 Morphine 2 Mg/1 Ml Inj IV 2 mg Q4H PRN Administration Pain, Moderate (4-6) Ondansetron HCl 4 mg 06/25/20 22:56 Ondansetron 4 Mg/2 Ml Inj IV Q3H PRN Nausea And Vomiting Oxycodone/Acetaminophen 1 tab 06/25/20 22:57 06/30/20 22:14 Oxycodone /Acetaminophen 5-325mg Tab PO 1 tab Q6H PRN Administration Pain, Moderate (4-6) Sodium Chloride 10 ml 06/26/20 10:00 07/02/20 09:32 Sodium Chloride 0.9% 10 Ml Flush Syringe IV 10 ml BID ERIC Administration Sodium Chloride 10 ml 06/25/20 22:56 Sodium Chloride 0.9% 10 Ml Flush Syringe IV PRN PRN LINE FLUSH Tramadol HCl 50 mg 06/25/20 23:00 Tramadol 50 Mg Tab PO Q6H PRN Pain, Moderate (4-6) Zolpidem Tartrate 5 mg 06/27/20 17:54 06/29/20 21:18 Zolpidem 5 Mg Tab PO 5 mg QHS PRN Administration Sleep
--- NOTE | 2020-07-02 12:06 | Progress Note ---
Assessment and Plan Cultures: 06/25/2020 blood culture: No growth today 06/26/2020 urine culture no growth 06/29/2020 OR Cultures usual skin blanche A/P: 39-year-old male with insulin-dependent diabetes, ongoing tobacco abuse, history of right gluteal abscess and necrotizing infection in 2018 , now with: #Sepsis: improving, secondary to right foot diabetic infection WBC 29.5-->21 #Right diabetic foot infection with large abscess and osteomyelitis: MRI shows osteomyelitis in the distal fifth metatarsal and base fifth toe, large abscess 6 x 2 x 9 cm. Status post incision and drainage, debridement of right great toe ulcer on 06/29/2020. large post op surgical wound 13.2 x 6.4 x 1.5 cm with undermining. Tendons are exposed. Noted also right plantar great toe with black eschar. #Insulin-dependent diabetes mellitus: Maintain glycemic control #Ongoing tobacco abuse: Smoking cessation advised #Peripheral vascular disease: Arterial Dopplers abnormal. Per vascular there is adequate blood flow for healing. Recs: -Monitor leukocytosis not back to normal, close wound monitoring for ischemic changes if leukocytosis does not improve consider surgical reevaluation -Per vascular there is adequate blood flow for healing. -Follow-up operating room cultures -Stop vancomycin -Continue cefepime and metronidazole -Anticipate to discharge on cefepime 2 gm IV q12h for 6 week till 08/10/2020 and flagyl 500 mg po TID for 2 weeks till 07/13/2020. Sent to supervisor case loading. -No guarantees given, risk for amputation explained Jenni Ness MD [facility] ([facility]) Office [phone] Subjective Date of service: 07/02/20 Principal diagnosis: Right foot osteomyelitis Interval history: Patient feels okay, no complaints. Objective - Exam Narrative Exam: General appearance: Alert in NAD pleasant Eyes: anicteric sclerae, moist conjunctivae; no lid-lag; PERRLA HENT: Normocephalic, Atraumatic; normal external ears, nares open, oropharynx clear Neck: supple, tracheal midline, no JVD Lungs: CTA, with normal respiratory effort and no intercostal retractions CV: RRR no murmur Abdomen: Soft, non-tender; no masses or hepatosplenomegaly Extremities:+ Right foot, with dressings Skin: No rash. Psych: no agitated Neuro: alert and oriented x 3. Moving all extermities - Constitutional Vitals: Vital Signs Temp Pulse Resp BP Pulse Ox 99.1 F 81 18 151/88 98 07/02/20 07:32 07/02/20 07:32 07/02/20 10:00 07/02/20 07:32 07/02/20 07:32 Temperature -Last 24 Hours Temperature 99.1 F Temperature 98.8 F Temperature 98.7 F Temperature 99.0 F Temperature 99.3 F - Labs CBC & Chem 7: 06/30/20 06:15 06/30/20 06:15 Labs: Abnormal lab results 07/01/20 07/01/20 07/02/20 Range/Units 16:20 22:06 07:31 POC Glucose 113 H 140 H 118 H (70-105) mg/dL
[2020-07-02] MEDS: metroNIDAZOLE 500 MG TAB PO SCH ×2 (15:19→21:56)
[2020-07-02] MEDS ORDERED: VANCOMYCIN 2,000 MG in SODIUM CHLORIDE 0.9% 500 ML 500 ML IV SCH (18:00)
[2020-07-02] MEDS: oxyCODONE /ACETAMINOPHEN 5-325MG TAB PO PRN (21:59)
[2020-07-03 06:21] LABS: Hematocrit 34.4 % (35.5-45.6); Hemoglobin 12.1 gm/dl (11.8-15.2); Mean Corpuscular HGB Conc 35 % (32-34); Mean Corpuscular Volume 81 fl (84-94); Platelet Count 396 K/mm3 (140-440); Red Blood Count 4.23 M/mm3 (3.65-5.03); Red Cell Distribution Width 13.5 % (13.2-15.2)
[2020-07-03 06:39] LABS: Alanine Aminotransferase 46 units/L (7-56); Albumin 2.6 g/dL (3.9-5); BUN/Creatinine Ratio 12; Blood Urea Nitrogen 11 mg/dL (9-20); Calcium 8.2 mg/dL (8.4-10.2); Hemolysis Index 19
[2020-07-03] MEDS: metroNIDAZOLE 500 MG TAB PO SCH ×3 (06:55→21:50)
[2020-07-03 07:56] LABS: Total Cells Counted 100
[2020-07-03 07:57] LABS: Anisocytosis 1+; Platelet Estimate Consistent w Auto
[2020-07-03] MEDS: INSULIN LISPRO 100 UNIT/ML SUB-Q SCH ×4 (09:31→21:51)
[2020-07-03] MEDS: CEFEPIME/NS 2 GM/100 ML 2 GM/100 ML BAG IV SCH ×2 (09:36→21:49)
[2020-07-03] MEDS: FAMOTIDINE 20 MG TAB PO SCH ×2 (09:36→21:52)
[2020-07-03] MEDS: INSULIN NPH/REGULAR 70/30 INJ SUB-Q SCH ×2 (09:37→16:19)
--- NOTE | 2020-07-03 10:38 | Progress Note ---
Assessment and Plan Assessment and plan: #Sepsis Secondary to right foot osteomyelitis Continue cefepime, Flagyl and vancomycin Follow-up operating room cultures Vascular studies -abnormal Dopplers. Vascular surgeon recommendations appreciated. No indication for CT at this time Patient is to follow-up with vascular surgery in the office Needs IV antibiotics for 6-weeks due to osteomyelitis when stable for discharge #Diabetes mellitus Continue blood glucose monitoring Lantus and lispro #Peripheral artery disease Has abnormal Doppler lower extremities CTA runoff no recommended at this time per vascular surgery Needs a follow-up with vascular surgeon at the office if wound not healing appropriately #Obesity Diet and exercise advised #HTN Started on amlodipine #DVT prophylaxis-Heparin History Interval history: The patient is a 39-year-old male with a history of diabetes who states he had a callus on his right foot for approximately 2 to 3 weeks. He states that approximately 1 week ago he developed an abscess deep to the callus that caused him to become sick and prompted him to present to the hospital. Prior to that the patient denies having any history of neuropathy in his foot. He denies any history of claudication and states that he recently decided to take his health more seriously and began walking 2 to 3 miles daily. 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 06/26/2020 Infectious disease consult appreciated Continue IV antibiotics Surgery consult requested 06/27/2020 Patient on IV antibiotics 06/28/2020 Patient on IV antibiotics For incision and drainage tomorrow by Dr. Torrez 06/29/2020 Patient had incision and drainage of the right foot abscess which was extensive Surgery done by Dr. Torrez 06/30/2020 Patient had I&D done by Dr. Torrez Postop patient doing well 07/01/2020 Waiting for wound cultures and antibiotic sensitivity 07/02. Patient is status post I&D on 06/29. Patient remains on IV cefepime , Flagyl and vancomycin. ID is following. Operative cultures pending. Patient had abnormal Doppler of the lower extremities so vascular surgery was consulted. No acute indication for CTA runoff at this time per vascular surgery. Recommend study if wound not healing appropriately. Continue 70/30 insulin. Blood glucose stable at this time. He needs 6 weeks IV antibiotic therapy. Needs a PICC line 07/03. Remains on IV antibiotics. Blood pressure elevated today so started patient on amlodipine. ID still following. Patient will need IV antibiotics for 6 weeks. Awaiting final ID recommendations Hospitalist Physical - Physical exam Narrative exam: VITAL SIGNS: Reviewed. GENERAL: Awake HEAD: No signs of head trauma. EYES: Pupils are equal. Extraocular motions intact. MOUTH: Oropharynx is normal. NECK: No adenopathy, no JVD. CHEST: Chest with diminished breath sounds bilaterally. No wheezes, rales, or rhonchi. CARDIAC: normal S1 and S2, without murmurs, gallops, or rubs. ABDOMEN: Soft, non tender and non distended. No rebound or guarding, and no masses palpated. Bowel Sounds normal. MUSCULOSKELETAL: Right lower extremity: Right foot dressing intact and clean NEUROLOGIC EXAM: Alert and oriented x3. No focal neurologic deficits SKIN: No obvious lesions - Constitutional Vitals: Temp Pulse Resp BP Pulse Ox 98.7 F 81 18 158/102 99 07/03/20 07:37 07/03/20 07:37 07/03/20 07:37 07/03/20 07:37 07/03/20 07:37 Results - Labs CBC & Chem 7: 07/03/20 05:57 07/03/20 05:57 Labs: Laboratory Last Values WBC 16.2 K/mm3 (4.5-11.0) H 07/03/20 05:57 RBC 4.23 M/mm3 (3.65-5.03) 07/03/20 05:57 Hgb 12.1 gm/dl (11.8-15.2) 07/03/20 05:57 Hct 34.4 % (35.5-45.6) L 07/03/20 05:57 MCV 81 fl (84-94) L 07/03/20 05:57 MCH 29 pg (28-32) 07/03/20 05:57 MCHC 35 % (32-34) H 07/03/20 05:57 RDW 13.5 % (13.2-15.2) 07/03/20 05:57 Plt Count 396 K/mm3 (140-440) 07/03/20 05:57 Add Manual Diff Complete 07/03/20 05:57 Total Counted 100 07/03/20 05:57 Seg Neuts % (Manual) 82.0 % (40.0-70.0) H 07/03/20 05:57 Band Neutrophils % 1.0 % 06/30/20 06:15 Lymphocytes % (Manual) 6.0 % (13.4-35.0) L 07/03/20 05:57 Monocytes % (Manual) 8.0 % (0.0-7.3) H 07/03/20 05:57 Eosinophils % (Manual) 3.0 % (0.0-4.3) 07/03/20 05:57 Basophils % (Manual) 1.0 % (0.0-1.8) 07/03/20 05:57 Nucleated RBC % Not Reportable 07/03/20 05:57 Seg Neutrophils # Man 13.3 K/mm3 (1.8-7.7) H 07/03/20 05:57 Band Neutrophils # 0.0 K/mm3 07/03/20 05:57 Lymphocytes # (Manual) 1.0 K/mm3 (1.2-5.4) L 07/03/20 05:57 Abs React Lymphs (Man) 0.0 K/mm3 07/03/20 05:57 Monocytes # (Manual) 1.3 K/mm3 (0.0-0.8) H 07/03/20 05:57 Eosinophils # (Manual) 0.5 K/mm3 (0.0-0.4) H 07/03/20 05:57 Basophils # (Manual) 0.2 K/mm3 (0.0-0.1) H 07/03/20 05:57 Metamyelocytes # 0.0 K/mm3 07/03/20 05:57 Myelocytes # 0.0 K/mm3 07/03/20 05:57 Promyelocytes # 0.0 K/mm3 07/03/20 05:57 Blast Cells # 0.0 K/mm3 07/03/20 05:57 WBC Morphology Not Reportable 07/03/20 05:57 Hypersegmented Neuts Not Reportable 07/03/20 05:57 Hyposegmented Neuts Not Reportable 07/03/20 05:57 Hypogranular Neuts Not Reportable 07/03/20 05:57 Smudge Cells Not Reportable 07/03/20 05:57 Toxic Granulation Not Reportable 07/03/20 05:57 Toxic Vacuolation Not Reportable 07/03/20 05:57 Dohle Bodies Not Reportable 07/03/20 05:57 Pelger-Huet Anomaly Not Reportable 07/03/20 05:57 Nivia Rods Not Reportable 07/03/20 05:57 Platelet Estimate Consistent w auto 07/03/20 05:57 Clumped Platelets Not Reportable 07/03/20 05:57 Plt Clumps, EDTA Not Reportable 07/03/20 05:57 Large Platelets Not Reportable 07/03/20 05:57 Giant Platelets Not Reportable 07/03/20 05:57 Platelet Satelliting Not Reportable 07/03/20 05:57 Plt Morphology Comment Not Reportable 07/03/20 05:57 RBC Morphology Not Reportable 07/03/20 05:57 Dimorphic RBCs Not Reportable 07/03/20 05:57 Polychromasia Not Reportable 07/03/20 05:57 Hypochromasia Not Reportable 07/03/20 05:57 Poikilocytosis Not Reportable 07/03/20 05:57 Anisocytosis 1+ 07/03/20 05:57 Microcytosis Not Reportable 07/03/20 05:57 Macrocytosis Not Reportable 07/03/20 05:57 Spherocytes Not Reportable 07/03/20 05:57 Pappenheimer Bodies Not Reportable 07/03/20 05:57 Sickle Cells Not Reportable 07/03/20 05:57 Target Cells Not Reportable 07/03/20 05:57 Tear Drop Cells Not Reportable 07/03/20 05:57 Ovalocytes Not Reportable 07/03/20 05:57 Helmet Cells Not Reportable 07/03/20 05:57 Kessler-Haughton Bodies Not Reportable 07/03/20 05:57 [place] Rings Not Reportable 07/03/20 05:57 Dell Cells Not Reportable 07/03/20 05:57 Bite Cells Not Reportable 07/03/20 05:57 Crenated Cell Not Reportable 07/03/20 05:57 Elliptocytes Not Reportable 07/03/20 05:57 Acanthocytes (Spur) Not Reportable 07/03/20 05:57 Rouleaux Not Reportable 07/03/20 05:57 Hemoglobin C Crystals Not Reportable 07/03/20 05:57 Schistocytes Not Reportable 07/03/20 05:57 Malaria parasites Not Reportable 07/03/20 05:57 Jurgen Bodies Not Reportable 07/03/20 05:57 Hem Pathologist Commnt No 07/03/20 05:57 PT 14.6 Sec. (12.2-14.9) 06/25/20 15:28 INR 1.16 (0.87-1.13) H 06/25/20 15:28 VBG pH 7.403 (7.320-7.420) 06/25/20 15:28 Sodium 136 mmol/L (137-145) L 07/03/20 05:57 Potassium 4.4 mmol/L (3.6-5.0) D 07/03/20 05:57 Chloride 101.5 mmol/L (98-107) 07/03/20 05:57 Carbon Dioxide 26 mmol/L (22-30) 07/03/20 05:57 Anion Gap 13 mmol/L 07/03/20 05:57 BUN 11 mg/dL (9-20) 07/03/20 05:57 Creatinine 0.9 mg/dL (0.8-1.3) 07/03/20 05:57 Estimated GFR > 60 ml/min 07/03/20 05:57 BUN/Creatinine Ratio 12 % 07/03/20 05:57 Glucose 102 mg/dL (75-100) H 07/03/20 05:57 POC Glucose 99 mg/dL (70-105) 07/03/20 07:37 Hemoglobin A1c 9.1 % (4-6) H 07/03/20 05:57 Lactic Acid 1.20 mmol/L (0.7-2.0) 06/25/20 15:28 Calcium 8.2 mg/dL (8.4-10.2) L 07/03/20 05:57 Total Bilirubin 0.50 mg/dL (0.1-1.2) 07/03/20 05:57 AST 52 units/L (5-40) H 07/03/20 05:57 ALT 46 units/L (7-56) 07/03/20 05:57 Alkaline Phosphatase 132 units/L (35-129) H 07/03/20 05:57 C-Reactive Protein 8.50 mg/dL (0.00-1.30) H 07/02/20 15:26 Total Protein 8.0 g/dL (6.3-8.2) 07/03/20 05:57 Albumin 2.6 g/dL (3.9-5) L 07/03/20 05:57 Albumin/Globulin Ratio 0.5 % 07/03/20 05:57 Urine Color [place] (Yellow) 06/26/20 11:50 Urine Turbidity Clear (Clear) 06/26/20 11:50 Urine pH 6.0 (5.0-7.0) 06/26/20 11:50 Ur Specific [place] 1.023 (1.003-1.030) 06/26/20 11:50 Urine Protein 100 mg/dl mg/dL (Negative) 06/26/20 11:50 Urine Glucose (UA) 150 mg/dL (Negative) 06/26/20 11:50 Urine Ketones 20 mg/dL (Negative) 06/26/20 11:50 Urine Blood Neg (Negative) 06/26/20 11:50 Urine Nitrite Neg (Negative) 06/26/20 11:50 Urine Bilirubin Neg (Negative) 06/26/20 11:50 Urine Urobilinogen 4.0 mg/dL (<2.0) 06/26/20 11:50 Ur Leukocyte Esterase Neg (Negative) 06/26/20 11:50 Urine WBC (Auto) 2.0 /HPF (0.0-6.0) 06/26/20 11:50 Urine RBC (Auto) 3.0 /HPF (0.0-6.0) 06/26/20 11:50 U Epithel Cells (Auto) 1.0 /HPF (0-13.0) 06/26/20 11:50 Urine Mucus Few /HPF 06/26/20 11:50 Vancomycin Trough 7.2 ug/mL (5.0-20.0) 06/28/20 15:01 Microbiology: Microbiology 06/29/20 Unknown Foot - Right Surgical Culture - Preliminary Ramirez/IV: Voiding Method Toilet Active Medications - Current Medications Current Medications: Generic Name Dose Route Start Last Admin Trade Name Freq PRN Reason Stop Dose Admin Acetaminophen 650 mg 06/25/20 22:56 07/01/20 13:57 Acetaminophen 325 Mg Tab PO 650 mg Q4H PRN Administration Pain MILD(1-3)/Fever >100.5/HERNANDEZ Amlodipine Besylate 10 mg 07/03/20 11:00 Amlodipine 10 Mg Tab PO QDAY ERIC Famotidine 20 mg 06/26/20 10:00 07/03/20 09:36 Famotidine 20 Mg Tab PO 20 mg BID ERIC Administration Cefepime HCl 2 gm in 100 mls @ 200 mls/hr 06/26/20 13:00 07/03/20 09:36 Cefepime/Ns 2 Gm/100 Ml IV 08/10/20 22:29 200 mls/hr Q12HR ERIC Administration Protocol Lactated Ringer's 1,000 mls @ 100 mls/hr 06/29/20 11:30 06/30/20 22:01 Lactated Ringers IV 100 mls/hr DIRECT ERIC Administration Insulin Human Isoph/Insulin Regular 16 unit 06/26/20 08:00 07/03/20 09:37 Insulin Nph/Regular 70/30 Inj SUB-Q 16 unit BIDDIAB ERIC Administration Insulin Human Lispro 0 unit 06/26/20 07:30 07/03/20 09:31 Insulin Lispro 100 Unit/Ml SUB-Q Not Given ACHS [facility] Protocol Metoclopramide HCl 10 mg 06/25/20 22:57 Metoclopramide 10 Mg/2 Ml Inj IV Q6H PRN Nausea And Vomiting Metronidazole 500 mg 07/02/20 14:00 07/03/20 06:55 Metronidazole 500 Mg Tab PO 07/13/20 22:01 500 mg Q8HR [facility] Administration Protocol Morphine Sulfate 2 mg 06/25/20 22:57 07/01/20 22:18 Morphine 2 Mg/1 Ml Inj IV 2 mg Q4H PRN Administration Pain, Moderate (4-6) Ondansetron HCl 4 mg 06/25/20 22:56 Ondansetron 4 Mg/2 Ml Inj IV Q3H PRN Nausea And Vomiting Oxycodone/Acetaminophen 1 tab 06/25/20 22:57 07/02/20 21:59 Oxycodone /Acetaminophen 5-325mg Tab PO 1 tab Q6H PRN Administration Pain, Moderate (4-6) Sodium Chloride 10 ml 06/26/20 10:00 07/03/20 09:49 Sodium Chloride 0.9% 10 Ml Flush Syringe IV Not Given BID ERIC Sodium Chloride 10 ml 06/25/20 22:56 Sodium Chloride 0.9% 10 Ml Flush Syringe IV PRN PRN LINE FLUSH Tramadol HCl 50 mg 06/25/20 23:00 Tramadol 50 Mg Tab PO Q6H PRN Pain, Moderate (4-6) Zolpidem Tartrate 5 mg 06/27/20 17:54 06/29/20 21:18 Zolpidem 5 Mg Tab PO 5 mg QHS PRN Administration Sleep Nutrition/Malnutrition Assess - Dietary Evaluation Nutrition/Malnutrition Findings: Nutrition Notes Start: 07/02/20 11:17 Freq: Status: Active Protocol: Document 07/02/20 11:17 HAYLEE (Rec: 07/02/20 11:28 HAYLEE [id number]) Co-Sign 07/02/20 11:17 MK Nutrition Notes Need for Assessment generated from: LOS Initial or Follow up Assessment Current Diagnosis Diabetes,Malnutrition Other Pertinent Diagnosis surgical and diabetic ulcers, smoker Current Diet Consistent CHO Labs/Tests 06/30 Na 136 K 3.4 Pertinent Medications Insulin Height 6 ft 2 in Weight 107.5 kg [place] Body Weight (kg) 86.36 BMI 30.4 Intake Prior to Admission Good Weight Status Obese Subjective/Other Information Screened for LOS. Pt reports consuming no more than 75% meals, but states it is the same amount that he normally eats at home. Pt reports no recent wt loss. Percent of energy/protein needs met: 68%/56% Burn Absent Trauma Absent GI Symptoms None Food Allergy No Current % PO Fair (50-74%) Minimum of two criteria No physical signs of malnutrition #1 Nutrition Diagnosis Increased nutrient needs ( specify in comment below) Comments: protein Etiology wound healing As Evidenced by Signs and Symptoms surgical and diabetic ulcers Is patient on ventilator? No Is Patient Ambulatory and/or Out of Bed Yes REE-([facility]-ambulatory/OOB) [ [id number] [id number]] Kcal/Kg value to use for calculation 21 Approximate Energy Requirements Using 2258 kcal/Kg Calculation Used for Recommendations Kcal/kg Additional Notes Pro: 121-146g (1.25-1.5g/kg AdjBW, 97kg) Fluid: 1 ml/kcal Nutrition Intervention Change Diet Order: Continue current Add Supplement/Snack (indicate name/kcal Ensure HP BID /protein ) Raphael BID Provides kCal: 415 Provides Protein (gm) 37 Goal #1 Meet at least 75% energy and protein needs via PO/ONS Goal #2 Wound healing Anticipated Discharge Needs: Consistent CHO diet Follow-Up By: 07/06/20 Additional Comments F/U for PO/ONS/Raphael intakes
[2020-07-03] MEDS: amLODIPine 10 MG TAB PO SCH (11:42)
[2020-07-03] MEDS: oxyCODONE /ACETAMINOPHEN 5-325MG TAB PO PRN (21:53)
[2020-07-04] MEDS: metroNIDAZOLE 500 MG TAB PO SCH ×3 (06:22→22:13)
[2020-07-04 06:53] LABS: Hematocrit 38.1 % (35.5-45.6); Mean Corpuscular HGB Conc 34 % (32-34); Mean Corpuscular Volume 82 fl (84-94); Platelet Count 506 K/mm3 (140-440); Red Blood Count 4.66 M/mm3 (3.65-5.03); Red Cell Distribution Width 13.7 % (13.2-15.2)
[2020-07-04 07:15] LABS: Alanine Aminotransferase 51 units/L (7-56); Albumin 3.1 g/dL (3.9-5); BUN/Creatinine Ratio 10; Blood Urea Nitrogen 10 mg/dL (9-20); Calcium 8.6 mg/dL (8.4-10.2); Hemolysis Index 4
[2020-07-04] MEDS: INSULIN LISPRO 100 UNIT/ML SUB-Q SCH ×4 (08:05→22:11)
[2020-07-04] MEDS: INSULIN NPH/REGULAR 70/30 INJ SUB-Q SCH ×2 (08:06→16:42)
[2020-07-04 08:35] LABS: Total Cells Counted 100
[2020-07-04 08:39] LABS: Platelet Estimate Consistent w Auto; RBC Morphology Normal
[2020-07-04] MEDS: FAMOTIDINE 20 MG TAB PO SCH ×2 (09:18→22:13)
[2020-07-04] MEDS: CEFEPIME/NS 2 GM/100 ML 2 GM/100 ML BAG IV SCH ×2 (09:18→22:13)
[2020-07-04] MEDS: amLODIPine 10 MG TAB PO SCH (09:19)
--- NOTE | 2020-07-04 10:17 | Progress Note ---
Assessment and Plan Assessment and plan: #Sepsis Secondary to right foot osteomyelitis DC vancomycin Continue cefepime and Flagyl Follow-up operating room cultures Vascular studies -abnormal Dopplers. Vascular surgeon recommendations appreciated. No indication for CT at this time Patient is to follow-up with vascular surgery in the office Needs IV antibiotics for 6-weeks due to osteomyelitis when stable for discharge #Diabetes mellitus Continue blood glucose monitoring Lantus and lispro #Peripheral artery disease Has abnormal Doppler lower extremities CTA runoff no recommended at this time per vascular surgery Needs a follow-up with vascular surgeon at the office if wound not healing appropriately #Obesity Diet and exercise advised #HTN Continue amlodipine #DVT prophylaxis-Heparin History Interval history: The patient is a 39-year-old male with a history of diabetes who states he had a callus on his right foot for approximately 2 to 3 weeks. He states that approximately 1 week ago he developed an abscess deep to the callus that caused him to become sick and prompted him to present to the hospital. Prior to that the patient denies having any history of neuropathy in his foot. He denies any history of claudication and states that he recently decided to take his health more seriously and began walking 2 to 3 miles daily. 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 06/26/2020 Infectious disease consult appreciated Continue IV antibiotics Surgery consult requested 06/27/2020 Patient on IV antibiotics 06/28/2020 Patient on IV antibiotics For incision and drainage tomorrow by Dr. Torrez 06/29/2020 Patient had incision and drainage of the right foot abscess which was extensive Surgery done by Dr. Torrez 06/30/2020 Patient had I&D done by Dr. Torrez Postop patient doing well 07/01/2020 Waiting for wound cultures and antibiotic sensitivity 07/02. Patient is status post I&D on 06/29. Patient remains on IV cefepime , Flagyl and vancomycin. ID is following. Operative cultures pending. Patient had abnormal Doppler of the lower extremities so vascular surgery was consulted. No acute indication for CTA runoff at this time per vascular surgery. Recommend study if wound not healing appropriately. Continue 70/30 insulin. Blood glucose stable at this time. He needs 6 weeks IV antibiotic therapy. Needs a PICC line 07/03. Remains on IV antibiotics. Blood pressure elevated today so started patient on amlodipine. ID still following. Patient will need IV antibiotics for 6 weeks. Awaiting final ID recommendations 07/04. On cefepime and Flagyl. WBC trended up to 18 today. Awaiting final ID recommendations. Per ID, if WBC continues to trend up, will reconsult surgery. Vitals stable this a.m. Hospitalist Physical - Physical exam Narrative exam: VITAL SIGNS: Reviewed. GENERAL: Awake HEAD: No signs of head trauma. EYES: Pupils are equal. Extraocular motions intact. MOUTH: Oropharynx is normal. NECK: No adenopathy, no JVD. CHEST: Chest with diminished breath sounds bilaterally. No wheezes, rales, or rhonchi. CARDIAC: normal S1 and S2, without murmurs, gallops, or rubs. ABDOMEN: Soft, non tender and non distended. No rebound or guarding, and no masses palpated. Bowel Sounds normal. MUSCULOSKELETAL: Right lower extremity: Right foot dressing intact and clean NEUROLOGIC EXAM: Alert and oriented x3. No focal neurologic deficits SKIN: No obvious lesions - Constitutional Vitals: Temp Pulse Resp BP Pulse Ox 98.3 F 100 H 16 128/80 98 07/04/20 07:15 07/04/20 07:15 07/04/20 07:15 07/04/20 09:18 07/04/20 07:15 Results - Labs CBC & Chem 7: 07/04/20 06:45 07/04/20 06:45 Labs: Laboratory Last Values WBC 18.4 K/mm3 (4.5-11.0) H 07/04/20 06:45 RBC 4.66 M/mm3 (3.65-5.03) 07/04/20 06:45 Hgb 13.0 gm/dl (11.8-15.2) 07/04/20 06:45 Hct 38.1 % (35.5-45.6) 07/04/20 06:45 MCV 82 fl (84-94) L 07/04/20 06:45 MCH 28 pg (28-32) 07/04/20 06:45 MCHC 34 % (32-34) 07/04/20 06:45 RDW 13.7 % (13.2-15.2) 07/04/20 06:45 Plt Count 506 K/mm3 (140-440) H 07/04/20 06:45 Add Manual Diff Complete 07/04/20 06:45 Total Counted 100 07/04/20 06:45 Seg Neuts % (Manual) 80.0 % (40.0-70.0) H 07/04/20 06:45 Band Neutrophils % 1.0 % 06/30/20 06:15 Lymphocytes % (Manual) 17.0 % (13.4-35.0) 07/04/20 06:45 Monocytes % (Manual) 2.0 % (0.0-7.3) 07/04/20 06:45 Eosinophils % (Manual) 1.0 % (0.0-4.3) 07/04/20 06:45 Basophils % (Manual) 1.0 % (0.0-1.8) 07/03/20 05:57 Nucleated RBC % Not Reportable 07/04/20 06:45 Seg Neutrophils # Man 14.7 K/mm3 (1.8-7.7) H 07/04/20 06:45 Band Neutrophils # 0.0 K/mm3 07/04/20 06:45 Lymphocytes # (Manual) 3.1 K/mm3 (1.2-5.4) 07/04/20 06:45 Abs React Lymphs (Man) 0.0 K/mm3 07/04/20 06:45 Monocytes # (Manual) 0.4 K/mm3 (0.0-0.8) 07/04/20 06:45 Eosinophils # (Manual) 0.2 K/mm3 (0.0-0.4) 07/04/20 06:45 Basophils # (Manual) 0.0 K/mm3 (0.0-0.1) 07/04/20 06:45 Metamyelocytes # 0.0 K/mm3 07/04/20 06:45 Myelocytes # 0.0 K/mm3 07/04/20 06:45 Promyelocytes # 0.0 K/mm3 07/04/20 06:45 Blast Cells # 0.0 K/mm3 07/04/20 06:45 WBC Morphology Not Reportable 07/04/20 06:45 Hypersegmented Neuts Not Reportable 07/04/20 06:45 Hyposegmented Neuts Not Reportable 07/04/20 06:45 Hypogranular Neuts Not Reportable 07/04/20 06:45 Smudge Cells Not Reportable 07/04/20 06:45 Toxic Granulation Not Reportable 07/04/20 06:45 Toxic Vacuolation Not Reportable 07/04/20 06:45 Dohle Bodies Not Reportable 07/04/20 06:45 Pelger-Huet Anomaly Not Reportable 07/04/20 06:45 Nivia Rods Not Reportable 07/04/20 06:45 Platelet Estimate Consistent w auto 07/04/20 06:45 Clumped Platelets Not Reportable 07/04/20 06:45 Plt Clumps, EDTA Not Reportable 07/04/20 06:45 Large Platelets Not Reportable 07/04/20 06:45 Giant Platelets Not Reportable 07/04/20 06:45 Platelet Satelliting Not Reportable 07/04/20 06:45 Plt Morphology Comment Not Reportable 07/04/20 06:45 RBC Morphology Normal 07/04/20 06:45 Dimorphic RBCs Not Reportable 07/04/20 06:45 Polychromasia Not Reportable 07/04/20 06:45 Hypochromasia Not Reportable 07/04/20 06:45 Poikilocytosis Not Reportable 07/04/20 06:45 Anisocytosis Not Reportable 07/04/20 06:45 Microcytosis Not Reportable 07/04/20 06:45 Macrocytosis Not Reportable 07/04/20 06:45 Spherocytes Not Reportable 07/04/20 06:45 Pappenheimer Bodies Not Reportable 07/04/20 06:45 Sickle Cells Not Reportable 07/04/20 06:45 Target Cells Not Reportable 07/04/20 06:45 Tear Drop Cells Not Reportable 07/04/20 06:45 Ovalocytes Not Reportable 07/04/20 06:45 Helmet Cells Not Reportable 07/04/20 06:45 [place] Bodies Not Reportable 07/04/20 06:45 [place] Rings Not Reportable 07/04/20 06:45 [place] Cells Not Reportable 07/04/20 06:45 Bite Cells Not Reportable 07/04/20 06:45 Crenated Cell Not Reportable 07/04/20 06:45 Elliptocytes Not Reportable 07/04/20 06:45 Acanthocytes (Spur) Not Reportable 07/04/20 06:45 Rouleaux Not Reportable 07/04/20 06:45 Hemoglobin C Crystals Not Reportable 07/04/20 06:45 Schistocytes Not Reportable 07/04/20 06:45 Malaria parasites Not Reportable 07/04/20 06:45 Jurgen Bodies Not Reportable 07/04/20 06:45 Hem Pathologist Commnt No 07/04/20 06:45 PT 14.6 Sec. (12.2-14.9) 06/25/20 15:28 INR 1.16 (0.87-1.13) H 06/25/20 15:28 VBG pH 7.403 (7.320-7.420) 06/25/20 15:28 Sodium 135 mmol/L (137-145) L 07/04/20 06:45 Potassium 4.1 mmol/L (3.6-5.0) 07/04/20 06:45 Chloride 99.1 mmol/L (98-107) 07/04/20 06:45 Carbon Dioxide 27 mmol/L (22-30) 07/04/20 06:45 Anion Gap 13 mmol/L 07/04/20 06:45 BUN 10 mg/dL (9-20) 07/04/20 06:45 Creatinine 1.0 mg/dL (0.8-1.3) 07/04/20 06:45 Estimated GFR > 60 ml/min 07/04/20 06:45 BUN/Creatinine Ratio 10 % 07/04/20 06:45 Glucose 110 mg/dL (75-100) H 07/04/20 06:45 POC Glucose 112 mg/dL (70-105) H 07/04/20 07:14 Hemoglobin A1c 9.1 % (4-6) H 07/03/20 05:57 Lactic Acid 1.20 mmol/L (0.7-2.0) 06/25/20 15:28 Calcium 8.6 mg/dL (8.4-10.2) 07/04/20 06:45 Total Bilirubin 0.50 mg/dL (0.1-1.2) 07/04/20 06:45 AST 46 units/L (5-40) H 07/04/20 06:45 ALT 51 units/L (7-56) 07/04/20 06:45 Alkaline Phosphatase 142 units/L (35-129) H 07/04/20 06:45 C-Reactive Protein 8.50 mg/dL (0.00-1.30) H 07/02/20 15:26 Total Protein 9.4 g/dL (6.3-8.2) H 07/04/20 06:45 Albumin 3.1 g/dL (3.9-5) L 07/04/20 06:45 Albumin/Globulin Ratio 0.5 % 07/04/20 06:45 Urine Color Rosalia (Yellow) 06/26/20 11:50 Urine Turbidity Clear (Clear) 06/26/20 11:50 Urine pH 6.0 (5.0-7.0) 06/26/20 11:50 Ur Specific Horace 1.023 (1.003-1.030) 06/26/20 11:50 Urine Protein 100 mg/dl mg/dL (Negative) 06/26/20 11:50 Urine Glucose (UA) 150 mg/dL (Negative) 06/26/20 11:50 Urine Ketones 20 mg/dL (Negative) 06/26/20 11:50 Urine Blood Neg (Negative) 06/26/20 11:50 Urine Nitrite Neg (Negative) 06/26/20 11:50 Urine Bilirubin Neg (Negative) 06/26/20 11:50 Urine Urobilinogen 4.0 mg/dL (<2.0) 06/26/20 11:50 Ur Leukocyte Esterase Neg (Negative) 06/26/20 11:50 Urine WBC (Auto) 2.0 /HPF (0.0-6.0) 06/26/20 11:50 Urine RBC (Auto) 3.0 /HPF (0.0-6.0) 06/26/20 11:50 U Epithel Cells (Auto) 1.0 /HPF (0-13.0) 06/26/20 11:50 Urine Mucus Few /HPF 06/26/20 11:50 Vancomycin Trough 7.2 ug/mL (5.0-20.0) 06/28/20 15:01 Ramirez/IV: Voiding Method Toilet Active Medications - Current Medications Current Medications: Generic Name Dose Route Start Last Admin Trade Name Freq PRN Reason Stop Dose Admin Acetaminophen 650 mg 06/25/20 22:56 07/01/20 13:57 Acetaminophen 325 Mg Tab PO 650 mg Q4H PRN Administration Pain MILD(1-3)/Fever >100.5/HERNANDEZ Amlodipine Besylate 10 mg 07/03/20 11:00 07/04/20 09:19 Amlodipine 10 Mg Tab PO Not Given QDAY ERIC Famotidine 20 mg 06/26/20 10:00 07/04/20 09:18 Famotidine 20 Mg Tab PO 20 mg BID ERIC Administration Cefepime HCl 2 gm in 100 mls @ 200 mls/hr 06/26/20 13:00 07/04/20 09:18 Cefepime/Ns 2 Gm/100 Ml IV 08/10/20 22:29 200 mls/hr Q12HR ERIC Administration Protocol Lactated Ringer's 1,000 mls @ 100 mls/hr 06/29/20 11:30 06/30/20 22:01 Lactated Ringers IV 100 mls/hr DIRECT ERIC Administration Insulin Human Isoph/Insulin Regular 16 unit 06/26/20 08:00 07/04/20 08:06 Insulin Nph/Regular 70/30 Inj SUB-Q Not Given BIDDIAB [facility] Insulin Human Lispro 0 unit 06/26/20 07:30 07/04/20 08:05 Insulin Lispro 100 Unit/Ml SUB-Q Not Given ACHS [facility] Protocol Metoclopramide HCl 10 mg 06/25/20 22:57 Metoclopramide 10 Mg/2 Ml Inj IV Q6H PRN Nausea And Vomiting Metronidazole 500 mg 07/02/20 14:00 07/04/20 06:22 Metronidazole 500 Mg Tab PO 07/13/20 22:01 500 mg Q8HR [facility] Administration Protocol Morphine Sulfate 2 mg 06/25/20 22:57 07/01/20 22:18 Morphine 2 Mg/1 Ml Inj IV 2 mg Q4H PRN Administration Pain, Moderate (4-6) Ondansetron HCl 4 mg 06/25/20 22:56 Ondansetron 4 Mg/2 Ml Inj IV Q3H PRN Nausea And Vomiting Oxycodone/Acetaminophen 1 tab 06/25/20 22:57 07/03/20 21:53 Oxycodone /Acetaminophen 5-325mg Tab PO 1 tab Q6H PRN Administration Pain, Moderate (4-6) Sodium Chloride 10 ml 06/26/20 10:00 07/04/20 09:19 Sodium Chloride 0.9% 10 Ml Flush Syringe IV 10 ml BID ERIC Administration Sodium Chloride 10 ml 06/25/20 22:56 Sodium Chloride 0.9% 10 Ml Flush Syringe IV PRN PRN LINE FLUSH Tramadol HCl 50 mg 06/25/20 23:00 Tramadol 50 Mg Tab PO Q6H PRN Pain, Moderate (4-6) Zolpidem Tartrate 5 mg 06/27/20 17:54 06/29/20 21:18 Zolpidem 5 Mg Tab PO 5 mg QHS PRN Administration Sleep Nutrition/Malnutrition Assess - Dietary Evaluation Nutrition/Malnutrition Findings: Nutrition Notes Start: 07/02/20 11:17 Freq: Status: Active Protocol: Document 07/02/20 11:17 HAYLEE (Rec: 07/02/20 11:28 HAYLEE [email or web address]) Co-Sign 07/02/20 11:17 MK Nutrition Notes Need for Assessment generated from: LOS Initial or Follow up Assessment Current Diagnosis Diabetes,Malnutrition Other Pertinent Diagnosis surgical and diabetic ulcers, smoker Current Diet Consistent CHO Labs/Tests 06/30 Na 136 K 3.4 Pertinent Medications Insulin Height 6 ft 2 in Weight 107.5 kg [place] Body Weight (kg) 86.36 BMI 30.4 Intake Prior to Admission Good Weight Status Obese Subjective/Other Information Screened for LOS. Pt reports consuming no more than 75% meals, but states it is the same amount that he normally eats at home. Pt reports no recent wt loss. Percent of energy/protein needs met: 68%/56% Burn Absent Trauma Absent GI Symptoms None Food Allergy No Current % PO Fair (50-74%) Minimum of two criteria No physical signs of malnutrition #1 Nutrition Diagnosis Increased nutrient needs ( specify in comment below) Comments: protein Etiology wound healing As Evidenced by Signs and Symptoms surgical and diabetic ulcers Is patient on ventilator? No Is Patient Ambulatory and/or Out of Bed Yes REE-(Terrell-St. Jeor-ambulatory/OOB) [ 2684.175 [id number]] Kcal/Kg value to use for calculation 21 Approximate Energy Requirements Using 2258 kcal/Kg Calculation Used for Recommendations Kcal/kg Additional Notes Pro: 121-146g (1.25-1.5g/kg AdjBW, 97kg) Fluid: 1 ml/kcal Nutrition Intervention Change Diet Order: Continue current Add Supplement/Snack (indicate name/kcal Ensure HP BID /protein ) Raphael BID Provides kCal: 415 Provides Protein (gm) 37 Goal #1 Meet at least 75% energy and protein needs via PO/ONS Goal #2 Wound healing Anticipated Discharge Needs: Consistent CHO diet Follow-Up By: 07/06/20 Additional Comments F/U for PO/ONS/Raphael intakes
[2020-07-04] MEDS: oxyCODONE /ACETAMINOPHEN 5-325MG TAB PO PRN (19:27)
[2020-07-05] MEDS: metroNIDAZOLE 500 MG TAB PO SCH ×2 (06:09→17:03)
[2020-07-05 07:31] LABS: Basophils # (Auto) 0.1 K/mm3 (0.0-0.1); Eosinophils # (Auto) 0.2 K/mm3 (0.0-0.4); Eosinophils % (Auto) 1.2 % (0.0-4.3); Hematocrit 34.7 % (35.5-45.6); Hemoglobin 11.4 gm/dl (11.8-15.2); Lymphocytes # (Auto) 2.6 K/mm3 (1.2-5.4); Lymphocytes % (Auto) 18.9 % (13.4-35.0); Mean Corpuscular HGB Conc 33 % (32-34); Mean Corpuscular Volume 81 fl (84-94); Monocytes # (Auto) 1.4 K/mm3 (0.0-0.8); Monocytes % (Auto) 10.5 % (0.0-7.3); Platelet Count 510 K/mm3 (140-440); Red Blood Count 4.26 M/mm3 (3.65-5.03); Red Cell Distribution Width 14.1 % (13.2-15.2)
[2020-07-05 07:56] LABS: Alanine Aminotransferase 41 units/L (7-56); Albumin 2.7 g/dL (3.9-5); BUN/Creatinine Ratio 12; Blood Urea Nitrogen 11 mg/dL (9-20); Calcium 8.2 mg/dL (8.4-10.2); Hemolysis Index 6
[2020-07-05] MEDS: INSULIN LISPRO 100 UNIT/ML SUB-Q SCH ×3 (08:02→17:03)
[2020-07-05] MEDS: CEFEPIME/NS 2 GM/100 ML 2 GM/100 ML BAG IV SCH (09:06)
[2020-07-05] MEDS: amLODIPine 10 MG TAB PO SCH (09:06)
[2020-07-05] MEDS: FAMOTIDINE 20 MG TAB PO SCH (09:06)
[2020-07-05] MEDS: INSULIN NPH/REGULAR 70/30 INJ SUB-Q SCH ×2 (09:07→17:03)
[2020-07-05] MEDS: oxyCODONE /ACETAMINOPHEN 5-325MG TAB PO PRN (09:18)
--- NOTE | 2020-07-05 10:23 | Progress Note ---
Assessment and Plan Assessment and plan: #Sepsis Secondary to right foot osteomyelitis Continue cefepime and Flagyl complete cefepime on 08/10. Will complete Flagyl on 07/13. Follow-up operating room cultures Vascular studies -abnormal Dopplers. Vascular surgeon recommendations appreciated. No indication for CTA at this time Patient is to follow-up with vascular surgery in the office Needs IV antibiotics for 6-weeks due to osteomyelitis when stable for discharge PICC line #Diabetes mellitus Continue blood glucose monitoring Lantus and lispro #Peripheral artery disease Has abnormal Doppler lower extremities CTA runoff no recommended at this time per vascular surgery Needs a follow-up with vascular surgeon at the office if wound not healing appropriately #Obesity Diet and exercise advised #HTN Continue amlodipine #DVT prophylaxis-Heparin History Interval history: The patient is a 39-year-old male with a history of diabetes who states he had a callus on his right foot for approximately 2 to 3 weeks. He states that approximately 1 week ago he developed an abscess deep to the callus that caused him to become sick and prompted him to present to the hospital. Prior to that the patient denies having any history of neuropathy in his foot. He denies any history of claudication and states that he recently decided to take his health more seriously and began walking 2 to 3 miles daily. 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 06/26/2020 Infectious disease consult appreciated Continue IV antibiotics Surgery consult requested 06/27/2020 Patient on IV antibiotics 06/28/2020 Patient on IV antibiotics For incision and drainage tomorrow by Dr. Torrez 06/29/2020 Patient had incision and drainage of the right foot abscess which was extensive Surgery done by Dr. Torrez 06/30/2020 Patient had I&D done by Dr. Torrez Postop patient doing well 07/01/2020 Waiting for wound cultures and antibiotic sensitivity 07/02. Patient is status post I&D on 06/29. Patient remains on IV cefepime , Flagyl and vancomycin. ID is following. Operative cultures pending. Patient had abnormal Doppler of the lower extremities so vascular surgery was consulted. No acute indication for CTA runoff at this time per vascular surgery. Recommend study if wound not healing appropriately. Continue 70/30 insulin. Bl ood glucose stable at this time. He needs 6 weeks IV antibiotic therapy. Needs a PICC line 07/03. Remains on IV antibiotics. Blood pressure elevated today so started patient on amlodipine. ID still following. Patient will need IV antibiotics for 6 weeks. Awaiting final ID recommendations 07/04. On cefepime and Flagyl. WBC trended up to 18 today. Awaiting final ID recommendations. Per ID, if WBC continues to trend up, will reconsult surgery. Vitals stable this a.m. 07/05. On IV antibiotics. WBC down to 13. Needs IV antibiotics [cefepime and Flagyl] for 6 weeks -PICC line has been ordered. certified wellness program manager to set up outpatient antibiotics. He will follow-up with vascular surgeon in the office Hospitalist Physical - Physical exam Narrative exam: VITAL SIGNS: Reviewed. GENERAL: Awake HEAD: No signs of head trauma. EYES: Pupils are equal. Extraocular motions intact. MOUTH: Oropharynx is normal. NECK: No adenopathy, no JVD. CHEST: Chest with diminished breath sounds bilaterally. No wheezes, rales, or rhonchi. CARDIAC: normal S1 and S2, without murmurs, gallops, or rubs. ABDOMEN: Soft, non tender and non distended. No rebound or guarding, and no masses palpated. Bowel Sounds normal. MUSCULOSKELETAL: Right lower extremity: Right foot dressing intact and clean NEUROLOGIC EXAM: Alert and oriented x3. No focal neurologic deficits SKIN: No obvious lesions - Constitutional Vitals: Temp Pulse Resp BP Pulse Ox 98.4 F 73 20 129/84 99 07/05/20 07:28 07/05/20 07:28 07/05/20 07:28 07/05/20 07:28 07/05/20 07:28 Results - Labs CBC & Chem 7: 07/05/20 06:54 07/05/20 06:54 Labs: Laboratory Last Values WBC 13.6 K/mm3 (4.5-11.0) H 07/05/20 06:54 RBC 4.26 M/mm3 (3.65-5.03) 07/05/20 06:54 Hgb 11.4 gm/dl (11.8-15.2) L 07/05/20 06:54 Hct 34.7 % (35.5-45.6) L 07/05/20 06:54 MCV 81 fl (84-94) L 07/05/20 06:54 MCH 27 pg (28-32) L 07/05/20 06:54 MCHC 33 % (32-34) 07/05/20 06:54 RDW 14.1 % (13.2-15.2) 07/05/20 06:54 Plt Count 510 K/mm3 (140-440) H 07/05/20 06:54 Lymph % (Auto) 18.9 % (13.4-35.0) 07/05/20 06:54 [place] % (Auto) 10.5 % (0.0-7.3) H 07/05/20 06:54 Eos % (Auto) 1.2 % (0.0-4.3) 07/05/20 06:54 Baso % (Auto) 1.0 % (0.0-1.8) 07/05/20 06:54 Lymph # (Auto) 2.6 K/mm3 (1.2-5.4) 07/05/20 06:54 [place] # (Auto) 1.4 K/mm3 (0.0-0.8) H 07/05/20 06:54 Eos # (Auto) 0.2 K/mm3 (0.0-0.4) 07/05/20 06:54 Baso # (Auto) 0.1 K/mm3 (0.0-0.1) 07/05/20 06:54 Add Manual Diff Complete 07/04/20 06:45 Total Counted 100 07/04/20 06:45 Seg Neutrophils % 68.4 % (40.0-70.0) 07/05/20 06:54 Seg Neuts % (Manual) 80.0 % (40.0-70.0) H 07/04/20 06:45 Band Neutrophils % 1.0 % 06/30/20 06:15 Lymphocytes % (Manual) 17.0 % (13.4-35.0) 07/04/20 06:45 Monocytes % (Manual) 2.0 % (0.0-7.3) 07/04/20 06:45 Eosinophils % (Manual) 1.0 % (0.0-4.3) 07/04/20 06:45 Basophils % (Manual) 1.0 % (0.0-1.8) 07/03/20 05:57 Nucleated RBC % Not Reportable 07/04/20 06:45 Seg Neutrophils # 9.3 K/mm3 (1.8-7.7) H 07/05/20 06:54 Seg Neutrophils # Man 14.7 K/mm3 (1.8-7.7) H 07/04/20 06:45 Band Neutrophils # 0.0 K/mm3 07/04/20 06:45 Lymphocytes # (Manual) 3.1 K/mm3 (1.2-5.4) 07/04/20 06:45 Abs React Lymphs (Man) 0.0 K/mm3 07/04/20 06:45 Monocytes # (Manual) 0.4 K/mm3 (0.0-0.8) 07/04/20 06:45 Eosinophils # (Manual) 0.2 K/mm3 (0.0-0.4) 07/04/20 06:45 Basophils # (Manual) 0.0 K/mm3 (0.0-0.1) 07/04/20 06:45 Metamyelocytes # 0.0 K/mm3 07/04/20 06:45 Myelocytes # 0.0 K/mm3 07/04/20 06:45 Promyelocytes # 0.0 K/mm3 07/04/20 06:45 Blast Cells # 0.0 K/mm3 07/04/20 06:45 WBC Morphology Not Reportable 07/04/20 06:45 Hypersegmented Neuts Not Reportable 07/04/20 06:45 Hyposegmented Neuts Not Reportable 07/04/20 06:45 Hypogranular Neuts Not Reportable 07/04/20 06:45 Smudge Cells Not Reportable 07/04/20 06:45 Toxic Granulation Not Reportable 07/04/20 06:45 Toxic Vacuolation Not Reportable 07/04/20 06:45 Dohle Bodies Not Reportable 07/04/20 06:45 Pelger-Huet Anomaly Not Reportable 07/04/20 06:45 Nivia Rods Not Reportable 07/04/20 06:45 Platelet Estimate Consistent w auto 07/04/20 06:45 Clumped Platelets Not Reportable 07/04/20 06:45 Plt Clumps, EDTA Not Reportable 07/04/20 06:45 Large Platelets Not Reportable 07/04/20 06:45 Giant Platelets Not Reportable 07/04/20 06:45 Platelet Satelliting Not Reportable 07/04/20 06:45 Plt Morphology Comment Not Reportable 07/04/20 06:45 RBC Morphology Normal 07/04/20 06:45 Dimorphic RBCs Not Reportable 07/04/20 06:45 Polychromasia Not Reportable 07/04/20 06:45 Hypochromasia Not Reportable 07/04/20 06:45 Poikilocytosis Not Reportable 07/04/20 06:45 Anisocytosis Not Reportable 07/04/20 06:45 Microcytosis Not Reportable 07/04/20 06:45 Macrocytosis Not Reportable 07/04/20 06:45 Spherocytes Not Reportable 07/04/20 06:45 Pappenheimer Bodies Not Reportable 07/04/20 06:45 Sickle Cells Not Reportable 07/04/20 06:45 Target Cells Not Reportable 07/04/20 06:45 Tear Drop Cells Not Reportable 07/04/20 06:45 Ovalocytes Not Reportable 07/04/20 06:45 Helmet Cells Not Reportable 07/04/20 06:45 Kessler-Sinton Bodies Not Reportable 07/04/20 06:45 [place] Rings Not Reportable 07/04/20 06:45 Dell Cells Not Reportable 07/04/20 06:45 Bite Cells Not Reportable 07/04/20 06:45 Crenated Cell Not Reportable 07/04/20 06:45 Elliptocytes Not Reportable 07/04/20 06:45 Acanthocytes (Spur) Not Reportable 07/04/20 06:45 Rouleaux Not Reportable 07/04/20 06:45 Hemoglobin C Crystals Not Reportable 07/04/20 06:45 Schistocytes Not Reportable 07/04/20 06:45 Malaria parasites Not Reportable 07/04/20 06:45 Jurgen Bodies Not Reportable 07/04/20 06:45 Hem Pathologist Commnt No 07/04/20 06:45 PT 14.6 Sec. (12.2-14.9) 06/25/20 15:28 INR 1.16 (0.87-1.13) H 06/25/20 15:28 VBG pH 7.403 (7.320-7.420) 06/25/20 15:28 Sodium 136 mmol/L (137-145) L 07/05/20 06:54 Potassium 4.4 mmol/L (3.6-5.0) 07/05/20 06:54 Chloride 102.0 mmol/L (98-107) 07/05/20 06:54 Carbon Dioxide 25 mmol/L (22-30) 07/05/20 06:54 Anion Gap 13 mmol/L 07/05/20 06:54 BUN 11 mg/dL (9-20) 07/05/20 06:54 Creatinine 0.9 mg/dL (0.8-1.3) 07/05/20 06:54 Estimated GFR > 60 ml/min 07/05/20 06:54 BUN/Creatinine Ratio 12 % 07/05/20 06:54 Glucose 114 mg/dL (75-100) H 07/05/20 06:54 POC Glucose 108 mg/dL (70-105) H 07/04/20 21:04 Hemoglobin A1c 9.1 % (4-6) H 07/03/20 05:57 Lactic Acid 1.20 mmol/L (0.7-2.0) 06/25/20 15:28 Calcium 8.2 mg/dL (8.4-10.2) L 07/05/20 06:54 Total Bilirubin 0.30 mg/dL (0.1-1.2) 07/05/20 06:54 AST 36 units/L (5-40) 07/05/20 06:54 ALT 41 units/L (7-56) 07/05/20 06:54 Alkaline Phosphatase 113 units/L (35-129) 07/05/20 06:54 C-Reactive Protein 8.50 mg/dL (0.00-1.30) H 07/02/20 15:26 Total Protein 8.2 g/dL (6.3-8.2) 07/05/20 06:54 Albumin 2.7 g/dL (3.9-5) L 07/05/20 06:54 Albumin/Globulin Ratio 0.5 % 07/05/20 06:54 Urine Color Ros[place] (Yellow) 06/26/20 11:50 Urine Turbidity Clear (Clear) 06/26/20 11:50 Urine pH 6.0 (5.0-7.0) 06/26/20 11:50 Ur Specific [place] 1.023 (1.003-1.030) 06/26/20 11:50 Urine Protein 100 mg/dl mg/dL (Negative) 06/26/20 11:50 Urine Glucose (UA) 150 mg/dL (Negative) 06/26/20 11:50 Urine Ketones 20 mg/dL (Negative) 06/26/20 11:50 Urine Blood Neg (Negative) 06/26/20 11:50 Urine Nitrite Neg (Negative) 06/26/20 11:50 Urine Bilirubin Neg (Negative) 06/26/20 11:50 Urine Urobilinogen 4.0 mg/dL (<2.0) 06/26/20 11:50 Ur Leukocyte Esterase Neg (Negative) 06/26/20 11:50 Urine WBC (Auto) 2.0 /HPF (0.0-6.0) 06/26/20 11:50 Urine RBC (Auto) 3.0 /HPF (0.0-6.0) 06/26/20 11:50 U Epithel Cells (Auto) 1.0 /HPF (0-13.0) 06/26/20 11:50 Urine Mucus Few /HPF 06/26/20 11:50 Vancomycin Trough 7.2 ug/mL (5.0-20.0) 06/28/20 15:01 Microbiology: Microbiology 06/29/20 Unknown Foot - Right Anaerobic Culture - Final 06/29/20 Unknown Foot - Right Surgical Culture - Final Ramirez/IV: Voiding Method Toilet Active Medications - Current Medications Current Medications: Generic Name Dose Route Start Last Admin Trade Name Freq PRN Reason Stop Dose Admin Acetaminophen 650 mg 06/25/20 22:56 07/01/20 13:57 Acetaminophen 325 Mg Tab PO 650 mg Q4H PRN Administration Pain MILD(1-3)/Fever >100.5/HERNANDEZ Amlodipine Besylate 10 mg 07/03/20 11:00 07/05/20 09:06 Amlodipine 10 Mg Tab PO 10 mg QDAY ERIC Administration Famotidine 20 mg 06/26/20 10:00 07/05/20 09:06 Famotidine 20 Mg Tab PO 20 mg BID ERIC Administration Cefepime HCl 2 gm in 100 mls @ 200 mls/hr 06/26/20 13:00 07/05/20 09:06 Cefepime/Ns 2 Gm/100 Ml IV 08/10/20 22:29 200 mls/hr Q12HR ERIC Administration Protocol Lactated Ringer's 1,000 mls @ 100 mls/hr 06/29/20 11:30 06/30/20 22:01 Lactated Ringers IV 100 mls/hr DIRECT ERIC Administration Insulin Human Isoph/Insulin Regular 16 unit 06/26/20 08:00 07/05/20 09:07 Insulin Nph/Regular 70/30 Inj SUB-Q 16 unit BIDDIAB ERIC Administration Insulin Human Lispro 0 unit 06/26/20 07:30 07/05/20 08:02 Insulin Lispro 100 Unit/Ml SUB-Q Not Given ACHS [facility] Protocol Metoclopramide HCl 10 mg 06/25/20 22:57 Metoclopramide 10 Mg/2 Ml Inj IV Q6H PRN Nausea And Vomiting Metronidazole 500 mg 07/02/20 14:00 07/05/20 06:09 Metronidazole 500 Mg Tab PO 07/13/20 22:01 500 mg Q8HR ERIC Administration Protocol Morphine Sulfate 2 mg 06/25/20 22:57 07/01/20 22:18 Morphine 2 Mg/1 Ml Inj IV 2 mg Q4H PRN Administration Pain, Moderate (4-6) Ondansetron HCl 4 mg 06/25/20 22:56 Ondansetron 4 Mg/2 Ml Inj IV Q3H PRN Nausea And Vomiting Oxycodone/Acetaminophen 1 tab 06/25/20 22:57 07/05/20 09:18 Oxycodone /Acetaminophen 5-325mg Tab PO 1 tab Q6H PRN Administration Pain, Moderate (4-6) Sodium Chloride 10 ml 06/26/20 10:00 07/05/20 09:07 Sodium Chloride 0.9% 10 Ml Flush Syringe IV 10 ml BID ERIC Administration Sodium Chloride 10 ml 06/25/20 22:56 Sodium Chloride 0.9% 10 Ml Flush Syringe IV PRN PRN LINE FLUSH Tramadol HCl 50 mg 06/25/20 23:00 Tramadol 50 Mg Tab PO Q6H PRN Pain, Moderate (4-6) Zolpidem Tartrate 5 mg 06/27/20 17:54 06/29/20 21:18 Zolpidem 5 Mg Tab PO 5 mg QHS PRN Administration Sleep Nutrition/Malnutrition Assess - Dietary Evaluation Nutrition/Malnutrition Findings: Nutrition Notes Start: 07/02/20 11:17 Freq: Status: Active Protocol: Document 07/02/20 11:17 HAYLEE (Rec: 07/02/20 11:28 HAYLEE [id number]) Co-Sign 07/02/20 11:17 MK Nutrition Notes Need for Assessment generated from: LOS Initial or Follow up Assessment Current Diagnosis Diabetes,Malnutrition Other Pertinent Diagnosis surgical and diabetic ulcers, smoker Current Diet Consistent CHO Labs/Tests 06/30 Na 136 K 3.4 Pertinent Medications Insulin Height 6 ft 2 in Weight 107.5 kg [place] Body Weight (kg) 86.36 BMI 30.4 Intake Prior to Admission Good Weight Status Obese Subjective/Other Information Screened for LOS. Pt reports consuming no more than 75% meals, but states it is the same amount that he normally eats at home. Pt reports no recent wt loss. Percent of energy/protein needs met: 68%/56% Burn Absent Trauma Absent GI Symptoms None Food Allergy No Current % PO Fair (50-74%) Minimum of two criteria No physical signs of malnutrition #1 Nutrition Diagnosis Increased nutrient needs ( specify in comment below) Comments: protein Etiology wound healing As Evidenced by Signs and Symptoms surgical and diabetic ulcers Is patient on ventilator? No Is Patient Ambulatory and/or Out of Bed Yes REE-([facility]-ambulatory/OOB) [ 2684.175 NUTR.MSJOOB] Kcal/Kg value to use for calculation 21 Approximate Energy Requirements Using 2258 kcal/Kg Calculation Used for Recommendations Kcal/kg Additional Notes Pro: 121-146g (1.25-1.5g/kg AdjBW, 97kg) Fluid: 1 ml/kcal Nutrition Intervention Change Diet Order: Continue current Add Supplement/Snack (indicate name/kcal Ensure HP BID /protein ) Raphael BID Provides kCal: 415 Provides Protein (gm) 37 Goal #1 Meet at least 75% energy and protein needs via PO/ONS Goal #2 Wound healing Anticipated Discharge Needs: Consistent CHO diet Follow-Up By: 07/06/20 Additional Comments F/U for PO/ONS/Raphael intakes
--- NOTE | 2020-07-05 11:46 | Progress Note ---
Assessment and Plan Cultures: 06/25/2020 blood culture: No growth today 06/26/2020 urine culture no growth 06/29/2020 OR Cultures usual skin blanche A/P: 39-year-old male with insulin-dependent diabetes, ongoing tobacco abuse, history of right gluteal abscess and necrotizing infection in 2018 , now with: #Sepsis: improving, secondary to right foot diabetic infection WBC 29.5-->21 #Right diabetic foot infection with large abscess and osteomyelitis: MRI shows osteomyelitis in the distal fifth metatarsal and base fifth toe, large abscess 6 x 2 x 9 cm. Status post incision and drainage, debridement of right great toe ulcer on 06/29/2020. large post op surgical wound 13.2 x 6.4 x 1.5 cm with undermining. Tendons are exposed. Noted also right plantar great toe with black eschar. #Insulin-dependent diabetes mellitus: Maintain glycemic control #Ongoing tobacco abuse: Smoking cessation advised #Peripheral vascular disease: Arterial Dopplers abnormal. Per vascular there is adequate blood flow for healing. Recs: -Monitor leukocytosis not back to normal, close wound monitoring for ischemic changes if leukocytosis does not improve consider surgical reevaluation -Per vascular there is adequate blood flow for healing. -Intra-operative cultures negative -Continue cefepime and metronidazole -Anticipate to discharge on cefepime 2 gm IV q12h for 6 week till 08/10/2020 and flagyl 500 mg po TID for 2 weeks till 07/13/2020. Sent to manager of case management. -No guarantees given, risk for amputation explained Tamara Murillo MD [facility], [place], [facility] O: [phone] F: [phone] Subjective Date of service: 07/05/20 Principal diagnosis: Right foot osteomyelitis Interval history: Afebrile, white count improving now 13.6 Objective - Exam Narrative Exam: General appearance: Alert in NAD pleasant Eyes: anicteric sclerae, moist conjunctivae; no lid-lag HENT: Normocephalic, Atraumatic; normal external ears, nares open, oropharynx clear Neck: supple, tracheal midline, no JVD Lungs: CTA, with normal respiratory effort and no intercostal retractions CV: RRR no murmur Abdomen: Soft, non-tender; no masses or hepatosplenomegaly Extremities:+ Right foot, with dressings Skin: No rash. Psych: no agitated Neuro: alert and oriented x 3. Moving all extremities - Constitutional Vitals: Vital Signs Temp Pulse Resp BP Pulse Ox 98.6 F 91 H 18 127/81 100 07/05/20 11:18 07/05/20 11:18 07/05/20 11:18 07/05/20 11:18 07/05/20 11:18 Temperature -Last 24 Hours Temperature 98.6 F Temperature 98.4 F Temperature 98.7 F Temperature 99.1 F Temperature 99.2 F Temperature 98.1 F Temperature 98.3 F - Labs CBC & Chem 7: 07/05/20 06:54 07/05/20 06:54 Labs: Abnormal lab results 07/04/20 07/04/20 07/04/20 Range/Units 11:50 16:20 21:04 WBC (4.5-11.0) K/mm3 Hgb (11.8-15.2) gm/dl Hct (35.5-45.6) % MCV (84-94) fl MCH (28-32) pg Plt Count (140-440) K/mm3 [place] % (Auto) (0.0-7.3) % [place] # (Auto) (0.0-0.8) K/mm3 Seg Neutrophils # (1.8-7.7) K/mm3 Sodium (137-145) mmol/L Glucose (75-100) mg/dL POC Glucose 150 H 117 H 108 H (70-105) mg/dL Calcium (8.4-10.2) mg/dL Albumin (3.9-5) g/dL 07/05/20 07/05/20 07/05/20 Range/Units 06:54 06:54 07:27 WBC 13.6 H (4.5-11.0) K/mm3 Hgb 11.4 L (11.8-15.2) gm/dl Hct 34.7 L (35.5-45.6) % MCV 81 L (84-94) fl MCH 27 L (28-32) pg Plt Count 510 H (140-440) K/mm3 [place] % (Auto) 10.5 H (0.0-7.3) % [place] # (Auto) 1.4 H (0.0-0.8) K/mm3 Seg Neutrophils # 9.3 H (1.8-7.7) K/mm3 Sodium 136 L (137-145) mmol/L Glucose 114 H (75-100) mg/dL POC Glucose 133 H (70-105) mg/dL Calcium 8.2 L (8.4-10.2) mg/dL Albumin 2.7 L (3.9-5) g/dL 07/05/20 Range/Units 11:17 WBC (4.5-11.0) K/mm3 Hgb (11.8-15.2) gm/dl Hct (35.5-45.6) % MCV (84-94) fl MCH (28-32) pg Plt Count (140-440) K/mm3 [place] % (Auto) (0.0-7.3) % [place] # (Auto) (0.0-0.8) K/mm3 Seg Neutrophils # (1.8-7.7) K/mm3 Sodium (137-145) mmol/L Glucose (75-100) mg/dL POC Glucose 119 H (70-105) mg/dL Calcium (8.4-10.2) mg/dL Albumin (3.9-5) g/dL
--- NOTE | 2020-07-05 14:46 | Discharge Summary ---
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 Remove PICC line after last dose unless otherwise instructed. Line: Maintain IV access with weekly dressing changes and locks per protocol. Labs: Every Sunday CBC, AST, ALT, Creatinine. Please fax results to [phone] and call [phone] for critical lab results. Jenni Ness MD Infectious Diseases Nutritionist [facility] ([facility]) O: [phone] F: [phone] 07/05/20 07:54 Consult to PICC Line RN [CONS] Routine Reason For Exam: PICC line Type Line:: PICC Primary care physician: ELEVATOR BUILDER Hospitalization Condition: Serious Hospital course: 39-year-old male with a history of diabetes who states he had a callus on his right foot for approximately 2 to 3 weeks. He states that approximately 1 week ago he developed an abscess deep to the callus that caused him to become sick and prompted him to present to the hospital. Prior to that the patient denies having any history of neuropathy in his foot. He denies any history of claudication and states that he recently decided to take his health more seriously and began walking 2 to 3 miles daily. 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 06/26/2020 Infectious disease consult appreciated Continue IV antibiotics Surgery consult requested 06/27/2020 Patient on IV antibiotics 06/28/2020 Patient on IV antibiotics For incision and drainage tomorrow by Dr. Torrez 06/29/2020 Patient had incision and drainage of the right foot abscess which was extensive Surgery done by Dr. Torrez 06/30/2020 Patient had I&D done by Dr. Torrez Postop patient doing well 07/01/2020 Waiting for wound cultures and antibiotic sensitivity 07/02. Patient is status post I&D on 06/29. Patient remains on IV cefepime , Flagyl and vancomycin. ID is following. Operative cultures pending. Patient had abnormal Doppler of the lower extremities so vascular surgery was consulted. No acute indication for CTA runoff at this time per vascular surgery. Recommend study if wound not healing appropriately. Continue 70/30 insulin. Blood glucose stable at this time. He needs 6 weeks IV antibiotic therapy. Needs a PICC line 07/03. Remains on IV antibiotics. Blood pressure elevated today so started patient on amlodipine. ID still following. Patient will need IV antibiotics for 6 weeks. Awaiting final ID recommendations 07/04. On cefepime and Flagyl. WBC trended up to 18 today. Awaiting final ID recommendations. Per ID, if WBC continues to trend up, will reconsult surgery. Vitals stable this a.m. 07/05. On IV antibiotics. WBC down to 13. Needs IV antibiotics [cefepime and Flagyl] for 6 weeks -PICC line has been ordered. arts administrator or manager to set up outpatient antibiotics. He will follow-up with vascular surgeon in the office Disposition: [id number] TO HOME OR SELFCARE Final Discharge Diagnosis (Prints w/discharge instructions): Acute osteomyelitis Time spent for discharge: 50 mins Core Measure Documentation - Palliative Care Palliative Care/ Comfort Measures: Not Applicable - Core Measures Any of the following diagnoses?: none Exam - Physical Exam Narrative exam: VITAL SIGNS: Reviewed. GENERAL: Awake HEAD: No signs of head trauma. EYES: Pupils are equal. Extraocular motions intact. MOUTH: Oropharynx is normal. NECK: No adenopathy, no JVD. CHEST: Chest with diminished breath sounds bilaterally. No wheezes, rales, or rhonchi. CARDIAC: normal S1 and S2, without murmurs, gallops, or rubs. ABDOMEN: Soft, non tender and non distended. No rebound or guarding, and no masses palpated. Bowel Sounds normal. MUSCULOSKELETAL: Right lower extremity: Right foot dressing intact and clean NEUROLOGIC EXAM: Alert and oriented x3. No focal neurologic deficits SKIN: No obvious lesions - Constitutional Vitals: Temp Pulse Resp BP Pulse Ox 98.6 F 91 H 18 127/81 100 07/05/20 11:18 07/05/20 11:18 07/05/20 11:18 07/05/20 11:18 07/05/20 11:18 Plan Diet: low salt, diabetic Additional Instructions: Complete antibiotics as ordered. Follow up with PCP in 1week Follow up with: PRIMARY CARE, [Primary Care Provider] - 7 Days Prescriptions: amLODIPine 10 mg PO QDAY #30 tablet metroNIDAZOLE [Flagyl TAB] 500 mg PO Q8HR #27 tablet oxyCODONE /ACETAMINOPHEN [Percocet 5/325 mg] 1 tab PO Q6H PRN 3 Days #12 tablet PRN Reason: Pain, Moderate (4-6)
[2020-07-05 16:54] VITALS: BP 151/86
== END 2020-07-05 18:00 | disposition home or self-care (01) | DRG 854 ==
LOC: ED 15:13 → 3A 17:03 → 3B-SURG 18:15
PROVIDERS: ADMIT Internal Medicine; ATTEND Internal Medicine
PROC: 0JBQ0ZZ Excision of Right Foot Subcutaneous Tissue and Fascia, Open Approach (ICD-10-PCS; principal; 2020-06-29)
PROC: 0J9Q0ZZ Drainage of Right Foot Subcutaneous Tissue and Fascia, Open Approach (ICD-10-PCS; 2020-06-29)
DX: A41.9 Sepsis, unspecified organism (principal); M86.171 Other acute osteomyelitis, right ankle and foot; E44.1 Mild protein-calorie malnutrition; E87.1 Hypo-osmolality and hyponatremia; L03.115 Cellulitis of right lower limb; E11.69 Type 2 diabetes mellitus with other specified complication; F17.210 Nicotine dependence, cigarettes, uncomplicated; L97.512 Non-pressure chronic ulcer of other part of right foot with fat layer exposed; Z68.30 Body mass index [BMI] 30.0-30.9, adult; Z79.899 Other long term (current) drug therapy
CPT/HCPCS: 36415; 71045; 80048; 80053; 80202; 81001; 82140; 82805; 82962; 83036; 85007; 85025; 85610; 86140; 87040; 87075; 87086; 87116; 93005; 93925; 96365; G0378; A9575; J0360; J0692; J0696; J1815; J2250; J2270; J2704; J3010; J3370; J7030; J7040; J7120